=== PATIENT | male | born 1940 | race Caucasian/White ===

== ENCOUNTER 2019-08-20 16:37 | Outpatient (CLI) | payer MEDICARE, OTHER, SELFPAY ==
--- NOTE | ~2019-08-20 | US_ITS ---
EXAMINATION: US scrotum doppler DATE: 08/20/2019 17:09 INDICATION: Scrotal swallowing. TECHNIQUE: Testicular sonogram utilizing grayscale and Doppler COMPARISON: None. FINDINGS: The right testis measures 4.9 x 2.9 x 3.2 cm. The left testis measures 4.8 x 2.3 x 3.2 cm. Symmetric normal grayscale appearance to both testes. There is normal vascular flow to both testes. Both the le ft and right epididymis are thickened with heterogeneous increased echogenicity. 10 mm anechoic right epididymal cyst. There is no varicocele or hydrocele. There is diffuse scrotal edema. IMPRESSION: 1. Diffuse scrotal edema as well as edematous thickening of the left and right epididymides. Cannot exclude epididymitis although there is no definitive increased vascular flow to more specifically sug gest this. 2. Normal bilateral testes. Reviewed, dictated and finalized at location A. IMPRESSION: 1. Diffuse scrotal edema as well as edematous thickening of the left and right epididymides. Cannot exclude epididymitis although there is no definitive incr eased vascular flow to more specifically suggest this. 2. Normal bilateral testes.
[2019-08-20 17:36] LABS: Basophils Absolute Auto 0.1 K/mm3 (0.0-0.1); Basophils Percent Auto 0.4 % (0.2-1.2); Eosinophils Percent Auto 0.2 % (0-4.4); Hematocrit 34.5 % (42.0-52.0); Hemoglobin 11.1 g/dL (14.0-18.0); Immature Granulocyte Absolute 0.07 K/mm3 (0.00-0.031); Immature Granulocyte Percent A 0.5 % (0-0.5); Lymphocytes Absolute Auto 0.72 K/mm3 (0.9-3.2); Lymphocytes Percent Auto 5.6 % (18.3-44.2); Mean Corpuscular HGB Conc 32.2 g/dl (32-36); Mean Corpuscular Hemoglobin 28.8 pg (26-34); Mean Corpuscular Volume 89.6 fl (80-100); Mean Platelet Volume 7.4 fl (7.4-10.4); Monocytes Absolute Auto 1.2 K/mm3 (0.1-0.6); Neutrophils Absolute Auto 10.8 K/mm3 (1.3-6.7); Neutrophils Percent Auto 84.3 % (45.5-73.1); Platelet Count Result 259 k/mm3 (150-375); Red Blood Count 3.85 M/mm3 (4.6-6.20); Red Cell Distribution Width 14.1 % (11.5-14.5); White Blood Count 12.8 K/mm3 (4.5-10.0)
[2019-08-20 17:48] LABS: Blood Urea Nitrogen 12 mg/dL (9-20); Carbon Dioxide 28 mmol/L (22-30); Chloride 93 mmol/L (98-107); Estimated Glomerular Filt Rate > 60; Glucose 109 mg/dL (75-110); Potassium 4.2 mmol/L (3.4-5.0); Sodium 127 mmol/L (137-145)
== END 2019-08-20 16:38 | disposition home or self-care (01) ==
PROVIDERS: PCP Family Medicine; Visit Provider Family Medicine
DX: N50.89 Other specified disorders of the male genital organs (principal)
CPT/HCPCS: 36415; 76870; 80048; 85025; 93976

== ENCOUNTER 2019-08-27 10:44 | Outpatient (CLI) | payer MEDICARE, OTHER, SELFPAY ==
--- NOTE | ~2019-08-27 | CT_ITS ---
EXAMINATION: CT pelvis w con DATE: 08/27/2019 11:06 INDICATION: Cellulitis of the scrotum. TECHNIQUE: Computed tomography (CT) of the pelvis was performed with 100 mL Omnipaque 350 intravenous contrast. Automated exposure control and iterative reconstruction technique were employed. The dose- length product was 625.00 mGy-cm. COMPARISON: CT abdomen and pelvis 12/18/2017 FINDINGS: There are no dilated loops of bowel. There is trace pelvic ascites. There are no pathologic ally enlarged lymph nodes. The right testis is in the distal inguinal canal. In the right scrotum and perineum, there is a 4.0 x 1.0 x 1.5 cm abscess. No soft tissue gas. There is mild lumbar spondylosi s. IMPRESSION: 1. 4.0 x 1.0 x 1.5 cm abscess involving the right scrotum and perineum. Reviewed, dictated and finalized at location A.
== END 2019-08-27 10:45 | disposition home or self-care (01) ==
PROVIDERS: PCP Family Medicine; Visit Provider Urology
DX: N49.2 Inflammatory disorders of scrotum (principal)
CPT/HCPCS: 72193; Q9967

== ENCOUNTER 2023-01-16 22:40 | Inpatient (IN) | payer MEDICARE, OTHER, SELFPAY ==
--- NOTE | ~2023-01-16 | CT_ITS ---
EXAMINATION: CTA chest PE protocol DATE: 01/17/2023 02:54 INDICATION: Syncope. TECHNIQUE: Computed tomography angiography (CTA) of the chest was performed with 100 mL Omnipaque-350 intravenous contrast timed to evaluate the pulmonary arteries. Coronal maximum intensity projection 3D-reconstructions were created by the technologist. Automated exposure control and iterative reconst ruction technique were employed. The dose-length product was 467.19 mGy-cm. COMPARISON: Chest CT 01/16/2023 FINDINGS: There is marked elevation of left hemidiaphragm. There is atelectasis bilaterally, worst in lingula. Calcified left lung nodules and calcified left hilar and mediastinal lymph nodes are consis tent with old granulomatous disease. There is a trace right pleural effusion. The heart size is jovan l. There are coronary artery calcifications. No pericardial effusion. There is no pulmonary embolus. There is kyphosis and mild spondylosis of thoracic spine. There is severe cervical spondylosis. There is a fracture of right 11th rib. IMPRESSION: 1. No pulmonary embolus. 2. Marked elevation of left hemidiaphragm. 3. Fracture of right 11th rib. Reviewed, dictated and finalized at location E.
--- NOTE | ~2023-01-16 | CT_ITS ---
EXAMINATION: CT diagnostic chest wo con DATE: 01/17/2023 00:02 INDICATION: right posterior rib pain s/p fall TECHNIQUE: Computed tomography (CT) of the chest was performed with 100 mL Omnipaque-350 intravenous contrast. Automated exposure control and iterative reconstruction technique were employed. The dose-l ength product was 353.23 mGy-cm. COMPARISON: X-ray chest, same date; CT chest 12/18/2017. FINDINGS: CHEST: Thoracic aorta: No significant dilation or calcification. Lung parenchyma and airways: Severe chronic left hemidiaphragm elevation. Bibasilar scar/atelectasis. Thoracic inlet, axillae and chest wall: Bilateral thyroid nodules, history of prior biopsy. No axilla ry lymphadenopathy. Mediastinum: Granulomatous calcifications. The mediastinum is shifted to the right. Heart and pericardium: The heart is shifted to the right. Normal heart size. No pericardial effusion. Coronary artery calcifications: Moderate. Pleura: No effusion or mass. Upper abdomen: Subcentimeter right adrenal hypodensity, likely adenoma. Gaseous distention of the sto mach. Cholelithiasis. Thoracic bones: Mildly displaced fracture of the posterior 11th rib. Nondisplaced fractures of the po sterior ninth and 10th ribs.. IMPRESSION: Mildly displaced and nondisplaced fractures of the ninth through 11th right posterior ribs. . Reviewed, dictated and finalized at location K. IMPRESSION: Mildly displaced and nondisplaced fractures of the ninth through 11th right pos terior ribs. .
--- NOTE | ~2023-01-16 | CT_ITS ---
EXAMINATION: CT cervical spine wo con DATE: 01/17/2023 00:02 INDICATION: sycnope, head injury TECHNIQUE: Computed tomography (CT) of the cervical spine was performed without intravenous contrast. Automated exposure control and iterative reconstruction technique were employed. The dose-length pro duct was 596.40 mGy-cm. COMPARISON: None. FINDINGS: Vertebral Body Alignment: Intact. Craniocervical and atlantoaxial alignment: Moderate degenerative change. Alignment intact. Osseous structures/fracture: No evidence of a lytic or blastic process in the visualized spine. No e vidence of acute fracture. Cervical soft tissues: The paraspinal soft tissues planes are maintained. Bilateral thyroid nodules, history of prior biopsy. Degenerative changes: Multilevel mild degenerative disc disease and facet arthropathy. Multilevel sev ere bilateral neural foraminal narrowing. IMPRESSION: No acute fracture or traumatic malalignment in the cervical spine. Reviewed, dictated and finalized at location K.
--- NOTE | ~2023-01-16 | XR_ITS ---
EXAM: XR elbow LT min 3V DATE: 01/16/2023 23:48 HISTORY: fall, left elbow pain . COMPARISON: None available. FINDINGS: Normal mineralization. No fracture or dislocation. No lytic or blastic lesion. Olecranon e nthesopathy and lateral epicondylar. Posterior soft tissue swelling. No erosion or periosteal change. IMPRESSION: No acute osseous finding in the left elbow. Reviewed, dictated and finalized at location K.
--- NOTE | ~2023-01-16 | US_ITS ---
EXAMINATION: US carotid duplex BI DATE: 01/19/2023 10:10 INDICATION: Vertigo. Syncope. Carotid atherosclerosis. TECHNIQUE: Grayscale, color Doppler, and pulsed Doppler images of the cervical carotid arteries were obtained. The degree of vessel stenosis is placed in one of the following categories: normal, <50%, 5 0-69%, >=70% but less than near-occlusion, near-occlusion, or total occlusion. Note that percent sten osis relative to normal distal artery lumen diameter is indirectly measured from velocity measurement s as described by Beltran, et al. Radiology 2003; 229:340-346. COMPARISON: None. FINDINGS: RIGHT: The right common carotid artery (CCA) peak systolic velocity (PSV) is 116 cm/s. The right internal ca rotid artery (ICA) PSV is 104 cm/s. The right ICA end-diastolic velocity (EDV) is 27 cm/s. The right ICA/CCA PSV ratio is 1.1. Grayscale and color Doppler images yield an estimate of <50% diameter reduc tion from plaque in the ICA. The external carotid artery (ECA) PSV is 113 cm/s. There is antegrade fl ow in the right vertebral artery. LEFT: The left CCA PSV is 136 cm/s. The left ICA PSV is 111 cm/s. The left ICA EDV is 39 cm/s. The left ICA /CCA PSV ratio is 0.8. Grayscale and color Doppler images yield an estimate of <50% diameter reductio n from plaque in the ICA. The ECA PSV is 123 cm/s. There is antegrade flow in the left vertebral kobi ry. IMPRESSION: 1. <50% stenosis in the right internal carotid artery. 2. <50% stenosis in the left internal carotid artery. Reviewed, dictated and finalized at location A.
--- NOTE | ~2023-01-16 | CT_ITS ---
EXAMINATION: CT brain wo con DATE: 01/16/2023 23:54 INDICATION: syncope, head injury . TECHNIQUE: Computed tomography (CT) of the head was performed without intravenous contrast. The mA wa s adjusted according to patient size. Iterative reconstruction technique was employed. The dose-lengt h product was 681.00 mGy-cm. COMPARISON: None. FINDINGS: No acute intracranial hemorrhage or extra-axial fluid collection. No hydrocephalus, mass, or herniation. No acute ischemic infarct. Unremarkable dural venous sinus attenuation. No acute osseous abnormality. The aerated spaces are clear. Mild atrophy and chronic white matter change. Atherosclerotic intracranial calcification. Bilateral l ens replacements. Left basal ganglia calcification. Bilateral basal ganglia lacunar infarcts. IMPRESSION: No acute intracranial process. Reviewed, dictated and finalized at location K.
--- NOTE | ~2023-01-16 | XR_ITS ---
EXAMINATION: XR chest 1V portable Exam Date/Time: 01/16/2023 23:35 CDT HISTORY: syncope FALL RIGHT RIB PAIN Comparison: 11/07/2016. RESULT: Lines, tubes, and devices: None. Lungs and pleura: Volume loss in the left hemithorax. Bibasilar atelectasis. Marked elevation of the left hemidiaphragm Cardiomediastinal silhouette: Mediastinum is shifted towards the right. Other: No acute osseous finding. Gastric distention. IMPRESSION: No acute cardiopulmonary process. Marked chronic left hemidiaphragm elevation with volume loss in the left hemithorax and rightward mediastinal shift. Gaseous distention of the stomach. Reviewed, dictated and finalized at location K. IMPRESSION: No acute cardiopulmonary process. Marked chronic left hemidiaphragm elevation w ith volume loss in the left hemithorax and rightward mediastinal shift. Gaseous distention of the stomach.
[2023-01-16 22:44] VITALS: BP 163/90; PULSE 83; RESP 16; TEMP 36.2; O2SAT 99
--- NOTE | 2023-01-16 23:24 | ECG_ITS ---
Measurements Intervals [place] Rate: 76 P: 17 UT: 170 QRS: 7 QRSD: 146 T: 129 QT: 384 QTc: 433 Interpretive Statements SINUS RHYTHM LEFT BUNDLE BRANCH BLOCK BASELINE ARTIFACT- I, II, AVR ABNORMAL ECG NO PREVIOUS ECG AVAILABLE FOR COMPARISON Electronically Signed On 01-17-2023 6:23:45 CDT by Vishal Muñoz D.O.
--- NOTE | 2023-01-16 23:27 | ED.DIZZY ---
HPI - Dizziness General Chief Complaint: Syncope <Jonn Avery PA-C - Last Filed: 01/17/23 02:41> Stated Complaint: Fell today, syncope, left elbow pain, back pain <CHANTAL Garay Last Filed: 01/17/23 02:41> Time Seen by Provider: 01/16/23 22:51 <CHANTAL Garay Last Filed: 01/17/23 02:41> Source: patient <CHANTAL Garay Last Filed: 01/17/23 02:41> Mode of arrival: ambulatory <CHANTAL Garay Last Filed: 01/17/23 02:41> Limitations: no limitations <CHANTAL Garay Last Filed: 01/17/23 02:41> History of Present Illness HPI Narrative: This is an 82-year-old male who presented to the emergency department for chief complaint of a syncopal event. Reports this is the fourth syncopal episode in the past 3 weeks. Patient states that he was seen by primary care this week and they stopped his doxazosin. Reports that tonight he bent down to grab something from off of the floor and stood up, felt a head edwards and syncopized. Reports the next thing he remembers is his calling him and pulling himself up to the counter. He reports a cracked tooth, left elbow pain and right posterior rib pain. Denies any preceding chest pain, palpitations or shortness of breath. Denies numbness, weakness, vision change. Denies back pain, neck pain, headache, leg swelling, cough. States he was able to ambulate after the fall. He reports that the previous syncopal events that seem to happen after standing up too quickly as well. He is not on blood thinners. <CHANTAL Garay Last Filed: 01/17/23 02:41> Related Data Home Medications: Home Medications Medication Instructions Recorded Confirmed pantoprazole 40 mg tablet,delayed 40 mg PO QAM 09/21/19 01/17/23 release (Protonix) adalimumab 40 mg/0.8 mL See Rx Instructions subcut .COMPLEX 07/14/20 01/17/23 subcutaneous pen kit (Humira Pen) carboxymethylcellulose sodium 0.5 1 drp EACH EYE 4-6XD 09/27/20 01/17/23 % eye drops in a dropperette (Refresh Plus) clindamycin phosphate 1 % topical 1 applic topical DAILY 09/27/20 01/17/23 gel, once daily (Clindagel) clotrimazole-betamethasone 1 1 applic topical BID 09/27/20 01/17/23 %-0.05 % topical cream acetaminophen 325 mg capsule 650 mg PO BID 10/09/21 01/17/23 (Tylenol) doxycycline hyclate 100 mg capsule 100 mg PO DAILY 09/07/22 01/17/23 [facility] 1 tablet PO QAM 01/17/23 01/17/23 <Jonn Avery PA-C - Last Filed: 01/17/23 02:41> Allergies/Adverse Reactions: Allergies Allergy/AdvReac Type Severity Reaction Status Date / Time No Known Allergies Allergy Verified 01/07/23 13:19 <Jonn Avery PA-C - Last Filed: 01/17/23 02:41> Review of Systems Review of Systems: All systems as dictated in HPI <Jonn Avery PA-C - Last Filed: 01/17/23 02:41> [facility] Past Medical History Medical History: Medical History (Updated 01/18/23 @ 12:34 by Renaldo Barnard MD) BMI 25.0-25.9,adult BMI 26.0-26.9,adult BMI 30.0-30.9,adult Enlarged prostate without lower urinary tract symptoms (luts) Essential (primary) hypertension Gout, unspecified Iron deficiency anemia LBBB (left bundle branch block) Low vitamin D level Memory loss Mixed hyperlipidemia Scrotal infection Scrotal swelling Unsteady gait <Jonn Avery PA-C - Last Filed: 01/17/23 02:41> Family History Family History: Family History Father Hypertension Gout Mother Hypertension Family history of malignant neoplasm of breast in first degree relative Breast cancer Cerebrovascular accident Sibling Brain cancer Liver cancer Sibling No problems noted. Other Family history of hearing loss <Jonn Avery PA-C - Last Filed: 01/17/23 02:41> Social History Social History: Social History Smoking
[2023-01-16 23:32] VITALS: BP 140/80; PULSE 75
[2023-01-16 23:34] VITALS: BP 144/85; PULSE 87
[2023-01-16 23:36] VITALS: BP 150/85; PULSE 80
[2023-01-16 23:52] LABS: Basophils Absolute Auto 0.1 K/mm3 (0.0-0.1); Basophils Percent Auto 0.6 % (0.2-1.2); Eosinophils Absolute Auto 0.2 K/mm3 (0-0.3); Eosinophils Percent Auto 2.4 % (0-4.4); Hematocrit 40.6 % (42.0-52.0); Hemoglobin 12.9 g/dL (14.0-18.0); Immature Granulocyte Absolute 0.05 K/mm3 (0.00-0.031); Immature Granulocyte Percent A 0.6 % (0-0.5); Lymphocytes Absolute Auto 1.35 K/mm3 (0.9-3.2); Lymphocytes Percent Auto 17.4 % (18.3-44.2); Mean Corpuscular HGB Conc 31.8 g/dl (32-36); Mean Corpuscular Hemoglobin 31.2 pg (26-34); Mean Corpuscular Volume 98.1 fl (80-100); Mean Platelet Volume 8.1 fl (7.4-10.4); Monocytes Percent Auto 12.3 % (2.6-8.5); Neutrophils Absolute Auto 5.2 K/mm3 (1.3-6.7); Neutrophils Percent Auto 66.7 % (45.5-73.1); Platelet Count Result 232 k/mm3 (150-375); Red Blood Count 4.14 M/mm3 (4.6-6.20); Red Cell Distribution Width 13.9 % (11.5-14.5); White Blood Count 7.8 K/mm3 (4.5-10.0)
[2023-01-16 23:58] LABS: Alanine Aminotransferase 24 U/L (6-50); Albumin Level 4.5 g/dL (3.5-5.1); Alkaline Phosphatase 68 U/L (38-126); Anion Gap 6 mmol/L (8-16); Aspartate Amino Transferase 31 U/L (17-59); Bilirubin,Total 0.6 mg/dL (0.2-1.3); Blood Urea Nitrogen 16 mg/dL (9-20); Calcium 9.6 mg/dL (8.4-10.2); Carbon Dioxide 33 mmol/L (22-30); Chloride 92 mmol/L (98-107); Estimated CRCL calculation 56 ml/min; Estimated Glomerular Filt Rate > 60; Glucose 87 mg/dL (65-110); Magnesium 2.1 mg/dL (1.6-2.3); Potassium 4.5 mmol/L (3.4-5.0); Sodium 131 mmol/L (137-145)
[2023-01-17] VITALS (12 sets, daily range): BP systolic 125–158; BP diastolic 73–88; PULSE 72–94; RESP 13–20; TEMP 36.2–36.7; O2SAT 95–97; BMI 24.3
[2023-01-17 00:10] LABS: NT Pro B Type Natriuretic Pept 116 pg/mL (19.9-100); Troponin I < 0.012 ng/mL (0.000-0.034)
[2023-01-17 00:38] LABS: Appearance Urine Clear (Clear); Bilirubin Urine Negative (Negative); Blood Urine Negative (Negative); Color Urine Yellow (Yellow); Glucose Urine UA Negative (Negative); Ketones Urine Negative (Negative); Leukocyte Esterase Ur Negative LEU/UL (Negative); Nitrate Urine Negative (Negative); Protein Urine Negative (Negative); Specific Grav Ur 1.017 (1.001-1.035)
[2023-01-17 00:46] LABS: Add Urine Microscopic? NO
[2023-01-17 01:45] LABS: D Dimer 1.05 ug/mL (<0.48)
[2023-01-17] MEDS: HYDROcodone/acetaminophen (*CRX) 5-325 MG TABLET 1 TAB PO (02:52)
--- NOTE | 2023-01-17 03:22 | PM.IMHP ---
H&P: HPI History of Present Illness Date/Time: 01/17/23 03:22 Chief Complaint: Syncopal episodes Narrative: This is an 82-year-old male who presented to the emergency department for chief complaint of a syncopal event.? Reports this is the fourth syncopal episode in the past 3 weeks.? Patient states that he was seen by primary care this week and they stopped his doxazosin.? Reports that tonight he bent down to grab something from off of the floor and stood up, felt a head edwards and syncopized.? Reports the next thing he remembers is his calling him and pulling himself up to the counter.? He reports a cracked tooth, left elbow pain and right posterior rib pain.? Denies any preceding chest pain, palpitations or shortness of breath.? Denies numbness, weakness, vision change.? Denies back pain, neck pain, headache, leg swelling, cough. Patient was found to have multiple right posterior rib fracture involving 9-11 ribs in the ER, pain has been controlled, under admission requested to for ever which because of multiple syncopal episodes. Review of Systems Review of Systems: All systems reviewed & are unremarkable except as noted in HPI and below PMFSH Past Medical History Medical History BMI 25.0-25.9,adult BMI 26.0-26.9,adult BMI 30.0-30.9,adult Enlarged prostate without lower urinary tract symptoms (luts) Essential (primary) hypertension Gout, unspecified Iron deficiency anemia Low vitamin D level Memory loss Mixed hyperlipidemia Scrotal infection Scrotal swelling Unsteady gait Family History Family History Father Hypertension Gout Mother Hypertension Family history of malignant neoplasm of breast in first degree relative Breast cancer Cerebrovascular accident Sibling Brain cancer Liver cancer Sibling No problems noted. 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 Gender identity (if verbalized by the patient): Male Meds Home Medications and Allergies Home Medications Medication Instructions Recorded Confirmed Type pantoprazole 40 mg tablet,delayed 40 mg PO QAM 09/21/19 01/07/23 History release (Protonix) adalimumab 40 mg/0.8 mL See Rx Instructions subcut .COMPLEX 07/14/20 01/07/23 History subcutaneous pen kit (Humira Pen) carboxymethylcellulose sodium 0.5 1 drp EACH EYE 4-6XD PRN 09/27/20 01/07/23 History % eye drops in a dropperette (Refresh Plus) clindamycin phosphate 1 % topical 1 applic topical DAILY 09/27/20 01/07/23 History gel, once daily (Clindagel) clotrimazole-betamethasone 1 1 applic topical BID 09/27/20 01/07/23 History %-0.05 % topical cream aspirin 81 mg tablet,delayed 81 mg PO DAILY #90 tabs 01/31/21 01/07/23 Rx release cholecalciferol (vitamin D3) 25 25 mcg PO DAILY #90 caps 04/18/21 01/07/23 Rx mcg (1,000 unit) capsule acetaminophen 325 mg capsule 650 mg PO Q6H PRN 10/09/21 01/07/23 History (Tylenol) yfibemjz-ptu-lydap acid 0.4 1 tablet PO DAILY #90 tabs 01/22/22 01/07/23 Rx mg-lycopene 300 mcg-lutein 250 mcg tablet (CertaVite Senior) memantine 10 mg tablet 10 mg PO BID #180 tabs 04/23/22 01/07/23 Rx furosemi
--- NOTE | 2023-01-17 03:26 | PC.NURSE ---
Attempted to call report on pt. RN unavailable and will call back in 5 min. 15 min passed and this RN attempted again. Told by staff answering phone that RN has no questions and is ok to send pt.
--- NOTE | 2023-01-17 03:54 | ADMGEN ---
This patient, Nick Echeverria, was admitted to [facility] Room 321-02. Patient/family oriented to hospital policies and general routines including ID bracelet, bed and alarms, visiting hours, pain management, procedures, bathroom and other care routines, personal items, smoking policy, room service/diet, and visiting hours. Information on how to activate the Rapid Response Team has been discussed. Patient/Family are encouraged to report perceived risks to care and to ask questions if they do not understand what they are told or what they should do.
[2023-01-17] MEDS: SODIUM CHLORIDE 0.9% IV 1,000 ML 75 ML IV CONT (04:10)
[2023-01-17 06:47] LABS: Basophils Percent Auto 0.7 % (0.2-1.2); Eosinophils Absolute Auto 0.1 K/mm3 (0-0.3); Eosinophils Percent Auto 1.8 % (0-4.4); Hematocrit 38.1 % (42.0-52.0); Immature Granulocyte Absolute 0.03 K/mm3 (0.00-0.031); Immature Granulocyte Percent A 0.5 % (0-0.5); Lymphocytes Absolute Auto 0.84 K/mm3 (0.9-3.2); Mean Corpuscular HGB Conc 31.5 g/dl (32-36); Mean Corpuscular Hemoglobin 30.8 pg (26-34); Mean Corpuscular Volume 97.9 fl (80-100); Monocytes Absolute Auto 0.8 K/mm3 (0.1-0.6); Monocytes Percent Auto 13.5 % (2.6-8.5); Neutrophils Absolute Auto 4.2 K/mm3 (1.3-6.7); Neutrophils Percent Auto 69.5 % (45.5-73.1); Platelet Count Result 192 k/mm3 (150-375); Red Blood Count 3.89 M/mm3 (4.6-6.20); Red Cell Distribution Width 13.9 % (11.5-14.5)
[2023-01-17 06:56] LABS: Anion Gap 3 mmol/L (8-16); Blood Urea Nitrogen 13 mg/dL (9-20); Calcium 9.4 mg/dL (8.4-10.2); Carbon Dioxide 34 mmol/L (22-30); Chloride 95 mmol/L (98-107); Estimated CRCL calculation 66 ml/min; Estimated Glomerular Filt Rate > 60; Glucose 100 mg/dL (65-110); Potassium 4.3 mmol/L (3.4-5.0); Sodium 132 mmol/L (137-145)
[2023-01-17] MEDS: LOSARTAN POTASSIUM 50 MG TABLET PO (08:56)
[2023-01-17] MEDS: FUROSEMIDE 20 MG TABLET PO (08:56)
[2023-01-17] MEDS: ACETAMINOPHEN 325 MG TABLET 650 MG PO (08:56)
[2023-01-17] MEDS: CHOLECALCIFEROL 1,000 UNITS TABLET 1000 UNITS PO (08:57)
[2023-01-17] MEDS: FERROUS SULFATE 325 MG TABLET DR BY MOUTH ×2 (08:57→16:25)
[2023-01-17] MEDS: MULTIVITAMINS /C LUTEIN (CENTRUM SILVER) TABLET *BKC 1 TAB PO (08:57)
[2023-01-17] MEDS: ACIDOPHILUS/BULGARICUS CHEWABLE TABLET 1 TABLET PO (08:57)
[2023-01-17] MEDS: PANTOPRAZOLE 40 MG TABLET PO (08:57)
[2023-01-17] MEDS: allopurinoL 100 MG TABLET PO ×2 (08:57→16:25)
[2023-01-17] MEDS: MEMANTINE 10 MG TABLET PO ×2 (08:57→16:25)
[2023-01-17] MEDS: BETAMETHASONE/CLOTRIMAZOLE CR 15 GM TUBE 1 APPLIC TOPICAL ×2 (08:58→20:18)
[2023-01-17] MEDS: DUTASTERIDE 0.5 MG CAPSULE PO (08:58)
[2023-01-17] MEDS: DOXYCYCLINE HYCLATE 100 MG TABLET PO (10:54)
[2023-01-17] MEDS: CLINDAMYCIN PHOS 1% 30 GM GEL 1 APPLIC TOPICAL (10:56)
--- NOTE | 2023-01-17 16:02 | PM.IMPN ---
Progress Note: A&P Assessment and Plan (1) Multiple rib fractures: Code(s): S22.49XA - Multiple fractures of ribs, unspecified side, initial encounter for closed fracture Status: Acute (2) Syncope and collapse: Code(s): R55 - Syncope and collapse Status: Acute (3) Anemia: Code(s): D64.9 - Anemia, unspecified Status: Acute Plan 82M w/ PMH HTN, gout, iron deficiency anemia, vit d deficiency, memory loss, HLD, presents with syncope x4 over the past 3 weeks. He visited his primary recently and doxazosin was stopped. However, he was at home and had another syncopal episode, he woke up on the floor. Admitted for rib fractures on 01/17/23 1) syncope. none since admission - no events on tele. story supports neurocardiogenic/orthostatic. stopping losartan and lasix now, obtaining orthostats daily - ordered abdominal binder - in light of the LBBB which is new to our records, will consult cardiology for further recs. educated on arising slowly from supine and seated positioning 2) cracked tooth - no pain, he has dentist appt soon 3) R fracture R 9-11 - pain control regimen prn. pt does not want scheduled drugs - cont tele and cont pulse ox. ordered IS - PT/OT consulted. pt and want to discuss if the pt is amenable to acute rehab stay. - elevated left hemidiaphragm. pt and report this is old from many years back, f/u as outpatient FEN: saline lock IV, cardiac diet GI prophylaxis: not indicated DVT prophylaxis: HSC Lines: pIV Code Status: Full Code Dispo: stable. PT OT consulted, cardiology consult More than 35 minutes spent on chart review, patient interaction and assessment and plan. Subjective Date/time seen: 01/17/23 16:02 Interval history: NAOE. pt reports pain when coughing. is present. he denies sob or chest pain at rest. Review of Systems Review of Systems: All systems reviewed & are unremarkable except as noted in HPI and below Exam Const: General: comfortable Neck: Neck: supple Resp: Effort & Inspection: normal respiratory effort (weak inspiratory effort 2/2 pain) Auscultation: clear to auscultation bilaterally Cardio: Rate: regular rate Rhythm: regular rhythm Heart sounds: no murmurs GI: GI Palp: Yes Soft to palpation Extrem: General: no edema Objective Data Vital Signs Vital Signs: Vital Signs - 24 hr 01/16/23 22:44 01/16/23 23:31 01/16/23 23:32 Temperature 97.2 F L Pulse Rate 83 75 Respiratory Rate 16 Blood Pressure 163/90 H 140/80 Pulse Oximetry 99 Oxygen Delivery Room Air Room Air 01/16/23 23:34 01/16/23 23:36 01/17/23 03:14 Temperature Pulse Rate 87 80 81 Respiratory Rate 18 Blood Pressure 144/85 H 150/85 H 125/87 Pulse Oximetry 97 Oxygen Delivery 01/17/23 01:15 01/17/23 01:45 01/17/23 03:16 Temperature Pulse Rate 81 82 91 Respiratory Rate 13 13 19 Blood Pressure 141/74 H 137/76 158/87 H Pulse Oximetry 95 96 95 Oxygen Delivery 01/17/23 03:30 01/17/23 04:00 01/17/23 08:50 Temperature 97.2 F L Pulse Rate 89 94 79 Respiratory Rate 16 Blood Pressure 141/86 H Pulse Oximetry 96 Oxygen Delivery 01/17/23 08:50 01/17/23 12:00 01/17/23 14:00 Temperature 98.0 F Pulse Rate 83 83 Respiratory Rate 16 Blood Pressure 142/73 H Pulse Oximetry 96 97 Oxygen Delivery Room Air Intake/Output Intake/Output: Intake & Output 01/14/23 01/15/23 01/16/23 01/17/23 23:59 23:59 23:59 23:59 Intake Total 720 Output Total 200 Balance 520 Meds/Results Medications: Active Medications Generic Name Dose Route Start Last Admin Trade Name Freq PRN Reason Stop Dose Admin Acetaminophen 650 mg 01/17/23 03:17 Acetaminophen 325 Mg Tablet PO Q4H PRN Mild Pain (1-3) or Fever Hydrocodone Bitart/Acetaminophen 1 tab 01/17/23 02:02 01/17/23 02:52 Hydrocodone/Acetaminophen (*Crx) 5-325 Mg Tablet PO 1 tab Q4H PRN Administration Pain Rated 4-6
--- NOTE | 2023-01-17 22:00 | PC.NURSE ---
This magazine writer brought in patients scheduled Heparin injection. Pt refusing to take Heparin at this time. Pt educated on why medication is ordered and potential consequences of not taking medication. Medication marked off in MAY.
[2023-01-18] VITALS (11 sets, daily range): BP systolic 135–168; BP diastolic 69–84; PULSE 75–92; RESP 16–20; TEMP 36.1–37.2; O2SAT 92–96
--- NOTE | 2023-01-18 | ECHO_ITS ---
Patient Info Name: Nick Echeverria Age: 82 years : 1940 Gender: Male Ht: 71 in Wt: 173 lbs BSA: 1.99 m2 HR: 82 bpm BP: 139 / 69 mmHg Heart Rhythm: Left Bundle Branch Block, Sinus Rhythm Technical Quality: Poor Exam Date: 01/18/2023 2:17 PM Exam Location: Echo Lab Patient Status: Inpatient Admit Date: 01/18/2023 Staff Ordering Physician: Renaldo Barnard MD Trapeze Performer: Ann Wright RDCS Attending Provider: Deirdre Merritt MD Referring Physician: Akil VELASCO; Exam Type: CA echo dop color flow w con Study Info Indications R55 - Syncope and collapse I44.7 - Left bundle-branch block, unspecified Complete two-dimensional, color flow and Doppler transthoracic echocardiogram is performed with contrast to opacify the left ventricle and to improve the deliniation of the left ventricle endocardial borders. Contrast/Agitated Saline Contrast/Ag. Saline: Definity Amount: 2.00 ml Administered By: Ann Wright RDCS Existing IV Access: Yes IV Access Condition: patent with no signs of infiltration Summary 1. Left ventricular chamber dimension is normal. 2. Left ventricular systolic function is normal, estimated at 65-70%. 3. There is mildly increased left ventricular wall thickness. 4. The left ventricular diastolic function is grade I diastolic dysfunction. 5. Left atrial chamber dimension is mildly enlarged. 6. There is mild aortic valve calcification. 7. There is moderate aortic valve sclerosis. 8. There is mild tricuspid valve regurgitation. 9. Mild pulmonary hypertension, estimated pulmonary arterial systolic pressure is 37 mmHg. 10. There is mild pulmonic regurgitation. Left Ventricle Left ventricular chamber dimension is normal. Left ventricular systolic function is normal, estimated at 65-70%. There is mildly increased left ventricular wall thickness. The left ventricular diastolic function is grade I diastolic dysfunction. Right Ventricle Right ventricular chamber dimension is normal. Right ventricular systolic function is normal. Left Atria Left atrial chamber dimension is mildly enlarged. Right Atria Right atrial chamber dimension is normal. Atrial Septum Intact interatrial septum visualized by color flow imaging. Aortic Valve The aortic valve is trileaflet. There is moderate aortic valve sclerosis. There is no aortic valve stenosis. There is trace aortic valve regurgitation. There is mild aortic valve calcification. Pulmonic Valve The pulmonic valve is normal. There is no pulmonic valve stenosis. There is mild pulmonic regurgitation. Mitral Valve The mitral valve has normal leaflets. There is no mitral valve stenosis. There is trace mitral valve regurgitation. Tricuspid Valve The tricuspid valve leaflets are normal. There is no significant tricuspid valve stenosis. There is mild tricuspid valve regurgitation. Mild pulmonary hypertension, estimated pulmonary arterial systolic pressure is 37 mmHg. Pericardium/Pleural The pericardium appears normal. There is no pericardial effusion. Inferior Vena Cava Normal inferior vena cava with >50% collapse upon inspiration consistent with normal right atrial pressure, 10 mmHg. Aorta The aortic root size at the sinus of Valsalva is normal. Left Ventricular Outflow Tract Name Value Normal LVOT 2D
[2023-01-18] MEDS: ACETAMINOPHEN 325 MG TABLET 650 MG PO (05:49)
[2023-01-18 07:22] LABS: Hemoglobin 12.4 g/dL (14.0-18.0); Mean Corpuscular HGB Conc 31.8 g/dl (32-36); Mean Corpuscular Hemoglobin 31.2 pg (26-34); Mean Platelet Volume 8.1 fl (7.4-10.4); Platelet Count Result 189 k/mm3 (150-375); Red Blood Count 3.98 M/mm3 (4.6-6.20); Red Cell Distribution Width 13.7 % (11.5-14.5); White Blood Count 5.9 K/mm3 (4.5-10.0)
[2023-01-18 07:36] LABS: Anion Gap 4 mmol/L (8-16); Blood Urea Nitrogen 11 mg/dL (9-20); Calcium 9.3 mg/dL (8.4-10.2); Carbon Dioxide 33 mmol/L (22-30); Chloride 94 mmol/L (98-107); Estimated CRCL calculation 75 ml/min; Estimated Glomerular Filt Rate > 60; Glucose 104 mg/dL (65-110); Magnesium 1.8 mg/dL (1.6-2.3); Potassium 4.1 mmol/L (3.4-5.0); Sodium 131 mmol/L (137-145)
[2023-01-18] MEDS: ACIDOPHILUS/BULGARICUS CHEWABLE TABLET 1 TABLET PO (09:17)
[2023-01-18] MEDS: CHOLECALCIFEROL 1,000 UNITS TABLET 1000 UNITS PO (09:17)
[2023-01-18] MEDS: MEMANTINE 10 MG TABLET PO ×2 (09:17→16:15)
[2023-01-18] MEDS: PANTOPRAZOLE 40 MG TABLET PO (09:17)
[2023-01-18] MEDS: allopurinoL 100 MG TABLET PO ×2 (09:17→16:15)
[2023-01-18] MEDS: FERROUS SULFATE 325 MG TABLET DR BY MOUTH ×2 (09:17→16:16)
[2023-01-18] MEDS: MULTIVITAMINS /C LUTEIN (CENTRUM SILVER) TABLET *BKC 1 TAB PO (09:17)
[2023-01-18] MEDS: BETAMETHASONE/CLOTRIMAZOLE CR 15 GM TUBE 1 APPLIC TOPICAL ×2 (09:18→22:39)
[2023-01-18] MEDS: HEPARIN SODIUM 5,000 UNITS/ML VIAL 5000 UNITS SUB-Q ×2 (09:19→20:47)
[2023-01-18] MEDS: CLINDAMYCIN PHOS 1% 30 GM GEL 1 APPLIC TOPICAL (09:19)
[2023-01-18] MEDS: DOXYCYCLINE HYCLATE 100 MG TABLET PO (10:46)
--- NOTE | 2023-01-18 12:28 | PM.CNCAR ---
Assessment and Plan Assessment and plan (1) Syncope and collapse: Code(s): R55 - Syncope and collapse Status: Acute Assessment and Plan: Syncope certainly sounds orthostatic in etiology. Each occasion occurred upon standing up or bending over and then standing back up. Does not describe palpitations. For now will continue telemetry monitoring. Orthostatic blood pressures have been taken but will continue to do them Q shift. His doxazosin has been discontinue. Will discontinue his Avodart also because orthostasis can occur in 5-9% of patients who are on Avodart. Will check a TSH and free T4 level. He does have dementia which can result in autonomic dysfunction. Will check a 2D echocardiogram Doppler specially given left bundle-branch block. Will also check carotid ultrasound. If need be, add midodrine (2) LBBB (left bundle branch block): Code(s): I44.7 - Left bundle-branch block, unspecified Status: Acute Assessment and Plan: Will check an echo (3) Mixed hyperlipidemia: Code(s): E78.2 - Mixed hyperlipidemia Status: Acute Assessment and Plan: On Praluent (4) Memory loss: Code(s): R41.3 - Other amnesia Status: Acute Assessment and Plan: On Namenda History of Present Illness History of Present Illness Consult date/time: 01/18/23 12:28 Requesting physician: Michelle Glass MD Consult reason: Other (Syncope) Reason For Visit: Syncope, Right Rib Fractures Narrative: Reason for consultation: Syncope, left bundle-branch block Date of service 01/18/2023 Requesting provider: Dr. Glass History patient is an 82-year-old male who does not have known cardiac history who presented the hospital following another syncopal episode. He has passed out 4 times in the last month or so. Did talk to his primary care provider who did stop doxazosin about 2 weeks ago. He has not had another syncopal episode after stopping doxazosin until yesterday. He bent over to pick something up off the ground stood back up and then felt a head edwards and then next thing he remembers is waking up on the ground. This has happened on 4 occasions all of which either are occurring upon standing or bending over to pick something up and then standing back up. He thinks that he is unconscious for a few seconds up to 15 seconds at a time. He did fracture some ribs yesterday and cracked tooth. Came to the hospital and EKG did show left bundle branch block. Because of the recurrent syncopal episodes and left bundle-branch block cardiology consultation was requested. Patient denies any chest pain, shortness of breath, paroxysmal nocturnal dyspnea, orthopnea, palpitations. He does have a little bit of lower extremity swelling which comes and goes and is not new. playground monitor does not reveal any high-grade heart block or pauses at this point. He does have a history of dementia which is progressing but no diabetes, chronic alcohol use, Parkinson's Review of Systems Review of Systems: All systems reviewed & are unremarkable except as noted in HPI and below Constitutional: Constitutional: Denies body ache(s) Eyes: Eyes: Denies blurry vision ENT: Reports Normal hearing present Cardiovascular: Cardiovascular: Denies chest pain and Reports lightheadedness Respiratory: Respiratory: Denies dyspnea Gastrointestinal: Gastrointestinal: Denies abdominal pain Genitourinary: Genitourinary: Denies hematuria Musculoskeletal: Musculoskeletal: Denies back pain Integumentary/Breasts: Skin/Breast: Denies erythema Neurologic: Denies Abnormal speech present Psychiatric: Psychiatric: Denies anxiety Endocrine: Endocrine: Denies excessive sweating Hematologic/Lymphatic: Hematologic/Lymphatic: Denies easy bleeding Allergic/Immunologic: Allergic/Immunologic: Denies GI upset with certain foods PMFSH Past Medical History Medical History (Updated 01/18/23 @ 12:34 by Renaldo Jaffe
[2023-01-18 13:14] LABS: T4 Thyroxine 7.09 ug/dL (5.53-11.0)
--- NOTE | 2023-01-18 13:23 | PM.IMPN ---
Progress Note: A&P Assessment and Plan (1) Multiple rib fractures: Code(s): S22.49XA - Multiple fractures of ribs, unspecified side, initial encounter for closed fracture Status: Acute (2) Syncope and collapse: Code(s): R55 - Syncope and collapse Status: Acute (3) Fracture, ribs: Code(s): S22.49XA - Multiple fractures of ribs, unspecified side, initial encounter for closed fracture Status: Acute Plan pain well controlled. not even needing prns. declining home health or SNF for therapy. continue abdominal binder and stockings. appreciate cardiology recs for syncope. full code. Subjective Date/time seen: 01/18/23 13:23 Interval history: NAOE. pt has been up and walking with therapy. no lightheadedness or syncope. he and the at bedside decline both SNF or home health (house is dirty) Review of Systems Review of Systems: All systems reviewed & are unremarkable except as noted in HPI and below Exam Const: General: comfortable and no acute distress Eyes: Pupils: Equal, round and reactive pupils present Neck: Neck: supple Resp: Effort & Inspection: normal respiratory effort Auscultation: clear to auscultation bilaterally Cardio: Rate: regular rate Rhythm: regular rhythm Heart sounds: no gallops, no murmurs and no rubs Extrem: General: no edema Objective Data Vital Signs Vital Signs: Vital Signs - 24 hr 01/17/23 14:00 01/17/23 16:00 01/17/23 20:00 Temperature 98.0 F Pulse Rate 83 77 72 Respiratory Rate 16 Blood Pressure 142/73 H Pulse Oximetry 97 Oxygen Delivery 01/17/23 22:00 01/18/23 00:00 01/18/23 04:00 Temperature 97.1 F L Pulse Rate 83 81 85 Respiratory Rate 20 Blood Pressure 153/88 H Pulse Oximetry 96 Oxygen Delivery 01/18/23 06:00 01/18/23 08:00 01/18/23 08:29 Temperature 97 F L 98.1 F Pulse Rate 82 75 83 Respiratory Rate 20 16 Blood Pressure 168/84 H 135/70 136/78 Pulse Oximetry 95 94 92 Oxygen Delivery 01/18/23 08:30 01/18/23 09:23 01/18/23 08:00 Temperature Pulse Rate 84 81 Respiratory Rate Blood Pressure 139/69 Pulse Oximetry 92 Oxygen Delivery Room Air 01/18/23 08:00 01/18/23 12:00 Temperature Pulse Rate 82 Respiratory Rate Blood Pressure Pulse Oximetry 96 Oxygen Delivery Room Air Intake/Output Intake/Output: Intake & Output 01/15/23 01/16/23 01/17/23 01/18/23 23:59 23:59 23:59 23:59 Intake Total 1760 218 Output Total 200 900 Balance 1560 -682 Meds/Results Medications: Active Medications Generic Name Dose Route Start Last Admin Trade Name Freq PRN Reason Stop Dose Admin Acetaminophen 650 mg 01/17/23 03:17 01/18/23 05:49 Acetaminophen 325 Mg Tablet PO 650 mg Q4H PRN Administration Mild Pain (1-3) or Fever Hydrocodone Bitart/Acetaminophen 1 tab 01/17/23 02:02 01/17/23 02:52 Hydrocodone/Acetaminophen (*Crx) 5-325 Mg Tablet PO 1 tab Q4H PRN Administration Pain Rated 4-6 Allopurinol 100 mg 01/17/23 08:00 01/18/23 09:17 Allopurinol 100 Mg Tablet PO 100 mg BIDWM MELQUIADES Administration Artificial Tears 1 drop 01/17/23 05:31 Artificial Tears Ophth Soln 15 Ml Bottle EACH EYE Q4H PRN Dry Eye(s) Clindamycin Phosphate 1 applic 01/17/23 09:00 01/18/23 09:19 Clindamycin Phos 1% 30 Gm Gel TOPICAL 02/16/23 08:59 1 applic DAILY MELQUIADES Administration Clotrimazole 1 applic 01/17/23 21:00 01/18/23 09:18 Betamethasone/Clotrimazole Cr 15 Gm Tube TOPICAL 1 applic Q12H MELQUIADES Administration Doxycycline Hyclate 100 mg 01/17/23 10:00 01/18/23 10:46 Doxycycline Hyclate 100 Mg Tablet PO 100 mg DAILY@1000 MELQUIADES Administration Ferrous Sulfate 325 mg 01/17/23 09:00 01/18/23 09:17 Ferrous Sulfate [address] BY MOUTH 325 mg BID MELQUIADES Administration Heparin Sodium (Porcine) 5,000 units 01/17/23 21:00 01/18/23 09:19 Heparin Sodium 5,000 Units/Ml Vial SUB-Q 5,000 u
[2023-01-18] MEDS: PERFLUTREN LIPID MICROSPHERES 1.5 ML VIAL DILUTED TO 10 ML TOTAL VOLUME IV PUSH (14:51)
--- NOTE | 2023-01-18 15:16 | IVDEFINITY ---
Prior to administration of IV Definity the patient was educated on the risks and benefits of the imaging enhancing agent including potential adverse side effects. The patient verbalized understanding. Allergies were verified. No exclusion criteria were identified and at least one of the following inclusion criteria were met: 1) physician request, 2) patient technically difficult to image (per the [place] [employer] guidelines of two or more segments not discernable within the apical view), or 3) questionable left ventricular function. ?
[2023-01-19] VITALS (11 sets, daily range): BP systolic 140–175; BP diastolic 72–93; PULSE 73–94; RESP 18–20; TEMP 36.3–36.8; O2SAT 95–97
[2023-01-19 05:50] LABS: Basophils Percent Auto 0.5 % (0.2-1.2); Eosinophils Absolute Auto 0.2 K/mm3 (0-0.3); Hematocrit 40.9 % (42.0-52.0); Hemoglobin 12.8 g/dL (14.0-18.0); Immature Granulocyte Absolute 0.04 K/mm3 (0.00-0.031); Immature Granulocyte Percent A 0.5 % (0-0.5); Lymphocytes Absolute Auto 1.28 K/mm3 (0.9-3.2); Lymphocytes Percent Auto 17.2 % (18.3-44.2); Mean Corpuscular HGB Conc 31.3 g/dl (32-36); Mean Corpuscular Hemoglobin 30.4 pg (26-34); Mean Corpuscular Volume 97.1 fl (80-100); Mean Platelet Volume 7.9 fl (7.4-10.4); Monocytes Absolute Auto 0.9 K/mm3 (0.1-0.6); Monocytes Percent Auto 12.6 % (2.6-8.5); Neutrophils Percent Auto 67.2 % (45.5-73.1); Platelet Count Result 202 k/mm3 (150-375); Red Blood Count 4.21 M/mm3 (4.6-6.20); Red Cell Distribution Width 13.7 % (11.5-14.5); White Blood Count 7.5 K/mm3 (4.5-10.0)
[2023-01-19 05:57] LABS: Anion Gap 9 mmol/L (8-16); Blood Urea Nitrogen 11 mg/dL (9-20); Calcium 9.4 mg/dL (8.4-10.2); Carbon Dioxide 29 mmol/L (22-30); Chloride 94 mmol/L (98-107); Estimated CRCL calculation 59 ml/min; Estimated Glomerular Filt Rate > 60; Glucose 111 mg/dL (65-110); Potassium 4.2 mmol/L (3.4-5.0); Sodium 132 mmol/L (137-145)
--- NOTE | 2023-01-19 10:07 | PM.PNCARD ---
Progress Note: A&P Assessment and Plan (1) Syncope and collapse: Code(s): R55 - Syncope and collapse Status: Acute Assessment and Plan: Syncope certainly sounds orthostatic in etiology. Each occasion occurred upon standing up or bending over and then standing back up. There is no arrhythmia on telemetry monitoring. No orthostatic hypotension noted upon BP assessments but clinically, still sounds orthostatic. Echocardiogram was unremarkable. Continue to hold alpha blockers. Carotid ultrasound is pending but unlikely the etiology of his syncope. Could have him wear a longer-term monitor but this could be placed as an outpatient. No further inpatient workup needed. Encouraged to stay hydrated (2) LBBB (left bundle branch block): Code(s): I44.7 - Left bundle-branch block, unspecified Status: Acute Assessment and Plan: Unremarkable echo (3) Mixed hyperlipidemia: Code(s): E78.2 - Mixed hyperlipidemia Status: Acute Assessment and Plan: On Praluent (4) Memory loss: Code(s): R41.3 - Other amnesia Status: Acute Assessment and Plan: On Namenda Subjective Date/time seen: 01/19/23 10:07 Interval history: 82-year-old admitted for syncope Date of service 01/19/2023: Feels well. No chest pain or shortness of breath. No syncope or presyncope. Orthostatics are not abnormal Review of Systems Review of Systems: All systems reviewed & are unremarkable except as noted in HPI and below Constitutional: Constitutional: Denies body ache(s) and Denies excessive sweating Eyes: Eyes: Denies blurry vision ENT: Reports Normal hearing present Cardiovascular: Cardiovascular: Denies chest pain, Reports lightheadedness and Denies dyspnea Respiratory: Respiratory: Denies dyspnea Gastrointestinal: Gastrointestinal: Denies abdominal pain Genitourinary: Genitourinary: Denies hematuria Musculoskeletal: Musculoskeletal: Denies back pain Integumentary/Breasts: Skin/Breast: Denies erythema Neurologic: Reports Normal hearing present and Denies Abnormal speech present Psychiatric: Psychiatric: Denies anxiety Endocrine: Endocrine: Denies excessive sweating Hematologic/Lymphatic: Hematologic/Lymphatic: Denies easy bleeding Allergic/Immunologic: Allergic/Immunologic: Denies GI upset with certain foods Exam Narrative: Awake alert oriented appears to be in no acute distress. Appears stated age Const: General: comfortable and no acute distress HENMT: Face/Nose/Sinus: Normal nares present Mouth: Yes moist mucous membranes Eyes: General: appearance normal, both eyes and all related structures Sclera: sclerae normal Neck: Neck: supple and no JVD Carotids: no bruits Chest: Other: He does have some reproducible rib pain Resp: Effort & Inspection: normal respiratory effort Auscultation: clear to auscultation bilaterally Cardio: Rate: regular rate Rhythm: regular rhythm Heart sounds: no murmurs GI: Inspection: non-distended Auscultation: normal bowel sounds Skin: General skin exam: normal color Neuro: Cranial nerves: Yes Normal hearing present Speech: normal speech and No Abnormal speech present Sensory Exam: normal sensation Extrem: General: normal to inspection Psych: Mental Status: mental status grossly normal Objective Data Vital Signs Vital Signs: Vital Signs - 24 hr 01/18/23 12:00 01/18/23 14:00 01/18/23 16:00 Temperature 37.2 C Pulse Rate 82 92 84 Respiratory Rate 18 Blood Pressure 139/72 Pulse Oximetry 95 Oxygen Delivery 01/18/23 20:00 01/18/23 22:00 01/18/23 20:00 Temperature 36.2 C L Pulse Rate 86 78 Respiratory Rate 16 Blood Pressure 147/75 H Pulse Oximetry 95 Oxygen Delivery Room Air 01/19/23 00:00 01/19/23 04:00 01/19/23 04:55 Temperature 36.3 C L Pulse Rate 78 73 77 Respiratory Rate 18 Blood Pressure 148/76 H Pulse Oximetry 97 Oxygen Delivery 1
[2023-01-19] MEDS: PANTOPRAZOLE 40 MG TABLET PO (10:20)
[2023-01-19] MEDS: MULTIVITAMINS /C LUTEIN (CENTRUM SILVER) TABLET *BKC 1 TAB PO (10:20)
[2023-01-19] MEDS: allopurinoL 100 MG TABLET PO ×2 (10:20→17:50)
[2023-01-19] MEDS: HEPARIN SODIUM 5,000 UNITS/ML VIAL 5000 UNITS SUB-Q ×2 (10:20→20:15)
[2023-01-19] MEDS: ACIDOPHILUS/BULGARICUS CHEWABLE TABLET 1 TABLET PO (10:20)
[2023-01-19] MEDS: MEMANTINE 10 MG TABLET PO ×2 (10:21→17:50)
[2023-01-19] MEDS: FERROUS SULFATE 325 MG TABLET DR BY MOUTH ×2 (10:21→17:50)
[2023-01-19] MEDS: CHOLECALCIFEROL 1,000 UNITS TABLET 1000 UNITS PO (10:21)
[2023-01-19] MEDS: CLINDAMYCIN PHOS 1% 30 GM GEL 1 APPLIC TOPICAL (10:28)
[2023-01-19] MEDS: DOCUSATE SODIUM 100 MG CAPSULE PO ×2 (11:52→20:15)
[2023-01-19] MEDS: DOXYCYCLINE HYCLATE 100 MG TABLET PO (11:52)
[2023-01-19] MEDS: ACETAMINOPHEN 325 MG TABLET 650 MG PO (11:52)
[2023-01-19] MEDS: LIDOCAINE 5% PATCH 1 PATCH TRANSDERM (11:53)
[2023-01-19] MEDS: HYDROcodone/acetaminophen (*CRX) 5-325 MG TABLET 1 TAB PO ×2 (12:35→21:52)
--- NOTE | 2023-01-19 12:37 | PM.DS ---
DS: Admitting Diagnosis Discharge Date 01/19/23 Admitting Diagnosis syncope DS: Discharge Diagnosis Discharge Diagnosis (1) LBBB (left bundle branch block): Code(s): I44.7 - Left bundle-branch block, unspecified Status: Acute (2) Multiple rib fractures: Code(s): S22.49XA - Multiple fractures of ribs, unspecified side, initial encounter for closed fracture Status: Acute (3) Syncope and collapse: Code(s): R55 - Syncope and collapse Status: Acute DS: Summary Hospital Course Hospital Course: A pleasant 82M accompanied by w/ PMH HTN, gout, iron deficiency anemia, vit d deficiency, HLD presented with a syncopal episode at home, unwitnessed with a fall. Chest CTA, Chest CT, Cervical spine CT and head CT, and chest and elbow x ray did not reveal any obvious reason for his syncope. Findings did reveal rib fractures 9-11 posterior right side. This was managed with minimal pain medications. The patient and declined any SNF for rehab and even decline home health reporting their house was messy. Pt was able to get up and walk by himself without assistance, so he will be discharged home in stable condition. He is to follow up with PCP for his multiple issues. His syncope happened 4 times, for the past few months. It was described as preceded by dizziness then syncope after he would get up from sitting or standing too quick. Orthostats did not reveal hypotension, and cardiology was consulted in light of a new LBBB as well. workup so far negative. he is dc'ed on abdominal binder, his losartan, lasix and avodart were all dc'ed. For this reason he should follow up with PCP within 1 week, and outpatient holter monitor should be consider per cardiology. More than 35 minutes spent on chart review, patient interaction and assessment and plan. Time Spent with Patient Time attestation: Total time spent providing and/or coordinating discharge services: Exam Const: General: comfortable and no acute distress Eyes: Pupils: Equal, round and reactive pupils present Neck: Neck: supple Resp: Effort & Inspection: normal respiratory effort Auscultation: clear to auscultation bilaterally Cardio: Rate: regular rate Rhythm: regular rhythm Heart sounds: no gallops, no murmurs and no rubs GI: GI Palp: Yes Soft to palpation Extrem: General: no edema DS: Data Data Completed and Pending Labs on day of discharge: Labs from last 24 hours 01/19/23 01/18/23 05:32 06:50 WBC 7.5 RBC 4.21 L Hgb 12.8 L Hct 40.9 L MCV 97.1 MCH 30.4 MCHC 31.3 L RDW 13.7 Plt Count 202 MPV 7.9 Immature Gran % (Auto) 0.5 Neut % (Auto) 67.2 Lymph % (Auto) 17.2 L [place] % (Auto) 12.6 H Eos % (Auto) 2.0 Baso % (Auto) 0.5 Lymph # (Auto) 1.28 [place] # (Auto) 0.9 H Eos # (Auto) 0.2 Baso # (Auto) 0.0 Abs Immat Gran (auto) 0.04 H Absolute Neuts (auto) 5.0 Absolute Nucleated RBC 0.0 Nucleated RBC % 0.0 Sodium 132 L Potassium 4.2 Chloride 94 L Carbon Dioxide 29 Anion Gap 9 BUN 11 Creatinine 0.90 Estim Creat Clear Calc 59 Estimated GFR > 60 Glucose 111 H Calcium 9.4 TSH 0.600 Thyroxine (T4) 7.09 Discharge Plan Discharge Attending physician on discharge: Michelle Glass Consulting providers: Renaldo Barnard; Jonn Avery Discharging Clinician: Michelle Glass Patient Disposition: Home, Self-Care Activity: may shower Diet: heart healthy Discharge Instructions: stay hydrated. remember to get up from lying down and seated positions slowly. continue to wear waist high compression stockings and abdominal binder Stand Alone Forms: General Discharge Information Follow-up/Referrals: Justin Allen MD [Primary Care Provider] - 1 Week (follow up on syncope. 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
[2023-01-19] MEDS: BETAMETHASONE/CLOTRIMAZOLE CR 15 GM TUBE 1 APPLIC TOPICAL (20:15)
[2023-01-20] VITALS (7 sets, daily range): BP systolic 150–165; BP diastolic 68–80; PULSE 74–94; RESP 18–20; TEMP 36.5–37.3; O2SAT 97–98
--- NOTE | 2023-01-20 01:16 | PC.NURSE ---
Daylight Savings Time For Daylight Savings Time Ending in the Fall - Clocks are moved back. For Daylight Savings Time Beginning in the Spring - Clocks are moved ahead. For [facility], the time of change occurs at 0200 hrs. Time is taken from the chief service observer. This entry on the patient's chart recognizes the change in time reflected during documentation. Example: 2 entries for vital signs may be charted for 0200 hrs.
[2023-01-20] MEDS: CHOLECALCIFEROL 1,000 UNITS TABLET 1000 UNITS PO (09:55)
[2023-01-20] MEDS: ACETAMINOPHEN 325 MG TABLET 650 MG PO (09:55)
[2023-01-20] MEDS: ACIDOPHILUS/BULGARICUS CHEWABLE TABLET 1 TABLET PO (09:55)
[2023-01-20] MEDS: DOCUSATE SODIUM 100 MG CAPSULE PO (09:55)
[2023-01-20] MEDS: allopurinoL 100 MG TABLET PO (09:56)
[2023-01-20] MEDS: MULTIVITAMINS /C LUTEIN (CENTRUM SILVER) TABLET *BKC 1 TAB PO (09:56)
[2023-01-20] MEDS: MEMANTINE 10 MG TABLET PO (09:56)
[2023-01-20] MEDS: DOXYCYCLINE HYCLATE 100 MG TABLET PO (09:56)
[2023-01-20] MEDS: FERROUS SULFATE 325 MG TABLET DR BY MOUTH (09:56)
[2023-01-20] MEDS: PANTOPRAZOLE 40 MG TABLET PO (09:57)
[2023-01-20] MEDS: HEPARIN SODIUM 5,000 UNITS/ML VIAL 5000 UNITS SUB-Q (09:57)
[2023-01-20] MEDS: LIDOCAINE 5% PATCH 1 PATCH TRANSDERM (09:59)
[2023-01-20] MEDS: CLINDAMYCIN PHOS 1% 30 GM GEL 1 APPLIC TOPICAL (10:03)
[2023-01-20] MEDS: BETAMETHASONE/CLOTRIMAZOLE CR 15 GM TUBE 1 APPLIC TOPICAL (10:10)
== END 2023-01-20 13:45 | disposition home or self-care (01) | DRG 312 ==
LOC: ANHED 01-17 02:37 → ANH3MEDSUR 01-17 03:28
PROVIDERS: Internal Medicine Cardiovascular Disease; Admitting Provider Student in an Organized Health Care Education/Training Program; Emergency Provider Physician Assistant; PCP Family Medicine; Visit Provider General Practice
DX: R55 Syncope and collapse (principal); S22.41XA Multiple fractures of ribs, right side, initial encounter for closed fracture; K03.81 Cracked tooth; W18.39XA Other fall on same level, initial encounter; I44.7 Left bundle-branch block, unspecified; E78.2 Mixed hyperlipidemia; R41.3 Other amnesia; D50.9 Iron deficiency anemia, unspecified; I10 Essential (primary) hypertension; E55.9 Vitamin D deficiency, unspecified; N40.0 Benign prostatic hyperplasia without lower urinary tract symptoms; F03.90 Unspecified dementia, unspecified severity, without behavioral disturbance, psychotic disturbance, mood disturbance, and anxiety; I77.9 Disorder of arteries and arterioles, unspecified; Z79.82 Long term (current) use of aspirin
CPT/HCPCS: 36415; 70450; 71045; 71250; 71275; 72125; 73080; 80048; 80053; 81003; 83735; 83880; 84436; 84443; 84484; 85025; 85027; 85380; 93005; 93880; 96360; 96361; 96372; 97161; 97165; 97535; 99285; A9270; C8929; G0378; J1644; J7030; Q9957; Q9967

== ENCOUNTER 2023-07-01 13:58 | Outpatient (CLI) | payer MEDICARE, OTHER, SELFPAY ==
--- NOTE | ~2023-07-01 | US_ITS ---
EXAMINATION: US venous doppler [facility] DATE: 07/01/2023 14:39 INDICATION: M79.89 - Other specified soft tissue disorders . TECHNIQUE: Grayscale images without and with compression and Doppler images of the bilateral lower ex tremity veins were obtained. COMPARISON: None FINDINGS: The right common femoral vein, profunda (deep) femoral vein, femoral vein, popliteal vein, peroneal v ein, posterior tibial veins, gastrocnemius vein, and greater saphenous vein are patent. The left common femoral vein, profunda (deep) femoral vein, femoral vein, popliteal vein, peroneal v ein, posterior tibial veins, gastrocnemius vein, and greater saphenous vein are patent. IMPRESSION: Patent bilateral lower extremity veins. No evidence of deep venous thrombosis. Reviewed, dictated and finalized at location K.
== END 2023-07-01 13:59 | disposition home or self-care (01) ==
PROVIDERS: PCP Family Medicine; Visit Provider Physician Assistant Medical
DX: M79.89 Other specified soft tissue disorders (principal)
CPT/HCPCS: 93970

== ENCOUNTER 2024-06-03 18:05 | Observation (INO) | payer MEDICARE, OTHER, SELFPAY ==
--- NOTE | ~2024-06-03 | CT_ITS ---
Non-contrast Head CT History: Altered mental status COMPARISON: 01/16/2023 Technique: Axial non-contrast imaging of the brain was performed. Dose reduction technique was used on this scan by utilizing automated exposure control and iterative reconstruction technique. The dose -length product (DLP) was 756.67 mGy-cm. Findings: There is no evidence of intracranial hemorrhage, mass lesion, or acute infarct. Brain par enchyma appears normal. The ventricles and subarachnoid spaces are normal in size. The calvarium ap pears normal. The visualized paranasal sinuses and mastoid air cells are clear. Impression: No significant abnormality seen. Reviewed, dictated and finalized at location . Impression: No significant abnormality seen.
--- NOTE | ~2024-06-03 | XR_ITS ---
Portable chest x-ray Comparison: 01/16/2023 Clinical History: Altered mental status Findings: Stable marked elevation left hemidiaphragm. Probable minimal right pleural effusion. Mild haziness present left lung base. Cardiomediastinal silhouette is stable. Bones and soft tissues are unremarkable. Impression: Stable marked elevation left hemidiaphragm. There is minimal haziness left lung base. Correlate for a telectasis or pneumonia. Minimal right pleural effusion. Reviewed, dictated and finalized at location . Impression: Stable marked elevation left hemidiaphragm. There is minimal haziness left lung base. Correlate for atelectasis or pneumonia. Minimal right pleural effusion.
--- NOTE | ~2024-06-03 | MR_ITS ---
MRI of the brain Clinical History: Altered mental status Technique: Axial and sagittal T1-weighted images were acquired. These were followed by axial T2-weigh lyndsey, diffusion weighted, gradient, and FLAIR images. Following intravenous administration of 16 cc Pr oHance gadolinium, T1-weighted fat-sat imaging was performed in the axial and coronal planes. Findings: There is no acute infarct, internal hemorrhage or mass lesion. There are mild chronic white matter changes in the periventricular white matter bilaterally. Ventricles and subarachnoid spaces are mildly dilated. Orbits are unremarkable. Paranasal sinuses and mastoid air cells are clear. Major intracranial flow voids are intact. Sagittal midline structures are intact. No abnormal postcontrast enhancement identified. IMPRESSION: No acute infarct, intracranial hemorrhage, or mass lesion. Mild chronic microvascular ischemic changes. Reviewed, dictated and finalized at [facility].
[2024-06-03 18:06] VITALS: BP 111/67; PULSE 88; RESP 16; TEMP 36.8; O2SAT 98
--- OUTSIDE RECORDS SUMMARY | 2024-06-03 18:09 | XMS_ITS | Clinical Summary ---
Author Organization [facility] Address [address] [place] [address] Care Team Providers Care Metal Worker Name Role Phone Justin Allen MD Primary Care Provider [phone] Source Comments [facility],non-owned Affiliates and Associated Physician Practices is amultiple site organization consisting of ambulatory clinics and hospital sitesin [place], [place], [place] and [place]. This disclosure is being madepursuant to the Care Everywhere program and may not contain all information available regarding this patient. Last updated 17.[facility] Allergies No known active allergies Medications * Be aware that medications may not be up to date on this document. Alwaysverify current medications with the patient. Medication Sig Dispensed Refills Start Date End Date Status acetaminophen (TYLENOL) 500 MG tablet Take 1 (one) tablet by mouth every 6 hours as needed for Fever or Pain Maximum allowable Acetaminophen amount = 4 Grams (4000 mg) / 24 hours. Active allopurinol (ZYLOPRIM) 100 MG tablet Take 1 (one) tablet by mouth 2 times daily Active dutasteride (AVODART) 0.5 MG capsule Take 1 (one) capsule by mouth once daily Active Multiple Vitamins-Minerals (CERTAVITE/ANTIOXI DANTS) TABS Take 1 (one) tablet by mouth once daily Active doxazosin (CARDURA) 2 MG tablet Take 1 (one) tablet by mouth once daily Active furosemide (LASIX) 20 MG tablet Take 1 (one) tablet by mouth once daily Active Cholecalciferol (VITAMIN D3) 1000 UNITS Take 1 (one) capsule by mouth once daily Active clobetasol (OLUX) 0.05 % Apply to affected area 2 times daily Active memantine (NAMENDA) 5 MG tablet Take 2 (two) tablets by mouth 2 times daily Active losartan (COZAAR) 100 MG tablet Take 1 (one) tablet by mouth once daily Active ferrous sulfate 325 (65 FE) MG tablet Take 1 (one) tablet by mouth 2 times daily with morning and evening meal Active TETRACYCLINE HCL PO Take 1 tablet by mouth once daily Active adalimumab (Humira) 40 MG/0.4ML injection Inject 0.4 mL subcutaneously every 7 days Active clindamycin (Cleocin) 1 % gel Apply to affected area 2 times daily Active clotrimazole-betam ethasone (Lotrisone) 1-0.05 % cream Apply 1 applicator to affected area 2 times daily Active Probiotic Product (PROBIOTIC MATURE ADULT PO) Take 1 tablet by mouth once daily Active zinc oxide (Desitin) 13 % cream Apply 1 Application to affected area as needed Active hydrocortisone (Hytone) 2.5 % cream Apply to affected area 2 times daily Active carboxymethylcellu lose sodium PF (Refresh Plus) 0.5 % ophthalmic solution Instill 1 (one) drop into both eyes 3 times daily Active doxycycline hyclate (Acticlate) 100 MG tablet Take 1 (one) tablet by mouth every 12 hours Active Aspirin Low Dose 81 MG tablet Take 1 (one) tablet by mouth once daily 02/18/2023 Active atorvastatin (Lipitor) 40 MG tablet Take 1 (one) tablet by mouth once daily 04/13/2023 Active pantoprazole EC (Protonix) 40 MG tabletIndications: Gastroesophageal reflux disease without esophagitis Take 1 (one) tablet by mouth once daily 90 tablet 3 07/04/2023 Active Active Problems Problem Noted Date Diagnosed Date Fecal urgency 07/31/2022 Gluteal pain 04/10/2018 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 Loss of weight 12/20/2017 GERD (gastroesophageal reflux disease) 2 Tubular adenoma 09/06/2011 Family History Medical History Relation Name Comments Alzheimer's Disease Father Cancer - Breast Mother High Cholesterol Mother Hypertension Mother Relation Name Status Comments Father Mother Alive Social History Tobacco Use Types Packs/Day Years Used Date Smoking Tobacco: Never Smokeless Tobacco: Never Tobacco Cessation:Counseling Given: Not Answered Alcohol Use Standard Drinks/Week Comments No 0 (1 standard drink = 0.6 oz pur e alcohol) Sex and Gender Information Value Date Recorded Sex Assigned at Not on file Gender Identity Not on file Sexual Orientation Not on file Last Filed Vital Signs Vital Sign Reading Time Taken Comments Blood Pressure 129/85 07/04/2023 9:34 AM CDT Pulse 83 07/04/2023 9:34 AM CDT Temperature 36.1 C (97 F) 12/13/2022 1:35 PM CDT Respiratory Rate 18 12/19/2018 1:32 PM CDT Oxygen Saturation 100% 07/04/2023 9:34 AM CDT Inhaled Oxygen Concentration - - Weight 77 kg (169 lb 12.8 oz) 07/04/2023 9:34 AM CDT Height 175.3 cm (5' 9 ) 07/04/2023 9:34 AM CDT Body Mass Index 25.08 07/04/2023 9:34 AM CDT Plan of Treatment Upcoming Encounters Date Type Department Care Team (Late st Contact Info) Description 07/02/2024 10:00 AM CDT Office Visit [facility] - [address] [place] [address] Health Maintenance Due Date Last Done Comments MEDICARE AWV 12 MONTHS 1940 DTAP/TDAP/TD VACCINES (1 - Tdap) 11/30/1959 PNEUMOCOCCAL VACCINE 50+ (1 of 1 - PCV) 1990 ZOSTER VACCINE (1 of 2) 1990 Respiratory Syncytial Virus (RSV) Vaccine Pt: or over 60 yrs (1 - 1-dose 75+ series) 11/30/2015 COVID-19 VACCINE ( - season) 2023 INFLUENZA VACCINE (#1) 2023 6, 12/11/2014, 12/12/2013, Additional history exists DEPRESSION SCREENING 03/18/2024 HEPATITIS B VACCINE Aged Out No longe r eligible based on patient's age to complete this topic HIB VACCINE Aged Out No longer eligi ble based on patient's age to complete this topic HPV VACCINE Aged Out No longer eligi ble based on patient's age to complete this topic MENINGOCOCCAL (Group B) VACCINE SHARED DECISION-MAKING Aged Out No longer eligible based on patient's age to complete this topic MENINGOCOCCAL GROUPS A/C/Y/W VACCINE Aged Out No longer eligible based on patient's age to complete this topic Goals Goal Patient Goal Type Associated Problems Recent Progress Patient-Stated? Author Safety General On track( 2:25 PM CDT) Beronica Perrin, RN Note: Expected end date: Ongoing Interventions: Your nurse will assess your risk for falls/injury each visit Use appropriate and safe transfer methods Medication Management General On track( 2:25 PM CDT) Beronica Perrin, RN Note: Expected end date: Ongonig Interventions: Take all medications as prescribed Let your doctor know right away about any changes in your medications Care Teams Metal Worker Relationship Specialty Start Date End Date Justin Allen MD [address] [place] [address] PCP - General 08/07/17
--- OUTSIDE RECORDS SUMMARY | 2024-06-03 18:09 | XMS_ITS | Clinical Summary ---
Author Organization [facility] Address [address] [place] [address] Care Team Providers Care Field Automobile Adjuster Name Role Phone Justin Allen MD Primary Care Provider [phone] Allergies No known active allergies Medications adalimumab (Humira Pen) 40 mg/0.8 mL pen injector kit Inject under the skin 3 01/31/20 25 Active allopurinoL (ZYLOPRIM) 100 mg tablet Take 1 tablet (100 mg total) by mouth 2 (two) times a day 3 01/31/20 25 Active atorvastatin (LIPITOR) 40 mg tablet Take 1 tablet (40 mg total) by mouth daily 3 Active doxycycline (DORYX) 100 mg EC tablet Take 1 tablet (100 mg total) by mouth every 12 (twelve) hours Active ferrous sulfate 325 mg (65 mg of elemental iron) tablet Take 1 tablet (325 mg total) by mouth Active memantine (NAMENDA) 10 mg tablet Take 1 tablet (10 mg total) by mouth 2 (two) times a day [address] (PROTONIX) 40 mg EC tablet Take 1 tablet (40 mg total) by mouth 3 01/31/20 25 Active acetaminophen (TYLENOL) 500 mg tablet Take 1 tablet (500 mg total) by mouth every 6 (six) hours as needed Active Refresh Plus 0.5 % dropperette 3 Active clotrimazole-bet amethasone (LOTRISONE) cream Apply 1 Application topically 2 (two) times a day Active clindamycin (CLINDAGEL) 1 % gel Apply topically 2 (two) times a day 3 Active aspirin 81 mg enteric coated tablet Take with food/milk.Debbie ow whole. 3 01/31/20 25 Active cholecalciferol (VITAMIN D-3) 1,000 unit capsule Take 1 capsule (1,000 Units total) by mouth daily Active tamsulosin (FLOMAX) 0.4 mg extended release capsule 4 Active zinc oxide (Desitin Daily Defense) 13 % cream Apply 1 Application topically as needed Active tetracycline HCl, bulk, powder Take 1 tablet by mouth daily Active furosemide (LASIX) 20 mg tabletIndication s:Bilateral lower extremity edema TAKE 1 TABLET(20 MG) BY MOUTH DAILY NEEDED FOR SWELLING 90 tablet 3 4 Active Active Problems Problem Noted Date Diagnosed Date Bilateral lower extremity edema 11/01/2023 Memory loss 01/30/2023 Mixed hyperlipidemia 01/30/2023 Recurrent syncope 01/30/2023 Left bundle-branch block, unspecified 01/30/2023 Orthostasis 01/30/2023 Primary hypertension 01/30/2023 Medical History Medical History Date Comments Syncope LBBB (left bundle branch block) Social History Tobacco Use Types Packs/Day Years Used Date Smoking Tobacco: Never Passive Smoke Exposure: Never Smokeless Tobacco: Never Tobacco Cessation:Counseling Given: Not Answered Sex and Gender Information Value Date Recorded Sex Assigned at Not on file Legal Sex Male 12:08 PM CDT Gender Identity Not on file Sexual Orientation Not on file Obstetrics History Last Filed Vital Signs Vital Sign Reading Time Taken Comments Blood Pressure 136/80 01/31/2024 2:55 PM RESIDENTIAL 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 UNIT 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 Pulse 86 01/31/2024 2:55 PM RESIDENTIAL DOOR UNIT INSTALLER Temperature - - Respiratory Rate - - Oxygen Saturation 97% 01/31/2024 2:55 PM RESIDENTIAL DOOR UNIT INSTALLER Inhaled Oxygen Concentration - - Weight 80.7 kg (178 lb) 01/31/2024 2:55 PM RESIDENTIAL DOOR UNIT INSTALLER Height 180.3 cm (5' 11 ) 01/31/2024 2:55 PM RESIDENTIAL DOOR UNIT INSTALLER Body Mass Index 24.83 01/31/2024 2:55 PM RESIDENTIAL DOOR UNIT INSTALLER Plan of Treatment Health Maintenance Due Date Last Done Comments Depression Screening 1940 Fall Risk Assessment 1940 DTaP/Tdap/Td Vaccine (1 - Tdap) 11/30/1951 Hepatitis B Screening 1958 Zoster Vaccine (1 of 2) 1990 Well Visit 65+ 2005 Covid-19 Vaccine (6 - 2023-2 5 season) 2023 12/13/2021, 07/18/2021, 01/12/2021, Additional history exists Influenza Vaccine (#1) 2023 , 12/20/2021, 01/04/2021, Additional history exists Pneumococcal vaccine 65+ Completed 03/25/2019, 11/2017 Insurance [employer] Care Teams Field Automobile Adjuster Relationship Specialty Start Date End Date Justin Allen MD PCP - General Family Medicine 10/30/19
--- OUTSIDE RECORDS SUMMARY | 2024-06-03 18:09 | XMS_ITS | Continuity of Care Document ---
Author Organization [facility] Address [address] [place] [address] Phone Care Team Providers Care Veterinary Technician Assistant Name Role Phone Efren Sandra Unavailable Unavailable Procedures Procedure Date Office/outpatient Visit, Est Office/outpatient Visit, Est Office/outpatient Visit, Est Post-op Follow-up Visit Post-op Follow-up Visit Remove Cataract, Insert Lens,Comanaged A Office/outpatient Visit, Est Echo Exam Of Eye Eye Exam, New Patient Visual Functional Status Assessed Advance Directives Directive Yes / No Effective Date File Name No Information Encounters Encounter Description Practice Location Reason(s) For Visit Diagnoses Date Provider Providers Copied on Encounter Office/outpat ient Visit, [facility] [place] [address] [place] [address] [address], [place], [place], [id number], tel:[phone] [facility] No Information Nov-2 6200 8 Boaz Schwartz. [address] [facility] [address], [place], [address], [place]. tel:[phone] Office/outpat ient Visit, [facility], [address] [place] [address] [address], [place], [place], [id number], [place] tel:[phone] [facility] [place] No Information Nov-1 9200 8 Melvin Fleming. [address] [facility] [address] , [address], [place], [place], [facility], [place]. tel:[phone] Office[facility]pat ient [facility], [facility], [address], [place], [place], [id number], [place] tel:[phone] [facility] No Information Sep- 8-200 8 Doisy Edward. [address] , [address], [place], [place], [facility], . tel:[phone] [facility], [address] [place] [address] [address], [place], [place], [id number], [place] tel:[phone] [facility] No Information Jun-2 3-200 8 Doisy Edward. [address] , [address], [place], [place], [facility], . tel:[phone] Referring Provider: Baiorn Langford, [address] [place] [address], [facility]. tel:[phone] [facility], [address] [place] [address] [address], [place], [place], [id number], [place] tel:[phone] [facility] No Information 1 6-200 8 Doisy Edward. [address] , [address], [place], [place], [facility], . tel:[phone] [facility], [address], [place], [place], [id number], [place] tel:[phone] [facility] No Information Apr-1 5-200 8 Doisy Edward. [address] , [address], [place], [facility], . tel:[phone] Referring Provider: Bairon Langford, [address] [place] [address], [facility]. tel:[phone] Office/outpat ient Visit, Est [facility], [address], [place], [place], [id number], tel:[phone] [facility] [address] No Information Mar-3 1-200 8 Melvin Fleming. [address] [place] [address] , [address], [place], [facility], . tel:[phone] Referring Provider: Lonnie Langford, [address] [place], [place] [address], [place], [place], [facility]. tel:[phone] [facility], [address], [place], [place], [id number], tel:[phone] [facility] No Information Sep-2 8200 7 Melvin Fleming. [address] [place] [address] , [address], [place], [facility], . tel:[phone] Referring Provider: Bairon Langford, [address] [facility], [place], [place], [facility]. tel:[phone] Family History Family Member Type Diagnosis Age At Onset No Information Payers Payer name Insurance type Covered libertarian ID Authoriza tion(s) [place] [id number] [place] BL [id number] For Life Mdcr Supp CI [id number] Social History Type Description Quantity Date Captured Comments Sex Male Smoking Status No Information Chief Complaint And Reason For Visit No Information Reason For Referral Reason For Referral No Information History Of Present Illness Encounter Date Complaint History Of Prese nt Illness No Information Functional Status Date Functional Assessmen t No Information Instructions Date Instruction Additional Infor mation No Information Assessments Type Assessment Date No Information Patient Care Teams Name Effective Dates (start - stop) Status Members No Information
--- OUTSIDE RECORDS SUMMARY | 2024-06-03 18:09 | XMS_ITS | Referral Summary ---
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
--- OUTSIDE RECORDS SUMMARY | 2024-06-03 18:09 | XMS_ITS | Continuity of Care Document ---
Author Name [facility] Organization [facility] Care Team Providers Care Entertainment Production Professional Name Role Phone [facility] Unavailable Unavailable Medications Combined list of outpatient medications from Department of Defense and Veterans Affairs facilities.Medications provided include 1) outpatient medications from the last 15 months, and 2) patient-reported medications. Medication Details Route Status Patient Instructions Prescription Expires Prescription Number Last Dispense Date Ordering Provider Order Date Order Qty Source adalimumab 40 mg/0.8 mL subcutaneou s kit INJECT 40MG SUB-CUTA NEOUSLY EVERY 7 DAYS DIRECTED , # 8 EA, 5 total refill(s ), Acute Complet ed 06/27/2023 3 2023 8.0 Ambulat ory Pharmac y allopurinol 100 mg tablet 100 mg, Oral, BID, # 180 EA, 2 total refill(s ), Hard Stop Oral (given by mouth) Ordered 04/23/2025 5 2024 180.0 Ambulat ory Pharmac y allopurinol 100 mg tablet See Instruct ions, # 180 EA, 2 total refill(s ), Acute Complet ed 08/13/2023 4 2023 180.0 Ambulat ory Pharmac y allopurinol 100 mg tablet 100 mg, Oral, BID, # 180 EA, 2 total refill(s ), Hard Stop Oral (given by mouth) Discont inued 04/24/2024 4 2024 180.0 Ambulat ory Pharmac y aspirin EC 81 mg tablet 81 mg, Oral, Daily, # 60 EA, 2 total refill(s ), Hard Stop Oral (given by mouth) Complet ed 01/20/2024 4 2023 60.0 Ambulat ory Pharmac y atorvastati n 40 mg tablet 40 mg, Oral, Daily, # 90 EA, 1 total refill(s ), Soft Stop Oral (given by mouth) Ordered 5 2024 90.0 Ambulat ory Pharmac y atorvastati n 40 mg tablet 40 mg, Oral, Daily, # 90 EA, 1 total refill(s ), Hard Stop Oral (given by mouth) Discont inued 05/22/2024 5 2024 90.0 Ambulat ory Pharmac y atorvastati n 40 mg tablet 40 mg, Oral, Daily, # 90 EA, 1 total refill(s ), Hard Stop Oral (given by mouth) Discont inued 12/02/2023 4 2023 90.0 Ambulat ory Pharmac y clindamycin 1% gel [30g] See Instruct ions, # 30 g, 8 total refill(s ), Hard Stop Ordered 03/02/2025 5 2024 30.0 Ambulat ory Pharmac y clindamycin 1% gel [60g] See dose instruct ions in comments , # 60 g, 5 total refill(s ), Acute Complet ed 08/15/2023 4 2023 60.0 Ambulat ory Pharmac y doxazosin 2 mg tablet See dose instruct ions in comments , # 90 EA, 1 total refill(s ), Acute Complet ed 12/31/2022 3 2022 90.0 Ambulat ory Pharmac y doxazosin 2 mg tablet 2 mg, Oral, Daily, # 90 EA, 3 total refill(s ), Hard Stop Oral (given by mouth) Complet ed 01/02/2024 3 2023 90.0 Ambulat ory Pharmac y doxycycline hyclate 100 mg capsule See Instruct ions, # 90 EA, 1 total refill(s ), Hard Stop Ordered 07/15/2024 5 2024 90.0 Ambulat ory Pharmac y doxycycline hyclate 100 mg capsule See dose instruct ions in comments , # 90 EA, 1 total refill(s ), Acute Complet ed 04/05/2023 3 2023 90.0 Ambulat ory Pharmac y doxycycline hyclate 100 mg capsule See dose instruct ions in comments , # 90 EA, 1 total refill(s ), Acute Complet ed 06/27/2023 3 2023 90.0 Ambulat ory Pharmac y doxycycline hyclate 100 mg capsule 100 mg, Oral, Daily, # 90 EA, 1 total refill(s ), Hard Stop Oral (given by mouth) Discont inued 12/25/2023 4 2023 90.0 Ambulat ory Pharmac y ferrous sulfate 325 mg tablet See Instruct ions, # 180 EA, 2 total refill(s ), Hard Stop Complet ed 11/22/2023 4 2023 180.0 Ambulat ory Pharmac y fluoride 1.1% dental cream [51g] See Instruct ions, # 51 g, 1 total refill(s ), Acute Complet ed 05/16/2023 3 2023 51.0 Ambulat ory Pharmac y furosemide 20 mg tablet 40 mg, Oral, every morning, # 180 EA, 2 total refill(s ), Hard Stop Oral (given by mouth) Ordered 04/13/2025 5 2024 180.0 Ambulat ory Pharmac y furosemide 20 mg tablet See Instruct ions, # 90 EA, 2 total refill(s ), Acute Complet ed 07/08/2023 3 2023 90.0 Ambulat ory Pharmac y Humira (CF) 40 mg/0.4 mL [2PENS] See Instruct ions, # 8 EA, 5 total refill(s ), Hard Stop Complet ed 09/05/2023 4 2023 8.0 Ambulat ory Pharmac y Humira (CF) 40 mg/0.4 mL [2PENS] See Instruct ions, # 8 EA, 5 total refill(s ), Hard Stop Ordered 10/21/2024 5 2024 8.0 Ambulat ory Pharmac y hydrocortis one 2.5% cream [30g] See Instruct ions, # 30 g, 2 total refill(s ), Hard Stop Ordered 03/02/2025 4 2023 30.0 Ambulat ory Pharmac y hydrocortis one 2.5% cream [30g] See Instruct ions, # 30 g, 2 total refill(s ), Hard Stop Complet ed 01/02/2024 4 2023 30.0 Ambulat ory Pharmac y hydrocortis one 2.5% topical cream APPLY TO AFFECTED AREAS TWICE A DAY NEEDED *CAN MIX WITH LAMISIL AND DESITIN AND APPLY DIRECTED *, # 30 g, 1 total refill(s ), Acute Complet ed 06/27/2023 3 2023 30.0 Ambulat ory Pharmac y losartan 50 mg tablet 50 mg, Oral, Daily, # 90 EA, 3 total refill(s ), Hard Stop Oral (given by mouth) Complet ed 10/11/2023 3 2023 90.0 Ambulat ory Pharmac y memantine 10 mg tablet 10 mg, Oral, BID, # 180 EA, 1 total refill(s ), Hard Stop Oral (given by mouth) Discont inued 05/13/2024 4 2024 180.0 Ambulat ory Pharmac y memantine 10 mg tablet 10 mg, Oral, BID, # 180 EA, 1 total refill(s ), Soft Stop Oral (given by mouth) Ordered 5 2024 180.0 Ambulat ory Pharmac y memantine 10 mg tablet 10 mg, Oral, BID, # 180 EA, 1 total refill(s ), Hard Stop Oral (given by mouth) Discont inued 10/23/2023 4 2023 180.0 Ambulat ory Pharmac y memantine 10 mg tablet See Instruct ions, # 180 EA, 2 total refill(s ), Acute Complet ed 04/22/2023 3 2023 180.0 Ambulat ory Pharmac y pantoprazol e EC 40 mg tablet See Instruct ions, # 90 EA, 3 total refill(s ), Hard Stop Discont inued 10/23/2023 4 2023 90.0 Ambulat ory Pharmac y pantoprazol e EC 40 mg tablet 40 mg, Oral, Daily, # 90 EA, 3 total refill(s ), Hard Stop Oral (given by mouth) Ordered 07/03/2024 5 2024 90.0 Ambulat ory Pharmac y Refresh Plus 0.5% (PF) eye drops UD [30EA] See Instruct ions, # 60 EA, 3 total refill(s ), Hard Stop Complet ed 06/27/2023 4 2023 60.0 Ambulat ory Pharmac y terbinafine 1% cream [30g] See dose instruct ions in comments , # 30 g, 3 total refill(s ), Acute Complet ed 06/27/2023 4 2023 30.0 Ambulat ory Pharmac y terbinafine 1% cream [30g] See Instruct ions, # 30 g, 2 total refill(s ), Hard Stop Ordered 03/02/2025 5 2024 30.0 Ambulat ory Pharmac y terbinafine 1% topical cream APPLY TOPICALL Y TO AFFECTED AREA OF INNER THIGHS AND GROIN TWICE A DAY NEEDED., # 30 g, 3 total refill(s ), Acute Complet ed 03/14/2023 2 2022 30.0 Ambulat ory Pharmac y terbinafine 1% topical cream APPLY TOPICALL Y TO AFFECTED AREA OF INNER THIGHS AND GROIN TWICE A DAY NEEDED DIRECTED BY PROVIDER ., # 30 g, 3 total refill(s ), Acute Complet ed 04/04/20232023 30.0 Ambulat ory Pharmac y triamcinolo ne 0.025% cream [454g] See Instruct ions, # 454 g, 1 total refill(s ), Hard Stop Ordered 03/02/2025 4 2023 454.0 Ambulat ory Pharmac y triamcinolo ne 0.1% topical cream MIX WITH LAMISIL AND APPLY TOPICALL Y TO RIGHT GROIN TWICE DAILY., # 80 g, 3 total refill(s ), Acute Complet ed 04/04/20232023 80.0 Ambulat ory Pharmac y Immunizations Combined list of available immunizations from the Department of Defense and Veterans Affairs facilities. Immunization Series Date Given Administered By Site Reaction Lot Number CVX Code Drug Isobutylene Operator Chief Status Comments Source influenza, seasonal, injectable-pf 2015 zzRig ht Arm [id number] Seqirus complet ed influenza , seasonal, injectabl e-pf 12/12/15 Given Ambulat ory Pharmac y influenza, seasonal, injectable-pf 2015 [id number] 140 Seqirus complet ed influenza , seasonal, injectabl e-pf 12/12/15 Given Ambulat ory Pharmac y influenza, seasonal, injectable-pf 2014 zzRig ht Arm [id number] 140 CSL Behring complet ed influenza , seasonal, injectabl e-pf 12/11/14 Given Ambulat ory Pharmac y influenza, seasonal, injectable-pf 2013 zzRig ht Arm [id number] 140 Nov[employer]is [employer] ls complet ed influenza , seasonal, injectabl e-pf 12/12/13 Given Ambulat ory Pharmac y influenza, seasonal, injectable-pf 2013 [id number] 140 Nov[employer]is Pharm[employer] ls complet ed influenza , seasonal, injectabl e-pf 12/12/13 Given Ambulat ory Pharmac y influenza, seasonal, injectable-pf 2012 zzRig ht Arm [id number] 140 sanofi pasteur complet ed influenza , seasonal, injectabl e-pf 12/13/12 Given Ambulat ory Pharmac y influenza, seasonal, injectable-pf 2012 [id number] 140 sanofi pasteur complet ed influenza , seasonal, injectabl e-pf 12/13/12 Given Ambulat ory Pharmac y Procedures Combined list of: 1) Procedures from Department of Veterans Affairs facilities [facility], not all VA non-surgical procedures are included; 2) All procedures from the Department of Defense facilities. Procedure Procedure Type Code Date Perfomer Comments Sourc e No data available for this section Ambulatory P harmacy Assessment and Plan Combined list of future care activities from Department of Defense and Veterans Affairs facilities (e.g., assessment and plan notes, appointments, orders, and referrals). Additional future care activities may be listed in the Plan of Care section. Result Assessment and Plan Date Source Assessment and Plan No data available for this section 06/03/2024 Ambulatory Pharmacy Functional Status Combined list of recent functional and cognitive assessments recorded at Department of Defense and Veterans Affairs (VA).VA Functional Burt Measurement (FIM) Scale: 1 = Total Assistance (Subject = 0% +), 2 = Maximal Assistance (Subject = 25% +), 3 = Moderate Assistance (Subject = 50% +), 4 = Minimal Assistance (Subject = 75% +), 5 = Supervision, 6 = Modified Burt (Device), 7 = Complete Burt (Timely, Safely). Assessment Date/Time Source Assessment Type Assessment Skill Assessment Score Assessment Details No data available for this section
[2024-06-04] VITALS (8 sets, daily range): BP systolic 114–150; BP diastolic 67–81; PULSE 76–98; RESP 16–20; TEMP 36.7–36.8; O2SAT 90–100
--- OUTSIDE RECORDS SUMMARY | 2024-06-04 01:25 | XMS_ITS | Clinical Summary ---
Author Organization [facility] [employer] Address [address] [place] [address] Care Team Providers Care Nurses Aide Name Role Phone Justin Allen MD Primary Care Provider Source Comments [facility] [employer],non-owned Affiliates and Associated Physician Practices is amultiple site organization consisting of ambulatory clinics and hospital sitesin [place], [place], [place] and [place]. This disclosure is being madepursuant to the Care Everywhere program and may not contain all information available regarding this patient. Last updated 17.[facility] [employer] Allergies No known active allergies Medications * [...] Description 07/02/2024 10:00 AM CDT Office Visit [facility] - [address] [place] [address] Health Maintenance Due Date Last Done Comments [...] any changes in your medications Care Teams Nurses Aide Relationship Specialty Start Date End Date Justin Allen MD [address] [place] [address] PCP - General 08/07/17
--- OUTSIDE RECORDS SUMMARY | 2024-06-04 01:25 | XMS_ITS | Continuity of Care Document ---
Author Organization [facility] Address [address] [place] [address] Phone Care Team Providers Care Software Engineer Intern Name Role Phone Efren Sandra Unavailable Unavailable [...] Providers Copied on Encounter Office/outpat ient Visit, [facility], [address] [place] [address] [address], [place], [place], [id number], tel:[phone] [facility] No Information Nov-2 6200 8 Boaz Schwartz. [address] [facility] [address], [place], [address], [place]. tel:[phone] Office/outpat ient Visit, [facility], [address] [place] [address] [address], [place], [place], [id number], [place] tel:[phone] [facility] [place] No Information Nov-1 9200 8 Melvin Fleming. [address] [facility] [place] , [address], [place], [place], [facility], [place]. tel:[phone] [facility], [address], [place], [place], [id number], [place] tel:[phone] [facility] No Information Sep- 8-200 8 Doisy Edward. [address], [place], [place], [facility], . tel:[phone] [facility], [address] [place] [address] [address], [place], [place], [id number], [place] tel:[phone] [facility] No Information Jun-2 3-200 8 Doisy Edward. [address] , [address], [place], [place], [facility], . tel:[phone] Referring Provider: Bairon Langford, [address] [place] [address], [facility]. tel:[phone] [facility], [address] [place] [address] [address], [place], [place], [id number], [place] tel:[phone] [facility] No Information 1 6-200 8 Doisy Edward. [address] , [address], [place], [place], [facility], . tel:[phone] [facility], [address], [place], [place], [id number], [place] tel:[phone] [facility] No Information Apr-1 5-200 8 Doisy Edward. [address] , [address], [place], [place], [facility], . tel:[phone] Referring Provider: Bairon Langford, [address] [place] [address], [facility]. tel:[phone] Office/outpat ient Visit, [facility], [address], [place], [place], [id number], tel:[phone] [facility] [address] No Information Mar-3 1-200 8 Melvin Fleming. [address] [place] [address] , [address], [place], [place], [facility], . tel:[phone] Referring Provider: Lonnie Langford, [address] [place], [place] [address], [place], [place], [facility]. tel:[phone] [facility], [address], [place], [place], [id number], tel:[phone] [facility] No Information Sep-2 8200 7 Melvin Fleming. [address] [place] [address] , [address], [place], [place], [facility], . tel:[phone] Referring Provider: Bairon Langford, [address] [facility], [place], [facility]. tel:[phone] Family History Family Member Type Diagnosis Age At Onset No Information Payers Payer name Insurance type Covered democrat ID Authoriza tion(s) [place] BL [id number] [place] F[place] BL [id number] For Life Mdcr Supp CI [id number] Social History Type Description Quantity Date Captured [...]
--- OUTSIDE RECORDS SUMMARY | 2024-06-04 01:25 | XMS_ITS | Clinical Summary ---
Author Organization [facility] Address [address] [place] [address] Care Team Providers Care Sewing Machine Repairer Helper Name Role Phone Justin Allen MD Primary Care Provider + [phone] Allergies No known active allergies Medications adalimumab [...] Comments Blood Pressure 136/80 01/31/2024 2:55 PM HIM ANALYST Pulse 86 01/31/2024 2:55 PM HIM ANALYST Temperature - - Respiratory Rate - - Oxygen Saturation 97% 01/31/2024 2:55 PM HIM ANALYST Inhaled Oxygen Concentration - - Weight 80.7 kg (178 lb) 01/31/2024 2:55 PM HIM ANALYST Height 180.3 cm (5' 11 ) 01/31/2024 2:55 PM HIM ANALYST Body Mass Index 24.83 01/31/2024 2:55 PM HIM ANALYST Plan of Treatment Health Maintenance Due Date [...] Pneumococcal vaccine 65+ Completed 03/25/2019, 11/2017 Insurance Inter[employer] Care Teams Sewing Machine Repairer Helper Relationship Specialty Start Date End Date Justin Allen MD PCP - General Family Medicine 10/30/19
--- OUTSIDE RECORDS SUMMARY | 2024-06-04 01:25 | XMS_ITS | Referral Summary ---
Author Organization [facility] Address [address] [place] [address] Care Team Providers Care Cloth Finishing Range Operator Chief Name Role Phone Justin Allen MD Primary Care Provider + [phone] Allergies No known active allergies Medications adalimumab [...] Comments Blood Pressure 136/80 01/31/2024 2:55 PM PEDIATRIC ORTHODONTIST Pulse 86 01/31/2024 2:55 PM PEDIATRIC ORTHODONTIST Temperature - - Respiratory Rate - - Oxygen Saturation 97% 01/31/2024 2:55 PM PEDIATRIC ORTHODONTIST Inhaled Oxygen Concentration - - Weight 80.7 kg (178 lb) 01/31/2024 2:55 PM PEDIATRIC ORTHODONTIST Height 180.3 cm (5' 11 ) 01/31/2024 2:55 PM PEDIATRIC ORTHODONTIST Body Mass Index 24.83 01/31/2024 2:55 PM PEDIATRIC ORTHODONTIST Plan of Treatment Not on file Insurance MEDICARE MEDICARE FOR LIFE Care Teams Cloth Finishing Range Operator Chief Relationship Specialty Start Date End Date Justin Allen MD PCP - General Family Medicine 10/30/19
--- NOTE | 2024-06-04 01:37 | ECG_ITS ---
Test Date: 2024-06-04 02:08:05 Measurements Intervals [place] Rate: 89 P: -3 CO: 128 QRS: 19 QRSD: 194 T: 182 QT: 408 QTc: 499 Interpretive Statements SINUS RHYTHM WITH SINUS ARRHYTHMIA INTRAVENTRICULAR CONDUCTION DELAY [130+ ms QRS DURATION] No previous ECG available for comparison Electronically Signed On 06-04-2024 11:56:51 CDT by Cyrus Oliveros M.D.
[2024-06-04 01:58] LABS: Hematocrit 27.2 % (42.0-52.0); Immature Platelet Fraction Pct 1.3 % (0.9-11.2); Mean Corpuscular HGB Conc 33.1 g/dl (32-36); Mean Corpuscular Volume 87.7 fl (80-100); Mean Platelet Volume 8.9 fl (7.4-10.4); Platelet Count Result 109 k/mm3 (150-375); Red Cell Distribution Width 19.6 % (11.5-14.5); White Blood Count 4.1 K/mm3 (4.5-10.0)
[2024-06-04 02:08] LABS: Alanine Aminotransferase 31 U/L (6-50); Albumin Level 3.7 g/dL (3.5-5.1); Alkaline Phosphatase 104 U/L (38-126); Anion Gap 6 mmol/L (4-12); Aspartate Amino Transferase 39 U/L (17-59); Bilirubin,Total 0.9 mg/dL (0.2-1.3); Blood Urea Nitrogen 15 mg/dL (9-20); Calcium 9.2 mg/dL (8.4-10.2); Carbon Dioxide 35 mmol/L (22-30); Chloride 93 mmol/L (98-107); Estimated Glomerular Filt Rate > 60; Glucose 90 mg/dL (65-110); INR 1.1; Magnesium 1.8 mg/dL (1.6-2.3); Potassium 3.7 mmol/L (3.4-5.0); Prothrombin Time 14.7 Seconds (11.1-14.7); Sodium 134 mmol/L (137-145)
[2024-06-04 02:09] LABS: Lactic Acid Reflex 1.2 mmol/L (0.7-2.0)
[2024-06-04 02:20] LABS: Troponin I 0.018 ng/mL (0.000-0.034)
[2024-06-04 02:24] LABS: Band Neutrophils Percent 4 % (0-6); Eosinophils Absolute Manual 0.04 K/mm3 (0.02-0.50); Eosinophils Percent Manual 1 % (0-4); Lymphocytes Absolute Manual 0.65 K/mm3 (1.1-4.5); Monocytes Absolute Manual 0.77 K/mm3 (0.1-0.90); Monocytes Percent Manual 19 % (3-9); Neutrophils Absolute Manual 2.62 K/mm3 (1.3-6.7); Neutrophils Percent Manual 60 % (46-73); Platelet Estimate Adequate (Adequate); Total Cells Counted 100
[2024-06-04 02:25] LABS: Anisocytosis 1+; Ovalocytes 1+; Schistocytes None Seen; Target Cells 1+
--- NOTE | 2024-06-04 02:30 | ED.GENADULT ---
HPI - General Adult General Chief complaint: Altered Mental Status Stated complaint: confused, LKW last night Time Seen by Provider: 06/04/24 01:09 History of Present Illness HPI narrative: Patient is a 83-year-old gentleman presents emergency department with chief complaint of altered mental status. Per the patient's family the patient had an episode of confusion lasted for a few hours the report no focal motor deficit with this happened reports no slurred speech and the patient became agitated and confused. They report the patient is currently back to his baseline Related Data Home Medications ?Medication ?Instructions ?Recorded ?Confirmed ?Last Taken ?Type pantoprazole 40 mg tablet,delayed 40 mg PO QAM 09/21/19 06/04/24 06/03/24 History release (Protonix) carboxymethylcellulose sodium 0.5 1 drp EACH EYE 4-6XD 09/27/20 06/04/24 06/03/24 History % eye drops in a dropperette (Refresh Plus) clindamycin phosphate 1 % topical 1 applic topical DAILY 09/27/20 06/04/24 06/03/24 History gel, once daily (Clindagel) clotrimazole-betamethasone 1 1 applic topical BID 09/27/20 06/04/24 06/03/24 History %-0.05 % topical cream doxycycline hyclate 100 mg capsule 100 mg PO DAILY 09/07/22 06/04/24 06/03/24 History tamsulosin 0.4 mg capsule mg PO 10/14/23 04/13/24 06/03/24 History hydrocortisone 2.5 % topical cream 1 applic topical BID PRN rash 04/13/24 06/04/24 06/03/24 History triamcinolone acetonide 0.1 % 1 applic topical BID PRN skin 04/13/24 06/04/24 Unknown History topical cream irritation terbinafine HCl 1 % topical cream applic topical 06/04/24 Unknown History Allergies Allergy/AdvReac Type Severity Reaction Status Date / Time No Known Allergies Allergy Verified 06/04/24 00:55 Review of Systems Review of Systems: A 10 system review of systems was completed on the patient and is negative except for what is stated in the HPI. Nursing and ancillary documentation was reviewed. 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 HEAD: Normocephalic, atraumatic. EYES: PERRLA and EOMI. ENT: Nares clear, no rhinorrhea or epistaxis. Mucous membranes moist. NECK: Supple. CHEST: Clear to auscultation. No respiratory distress. HEART: Regular rate and rhythm. No murmur heard. Normal peripheral pulses. ABDOMEN: Soft, nontender, nondistended, normal active bowel sounds. EXTREMITIES: Normal range of motion. No edema. SKIN: Warm, dry, no rash. NEURO: No focal deficits. Alert and oriented x3. PSYCH: Normal mood and affect. Course Vital Signs Vital signs: Vital Signs Temperature 36.8 C 06/03/24 18:06 Pulse Rate 88 06/03/24 18:06 Respiratory Rate 16 06/03/24 18:06 Blood Pressure 111/67 06/03/24 18:06 Pulse Oximetry 98 06/03/24 18:06 Oxygen Delivery Room Air 06/03/24 18:06 Temperature 36.7 C 06/04/24 03:07 Pulse Rate 94 06/04/24 03:07 Respiratory Rate 20 06/04/24 03:07 Blood Pressure 150/81 H 06/04/24 03:07 Pulse Oximetry 100 06/04/24 03:07 Oxygen Delivery Nasal Cannula 06/04/24 02:27 Oxygen Flow Rate 2 06/04/24 02:27 Medical Decision Making MDM Narrative Medical decision making narrative: Differential diagnosis includes TIA, electrolyte abnormality, infection, Laboratory studies were obtained on the patient which were within normal limits urinalysis showed no evidence UTI COVID flu and RSV were negative CT head showed no acute abnormality chest x-ray showed no focal infiltrate EKG showed no acute ischemic changes. The patient is currently back to his baseline plan will be to admit the patient for observation Vital Signs Vital Signs: Vital Signs Temperature 36.8 C 06/03/24 18:06 Pulse Rate 88 06/03/24 18:06 Respiratory Rate 16 06/03/24 18:06 Blood Pressure 111/67 06/03/24 18:06 Pulse Oximetry 98 06/03/24 18:06 Oxygen Delivery Room Air 06/03/24 18:06 Temperature 36.7 C 06/04/24 03:07 Pulse Rate 94 06/04/24 03:07 Respiratory Rate 20 06/04/24 03:07 Blood Pressure 150/81 H 06/04/24 03:07 Pulse Oximetry 100 06/04/24 03:07 Oxygen Delivery Nasal Cannula 06/04/24 02:27 Oxygen Flow Rate 2 06/04/24 02:27 Lab Data 06/04/24 01:47 06/04/24 01:47 Labs: Lab Results 06/04/24 06/04/24 Range/Units 01:47 03:05 WBC 4.1 L (4.5-10.0) K/mm3 RBC 3.10 L (4.6-6.20) M/mm3 Hgb 9.0 L D (14.0-18.0) g/dL Hct 27.2 L (42.0-52.0) % MCV 87.7 (80-100) fl MCH 29.0 (26-34) pg MCHC 33.1 (32-36) g/dl RDW 19.6 H (11.5-14.5) % Plt Count 109 L (150-375) k/mm3 MPV 8.9 (7.4-10.4) fl Immature Gran % (Auto) Not Reportable Neut % (Auto) Not Reportable Lymph % (Auto) Not Reportable [place] % (Auto) Not Reportable Eos % (Auto) Not Reportable Baso % (Auto) Not Reportable Lymph # (Auto) Not Reportable [place] # (Auto) Not Reportable Eos # (Auto) Not Reportable Baso # (Auto) Not Reportable Abs Immat Gran (auto) Not Reportable Absolute Neuts (auto) Not Reportable Absolute Nucleated RBC Not Reportable Total Counted 100 Neutrophils % (Manual) 60 (46-73) % Band Neutrophils % 4 (0-6) % Lymphocytes % (Manual) 16.0 L (18-44) % Monocytes % (Manual) 19 H (3-9) % Eosinophils % (Manual) 1 (0-4) % Nucleated RBC % Not Reportable Abs Neuts (Manual) 2.62 (1.3-6.7) K/mm3 Abs Lymphs (Manual) 0.65 L (1.1-4.5) K/mm3 Abs Monocytes (Manual) 0.77 (0.1-0.90) K/mm3 Absolute Eos (Manual) 0.04 (0.02-0.50) K/mm3 Platelet Estimate Adequate (Adequate) % Immature Plt Fraction 1.3 (0.9-11.2) % Anisocytosis 1+ Target Cells 1+ Ovalocytes 1+ Schistocytes None seen PT 14.7 (11.1-14.7) Seconds INR 1.1 APTT 30.0 (22.3-36.8) Seconds Sodium 134 L (137-145) mmol/L Potassium 3.7 (3.4-5.0) mmol/L Chloride 93 L (98-107) mmol/L Carbon Dioxide 35 H (22-30) mmol/L Anion Gap 6 (4-12) mmol/L BUN 15 (9-20) mg/dL Creatinine 0.92 (0.7-1.3) mg/dL Estim Creat Clear Calc Not Reportable Estimated GFR > 60 (59 - ) Glucose 90 (65-110) mg/dL Lactic Acid 1.2 (0.7-2.0) mmol/L Calcium 9.2 (8.4-10.2) mg/dL Magnesium 1.8 (1.6-2.3) mg/dL Total Bilirubin 0.9 (0.2-1.3) mg/dL AST 39 (17-59) U/L ALT 31 (6-50) U/L Alkaline Phosphatase 104 (38-126) U/L Troponin I 0.018 (0.000-0.034) ng/mL Total Protein 8.0 (6.3-8.2) g/dL Albumin 3.7 (3.5-5.1) g/dL Procalcitonin 0.0 ng/mL Urine Color Yellow (Yellow) Urine Appearance Clear (Clear) Urine pH 8.0 (5.0-9.0) Ur Specific [place] 1.016 (1.001-1.035) Urine Protein 1+ H (Negative) mg/dL Urine Glucose (UA) Negative (Negative) mg/dL Urine Ketones Trace H (Negative) mg/dL Ur Blood (Man) Negative (Negative) Urine Nitrate Negative (Negative) Urine Bilirubin Negative (Negative) Urine Urobilinogen 1.0 (<2.0) mg/dL Leukocyte Esterase Rfl Negative (Negative) KATT/UL Urine RBC 0-2 (0-2) /hpf Urine WBC 0-5 (0-3) /hpf Ur Squamous Epith Cells None seen (Few) /hpf Urine Bacteria None seen /hpf Urine Casts 0-2 Influenza A (RT-PCR) Negative (Negative) Influenza B (RT-PCR) Negative (Negative) RSV (RT-PCR) Negative (Negative) SARS-CoV-2 RNA (RT-PCR) Negative (Negative) Discharge Plan Discharge Clinical Impression: Acute alteration in mental status Patient Disposition: Still a Patient Condition: Stable Patient Language: Upper Sorbian Prescriptions: No Action clotrimazole-betamethasone 1-0.05 % cream 1 applic topical BID Rx Instructions: apply to foot clindamycin phosphate [Clindagel] 1 % gel, once daily 1 applic topical DAILY Refresh Plus 0.5 % dropperette 1 drp EACH EYE 4-6XD doxycycline hyclate 100 mg capsule 100 mg PO DAILY tamsulosin 0.4 mg capsule PO pantoprazole [Protonix] 40 mg tablet,delayed release (DR/EC) 40 mg PO QAM triamcinolone acetonide 0.1 % cream 1 applic topical BID PRN (Reason: skin irritation) hydrocortisone 2.5 % cream 1 applic topical BID PRN (Reason: rash) furosemide [Lasix] 20 mg tablet See Rx Instructions PO QAM Qty: 180 2RF Rx Instructions: 1-2 orally every morning; aspirin 81 mg tablet,delayed release (DR/EC) 81 mg PO DAILY Qty: 60 2RF terbinafine HCl 1 % cream TOPICAL cholecalciferol (vitamin D3) 25 mcg (1,000 unit) capsule 25 mcg PO DAILY Qty: 90 3RF CertaVite Senior 0.4 mg-300 mcg- 250 mcg tablet 1 tablet PO DAILY Qty: 90 3RF ferrous sulfate 325 mg (65 mg iron) tablet 325 mg PO BID Qty: 180 2RF allopurinol 100 mg tablet 100 mg PO BID Qty: 180 2RF memantine 10 mg tablet 10 mg PO BID Qty: 180 1RF atorvastatin 40 mg tablet 40 mg PO DAILY Qty: 90 1RF Follow-up/Referrals: Justin Allen MD [Primary Care Provider] - Time of Disposition: 04:05
[2024-06-04 02:33] LABS: Influenza A QL RT-PCR Negative (Negative); Influenza B QL RT-PCR Negative (Negative); RSV RNA, RT-PCR Negative (Negative); SARS-CoV-2 RNA PCR Negative (Negative)
[2024-06-04 03:16] LABS: Add Urine Microscopic? YES; Appearance Urine Clear (Clear); Bacteria Urine None Seen /hpf; Bilirubin Urine Negative (Negative); Blood Urine Negative (Negative); Color Urine Yellow (Yellow); Glucose Urine UA Negative (Negative); Ketones Urine Trace mg/dL (Negative); Leukocyte Esterase Ur Negative LEU/UL (Negative); Nitrate Urine Negative (Negative); Non Pathogenic Casts 0-2; Protein Urine 1+ mg/dL (Negative); RBC Urine 0-2 /hpf (0-2); Specific Grav Ur 1.016 (1.001-1.035); Squamous Epithelial Cell Urine None Seen /hpf (Few); WBC Urine 0-5 /hpf (0-3)
--- NOTE | 2024-06-04 04:22 | ECG_ITS ---
Test Date: 2024-06-04 04:33:21 Measurements Intervals [place] Rate: 97 P: -2 RI: 141 QRS: 12 QRSD: 175 T: 173 QT: 393 QTc: 500 Interpretive Statements SINUS RHYTHM INTRAVENTRICULAR CONDUCTION DELAY [130+ ms QRS DURATION] Compared to ECG 06/04/2024 02:08:05 Sinus arrhythmia no longer present Electronically Signed On 06-04-2024 11:58:04 CDT by Cyrus Oliveros M.D.
[2024-06-04 05:02] LABS: Troponin I 0.014 ng/mL (0.000-0.034)
--- NOTE | 2024-06-04 06:22 | ADMGEN ---
This patient, Nick Echeverria, was admitted to [facility] Surg Room 331-01. Patient/family oriented to hospital policies and general routines including ID bracelet, bed and alarms, visiting hours, pain management, procedures, bathroom and other care routines, personal items, smoking policy, room service/diet, and visiting hours. Information on how to activate the Rapid Response Team has been discussed. Patient/Family are encouraged to report perceived risks to care and to ask questions if they do not understand what they are told or what they should do.
--- NOTE | 2024-06-04 14:19 | P.SS_ITS ---
Same Day Admit/Disch: HPI History of Present Illness Chief complaint: Altered mental status Narrative: Nick Echeverria is a 83 year old male ER-HPI narrative: Patient is a 83-year-old gentleman presents emergency department with chief complaint of altered mental status. Per the patient's family the patient had an episode of confusion lasted for a few hours the report no focal motor deficit with this happened reports no slurred speech and the patient became agitated and confused. They report the patient is currently back to his baseline. This morning patient feel back to himself and wish to go home. [facility] Past Medical History Medical History Venous stasis dermatitis of right lower extremity Venous stasis LBBB (left bundle branch block) Unsteady gait Scrotal infection Scrotal swelling Enlarged prostate without lower urinary tract symptoms (luts) Essential (primary) hypertension Gout, unspecified Iron deficiency anemia Low vitamin D level Memory loss Mixed hyperlipidemia Family History Family History Father Hypertension Gout Mother Hypertension Family history of malignant neoplasm of breast in first degree relative Breast cancer Cerebrovascular accident Sibling Brain cancer Liver cancer Sibling No problems noted. Other Family history of hearing loss Social History Social History Smoking status: Never smoker Second hand tobacco smoke exposure: No Alcohol intake: never Substance use: never Substance use type: does not use Do You Feel Safe in your Home?: Yes Lack of Transportation: No Lack of Food: Never True Current Housing: I Have Housing Concerned About Future Housing: No Difficulty Paying Gas/Electric Bills: No Difficulty Paying for Meds: No Currently Unemployed: No Education: Master's Degree or Higher Difficulty w/ Childcare or Family Care: No Living arrangements: with family Occupation/Education: retired 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 Gender identity (if verbalized by the patient): Male Spiritual care concerns: No Same Day Admit/Disch: Med Pre-admit Medications Home Medications ?Medication ?Instructions ?Recorded ?Confirmed ?Type pantoprazole 40 mg tablet,delayed 40 mg PO QAM 09/21/19 06/04/24 History release (Protonix) carboxymethylcellulose sodium 0.5 1 drp EACH EYE 4-6XD 09/27/20 06/04/24 History % eye drops in a dropperette (Refresh Plus) clindamycin phosphate 1 % topical 1 applic topical DAILY 09/27/20 06/04/24 History gel, once daily (Clindagel) clotrimazole-betamethasone 1 1 applic topical BID 09/27/20 06/04/24 History %-0.05 % topical cream cholecalciferol (vitamin D3) 25 25 mcg PO DAILY #90 caps 04/18/21 06/04/24 Rx mcg (1,000 unit) capsule [id number]-[id number] acid 0.4 1 tablet PO DAILY #90 tabs 01/22/22 06/04/24 Rx mg-lycopene 300 mcg-lutein 250 mcg tablet (CertaVite Senior) doxycycline hyclate 100 mg capsule 100 mg PO DAILY 09/07/22 06/04/24 History ferrous sulfate 325 mg (65 mg 325 mg PO BID #180 tabs 11/22/22 06/04/24 Rx iron) tablet aspirin 81 mg tablet,delayed 81 mg PO DAILY #60 tabs 01/20/23 06/04/24 Rx release tamsulosin 0.4 mg capsule 0.4 mg PO HS 10/14/23 06/04/24 History furosemide 20 mg tablet (Lasix) See Rx Instructions PO QAM #180 04/13/24 06/04/24 Rx tabs hydrocortisone 2.5 % topical cream 1 applic topical BID PRN rash 04/13/24 06/04/24 History triamcinolone acetonide 0.1 % 1 applic topical BID PRN skin 04/13/24 06/04/24 History topical cream irritation allopurinol 100 mg tablet 100 mg PO BID #180 tabs 04/23/24 06/04/24 Rx memantine 10 mg tablet 10 mg PO BID #180 tabs 05/13/24 06/04/24 Rx atorvastatin 40 mg tablet 40 mg PO DAILY #90 tabs 05/21/24 06/04/24 Rx acetaminophen 500 mg capsule 500 mg PO BID 06/04/24 06/04/24 History terbinafine HCl 1 % topical cream 1 applic topical DAILY 06/04/24 06/04/24 History Review of Systems Review of Systems A 10 system review of systems was completed on the patient and is negative except for what is stated in the HPI. Nursing and ancillary documentation was reviewed. DS: Data Data Completed and Pending Labs on day of discharge: Labs from last 24 hours 06/04/24 06/04/24 06/04/24 04:26 03:05 01:47 WBC 4.1 L RBC 3.10 L Hgb 9.0 L D Hct 27.2 L MCV 87.7 MCH 29.0 MCHC 33.1 RDW 19.6 H Plt Count 109 L MPV 8.9 Immature Gran % (Auto) Not Reportable Neut % (Auto) Not Reportable Lymph % (Auto) Not Reportable [place] % (Auto) Not Reportable Eos % (Auto) Not Reportable Baso % (Auto) Not Reportable Lymph # (Auto) Not Reportable [place] # (Auto) Not Reportable Eos # (Auto) Not Reportable Baso # (Auto) Not Reportable Abs Immat Gran (auto) Not Reportable Absolute Neuts (auto) Not Reportable Absolute Nucleated RBC Not Reportable Total Counted 100 Neutrophils % (Manual) 60 Band Neutrophils % 4 Lymphocytes % (Manual) 16.0 L Monocytes % (Manual) 19 H Eosinophils % (Manual) 1 Nucleated RBC % Not Reportable Abs Neuts (Manual) 2.62 Abs Lymphs (Manual) 0.65 L Abs Monocytes (Manual) 0.77 Absolute Eos (Manual) 0.04 Platelet Estimate Adequate % Immature Plt Fraction 1.3 Anisocytosis 1+ Target Cells 1+ Ovalocytes 1+ Schistocytes None seen PT 14.7 INR 1.1 APTT 30.0 Sodium 134 L Potassium 3.7 Chloride 93 L Carbon Dioxide 35 H Anion Gap 6 BUN 15 Creatinine 0.92 Estim Creat Clear Calc Not Reportable Estimated GFR > 60 Glucose 90 Lactic Acid 1.2 Calcium 9.2 Magnesium 1.8 Total Bilirubin 0.9 AST 39 ALT 31 Alkaline Phosphatase 104 Troponin I 0.014 D 0.018 Total Protein 8.0 Albumin 3.7 Procalcitonin 0.0 Urine Color Yellow Urine Appearance Clear Urine pH 8.0 Ur Specific [place] 1.016 Urine Protein 1+ H Urine Glucose (UA) Negative Urine Ketones Trace H Ur Blood (Man) Negative Urine Nitrate Negative Urine Bilirubin Negative Urine Urobilinogen 1.0 Leukocyte Esterase Rfl Negative Urine RBC 0-2 Urine WBC 0-5 Ur Squamous Epith Cells None seen Urine Bacteria None seen Urine Casts 0-2 Influenza A (RT-PCR) Negative Influenza B (RT-PCR) Negative RSV (RT-PCR) Negative SARS-CoV-2 RNA (RT-PCR) Negative DS: Summary Hospital Course Hospital Course: patient was brought to ER with AMS by his family, to further evaluate patient had CT scan head and MRI of the brain are essentially normal, patient is back to his baseline and his family agrees and wants to take him home. will discharge patient home today. Time Spent with Patient Time attestation: Total time spent providing and/or coordinating discharge services: DS: Admitting Diagnosis Discharge Date 06/04/24 Admitting Diagnosis AMS DS: Discharge Diagnosis Discharge Diagnosis (1) Acute alteration in mental status: Code(s): R41.82 - Altered mental status, unspecified Status: Acute Discharge Plan Discharge Attending physician on discharge: Kj Mojica Consulting providers: Cyrus Oliveros; Delgado Nguyen Discharging Clinician: Leonora Haines Patient Disposition: Home, Self-Care Activity: as tolerated Diet: heart healthy Discharge Instructions: patient to follow up with his primary care provider as soon as possible. patient is instructed if any symptoms worsen to go to nearest ER. Patient Instructions: Antibiotic Form Patient Language: Upper Sorbian Stand Alone Forms: General Discharge Information Follow-up/Referrals: Justin Allen MD [Primary Care Provider] - Discharge Medications: Continued clotrimazole-betamethasone 1-0.05 % cream 1 applic topical BID Rx Instructions: apply to foot clindamycin phosphate [Clindagel] 1 % gel, once daily 1 applic topical DAILY Refresh Plus 0.5 % dropperette 1 drp EACH EYE 4-6XD doxycycline hyclate 100 mg capsule 100 mg PO DAILY tamsulosin 0.4 mg capsule 0.4 mg PO HS pantoprazole [Protonix] 40 mg tablet,delayed release (DR/EC) 40 mg PO QAM triamcinolone acetonide 0.1 % cream 1 applic topical BID PRN (Reason: skin irritation) hydrocortisone 2.5 % cream 1 applic topical BID PRN (Reason: rash) furosemide [Lasix] 20 mg tablet See Rx Instructions PO QAM Qty: 180 2RF Rx Instructions: 1-2 orally every morning; aspirin 81 mg tablet,delayed release (DR/EC) 81 mg PO DAILY Qty: 60 2RF terbinafine HCl 1 % cream 1 applic TOPICAL DAILY acetaminophen 500 mg capsule 500 mg PO BID cholecalciferol (vitamin D3) 25 mcg (1,000 unit) capsule 25 mcg PO DAILY Qty: 90 3RF CertaVite Senior 0.4 mg-300 mcg- 250 mcg tablet 1 tablet PO DAILY Qty: 90 3RF ferrous sulfate 325 mg (65 mg iron) tablet 325 mg PO BID Qty: 180 2RF allopurinol 100 mg tablet 100 mg PO BID Qty: 180 2RF memantine 10 mg tablet 10 mg PO BID Qty: 180 1RF atorvastatin 40 mg tablet 40 mg PO DAILY Qty: 90 1RF Date of admission: 06/04/24 04:05 Primary Care Provider: Justin Allen Admitting Provider: Kj Mojica Attending physician on admission: Leonora Haines Condition: Stable
== END 2024-06-04 16:50 | disposition home or self-care (01) ==
LOC: ANHED 06-04 04:05 → ANH3MEDSUR 06-04 14:18
PROVIDERS: Admitting Provider Hospitalist; Emergency Provider Emergency Medicine; PCP Family Medicine; Visit Provider Family Medicine
DX: R41.82 Altered mental status, unspecified (principal); I87.2 Venous insufficiency (chronic) (peripheral); I44.7 Left bundle-branch block, unspecified; I10 Essential (primary) hypertension; D50.9 Iron deficiency anemia, unspecified; E55.9 Vitamin D deficiency, unspecified; M10.9 Gout, unspecified; E78.2 Mixed hyperlipidemia; N40.0 Benign prostatic hyperplasia without lower urinary tract symptoms; Z20.822 Contact with and (suspected) exposure to COVID-19; Z79.899 Other long term (current) drug therapy
CPT/HCPCS: 36415; 70450; 70553; 71045; 80053; 81001; 83605; 83735; 84145; 84484; 85025; 85055; 85610; 85730; 87637; 93005; 96374; 99285; A9579; G0378

== ENCOUNTER 2024-06-16 16:13 | Outpatient (CLI) | payer MEDICARE, OTHER, SELFPAY ==
--- NOTE | ~2024-06-16 | XR_ITS ---
HISTORY: M54.2 - Cervicalgia COMPARISON: None TECHNIQUE: Single frontal view of the pelvis was performed. FINDINGS: Diffuse bony demineralization is noted. Significant degenerative disease within the visualized portion of the lumbar spine. Superior lateral joint space narrowing and sclerosis is identified within the bilateral femoral aceta bular joint spaces. Fecal stasis is present as are findings suggesting fecal impaction. IMPRESSION: Significant degenerative disease, without acute fracture. Reviewed, dictated and finalized at location A.
--- NOTE | ~2024-06-16 | XR_ITS ---
Lumbosacral Spine: AP, oblique, and lateral views Clinical History: Pain Findings: Exam somewhat suboptimal related to patient body habitus. Normal lordosis present. There is probable grade 1 retrolisthesis of L2 over L3. There are mild degenerative changes. There is severe facet arthropathy throughout most of the lumbar spine. The sacroiliac joints are normally outlined. Impression: Extensive, advanced facet arthropathy. Probable grade 1 retrolisthesis of L2 over L3. Reviewed, dictated and finalized at location . Impression: Extensive, advanced facet arthropathy. Probable grade 1 retrolisthesis of L2 over L3.
--- NOTE | ~2024-06-16 | XR_ITS ---
EXAMINATION:XR cervical spine min 6V DATE: 06/16/2024 16:48 INDICATION: Neck pain. Possible multiple myeloma. TECHNIQUE: AP, lateral, lateral swimmers, lateral flexion, lateral extension, left oblique, right obl ique and odontoid views of the cervical spine are provided. COMPARISON: None FINDINGS: C7 and the upper thoracic spine are obscured on the lateral radiographs of the exception of the later al swimmer's view of the vertebral bodies and disc spaces are poorly profiled due to approximately 20 degree dextroscoliosis associated with a thoracic kyphosis. Normal alignment of the cervical spine w ith normal motion on flexion and extension. Odontoid is intact. Normal atlantoaxial interval. Visual ized vertebral body heights are normal. Mild disc height loss at C3-C4 and C4-C5 and moderate disc he ight loss at C5-C6. The C6-C7 and C7-T1 disc spaces are not clearly visualized. Multilevel cervical f acet osteoarthritis which appears severe on the right at C5-C6 through C7-T1 with moderate facet oste oarthritis throughout the remainder of the cervical spine. There is moderate neural foraminal stenosi s on the right at C3-C4 and C4-C5 and mild on the right at C5-C6 and C6-C7. There is suggestion of so me at least mild neural foraminal stenosis on the left lower pole of the neural foramina is poor on t he left oblique projection. Prevertebral soft tissues are normal. With gas filled bowel underlying t he prominently elevated left hemidiaphragm. Calcified nodule at the left lung base consistent with ol d granulomatous disease. IMPRESSION: 1. Moderate cervical spondylosis with normal motion with flexion and extension. 2. Upper thoracic kyphosis with 20 degree dextroscoliosis. 3. Prominent elevation the left hemidiaphragm. Reviewed, dictated and finalized at location A.
== END 2024-06-16 16:14 | disposition home or self-care (01) ==
LOC: MICIMG 16:17
PROVIDERS: PCP Family Medicine; Visit Provider Family Medicine
DX: M47.812 Spondylosis without myelopathy or radiculopathy, cervical region (principal); M41.9 Scoliosis, unspecified; M47.816 Spondylosis without myelopathy or radiculopathy, lumbar region; M51.369 Other intervertebral disc degeneration, lumbar region without mention of lumbar back pain or lower extremity pain
CPT/HCPCS: 72052; 72110; 72170

== ENCOUNTER 2024-08-03 12:03 | Inpatient (IN) | payer MEDICARE, OTHER, SELFPAY ==
[2024-08-03] VITALS (31 sets, daily range): BP systolic 116–135; BP diastolic 65–95; PULSE 93–108; RESP 15–27; TEMP 36.5–36.6; O2SAT 90–100; BMI 33.0; BMI 33.3
--- NOTE | ~2024-08-03 | US_ITS ---
EXAMINATION: US venous doppler [facility] DATE: 08/04/2024 12:08 INDICATION: Edema TECHNIQUE: Grayscale ultrasound images without and with compression and Doppler ultrasound images of the bilateral lower extremity veins were obtained. COMPARISON: 07/01/2023 FINDINGS: The visualized portions of right common femoral vein, profunda (deep) femoral vein, femoral vein, pop liteal vein, peroneal veins, posterior tibial veins, and greater saphenous vein outflow are patent. The visualized portions of left common femoral vein, profunda femoral vein, femoral vein, popliteal v ein, peroneal veins, posterior tibial veins, and greater saphenous vein outflow are patent. IMPRESSION: 1. No deep venous thrombosis within the bilateral lower extremities, as detailed above. Reviewed, dictated and finalized at location A. IMPRESSION: 1. No deep venous thrombosis within the bilateral lower extremities, as detail ed above.
--- NOTE | ~2024-08-03 | US_ITS ---
EXAM: RENAL ULTRASOUND HISTORY: Mass COMPARISON: Reference is made to a CT examination of the chest abdomen and pelvis performed less than 24 hours earlier. FINDINGS: RIGHT KIDNEY: 10.9 x 4.6 x 4.4 cm. The parenchyma of the right kidney is unremarkable in echogenicity. Cortical thinning is noted. No hydronephrosis or renal calculi. LEFT KIDNEY: 12.3 x 6.2 x 4.5 cm No hydronephrosis or renal calculi. The parenchyma of the left kidney is unremarkable in echogenicity. Cortical thinning is noted. BLADDER: Distended, without abnormality. IMPRESSION: No hydronephrosis or renal calculi. Findings suggesting medical renal disease. The 2 cm left upper pole mass of soft tissue attenuation is not visualized on ultrasound. This mass was visualized on contrast-enhanced CT performed less than 24 hours earlier. Nonemergent but timely CT or MRI with renal mass protocol is again recommended for further evaluation once patient recovers from his current illness. Reviewed, dictated and finalized at location A. IMPRESSION: No hydronephrosis or renal calculi. Findings suggesting medical renal disease. The 2 cm left upper pole mass of soft tissue attenuation is not visualized on u ltrasound. This mass was visualized on contrast-enhanced CT performed less than 24 hours raul luu. Nonemergent but timely CT or MRI with renal mass protocol is again recommended for further evaluation once patient recovers from his current illness.
--- NOTE | ~2024-08-03 | US_ITS ---
EXAM: ABDOMEN ULTRASOUND HISTORY: Hepatomegaly/cirrhosis COMPARISON: Reference is made to a CT examination of the chest, abdomen and pelvis performed approxim ately 24 hours earlier FINDINGS: LIVER: The liver is increased in echogenicity and size measuring 23 cm in longitudinal dimension. GALLBLADDER: Multiple stones are identified within the gallbladder, which is otherwise unremarkable. The stones are bulky and mobile. No gallbladder wall thickening or pericholecystic fluid. BILE DUCTS: Common bile duct measures 4.8mm. PANCREAS: Limited evaluation of the pancreas secondary to overlying bowel gas IMPRESSION: Cholelithiasis, without ultrasound evidence of cholecystitis. Fatty infiltration of an enlarged liver. Reviewed, dictated and finalized at location A.
--- NOTE | ~2024-08-03 | XR_ITS ---
CHEST RADIOGRAPH, PA AND LATERAL CLINICAL HISTORY: SOB . COMPARISON: 06/04/2024 TECHNIQUE: PA and lateral views of the chest. FINDINGS Elevation of the left hemidiaphragm (with air distended colon) with adjacent compressive atelectasis. The cardiomediastinal silhouette is shifted to the patient's right side. Right-sided pleural effusion is present. The remainder of the lungs are clear. IMPRESSION: Large right-sided pleural effusion. Loss of lung volume within the left hemithorax secondary to hemidiaphragmatic elevation, from distend ed aerated colon. Reviewed, dictated and finalized at location A. IMPRESSION: Large right-sided pleural effusion. Loss of lung volume within the left hemithorax secondary to hemidiaphragmatic e levation, from distended aerated colon.
--- NOTE | ~2024-08-03 | XR_ITS ---
EXAMINATION: [id number] DATE: 08/11/2024 15:47 INDICATION: Status post right thoracentesis TECHNIQUE: frontal view of the chest was obtained. COMPARISON: Chest radiograph dated 08/06/2024 FINDINGS: Persistent volume loss in right hemithorax with rightward shift of the heart and mediastinum. There i s improved aeration in the right lower lung zone with resolution of the previously seen right pleural effusion. Elevation of the left hemidiaphragm. Opacities in the lower lung zones which could represe nt atelectasis or pneumonia. No pneumothorax. Cluster of small calcified nodules at the left lung bas e consistent with old granulomatous disease. Borderline heart size accounting for AP technique. IMPRESSION: 1. No pneumothorax post right thoracentesis with improved aeration at the right lung base and no resi dual pleural effusion. 2. Chronic elevation the left hemidiaphragm. 2. Mild opacities in bilateral lower lung zones which could represent atelectasis or pneumonia. 4. Borderline heart size. Reviewed, dictated and finalized at location A. IMPRESSION: 1. No pneumothorax post right thoracentesis with improved aeration at the right lung base and no residual pleural effusion. 2. Chronic elevation the left hemidiaphragm. 2. Mild opacities in bilateral lower lung zones which could represent atelectas is or pneumonia. 4. Borderline heart size.
--- NOTE | ~2024-08-03 | CT_ITS ---
EXAMINATION: CT brain wo con DATE: 08/03/2024 20:13 INDICATION: fall yesterday, episode of unresponsiveness . TECHNIQUE: Computed tomography (CT) of the head was performed without intravenous contrast. The mA wa s adjusted according to patient size. Iterative reconstruction technique was employed. The dose-lengt h product was 999.69 mGy-cm. COMPARISON: 06/04/2024. FINDINGS: Exam limited by nonstandard positioning, nonstandard reformatted views with significant artifacts, an d beam hardening, which could obscure subtle pathology No acute intracranial hemorrhage or extra-axial fluid collection. No hydrocephalus, mass, or herniation. No acute ischemic infarct. Unremarkable dural venous sinus attenuation. No acute osseous abnormality. The aerated spaces are clear. IMPRESSION: No acute intracranial process, within the constraints noted above. Reviewed, dictated and finalized at location K.
--- NOTE | ~2024-08-03 | XR_ITS ---
XR chest 1V portable 08/06/2024 08:19 Indication: Fluid overload. Procedure: AP portable chest Comparison: Comparison to multiple prior studies sequentially, with oldest reviewed study dated 11/07. Findings: Right pleural effusion. Shallow inspiration. Bibasilar airspace disease may represent pneum onia and/or atelectasis. Mediastinal shift to the right appears chronic. No pneumothorax. Impression: 1: Persistent bibasilar airspace disease may represent pneumonia and/or atelectasis. 2: Small right pleural effusion. Reviewed, dictated and finalized at location A. Impression: 1: Persistent bibasilar airspace disease may represent pneumonia and/or atelect asis. 2: Small right pleural effusion.
--- NOTE | ~2024-08-03 | US_ITS ---
EXAMINATION: US thoracentesis DATE: 08/11/2024 15:38 INDICATION: Right pleural effusion TECHNIQUE: The procedure and its risks and benefits were discussed with the patient. Potential risks discussed included bleeding, infection, and pneumothorax. The patient understood the risks and agreed to proceed. The skin was prepped and draped in sterile fashion. 1% lidocaine was used for local anes thesia. Under ultrasound guidance, a 5 Fr catheter with trochar was advanced into the right pleural e ffusion. Fluid was aspirated. The catheter was removed, and a dressing was applied. There were no imm ediate complications. FINDINGS: Ultrasound images demonstrate a right pleural effusion and the catheter within the fluid. IMPRESSION: 1. Successful ultrasound-guided thoracentesis yielding 750 mL of clear yellow fluid. Reviewed, dictated and finalized at location A.
--- NOTE | ~2024-08-03 | CT_ITS ---
EXAMINATION: CTA chest PE abdomen pel DATE: 08/03/2024 17:22 INDICATION: gen weakness, dimer >1; abd pain TECHNIQUE: Computed tomography angiography (CTA) of the chest was performed with 100 mL Omnipaque-350 intravenous contrast timed to evaluate the pulmonary arteries, followed by portal venous phase imagi ng of the abdomen and pelvis. Coronal maximum intensity projection 3D-reconstructions were created by the technologist. The dose-length product (DLP) was 1540.82 mGy-cm. Automated exposure control and i terative reconstruction technique were employed. COMPARISON: [facility] 01/17/2023; CT abdomen pelvis 12/18/2017. FINDINGS: CHEST: Lung parenchyma and airways: Subsegmental atelectasis/consolidation in the dependent right lung. Mini mal dependent left basilar atelectasis. Significant left hemidiaphragm elevation. Significant motion artifact in the lungs. 1.7 cm cavitary lesion in the left lower lobe. Pleura: Small volume left and moderate volume right pleural fluid collections. Thoracic inlet, axillae and chest wall: No thyroid or soft tissue mass. Body wall edema. Thoracic aorta: Ectasia of the aortic arch measuring up to 3.3 cm. Mild atherosclerotic arch calcific ations Mediastinum: Shift of the mediastinum to the right. Calcified nodes. Dilated central pulmonary arteri es as can be seen with pulmonary hypertension. Heart and pericardium: Cardiomegaly. The heart is shifted in the chest to the right. Small volume per icardial fluid. RV/LV ratio less than 1. Coronary artery calcifications: Mild. Thoracic bones: No acute osseous finding. Severe thoracic kyphosis. Pulmonary arteries: Study quality: Good bolus timing and contrast opacification. Significant motion a rtifact, with compression of normal anatomic structures which limits evaluation of the segmental and subsegmental pulmonary arteries. However, there are several filling defects within the segmental righ t lower lobe pulmonary arteries that likely represent pulmonary embolism. ABDOMEN/PELVIS: Liver: Enlarged. Somewhat nodular appearing border. Biliary/Gallbladder: Cholelithiasis. No inflammatory change. Mild pericholecystic fluid, likely relat ed to ascites. No bile duct dilation. Pancreas: No mass or duct dilation. Spleen: Normal. Adrenals:No mass. Kidneys: No obstructing stone or hydronephrosis. 2.0 cm hyperdense exophytic left upper pole cystic l esion. GI tract: Moderate gastric wall edema. Mild wall thickening and edema, with loss of haustration in th e distal sigmoid. No small or large bowel dilation. Normal appendix. Mesentery/Peritoneum: No mass or free air. Small volume ascites. Retroperitoneum: No mass. Atherosclerotic calcifications of intra-abdominal arterial vessels. Pelvis: Pelvic organs are within normal limits. Soft Tissues: Diffuse body wall edema. Abdominopelvic bones: No acute osseous finding. IMPRESSION: Segmental nonocclusive pulmonary emboli are suspected in the right lower lobe. Low clot burden. RV/LV ratio less than 1. 1.7 cm cavitary lesion in the right lower lobe, most likely secondary to infection or malignancy. Subsegmental atelectasis/consolidation in the right lower lobe. Chronic left hemidiaphragm elevation with shift of the mediastinum and heart to the right. Cardiomegaly. Small pericardial effusion. Moderate right and small left pleural effusions. Ectasia of the aortic arch. Moderate gastritis. Hepatomegaly. Possible cirrhotic change. 2.0 cm indeterminate density left upper pole lesion, slow interval growth, with increasing density. C onsider nonemergent but timely CT or MRI without and with contrast for further characterization. Mild sigmoid colitis. Small volume ascites. Diffuse body wall edema. Reviewed, dictated and finalized at location [facility]. IMPRESSION: Segmental nonocclusive pulmonary emboli are suspected in the right lower lobe. Low clot burden. RV/LV ratio less than 1. 1.7 cm cavitary lesion in the right lower lobe, most likely secondary to infect ion or malignancy. Subsegmental atelectasis/consolidation in the right lower lobe. Chronic left hemidiaphragm elevation with shift of the mediastinum and heart to the right. Cardiomegaly. Small pericardial effusion. Moderate right and small left pleural effusions. Ectasia of the aortic arch. Moderate gastritis. Hepatomegaly. Possible cirrhotic change. 2.0 cm indeterminate density left upper pole lesion, slow interval growth, with increasing density. Consider nonemergent but timely CT or MRI without and with contrast for further characterization. Mild sigmoid colitis. Small volume ascites. Diffuse body wall edema.
--- NOTE | 2024-08-03 12:18 | ECG_ITS ---
Test Date: 2024-08-03 12:27:36 Measurements Intervals [place] Rate: 94 P: 11 [place]: 134 QRS: 13 QRSD: 176 T: 178 QT: 392 QTc: 492 Interpretive Statements SINUS RHYTHM INTRAVENTRICULAR CONDUCTION DELAY [130+ ms QRS DURATION] Compared to ECG 06/04/2024 04:33:21 No significant changes Electronically Signed On 08-04-2024 13:17:38 CDT by Beau Ruiz M.D.
[2024-08-03 12:29] LABS: Basophils Percent Auto 0.4 % (0.2-1.2); Eosinophils Percent Auto 0.2 % (0-4.4); Hematocrit 34.9 % (42.0-52.0); Hemoglobin 10.1 g/dL (14.0-18.0); Immature Granulocyte Absolute 0.02 K/mm3 (0.00-0.031); Immature Granulocyte Percent A 0.4 % (0-0.5); Lymphocytes Absolute Auto 0.65 K/mm3 (0.9-3.2); Lymphocytes Percent Auto 14.2 % (18.3-44.2); Mean Corpuscular HGB Conc 28.9 g/dl (32-36); Mean Corpuscular Hemoglobin 25.1 pg (26-34); Mean Corpuscular Volume 86.6 fl (80-100); Mean Platelet Volume 9.2 fl (7.4-10.4); Monocytes Absolute Auto 0.7 K/mm3 (0.1-0.6); Monocytes Percent Auto 15.3 % (2.6-8.5); Neutrophils Absolute Auto 3.2 K/mm3 (1.3-6.7); Neutrophils Percent Auto 69.5 % (45.5-73.1); Platelet Count Result 110 k/mm3 (150-375); Red Blood Count 4.03 M/mm3 (4.6-6.20); Red Cell Distribution Width 20.5 % (11.5-14.5); White Blood Count 4.6 K/mm3 (4.5-10.0)
[2024-08-03 12:38] LABS: Alanine Aminotransferase 25 U/L (6-50); Albumin Level 3.4 g/dL (3.5-5.1); Alkaline Phosphatase 86 U/L (38-126); Anion Gap 3 mmol/L (4-12); Aspartate Amino Transferase 42 U/L (17-59); Bilirubin,Total 0.8 mg/dL (0.2-1.3); Blood Urea Nitrogen 18 mg/dL (9-20); Calcium 8.4 mg/dL (8.4-10.2); Carbon Dioxide 32 mmol/L (22-30); Chloride 92 mmol/L (98-107); Estimated CRCL calculation 64 ml/min; Estimated Glomerular Filt Rate > 60; Glucose 106 mg/dL (65-110); Sodium 127 mmol/L (137-145)
[2024-08-03 12:45] LABS: Anisocytosis 2+; Hypochromasia 1+; Platelet Estimate Slightly Decreased (Adequate)
[2024-08-03 12:46] LABS: Ovalocytes 1+; Schistocytes None Seen; Target Cells 1+; Tear Drop Cells 1+
[2024-08-03 12:57] LABS: Add Urine Microscopic? YES; Appearance Urine Clear (Clear); Bacteria Urine None Seen /hpf; Bilirubin Urine Negative (Negative); Blood Urine Negative (Negative); Color Urine Dark Yellow (Yellow); Glucose Urine UA Negative (Negative); Ketones Urine Trace mg/dL (Negative); Leukocyte Esterase Ur Trace LEU/UL (Negative); Need Manual Microscopic Reviewed; Nitrate Urine Negative (Negative); Protein Urine 2+ mg/dL (Negative); Specific Grav Ur 1.024 (1.001-1.035); Squamous Epithelial Cell Urine None Seen /hpf (Few); WBC Urine 0-5 /hpf (0-3)
--- NOTE | 2024-08-03 14:33 | ED.WEAKNESS ---
HPI - Weakness General Chief complaint: Weakness Stated complaint: lower ext weakness Time Seen by Provider: 08/03/24 14:14 Source: patient and family ( and daughter) Mode of arrival: EMS History of Present Illness HPI Narrative: Patient presents with complaint of generalized weakness although in particular bilateral lower extremities. His bilateral lower extremities have been edematous for the past 1 month and he has also noted swelling in his genitalia and in his bilateral arms although right greater than left. He states his legs feel heavy. He is on a diuretic but has missed doses over the past few days due to him not feeling well in general. He resides at home. He fell yesterday, slipping from his recliner when he was getting up to go to the bathroom. While his daughter tried to help him get up off the ground he reportedly became unresponsive followed by confusion before returning to baseline. 911 was called at that time but because he was no longer confused, he refused transportation at the time. He denies any pain/injury from the fall. He saw Dr Bashir last week as he had been having diarrhea; C diff test was reportedly negative and then he started having constipation. He denies any chest pain. He has been short of breath with a nonproductive cough. No nausea or vomiting. He endorses occasional abdominal pain. No fever chills. Related Data Home Medications ?Medication ?Instructions ?Recorded ?Confirmed ?Last Taken ?Type pantoprazole 40 mg tablet,delayed 40 mg PO QAM 09/21/19 07/28/24 06/03/24 History release (Protonix) carboxymethylcellulose sodium 0.5 1 drp EACH EYE 4-6XD 09/27/20 07/28/24 06/03/24 History % eye drops in a dropperette (Refresh Plus) clindamycin phosphate 1 % topical 1 applic topical DAILY 09/27/20 07/28/24 06/03/24 History gel, once daily (Clindagel) clotrimazole-betamethasone 1 1 applic topical BID 09/27/20 07/28/24 06/03/24 History %-0.05 % topical cream doxycycline hyclate 100 mg capsule 100 mg PO DAILY 09/07/22 07/28/24 06/03/24 History tamsulosin 0.4 mg capsule 0.4 mg PO HS 10/14/23 07/28/24 06/03/24 History hydrocortisone 2.5 % topical cream 1 applic topical BID PRN rash 04/13/24 07/28/24 06/03/24 History triamcinolone acetonide 0.1 % 1 applic topical BID PRN skin 04/13/24 07/28/24 Unknown History topical cream irritation acetaminophen 500 mg capsule 500 mg PO BID 06/04/24 07/28/24 Unknown History terbinafine HCl 1 % topical cream 1 applic topical DAILY 06/04/24 07/28/24 Unknown History ascorbic acid (vitamin C) 500 mg 500 mg PO DAILY 07/28/24 07/28/24 Unknown History tablet Allergies Allergy/AdvReac Type Severity Reaction Status Date / Time No Known Allergies Allergy Verified 08/03/24 12:16 PMFSH Past Medical History Medical History Edema of extremities Hyponatremia Venous stasis dermatitis of right lower extremity Venous stasis LBBB (left bundle branch block) Unsteady gait Scrotal infection Scrotal swelling Enlarged prostate without lower urinary tract symptoms (luts) Essential (primary) hypertension Gout, unspecified Iron deficiency anemia Low vitamin D level Memory loss Mixed hyperlipidemia Family History Family History Father Hypertension Gout Mother Hypertension Family history of malignant neoplasm of breast in first degree relative Breast cancer Cerebrovascular accident Sibling Brain cancer Liver cancer Sibling No problems noted. Other Family history of hearing loss Social History Social History Smoking status: Never smoker Second hand tobacco smoke exposure: No Alcohol intake: never Substance use: never Substance use type: does not use Do You Feel Safe in your Home?: Yes Lack of Transportation: No Lack of Food: Never True Current Housing: I Have Housing Concerned About Future Housing: No Difficulty Paying Gas/Electric Bills: No Difficulty Paying for Meds: No Currently Unemployed: No Education: Master's Degree or Higher Difficulty w/ Childcare or Family Care: No Living arrangements: with family Occupation/Education: retired 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 HEAD: Normocephalic, atraumatic. EYES: Non injected ENT: Nares clear, no rhinorrhea or epistaxis. NECK: Supple. CHEST: Speaking in full sentences. No respiratory distress. Diminished on auscultation. HEART: Regular rate and rhythm. . ABDOMEN: Soft, nondistended. Non tender to palpation without rigidity or guarding. Patient does have some skin breakdown/ulceration under the right pannus. EXTREMITIES: 3+ bilateral tibial edema, 2+ bilateral distal thigh edema. : Mild penile edema SKIN: Warm, dry. Chronic venous stasis b/l LE. NEURO: No focal deficits. Alert and oriented. PSYCH: Normal mood and affect. Course Vital Signs Vital signs: Vital Signs Temperature 97.7 F 08/03/24 12:09 Pulse Rate 98 08/03/24 12:09 Respiratory Rate 20 08/03/24 12:09 Blood Pressure 122/77 08/03/24 12:09 Pulse Oximetry 100 08/03/24 12:09 Temperature 97.7 F 08/03/24 12:09 Pulse Rate 108 H 08/03/24 18:46 Respiratory Rate 25 H 08/03/24 18:46 Blood Pressure 129/95 H 08/03/24 18:46 Pulse Oximetry 98 08/03/24 18:46 MDM - Weakness MDM Narrative Medical decision making narrative: Patient presents with generalized weakness however more prominent in the lower extremities which become edematous and feel heavy. In the emergency department they are afebrile with vital signs within normal limits. Normal renal function. Chronic hyponatremia. Dimer greater than [address] PE imaging and adding abdomen pelvis given patient having intermittent abdominal pain. Patient has a chronic normocytic anemia, stable today. He has intermittently had thrombocytopenia and does today. BNP >25,000, no diagnosis of heart failure in EMR/PMH list but echo below does show diastolic dysfunction. Lasix ordered. CT as below. Patient occasionally desaturates; PRN supplemental O2 ordered. Given multiple findings from work up, patient will require admission. Discussed this with family who are in agreement after verifying understanding. Extensive conversation was had about code status and patient, , and daughter are in agreement that, in the event of cardiopulmonary arrest, patient is DNR/DNI. Patient discussed with salesperson flowers hospitalist Dr Hopen. Patient will be an IMU admission. Recommends starting heparin gtt. This will be done but, due to information about the fall, is pending a CT brain. Oncoming ED physician aware of the plan and will follow up on CT brain and, if no acute process, place admission orders including need for telemetry and heparin drip. Differential Diagnosis Differential diagnosis: Likely acute myocardial infarction, anemia, hypoglycemia, hypothyroidism, rhabdomyolysis, sepsis, dehydration and other (acute versus acute on chronic heart failure; electrolyte abnormalities) Medical Records Attestation: I reviewed the patient's medical records. Medical records narrative: ECHO 2022 Summary 1. Left ventricular chamber dimension is normal. 2. Left ventricular systolic function is normal, estimated at 65-70%. 3. There is mildly increased left ventricular wall thickness. 4. The left ventricular diastolic function is grade I diastolic dysfunction. 5. Left atrial chamber dimension is mildly enlarged. 6. There is mild aortic valve calcification. 7. There is moderate aortic valve sclerosis. 8. There is mild tricuspid valve regurgitation. 9. Mild pulmonary hypertension, estimated pulmonary arterial systolic pressure is 37 mmHg. 10. There is mild pulmonic regurgitation. Lab Data 08/03/24 12:23 08/03/24 12:22 Labs: Lab Results 08/03/24 08/03/24 08/03/24 Range/Units 12:22 12:23 12:36 WBC 4.6 (4.5-10.0) K/mm3 RBC 4.03 L (4.6-6.20) M/mm3 Hgb 10.1 L (14.0-18.0) g/dL Hct 34.9 L (42.0-52.0) % MCV 86.6 (80-100) fl MCH 25.1 L (26-34) pg MCHC 28.9 L (32-36) g/dl RDW 20.5 H (11.5-14.5) % Plt Count 110 L (150-375) k/mm3 MPV 9.2 (7.4-10.4) fl Immature Gran % (Auto) 0.4 (0-0.5) % Neut % (Auto) 69.5 (45.5-73.1) % Lymph % (Auto) 14.2 L (18.3-44.2) % Baxter % (Auto) 15.3 H (2.6-8.5) % Eos % (Auto) 0.2 (0-4.4) % Baso % (Auto) 0.4 (0.2-1.2) % Lymph # (Auto) 0.65 L (0.9-3.2) K/mm3 Baxter # (Auto) 0.7 H (0.1-0.6) K/mm3 Eos # (Auto) 0.0 (0-0.3) K/mm3 Baso # (Auto) 0.0 (0.0-0.1) K/mm3 Abs Immat Gran (auto) 0.02 (0.00-0.031) K/mm3 Absolute Neuts (auto) 3.2 (1.3-6.7) K/mm3 Absolute Nucleated RBC 0.000 (0.0-0.012) K/mm3 Band Neutrophils % Not Reportable Nucleated RBC % 0.0 (0.0-0.2) % Platelet Estimate Slightly decreased (Adequate) Hypochromasia 1+ Anisocytosis 2+ Target Cells 1+ Tear Drop Cells 1+ Ovalocytes 1+ Schistocytes None seen D-Dimer 1.08 H (<0.48) ug/mL Sodium 127 L (137-145) mmol/L Potassium 4.0 (3.4-5.0) mmol/L Chloride 92 L (98-107) mmol/L Carbon Dioxide 32 H (22-30) mmol/L Anion Gap 3 L (4-12) mmol/L BUN 18 (9-20) mg/dL Creatinine 0.65 L (0.7-1.3) mg/dL Estim Creat Clear Calc 64 ml/min Estimated GFR > 60 (59 - ) Glucose 106 (65-110) mg/dL Calcium 8.4 (8.4-10.2) mg/dL Magnesium 1.7 (1.6-2.3) mg/dL Total Bilirubin 0.8 (0.2-1.3) mg/dL AST 42 (17-59) U/L ALT 25 (6-50) U/L Alkaline Phosphatase 86 (38-126) U/L Total Creatine Kinase 78 (55-170) U/L Troponin I 0.021 (0.000-0.034) ng/mL NT-Pro-B Natriuret Pep 03607 H (19.9-100) pg/mL Total Protein 7.0 (6.3-8.2) g/dL Albumin 3.4 L (3.5-5.1) g/dL TSH 0.522 (0.465-4.680) uIU/mL Urine Color Dark yellow (Yellow) Urine Appearance Clear (Clear) Urine pH 6.0 (5.0-9.0) Ur Specific Alexander 1.024 (1.001-1.035) Urine Protein 2+ H (Negative) mg/dL Urine Glucose (UA) Negative (Negative) mg/dL Urine Ketones Trace H (Negative) mg/dL Ur Blood (Man) Negative (Negative) Urine Nitrate Negative (Negative) Urine Bilirubin Negative (Negative) Urine Urobilinogen 1.0 (<2.0) mg/dL Add Ur Microanalysis Reviewed Leukocyte Esterase Rfl Trace H (Negative) KATT/UL Urine RBC 6-10 H (0-2) /hpf Urine WBC 0-5 (0-3) /hpf Ur Squamous Epith Cells None seen (Few) /hpf Urine Bacteria None seen /hpf Urine Casts 3-5 Influenza A (RT-PCR) (Negative) Influenza B (RT-PCR) (Negative) RSV (RT-PCR) (Negative) SARS-CoV-2 RNA (RT-PCR) (Negative) 08/03/24 Range/Units 14:59 WBC (4.5-10.0) K/mm3 RBC (4.6-6.20) M/mm3 Hgb (14.0-18.0) g/dL Hct (42.0-52.0) % MCV (80-100) fl MCH (26-34) pg MCHC (32-36) g/dl RDW (11.5-14.5) % Plt Count (150-375) k/mm3 MPV (7.4-10.4) fl Immature Gran % (Auto) (0-0.5) % Neut % (Auto) (45.5-73.1) % Lymph % (Auto) (18.3-44.2) % Baxter % (Auto) (2.6-8.5) % Eos % (Auto) (0-4.4) % Baso % (Auto) (0.2-1.2) % Lymph # (Auto) (0.9-3.2) K/mm3 Baxter # (Auto) (0.1-0.6) K/mm3 Eos # (Auto) (0-0.3) K/mm3 Baso # (Auto) (0.0-0.1) K/mm3 Abs Immat Gran (auto) (0.00-0.031) K/mm3 Absolute Neuts (auto) (1.3-6.7) K/mm3 Absolute Nucleated RBC (0.0-0.012) K/mm3 Band Neutrophils % Nucleated RBC % (0.0-0.2) % Platelet Estimate (Adequate) Hypochromasia Anisocytosis Target Cells Tear Drop Cells Ovalocytes Schistocytes D-Dimer (<0.48) ug/mL Sodium (137-145) mmol/L Potassium (3.4-5.0) mmol/L Chloride (98-107) mmol/L Carbon Dioxide (22-30) mmol/L Anion Gap (4-12) mmol/L BUN (9-20) mg/dL Creatinine (0.7-1.3) mg/dL Estim Creat Clear Calc ml/min Estimated GFR (59 - ) Glucose (65-110) mg/dL Calcium (8.4-10.2) mg/dL Magnesium (1.6-2.3) mg/dL Total Bilirubin (0.2-1.3) mg/dL AST (17-59) U/L ALT (6-50) U/L Alkaline Phosphatase (38-126) U/L Total Creatine Kinase (55-170) U/L Troponin I (0.000-0.034) ng/mL NT-Pro-B Natriuret Pep (19.9-100) pg/mL Total Protein (6.3-8.2) g/dL Albumin (3.5-5.1) g/dL TSH (0.465-4.680) uIU/mL Urine Color (Yellow) Urine Appearance (Clear) Urine pH (5.0-9.0) Ur Specific Alexander (1.001-1.035) Urine Protein (Negative) mg/dL Urine Glucose (UA) (Negative) mg/dL Urine Ketones (Negative) mg/dL Ur Blood (Man) (Negative) Urine Nitrate (Negative) Urine Bilirubin (Negative) Urine Urobilinogen (<2.0) mg/dL Add Ur Microanalysis Leukocyte Esterase Rfl (Negative) KATT/UL Urine RBC (0-2) /hpf Urine WBC (0-3) /hpf Ur Squamous Epith Cells (Few) /hpf Urine Bacteria /hpf Urine Casts Influenza A (RT-PCR) Negative (Negative) Influenza B (RT-PCR) Negative (Negative) RSV (RT-PCR) Negative (Negative) SARS-CoV-2 RNA (RT-PCR) Negative (Negative) Imaging Data Radiologist's impression: Impressions Chest X-Ray 08/03/24 13:17 IMPRESSION: Large right-sided pleural effusion. Loss of lung volume within the left hemithorax secondary to hemidiaphragmatic elevation, from distended aerated colon. Chest/Abdomen/Pelvis CTA 08/03/24 17:30 IMPRESSION: Segmental nonocclusive pulmonary emboli are suspected in the right lower lobe. Low clot burden. RV/LV ratio less than 1. 1.7 cm cavitary lesion in the right lower lobe, most likely secondary to infection or malignancy. Subsegmental atelectasis/consolidation in the right lower lobe. Chronic left hemidiaphragm elevation with shift of the mediastinum and heart to the right. Cardiomegaly. Small pericardial effusion. Moderate right and small left pleural effusions. Ectasia of the aortic arch. Moderate gastritis. Hepatomegaly. Possible cirrhotic change. 2.0 cm indeterminate density left upper pole lesion, slow interval growth, with increasing density. Consider nonemergent but timely CT or MRI without and with contrast for further characterization. Mild sigmoid colitis. Small volume ascites. Diffuse body wall edema. ECG Data EKG #1: Attestation: I personally reviewed and interpreted this ECG as follows: ECG completion date: 08/03/24 ECG completion time: 12:27 Prior ECG tracings: available for review (EKG 06/04/2024 had similar appearance in the precordial leads) Interpretation: Normal sinus rhythm at a rate of 94 beats per minute. HI interval 134. Intraventricular conduction delay. QRS wide at 176 milliseconds. QT/QTC 392/444. Good R-wave progression across the precordial leads. T-wave inversion in II. Patient also has T-wave inversions verses biphasic T-waves in V2 and V3 (but not the appearance of Wellens) as well as throughout before V5 and V6. He has ST depressions in V2 V3 and to a lesser extent V4/V5. Discharge Plan Discharge Clinical Impression: Generalized weakness, Anasarca, Chronic hyponatremia, Pleural effusion on right, Normocytic anemia, Thrombocytopenia, Cavitary lesion of lung, Cardiomegaly, Pleural effusion on left, Aortic ectasia, Gastritis, Hepatomegaly, Renal lesion, Colitis, Abdominal ascites Acute heart failure Qualifiers: Heart failure type: unspecified Qualified Code(s): I50.9 - Heart failure, unspecified Pulmonary emboli Qualifiers: Pulmonary embolism type: single subsegmental (without acute cor pulmonale) Qualified Code(s): I26.93 - Single subsegmental thrombotic pulmonary embolism without acute cor pulmonale Patient Disposition: Still a Patient Condition: Serious Patient Language: Syriac Prescriptions: No Action clotrimazole-betamethasone 1-0.05 % cream 1 applic topical BID Rx Instructions: apply to foot clindamycin phosphate [Clindagel] 1 % gel, once daily 1 applic topical DAILY Refresh Plus 0.5 % dropperette 1 drp EACH EYE 4-6XD doxycycline hyclate 100 mg capsule 100 mg PO DAILY tamsulosin 0.4 mg capsule 0.4 mg PO HS ferrous sulfate 325 mg (65 mg iron) tablet 325 mg PO DAILY Qty: 90 2RF pantoprazole [Protonix] 40 mg tablet,delayed release (DR/EC) 40 mg PO QAM triamcinolone acetonide 0.1 % cream 1 applic topical BID PRN (Reason: skin irritation) hydrocortisone 2.5 % cream 1 applic topical BID PRN (Reason: rash) furosemide [Lasix] 20 mg tablet See Rx Instructions PO QAM Qty: 180 2RF Rx Instructions: 1-2 orally every morning; ascorbic acid (vitamin C) 500 mg tablet 500 mg PO DAILY sodium chloride 1,000 mg tablet,soluble 1,000 mg PO DAILY Qty: 30 1RF aspirin 81 mg tablet,delayed release (DR/EC) 81 mg PO DAILY Qty: 60 2RF terbinafine HCl 1 % cream 1 applic TOPICAL DAILY acetaminophen 500 mg capsule 500 mg PO BID cholecalciferol (vitamin D3) 25 mcg (1,000 unit) capsule 25 mcg PO DAILY Qty: 90 3RF CertaVite Senior 0.4 mg-300 mcg- 250 mcg tablet 1 tablet PO DAILY Qty: 90 3RF allopurinol 100 mg tablet 100 mg PO BID Qty: 180 2RF memantine 10 mg tablet 10 mg PO BID Qty: 180 1RF atorvastatin 40 mg tablet 40 mg PO DAILY Qty: 90 1RF Follow-up/Referrals: Jsutin Allen MD [Primary Care Provider] - Time of Disposition: 19:49
--- OUTSIDE RECORDS SUMMARY | 2024-08-03 14:43 | XMS_ITS | Continuity of Care Document ---
Author Organization [facility] Address [address] [facility] [address] [place] [address] Phone Care Team Providers Care Oncology Nurse Name Role Phone Efren Sandra Unavailable Unavailable [...] Providers Copied on Encounter Office/outpat ient Visit, [facility], [address] [place] [address] [address], [place], [place], [id number], tel:[phone] [facility] [place] No Information Nov-2 6200 8 Boaz Schwartz. [address] [facility] [address], [place], [address], [place]. tel:[phone] Office/outpat ient Visit, [facility], [address] [place] [address] [address], [place], [place], [id number], [place] tel:[phone] [facility] [place] No Information Nov-1 9200 8 Melvin Fleming. [address] [facility] [place] , [address], [place], [place], [facility], [place]. tel:[phone] [facility], [address], [place], [place], [id number], [place] tel:[phone] [facility] No Information Sep- 8-200 8 Doisy Edward. [address] , [address], [place], [place], [facility], . tel:[phone] [facility], [address] [place] [address] [address], [place], [place], [id number], [place] tel:[phone] [facility] No Information Jun-2 3-200 8 Doisy Edward. [address] , [address], [place], [place], [facility], . tel:[phone] Referring Provider: Bairon Langford, [address] [place] [address], [facility]. tel:[phone] [facility], [address] [place] [address] [address], [place], [place], [id number], [place] tel:[phone] [facility] No Information 1 6-200 8 Doisy Edward. [address] , [address], [place], [place], [facility], . tel:[phone] [facility], [address], [place], [place], [id number], [place] tel:[phone] [facility] No Information Apr-1 5-200 8 Doisy Edward. [address] , [address], [place], [place], [facility], . tel:[phone] Referring Provider: Bairon Langford, [address] [place] [address], [facility]. tel:[phone] Office/outpat ient Visit, [facility], [address], [place], [place], [id number], tel:[phone] [facility] [address] No Information Mar-3 1-200 8 Melvin Fleming. [address] [place] [address] , [address], [place], [place], [facility], . tel:[phone] Referring Provider: Lonnie Langford, [address] [place], [place] [address], [place], [place], [facility]. tel:[phone] [facility], [address], [place], [place], [id number], tel:[phone] [facility] No Information Sep-2 8200 7 Melvin Fleming. [address] [place] [address] , [address], [place], [facility], . tel:[phone] Referring Provider: Bairon Langford, [address] [facility], [place], [place], [facility]. tel:[phone] Family History Family Member Type Diagnosis Age At Onset No Information Payers Payer name Insurance type Covered green party ID Authoriza tion(s) [place] BL [id number] [place] F[place] BL [id number] For Life Mdcr Supp CI [id number] Social History Type Description Quantity Date Captured [...]
--- OUTSIDE RECORDS SUMMARY | 2024-08-03 14:43 | XMS_ITS | Clinical Summary ---
Author Organization [facility] [employer] Address [address] [place] [address] Care Team Providers Care Broomcorn Press Feeder Name Role Phone Justin Allen MD Primary Care Provider [phone] Source Comments [facility] [facility],non-owned Affiliates and Associated Physician Practices is amultiple site organization consisting of ambulatory clinics and hospital sitesin [place], [place], [place] and [place]. This disclosure is being madepursuant to the Care Everywhere program and may not contain all information available regarding this patient. Last updated 17.[facility] [facility] Allergies No known active allergies Medications * Be aware that medications may not be up to date on this document. Alwaysverify current medications with the patient. acetaminophen (TYLENOL) 500 MG tablet Take 1 (one) tablet by mouth every 6 hours as needed for Fever or Pain Maximum allowable Acetaminophen amount = 4 Grams (4000 mg) / 24 hours. Active allopurinol (ZYLOPRIM) 100 MG tablet Take 1 (one) tablet by mouth 2 times daily Active dutasteride (AVODART) 0.5 MG capsule Take 1 (one) capsule by mouth once daily Active Multiple Vitamins-Minera ls (CERTAVITE/ANTI OXIDANTS) TABS Take 1 (one) tablet by mouth [...] to affected area 2 times daily Active clotrimazole-be tamethasone (Lotrisone) 1-0.05 % cream Apply 1 applicator to affected area 2 times daily Active Probiotic Product (PROBIOTIC MATURE ADULT PO) Take 1 tablet by mouth once daily Active zinc oxide (Desitin) 13 % cream Apply 1 Application to affected area as needed Active hydrocortisone (Hytone) 2.5 % cream Apply to affected area 2 times daily Active carboxymethylce llulose sodium PF (Refresh Plus) 0.5 % ophthalmic solution Instill 1 (one) drop into both eyes 3 times daily Active doxycycline hyclate (Acticlate) 100 MG tablet Take 1 (one) tablet by mouth every 12 hours Active Aspirin Low Dose 81 MG tablet Take 1 (one) tablet by mouth once daily 02/19/20 23 Active atorvastatin (Lipitor) 40 MG tablet Take 1 (one) tablet by mouth once daily 04/13/19 24 Active pantoprazole EC (Protonix) 40 MG tabletIndicatio ns:Gastroesopha geal reflux disease without esophagitis Take 1 (one) tablet by mouth once daily 90 tablet 3 07/04/19 24 Active Active Problems Problem Noted Date Diagnosed [...] at Not on file 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 Gender Identity Not on file Sexual Orientation [...] 9:34 AM CDT Height 175.3 cm (5' 9) 07/04/2023 9:34 AM CDT Body Mass Index 25.08 07/04/2023 9:34 AM CDT Plan of Treatment Health Maintenance Due Date Last Done Comments MEDICARE AWV 12 MONTHS 1940 DTAP/TDAP/TD VACCINES (1 - Tdap) 11/30/1959 PNEUMOCOCCAL VACCINE 50+ (1 of 1 - PCV) 1990 ZOSTER VACCINE (1 of 2) 1990 Respiratory Syncytial Virus (RSV) Vaccine Pt: or over 60 yrs (1 - 1-dose 75+ series) 11/30/2015 COVID-19 VACCINE (1 - season) 2023 DEPRESSION SCREENING 03/18/2024 INFLUENZA VACCINE (Season Ended) 2024 12/12/2015, 12/11/2014, 12/12/2013, Additional history exists HEPATITIS B VACCINE Aged Out No longe [...] Progress Patient-Stated? Author Safety General On track( 022 2:25 PM CDT) No Beronica Ratliff RN Note: Expected end date: Ongoing Interventions: Your nurse will assess your risk for falls/injury each visit Use appropriate and safe transfer methods Medication Management General On track( 2:25 PM CDT) No Beronica Ratliff RN Note: Expected end date: Ongonig Interventions: Take all medications as prescribed Let your doctor know right away about any changes in your medications Insurance MEDICARE [facility] MEDICARE Care Teams Broomcorn Press Feeder Relationship Specialty Start Date End Date Justin Allen MD [address] [place] [address] PCP - General 08/07/17
--- OUTSIDE RECORDS SUMMARY | 2024-08-03 14:43 | XMS_ITS | Clinical Summary ---
Author Organization [facility] Address [address] [place] [address] Care Team Providers Care Hot Strip Mill Inspector Name Role Phone Justin Allen MD Primary Care Provider + [phone] Allergies No known active allergies Medications adalimumab [...] Comments Blood Pressure 136/80 01/31/2024 2:55 PM PATIENT ACCOUNT REPRESENTATIVE Pulse 86 01/31/2024 2:55 PM PATIENT ACCOUNT REPRESENTATIVE Temperature - - Respiratory Rate - - Oxygen Saturation 97% 01/31/2024 2:55 PM PATIENT ACCOUNT REPRESENTATIVE Inhaled Oxygen Concentration - - Weight 80.7 kg (178 lb) 01/31/2024 2:55 PM PATIENT ACCOUNT REPRESENTATIVE Height 180.3 cm (5' 11) 01/31/2024 2:55 PM PATIENT ACCOUNT REPRESENTATIVE Body Mass Index 24.83 01/31/2024 2:55 PM PATIENT ACCOUNT REPRESENTATIVE Plan of Treatment Health Maintenance Due Date Last Done Comments Depression Screening 1940 Fall Risk Assessment 1940 DTaP/Tdap/Td Vaccine (1 - Tdap) 11/30/1951 Hepatitis B Screening 1958 Zoster Vaccine (1 of 2) 1990 Well Visit 65+ 2005 Covid-19 Vaccine (6 - 2023-2 5 season) 2023 12/13/2021, 07/18/2021, 01/12/2021, Additional history exists Influenza Vaccine (Season Ended) 2024 01/24/2023, 12/20/2021, 01/04/2021, Additional history exists Pneumococcal vaccine 65+ Completed 03/25/2019, 11/2017 Insurance [employer] Care Teams Hot Strip Mill Inspector Relationship Specialty Start Date End Date Justin Allen MD PCP - General Family Medicine 10/30/19
--- OUTSIDE RECORDS SUMMARY | 2024-08-03 14:43 | XMS_ITS | Referral Summary ---
Author Organization [facility] Address [address] [place] [address] Care Team Providers Care Fish Warden Name Role Phone Justin Allen MD Primary Care Provider + [phone] Allergies No known active allergies Medications adalimumab [...] Comments Blood Pressure 136/80 01/31/2024 2:55 PM DIETARY SERVICES DIRECTOR Pulse 86 01/31/2024 2:55 PM DIETARY SERVICES DIRECTOR Temperature - - Respiratory Rate - - Oxygen Saturation 97% 01/31/2024 2:55 PM DIETARY SERVICES DIRECTOR Inhaled Oxygen Concentration - - Weight 80.7 kg (178 lb) 01/31/2024 2:55 PM DIETARY SERVICES DIRECTOR Height 180.3 cm (5' 11) 01/31/2024 2:55 PM DIETARY SERVICES DIRECTOR Body Mass Index 24.83 01/31/2024 2:55 PM DIETARY SERVICES DIRECTOR Plan of Treatment Not on file Insurance MEDICARE MEDICARE FOR LIFE Care Teams Fish Warden Relationship Specialty Start Date End Date Justin Allen MD PCP - General Family Medicine 10/30/19
--- OUTSIDE RECORDS SUMMARY | 2024-08-03 14:44 | XMS_ITS | Continuity of Care Document ---
Author Name [facility] Organization [facility] Care Team Providers Care General Clerk Name Role Phone [facility] Unavailable Unavailable Medications Combined list of outpatient medications from Department of Defense and Veterans Affairs facilities.Medications provided include 1) outpatient medications from the last 15 months, and 2) patient-reported medications. Medication Details Route Status Patient Instructions Prescription Expires Prescription Number Last Dispense Date Ordering Provider Order Date Order Qty Source adalimumab (CF) 40 mg/0.4 mL pen-kit [2PENS] See Instruct ions, # 8 EA, 5 total refill(s ), Hard Stop Ordered 10/21/2024 5 2024 8.0 Ambulat ory Pharmac y adalimumab 40 mg/0.8 mL subcutaneou s kit INJECT 40MG SUB-CUTA NEOUSLY EVERY 7 DAYS DIRECTED , # 8 EA, 5 total refill(s ), Acute Complet ed 06/27/2023 3 2023 8.0 Ambulat ory Pharmac y adalimumab/ CF 40 MG/0.4 SQ [1 PEN KIT] Obtain advice for OTCs.ref rigerate Check with your doctor before becoming . 09/05/2023 [id number] 3 [address] [place] [address] [place] [facility] Allopurinol (Alloprim) Tablet 100 mg Oral Take with plenty of water.Ta ke or use exactly as directed .May cause drowsine ss/dizzi ness. 06/18/2024 [id number] 4 [address] [place] [address] [place] [facility] allopurinol 100 mg tablet = 1 tab(s), Oral, BID, # 180 EA, 2 total [...] Pharmac y atorvastati n 40 mg tablet = 1 tab(s), Oral, Daily, # 90 EA, 1 total refill(s ), Soft Stop Oral (given by mouth) Ordered 5 2024 90.0 Ambulat ory Pharmac y atorvastati n 40 mg tablet = 1 tab(s), Oral, Daily, # 90 EA, 1 total refill(s ), Hard Stop Oral (given by mouth) Discont inued 05/22/2024 5 2024 90.0 Ambulat ory Pharmac y atorvastati n 40 mg tablet 40 mg, Oral, Daily, # 90 EA, 1 total refill(s ), Hard Stop Oral (given by mouth) Discont inued 12/02/2023 4 2023 90.0 Ambulat ory Pharmac y CEPHALEXIN (CEPHALEXIN MONOHYDRATE ), 500MG, TABLET, ORAL, [facility], [facility] ea. BOTTLE Active [id number] 4 2023 21 Pharmac y Data Transac tion Service Facilit y clindamycin 1% gel [30g] See Instruct ions, # 30 g, 8 total refill(s ), Hard Stop Ordered 03/02/2025 5 2024 30.0 Ambulat ory Pharmac y clindamycin 1% gel [60g] See dose instruct ions in comments , # 60 g, 5 total refill(s ), Acute Complet ed 08/15/2023 4 2023 60.0 Ambulat ory Pharmac y Clindamycin 1%, Gel/Jelly, Topical For external use. 08/15/2023 [id number] 3 [address] [place] [address] [place] [facility] doxazosin 2 mg tablet See dose instruct ions in comments , # 90 EA, 1 total refill(s ), Acute Complet ed 12/31/2022 3 2022 90.0 Ambulat ory Pharmac y doxazosin 2 mg tablet 2 mg, Oral, Daily, # 90 EA, 3 total refill(s ), Hard Stop Oral (given by mouth) Complet ed 01/02/2024 3 2023 90.0 Ambulat ory Pharmac y Doxycycline Hyclate (Doryx Eq.) Capsule Conventiona l 100mg Oral Finish the prescrip tion.Mitch e with plenty of water.Av oid exposure to sun.Do not take if . 06/18/2024 [id number] 4 [address] [place] [address] [place] [facility] doxycycline hyclate 100 mg capsule = 1 cap(s), Oral, Daily, # 60 EA, 1 total refill(s ), Soft Stop Oral (given by mouth) Ordered 5 2024 60.0 Ambulat ory Pharmac y doxycycline hyclate 100 mg capsule See Instruct ions, # 90 EA, 1 total refill(s ), Hard Stop Discont inued 07/13/2024 5 2024 90.0 Ambulat ory Pharmac y [...] ory Pharmac y furosemide 20 mg tablet = 2 tab(s), Oral, every morning, # 180 EA, 2 [...] 4 2023 8.0 Ambulat ory Pharmac y hydrocortis one [...] ory Pharmac y memantine 10 mg tablet = 1 tab(s), Oral, BID, # 180 EA, 1 total [...] 3 2023 180.0 Ambulat ory Pharmac y Memantine Hydrochlori de (Namenda Eq.) Tablet 10 mg Oral 05/08/2024 [id number] 05/09 4 2023 180 [facility] [place] [facility] pantoprazol e EC 40 mg tablet See Instruct ions, # 90 EA, 3 total refill(s ), Hard Stop Discont inued 10/23/2023 4 2023 90.0 Ambulat ory Pharmac y pantoprazol e EC 40 mg tablet 40 mg, Oral, Daily, # 90 EA, 3 total refill(s ), Hard Stop Oral (given by mouth) Complet ed 07/03/2024 5 2024 90.0 Ambulat ory Pharmac y Refresh Plus 0.5% (PF) eye drops UD [30EA] See Instruct ions, # 60 EA, 3 total refill(s ), Hard Stop Complet ed 06/27/2023 4 2023 60.0 Ambulat ory Pharmac y TAMSULOSIN HCL (TAMSULOSIN HCL), 0.4 MG, CAP.SR 24H, ORAL, [employer]ARMACE[employer], 100 ea. BOTTLE Active [id number] 4 2023 30 Pharmac y Data Transac tion Service Facilit y terbinafine 1% cream [30g] See dose instruct ions in comments , # 30 g, 3 total refill(s ), Acute Complet ed 06/27/2023 4 2023 30.0 Ambulat ory Pharmac y terbinafine 1% cream [30g] See Instruct ions, # 30 g, 3 total refill(s ), Soft Stop Ordered 5 2024 30.0 Ambulat ory Pharmac y terbinafine 1% cream [30g] See Instruct ions, # 30 g, 2 total refill(s ), Hard Stop Discont inued 07/13/2024 5 2024 30.0 Ambulat ory Pharmac y [...] ed 04/04/20232023 30.0 Ambulat ory Pharmac y Terbinafine Hydrochlori de (Lamisil Eq.) Cream 1% Topical For external use. 06/27/2023 [id number] 3 2023 30 [facility] [place] [facility] triamcinolo ne 0.025% cream [454g] See Instruct ions, # 454 g, 1 total refill(s ), Hard Stop Ordered 03/02/2025 4 2023 454.0 Ambulat ory Pharmac y triamcinolo ne 0.1% ointment [80g] See Instruct ions, # 80 g, 2 total refill(s ), Soft Stop Ordered 5 2024 80.0 Ambulat ory Pharmac y triamcinolo ne 0.1% topical cream MIX WITH LAMISIL AND APPLY TOPICALL Y TO RIGHT GROIN TWICE DAILY., # 80 g, 3 total refill(s ), Acute Complet ed 04/04/20232023 80.0 Ambulat ory Pharmac y TRIAMCINOLO NE ACETONIDE (TRIAMCINOL ONE ACETONIDE), 0.1%, CREAM(GM), TOPICAL, [employer] 80 g TUBE Active [id number] 4 2023 80 Pharmac y Data Transac tion Service Facilit y TRIAMCINOLO NE ACETONIDE (TRIAMCINOL ONE ACETONIDE), 0.1%, OINT.(GM), TOPICAL, [employer] 80 g TUBE Cancele d [id number] : 2023 0 Pharmac y Data Transac tion Service Facilit y Allergies, Adverse Reactions, Alerts Combined list of allergies from Department of Defense and Veterans Affairs facilities. It does not include entries that were removed or entered in error. Substance Category Reaction Severity Reaction type Status Date Reported Comments Source No Known Allergies Drug allergy (disorder) active 09/22/[address] [place] [address] Group [place] [facility] Immunizations Combined list of available immunizations from the Department of Defense and Veterans Affairs facilities. Immunization Series Date Given Administered By Site Reaction Lot Number CVX Code Drug Confidential Investigator Status Comments Source influenza, seasonal, injectable-pf 2015 zzRig ht Arm [id number] [employer] complet ed influenza , seasonal, injectabl e-pf 12/12/15 Given Ambulat ory Pharmac y influenza, seasonal, injectable-pf 2015 [id number] [employer] complet ed influenza , seasonal, injectabl e-pf 12/12/15 Given Ambulat ory Pharmac y Influenza, seasonal, injectable, preservative free 1 2015 Unknown, Provider [id number] [employer] (SEQ) complet ed Influenza , seasonal, injectabl e, preservat alex free DoD influenza, seasonal, injectable-pf 2014 zzRig ht Arm [id number] [employer] complet ed influenza , seasonal, injectabl e-pf 12/11/14 Given Ambulat ory Pharmac y Influenza, seasonal, injectable, preservative free 1 2014 Unknown, Provider [id number] [employer] (CSL) complet ed Influenza , seasonal, injectabl e, preservat alex free DoD influenza, seasonal, injectable-pf 2013 zzRig ht Arm [id number] [employer]is [employer] ls complet ed influenza , seasonal, injectabl e-pf 12/12/13 Given Ambulat ory Pharmac y influenza, seasonal, injectable-pf 2013 [id number] [employer] complet ed influenza , seasonal, injectabl e-pf 12/12/13 Given Ambulat ory Pharmac y Influenza, seasonal, injectable, preservative free 1 2013 Unknown, Provider [id number] 140 [employer] l [place]. (NOV) complet ed Influenza , seasonal, injectabl e, preservat alex free DoD influenza, seasonal, injectable-pf 2012 zzRig ht Arm [id number] sanofi pasteur complet ed influenza , seasonal, injectabl e-pf 12/13/12 Given Ambulat ory Pharmac y influenza, seasonal, injectable-pf 2012 [id number] sanofi pasteur complet ed influenza , seasonal, injectabl e-pf 12/13/12 Given Ambulat ory Pharmac y Influenza, seasonal, injectable, preservative free 1 2012 Unknown, Provider [id number] 140 Sanofi Pasteur (PMC) complet ed Influenza , seasonal, injectabl e, preservat alex free DoD Procedures Combined list of: 1) Procedures from Department of Veterans Affairs facilities going back up to thelast 18 months, not all VA non-surgical procedures are included; 2) All procedures from the Department of Defense facilities. Procedure Procedure Type Code Date Perfomer Comments Sourc e No data available for this section Ambulatory P harmacy Social History Combined list of available smoking, tobacco, and other social history from Department of Defense and Veterans Affairs facilities. Social History Type Response Date Comment Sourc e This section is an empty social history section. [facility] Assessment and Plan Combined list of future care activities from Department of Defense and Veterans Affairs facilities (e.g., assessment and plan notes, appointments, orders, and referrals). Additional future care activities may be listed in the Plan of Care section. Result Assessment and Plan Date Source Assessment and Plan No data available for this section 08/03/2024 Ambulatory Pharmacy Functional Status Combined list of recent functional and cognitive assessments recorded at Department of Defense and Veterans Affairs ([place]VA Functional Early Measurement (FIM) Scale: 1 = Total Assistance (Subject = 0% +), 2 = Maximal Assistance (Subject = 25% +), 3 = Moderate Assistance (Subject = 50% +), 4 = Minimal Assistance (Subject = 75% +), 5 = Supervision, 6 = Modified Early (Device), 7 = Complete Early (Timely, Safely). Assessment Date/Time Source Assessment Type Assessment Skill Assessment Score Assessment Details No data available for this section
[2024-08-03 15:37] LABS: Creatine Kinase 78 U/L (55-170)
[2024-08-03 15:46] LABS: Influenza A QL RT-PCR Negative (Negative); Influenza B QL RT-PCR Negative (Negative); RSV RNA, RT-PCR Negative (Negative); SARS-CoV-2 RNA PCR Negative (Negative)
[2024-08-03 15:50] LABS: D Dimer 1.08 ug/mL (<0.48); NT Pro B Type Natriuretic Pept 26600 pg/mL (19.9-100); Troponin I 0.021 ng/mL (0.000-0.034)
[2024-08-03 15:51] LABS: Magnesium 1.7 mg/dL (1.6-2.3)
[2024-08-03 16:46] LABS: Thyroid Stimulating Hormone 0.522 uIU/mL (0.465-4.680)
[2024-08-03] MEDS: FUROSEMIDE INJ 40 MG/4 ML VIAL IV PUSH (17:23)
--- NOTE | 2024-08-03 19:52 | PM.IMHP ---
H&P: HPI History of Present Illness Date/Time: 08/03/24 19:52 Chief Complaint: Generalized swelling, weakness Narrative: 83-year-old male with a past medical history of essential hypertension, BPH, diastolic dysfunction, mild aortic stenosis, moderate to severe obstructive sleep apnea [facility] Past Medical History Medical History (Updated 08/03/24 @ 20:23 by Rylie Moya DO) Protein in urine Suppurative hidradenitis On Humira AVM (arteriovenous malformation) of colon Cecum BPH (benign prostatic hyperplasia) Renal lesion Evaluated by Urology 2018 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 Mild pulmonary hypertension Echo 2012 Diastolic dysfunction EF 65-72 grade 1 diastolic dysfunction noted on echo February 2013 also noted moderate aortic valve sclerosis mild tricuspid valve regurgitation and mild pulmonic regurgitation Severe obstructive sleep apnea Polysomnogram February 2013 recommending CPAP of 18 Venous stasis dermatitis of right lower extremity Venous stasis LBBB (left bundle branch block) Essential (primary) hypertension Gout, unspecified Iron deficiency anemia Low vitamin D level Memory loss Mixed hyperlipidemia Surgical History Surgical History (Updated 08/03/24 @ 20:12 by Rylie Moya DO) History of colonoscopy with polypectomy Colonoscopy 11/2017: Umbilicated perianal lesion and 2 small angioplastic lesions without bleeding in the cecum History of esophagogastroduodenoscopy (EGD) 11/2017: Tortuous esophagus prior EGD in 2008 demonstrated gastritis and duodenitis Family History Family History Father Hypertension Gout Mother Hypertension Family history of malignant neoplasm of breast in first degree relative Breast cancer Cerebrovascular accident Sibling Brain cancer Liver cancer Sibling No problems noted. Other Family history of hearing loss Social History Social History (Updated 08/03/24 @ 20:16 by Rylie Moya DO) Social History: Code status: DNR/DNI Surrogate decision maker: Smoking status: Never smoker Second hand tobacco smoke exposure: No Alcohol intake: never Substance use: never Substance use type: does not use Do You Feel Safe in your Home?: Yes Lack of Transportation: No Lack of Food: Never True Current Housing: I Have Housing Concerned About Future Housing: No Difficulty Paying Gas/Electric Bills: No Difficulty Paying for Meds: No Currently Unemployed: No Education: Master's Degree or Higher Difficulty w/ Childcare or Family Care: No Living arrangements: with family Occupation/Education: retired 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 Gender identity (if verbalized by the patient): Male Spiritual care concerns: No Meds Home Medications and Allergies Home Medications ?Medication ?Instructions ?Recorded ?Confirmed ?Type pantoprazole 40 mg tablet,delayed 40 mg PO QAM 09/21/19 07/28/24 History release (Protonix) carboxymethylcellulose sodium 0.5 1 drp EACH EYE 4-6XD 09/27/20 07/28/24 History % eye drops in a dropperette (Refresh Plus) clindamycin phosphate 1 % topical 1 applic topical DAILY 09/27/20 07/28/24 History gel, once daily (Clindagel) clotrimazole-betamethasone 1 1 applic topical BID 09/27/20 07/28/24 History %-0.05 % topical cream cholecalciferol (vitamin D3) 25 25 mcg PO DAILY #90 caps 04/18/21 07/28/24 Rx mcg (1,000 unit) capsule ujbcuxsg-fhc-powqz acid 0.4 1 tablet PO DAILY #90 tabs 01/22/22 07/28/24 Rx mg-lycopene 300 mcg-lutein 250 mcg tablet (CertaVite Senior) doxycycline hyclate 100 mg capsule 100 mg PO DAILY 09/07/22 07/28/24 History aspirin 81 mg tablet,delayed 81 mg PO DAILY #60 tabs 01/20/23 07/28/24 Rx release tamsulosin 0.4 mg capsule 0.4 mg PO HS 10/14/23 07/28/24 History furosemide 20 mg tablet (Lasix) See Rx Instructions PO QAM #180 04/13/24 07/28/24 Rx tabs hydrocortisone 2.5 % topical cream 1 applic topical BID PRN rash 04/13/24 07/28/24 History triamcinolone acetonide 0.1 % 1 applic topical BID PRN skin 04/13/24 07/28/24 History topical cream irritation allopurinol 100 mg tablet 100 mg PO BID #180 tabs 04/23/24 07/28/24 Rx memantine 10 mg tablet 10 mg PO BID #180 tabs 05/13/24 07/28/24 Rx atorvastatin 40 mg tablet 40 mg PO DAILY #90 tabs 05/21/24 07/28/24 Rx acetaminophen 500 mg capsule 500 mg PO BID 06/04/24 07/28/24 History terbinafine HCl 1 % topical cream 1 applic topical DAILY 06/04/24 07/28/24 History ferrous sulfate 325 mg (65 mg 325 mg PO DAILY #90 tabs 06/25/24 07/28/24 Rx iron) tablet ascorbic acid (vitamin C) 500 mg 500 mg PO DAILY 07/28/24 07/28/24 History tablet sodium chloride 1,000 mg soluble 1,000 mg PO DAILY #30 tabs 07/29/24 07/29/24 Rx tablet Allergies Allergy/AdvReac Type Severity Reaction Status Date / Time No Known Allergies Allergy Verified 08/03/24 12:16 Vital Signs Vital Signs - 24 hr 08/03/24 12:09 08/03/24 12:16 08/03/24 12:31 Temperature 97.7 F Pulse Rate 98 96 97 Respiratory Rate 20 24 H 27 H Blood Pressure 122/77 122/80 120/82 Pulse Oximetry 100 95 90 08/03/24 12:46 08/03/24 13:01 08/03/24 14:09 Temperature Pulse Rate 98 97 101 H Respiratory Rate 19 22 H 18 Blood Pressure 121/77 117/71 133/85 Pulse Oximetry 97 96 93 08/03/24 14:10 08/03/24 14:31 08/03/24 14:46 Temperature Pulse Rate 100 98 97 Respiratory Rate 22 H 19 21 H Blood Pressure 133/85 135/79 126/86 Pulse Oximetry 95 96 96 08/03/24 15:01 08/03/24 15:16 08/03/24 15:31 Temperature Pulse Rate 96 96 93 Respiratory Rate 18 25 H 21 H Blood Pressure 129/75 122/78 129/77 Pulse Oximetry 96 99 08/03/24 15:46 08/03/24 16:01 08/03/24 16:16 Temperature Pulse Rate 96 97 97 Respiratory Rate 16 25 H 24 H Blood Pressure 119/73 126/83 124/80 Pulse Oximetry 99 98 99 08/03/24 16:31 08/03/24 16:46 08/03/24 17:01 Temperature Pulse Rate 98 97 95 Respiratory Rate 19 25 H 21 H Blood Pressure 130/74 129/73 128/79 Pulse Oximetry 99 98 99 08/03/24 17:23 08/03/24 17:24 08/03/24 17:31 Temperature Pulse Rate 99 99 95 Respiratory Rate 23 H 27 H 18 Blood Pressure 126/82 126/82 127/76 Pulse Oximetry 99 94 08/03/24 17:47 08/03/24 18:01 08/03/24 18:16 Temperature Pulse Rate 105 H 99 106 H Respiratory Rate 18 21 H 21 H Blood Pressure 124/71 121/71 124/89 Pulse Oximetry 98 97 98 08/03/24 18:31 08/03/24 18:46 Temperature Pulse Rate 96 108 H Respiratory Rate 15 25 H Blood Pressure 128/73 129/95 H Pulse Oximetry 97 98 Exam Narrative: Weight 78.8 kg BMI 33.9 H&P: Results Labs Labs: Laboratory Tests 08/03/24 12:23 08/03/24 12:22 08/03/24 08/03/24 08/03/24 12:22 12:23 12:36 WBC 4.6 RBC 4.03 L Hgb 10.1 L Hct 34.9 L MCV 86.6 MCH 25.1 L MCHC 28.9 L RDW 20.5 H Plt Count 110 L MPV 9.2 Immature Gran % (Auto) 0.4 Neut % (Auto) 69.5 Lymph % (Auto) 14.2 L [place] % (Auto) 15.3 H Eos % (Auto) 0.2 Baso % (Auto) 0.4 Lymph # (Auto) 0.65 L [place] # (Auto) 0.7 H Eos # (Auto) 0.0 Baso # (Auto) 0.0 Abs Immat Gran (auto) 0.02 Absolute Neuts (auto) 3.2 Absolute Nucleated RBC 0.000 Band Neutrophils % Not Reportable Nucleated RBC % 0.0 Platelet Estimate Slightly decreased Hypochromasia 1+ Anisocytosis 2+ Target Cells 1+ Tear Drop Cells 1+ Ovalocytes 1+ Schistocytes None seen D-Dimer 1.08 H Sodium 127 L Potassium 4.0 Chloride 92 L Carbon Dioxide 32 H Anion Gap 3 L BUN 18 Creatinine 0.65 L Estim Creat Clear Calc 64 Estimated GFR > 60 Glucose 106 Calcium 8.4 Magnesium 1.7 Total Bilirubin 0.8 AST 42 ALT 25 Alkaline Phosphatase 86 Total Creatine Kinase 78 Troponin I 0.021 NT-Pro-B Natriuret Pep 41663 H Total Protein 7.0 Albumin 3.4 L TSH 0.522 Urine Color Dark yellow Urine Appearance Clear Urine pH 6.0 Ur Specific [place] 1.024 Urine Protein 2+ H Urine Glucose (UA) Negative Urine Ketones Trace H Ur Blood (Man) Negative Urine Nitrate Negative Urine Bilirubin Negative Urine Urobilinogen 1.0 Add Ur Microanalysis Reviewed Leukocyte Esterase Rfl Trace H Urine RBC 6-10 H Urine WBC 0-5 Ur Squamous Epith Cells None seen Urine Bacteria None seen Urine Casts 3-5 Influenza A (RT-PCR) Influenza B (RT-PCR) RSV (RT-PCR) SARS-CoV-2 RNA (RT-PCR) 08/03/24 14:59 WBC RBC Hgb Hct MCV MCH MCHC RDW Plt Count MPV Immature Gran % (Auto) Neut % (Auto) Lymph % (Auto) [place] % (Auto) Eos % (Auto) Baso % (Auto) Lymph # (Auto) [place] # (Auto) Eos # (Auto) Baso # (Auto) Abs Immat Gran (auto) Absolute Neuts (auto) Absolute Nucleated RBC Band Neutrophils % Nucleated RBC % Platelet Estimate Hypochromasia Anisocytosis Target Cells Tear Drop Cells Ovalocytes Schistocytes D-Dimer Sodium Potassium Chloride Carbon Dioxide Anion Gap BUN Creatinine Estim Creat Clear Calc Estimated GFR Glucose Calcium Magnesium Total Bilirubin AST ALT Alkaline Phosphatase Total Creatine Kinase Troponin I NT-Pro-B Natriuret Pep Total Protein Albumin TSH Urine Color Urine Appearance Urine pH Ur Specific [place] Urine Protein Urine Glucose (UA) Urine Ketones Ur Blood (Man) Urine Nitrate Urine Bilirubin Urine Urobilinogen Add Ur Microanalysis Leukocyte Esterase Rfl Urine RBC Urine WBC Ur Squamous Epith Cells Urine Bacteria Urine Casts Influenza A (RT-PCR) Negative Influenza B (RT-PCR) Negative RSV (RT-PCR) Negative SARS-CoV-2 RNA (RT-PCR) Negative Impressions Chest X-Ray 08/03/24 13:17 IMPRESSION: Large right-sided pleural effusion. Loss of lung volume within the left hemithorax secondary to hemidiaphragmatic elevation, from distended aerated colon. Chest/Abdomen/Pelvis CTA 08/03/24 17:30 IMPRESSION: Segmental nonocclusive pulmonary emboli are suspected in the right lower lobe. Low clot burden. RV/LV ratio less than 1. 1.7 cm cavitary lesion in the right lower lobe, most likely secondary to infection or malignancy. Subsegmental atelectasis/consolidation in the right lower lobe. Chronic left hemidiaphragm elevation with shift of the mediastinum and heart to the right. Cardiomegaly. Small pericardial effusion. Moderate right and small left pleural effusions. Ectasia of the aortic arch. Moderate gastritis. Hepatomegaly. Possible cirrhotic change. 2.0 cm indeterminate density left upper pole lesion, slow interval growth, with increasing density. Consider nonemergent but timely CT or MRI without and with contrast for further characterization. Mild sigmoid colitis. Small volume ascites. Diffuse body wall edema. EKG: Sinus rhythm rate and 90 or interventricular conduction delay QTC 492 unchanged from prior All imaging and EKGs personally reviewed and interpreted. And unless stated otherwise agree with radiologic and cardiology interpretation. Assessment and Plan Assessment and plan (1) Diastolic CHF: Qualifiers: Heart failure chronicity: acute on chronic Qualified Code(s): I50.33 - Acute on chronic diastolic (congestive) heart failure Code(s): I50.30 - Unspecified diastolic (congestive) heart failure Status: Acute (2) Pulmonary emboli: Qualifiers: Pulmonary embolism type: single subsegmental (without acute cor pulmonale) Qualified Code(s): I26.93 - Single subsegmental thrombotic pulmonary embolism without acute cor pulmonale Code(s): I26.99 - Other pulmonary embolism without acute cor pulmonale Status: Acute (3) Anasarca: Code(s): R60.1 - Generalized edema Status: Acute (4) Bilateral pleural effusion: Code(s): J90 - Pleural effusion, not elsewhere classified Status: Acute (5) Chronic hyponatremia: Code(s): E87.1 - Hypo-osmolality and hyponatremia Status: Acute (6) Hepatomegaly: Code(s): R16.0 - Hepatomegaly, not elsewhere classified Status: Acute (7) Protein in urine: Qualifiers: Proteinuria type: unspecified Qualified Code(s): R80.9 - Proteinuria, unspecified Code(s): R80.9 - Proteinuria, unspecified Status: Acute (8) Thrombocytopenia: Code(s): D69.6 - Thrombocytopenia, unspecified Status: Acute (9) Abdominal ascites: Qualifiers: Ascites type: other type Qualified Code(s): R18.8 - Other ascites Code(s): R18.8 - Other ascites Status: Acute (10) Cavitary lesion of lung: Code(s): J98.4 - Other disorders of lung Status: Acute (11) Gastritis: Qualifiers: Gastritis type: unspecified gastritis Chronicity: chronic Gastritis bleeding: without bleeding Qualified Code(s): K29.50 - Unspecified chronic gastritis without bleeding Code(s): K29.70 - Gastritis, unspecified, without bleeding Status: Acute (12) Colitis: Code(s): K52.9 - Noninfective gastroenteritis and colitis, unspecified Status: Acute (13) Renal lesion: Code(s): N28.9 - Disorder of kidney and ureter, unspecified Status: Acute (14) Generalized weakness: Code(s): R53.1 - Weakness Status: Acute Quality VTE Prophylaxis VTE prophylaxis: pharmacologic ordered (Heparin GGT per protocol) Hospitalist MIPS Advance Care Plan I have confirmed that the patient's Advanced Care Plan is present, code status is documented, or surrogate decision maker is listed in patient medical record.: Yes Medication Reconciliation I have utilized all available resources to obtain, update and review the patients current medications (includes all prescriptions, OTC, herbals, cannabis, and nutritional supplements).: Yes
[2024-08-03 21:56] LABS: INR 1.1; Prothrombin Time 14.3 Seconds (11.1-14.7)
[2024-08-03 21:57] LABS: Partial Thromboplastin Time 29.3 Seconds (22.3-36.8)
[2024-08-03] MEDS: HEPARIN SOD/D5W 100 UNITS/ML 25,000 UNITS/250 ML BAG 11 UNITS IV CONT (22:15)
[2024-08-03] MEDS: PHARMACIST COMMUNICATION ORDER 1 EACH XX (22:15)
--- NOTE | 2024-08-03 22:19 | ADMGEN ---
This patient, Nick Echeverria, was admitted to IMU Room 207-01. Patient/family oriented to hospital policies and general routines including ID bracelet, bed and alarms, visiting hours, pain management, procedures, bathroom and other care routines, personal items, smoking policy, room service/diet, and visiting hours. Information on how to activate the Rapid Response Team has been discussed. Patient/Family are encouraged to report perceived risks to care and to ask questions if they do not understand what they are told or what they should do.
[2024-08-04] VITALS (18 sets, daily range): BP systolic 102–125; BP diastolic 55–69; PULSE 88–100; RESP 16–24; TEMP 36.3–37.1; O2SAT 90–100
--- NOTE | 2024-08-04 | ECHO_ITS ---
Patient Info Name: Nick Echeverria Age: 83 years : 1940 Gender: Male Ht: 60 in Wt: 170 lbs BSA: 1.84 m2 HR: 99 bpm BP: 108 / 68 mmHg Heart Rhythm: Sinus Rhythm Technical Quality: Fair Exam Date: 08/04/2024 8:12 AM Patient Status: I Admit Date: 08/03/2024 Exam Type: CA echo dop color flow w con Complete two-dimensional, color flow and Doppler transthoracic echocardiogram is performed with contrast to opacify the left ventricle and to improve the deliniation of the left ventricle endocardial borders. Staff Referring Physician: Bar Ceballos Gray Mixing Operator: Ann Wright Attending Provider: Rylie Moya DO Contrast/Agitated Saline Contrast/Ag. Saline: Definity Amount: 2.00 ml Administered By: Ann Wright Existing IV Access: Yes IV Access Condition: patent with no signs of infiltration Summary 1. Very technically difficult study with limited views. 2. Left ventricular chamber dimension is mildly enlarged. 3. Left ventricular systolic function is moderately reduced, estimated at 30-35. 4. Left atrial chamber dimension is severely enlarged. 5. There is trivial pericardial effusion. Left Ventricle Left ventricular chamber dimension is mildly enlarged. Left ventricular systolic function is moderately reduced, estimated at 30-35. Left ventricular septal wall motion is abnormal with septal motion related to bundle branch block. The left ventricular diastolic function is abnormal. Right Ventricle Right ventricular chamber dimension is not well visualized. Left Atria Left atrial chamber dimension is severely enlarged. Right Atria Right atrial chamber dimension is not well visualized. Aortic Valve There is no aortic valve regurgitation. There is severe aortic valve calcification. Mitral Valve There is mild mitral valve regurgitation. Tricuspid Valve The tricuspid valve is not well visualized. Pericardium/Pleural There is trivial pericardial effusion. Inferior Vena Cava Inferior vena cava is not well visualized. Aorta The aortic root size at the sinus of Valsalva is not well visualized. Left Ventricular Outflow Tract Name Value Normal LVOT 2D LVOT Diameter 2.2 cm LVOT Doppler LVOT Peak Velocity 50 cm/s LVOT Peak Gradient 1 mmHg LVOT Mean Gradient 1 mmHg LVOT VTI 7 cm LVOT VTI/AV VTI Ratio 0.5 LVOT Stroke Volume 28 ml LVOT CO 3.5 l/min LVOT CI 1.9 l/min/m2 Mitral Valve Name Value Normal MV Diastolic Function MV E Peak Velocity 139 cm/s MV A Peak Velocity 3 cm/s MV E/A 55.5 MV Decel Time (PW) 100 ms MV Annular TDI MV E/e' (Septal) 25.8 MV E/e' (Lateral) 9.1 MV E/e' (Average) 17.5 Tricuspid Valve Name Value Normal TV Annular TDI TV Lateral Estefany s' Velocity 7.3 cm/s >=9.5 Aortic Valve Name Value Normal AV Doppler AV Peak Velocity 86 cm/s AV Peak Gradient 3 mmHg AV Mean Gradient 1 mmHg AV VTI 14 cm AV Area (Cont Eq VTI) 2.0 cm2 >=3.0 AV Area (Cont Eq Randy) 2.3 cm2 AV DI (Randy) 0.58 AV Regurgitation 2D LVOT Area 3.9 cm2 Ventricles Name Value Normal LV Dimensions 2D/MM LVOT Diameter 2.2 cm LV Fractional Shortening/Ejection Fraction 2D/MM LV Diastolic Volume (4C MOD) 130 ml LV EF (4C MOD) 75 % LV Diastolic Length (4C) 7.7 cm LV Systolic Length (4C) 6.8 cm LV Stroke Volume (4C MOD) 97 ml Atria Name Value Normal LA Dimensions LA Volume (4C A-L) 163 ml LA Volume (BP A-L) 155 ml RA Dimensions RA Area (4C) 12.4 cm2 <=18.0 Report Signatures
[2024-08-04 04:36] LABS: Basophils Percent Auto 0.8 % (0.2-1.2); Eosinophils Percent Auto 0.5 % (0-4.4); Hemoglobin 9.9 g/dL (14.0-18.0); Immature Granulocyte Absolute 0.01 K/mm3 (0.00-0.031); Immature Granulocyte Percent A 0.3 % (0-0.5); Lymphocytes Absolute Auto 0.52 K/mm3 (0.9-3.2); Lymphocytes Percent Auto 14.1 % (18.3-44.2); Mean Corpuscular HGB Conc 30.9 g/dl (32-36); Mean Corpuscular Hemoglobin 26.3 pg (26-34); Mean Corpuscular Volume 85.1 fl (80-100); Monocytes Absolute Auto 0.6 K/mm3 (0.1-0.6); Neutrophils Absolute Auto 2.5 K/mm3 (1.3-6.7); Neutrophils Percent Auto 67.3 % (45.5-73.1); Platelet Count Result 107 k/mm3 (150-375); Red Blood Count 3.76 M/mm3 (4.6-6.20); Red Cell Distribution Width 20.8 % (11.5-14.5); White Blood Count 3.7 K/mm3 (4.5-10.0)
[2024-08-04 04:49] LABS: Partial Thromboplastin Time 67.8 Seconds (22.3-36.8)
[2024-08-04 04:51] LABS: Anion Gap 4 mmol/L (4-12); Blood Urea Nitrogen 17 mg/dL (9-20); Calcium 8.4 mg/dL (8.4-10.2); Carbon Dioxide 34 mmol/L (22-30); Chloride 90 mmol/L (98-107); Estimated CRCL calculation 56 ml/min; Estimated Glomerular Filt Rate > 60; Glucose 91 mg/dL (65-110); Potassium 3.7 mmol/L (3.4-5.0); Sodium 128 mmol/L (137-145)
[2024-08-04] MEDS: HEPARIN SODIUM 5,000 UNITS/ML VIAL 2500 UNITS IV PUSH (05:04)
[2024-08-04] MEDS: PERFLUTREN LIPID MICROSPHERES 1.5 ML VIAL DILUTED TO 10 ML TOTAL VOLUME IV PUSH (08:33)
--- NOTE | 2024-08-04 09:14 | ECG_ITS ---
Test Date: 2024-08-04 09:50:24 Measurements Intervals Otter Rate: 87 P: 18 NC: 138 QRS: 9 QRSD: 193 T: 178 QT: 422 QTc: 510 Interpretive Statements SINUS RHYTHM INTRAVENTRICULAR CONDUCTION DELAY [130+ ms QRS DURATION] Compared to ECG 08/03/2024 12:27:36 No significant changes Electronically Signed On 08-04-2024 13:41:32 CDT by Beau Ruiz M.D.
[2024-08-04 09:50] LABS: Procalcitonin 0.1 ng/mL
[2024-08-04] MEDS: MULTIVITAMINS /C LUTEIN (CENTRUM SILVER) TABLET *BKC 1 TAB PO (09:59)
[2024-08-04] MEDS: allopurinoL 100 MG TABLET PO ×2 (09:59→17:25)
[2024-08-04] MEDS: ACETAMINOPHEN 500 MG TABLET PO ×2 (09:59→20:04)
[2024-08-04] MEDS: CHOLECALCIFEROL 1,000 UNITS TABLET 1000 UNITS PO (10:00)
[2024-08-04] MEDS: PANTOPRAZOLE 40 MG TABLET PO (10:00)
[2024-08-04] MEDS: ASPIRIN 81 MG ENTERIC TABLET PO (10:00)
[2024-08-04] MEDS: ATORVASTATIN 40 MG TABLET PO (10:00)
[2024-08-04] MEDS: SODIUM CHLORIDE 1 GM TABLET PO (10:00)
[2024-08-04] MEDS: ASCORBIC ACID 500 MG TABLET PO (10:00)
[2024-08-04] MEDS: FERROUS SULFATE 325 MG TABLET DR PO (10:00)
[2024-08-04] MEDS: MEMANTINE 10 MG TABLET PO ×2 (10:00→17:25)
[2024-08-04] MEDS: FUROSEMIDE INJ 40 MG/4 ML VIAL IV PUSH ×2 (10:01→17:29)
[2024-08-04] MEDS: CLINDAMYCIN PHOS 1% 30 GM GEL 1 APPLIC TOPICAL (10:02)
--- NOTE | 2024-08-04 10:13 | IVDEFINITY ---
Prior to administration of IV Definity the patient was educated on the risks and benefits of the imaging enhancing agent including potential adverse side effects. The patient verbalized understanding. Allergies were verified. No exclusion criteria were identified and at least one of the following inclusion criteria were met: 1) physician request, 2) patient technically difficult to image (per the [place] [employer] guidelines of two or more segments not discernable within the apical view), or 3) questionable left ventricular function. ?
[2024-08-04] MEDS: BETAMETHASONE/CLOTRIMAZOLE CREAM 15 GM TUBE 1 APPLIC TOPICAL (10:35)
[2024-08-04] MEDS: MICONAZOLE NITRATE 2% CREAM 30 GM TUBE 1 APPLIC TOPICAL (10:35)
--- NOTE | 2024-08-04 11:17 | P.CONPL_ITS ---
Assessment and Plan Assessment and plan (1) Pulmonary emboli: Qualifiers: Pulmonary embolism type: single subsegmental (without acute cor pulmonale) Qualified Code(s): I26.93 - Single subsegmental thrombotic pulmonary embolism without acute cor pulmonale Code(s): I26.99 - Other pulmonary embolism without acute cor pulmonale Status: Acute Assessment and Plan: Patient with low clinical suspicion, positive D-dimer 1.08, CT angiogram of the chest reviewed with Radiology and given the significant motion artifact, right pleural effusion with compression and infiltrates the readout is suspected segmental PE in the right lower lobe. lower extremity DVT excluded by Doppler. Plan: I am not convinced there is right lower lobe PE but cannot completely exclude this. I think it is low likelihood that he has a PE and at this time he is tolerating anticoagulation without any complications. Will continue IV heparin at this time. Discussed with Dr. Ceballos, will follow with you. (2) Cavitary lesion of lung: Code(s): J98.4 - Other disorders of lung Status: Acute Assessment and Plan: Patient with left lower lobe thick-walled cavity with adjacent infiltrate. Reviewed with Radiology and suspect this is a pneumonia rather than a malignancy. Patient has no history of tobacco use, no tuberculosis exposures, no aspiration, he did have a brief syncopal episode a few days ago. Currently he denies fever, chills, rigors, phlegm production or hemoptysis. He states his cough is better with diuresis and 12 hours of antibiotics. Plan: I will treat the patient for a bacterial abscess at this time. I will check a nasal swab for MRSA. Sputum culture. low suspicion for AFB disease, QuantiFERON gold and sputum for AFB x3 ordered. I will send urine for Legionella, urine for pneumococcal disease, serum for mycoplasma IgM and extended respiratory pathogen panel. I will change his antibiotics to Zosyn and azithromycin. Will follow him clinically. (3) Acute heart failure: Qualifiers: Heart failure type: unspecified Qualified Code(s): I50.9 - Heart failure, unspecified Code(s): I50.9 - Heart failure, unspecified Status: Acute Assessment and Plan: Patient with 6 months lower extremity edema, 1-2 weeks worsening nocturia, shortness of breath, bilateral pleural effusions, lower extremity and scrotal swelling and a BNP of 26,600. 08/04/2024, weight today 77.4 kg with an admission weight of 78.8 kg. Cumulative today he is -228 mL on Lasix 40 IV b.i.d plan: Continue as aggressive diuresis as tolerated by his cardiac and renal systems per hospitalist team. Currently 40 IV bid. I have ordered an echocardiogram. History of Present Illness History of Present Illness Consult date: 08/04/24 Chief complaint: CHF exac Narrative: 08/04/2024: This is a new pulmonary consult for pulmonary embolism and left lower lobe lung cavity. 83-year-old with a history of hyponatremia, hypertension, gout, memory loss. Patient has no history of asthma, COPD, recurrent pneumonias. He is a never smoker and was not exposed to secondhand smoke. 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 patient had no respiratory symptoms as a child, through his adulthood until approximately 12 months ago. Twelve months ago he started with a dry cough and a little bit of phlegm. Six months ago he stated he had started with swollen legs that has gotten progressively worse, worsening orthopnea and he now sleeps in a recliner an upright position. Two months history of worsening shortness of breath at rest and this apparently is improved when he walks. Increased nocturia over the last 2-3 weeks from 1-2 times a night to 4-5 times a night. On 08/02 the patient fell from his recliner and had a syncopal episode EMS was called but he had regained consciousness and refused transport to the hospital. Patient denies any fever, chills, rigors, night sweats, phlegm production, hemoptysis. He has no known exposures to tuberculosis. 08/03/2024: Patient presented to the emergency department with weakness of the lower extremities, 1 month history lower extremity edema, scrotal edema, upper arm edema. Recently missed doses of his diuretics. Recent history of diarrhea. Blood pressure 122/77, heart rate 98, respirations 20, white blood cell count 4.6, creatinine 0.65, serum bicarb 32. Eosinophils 0.2%. BNP 826 1600. Troponin negative. TSH 0.522. COVID, RSV, influenza RT PCR negative. Chest x-ray with a large right-sided pleural effusion, chronic elevated left hemidiaphragm. CT angiogram chest abdomen pelvis with segmental right lower lobe pulmonary embolism, 1.7 him cm cavitary lesion left lower lobe, atelectasis consolidation right lower lobe, chronic left hemidiaphragm elevation. Small volume ascites and diffuse body wall edema. Patient was started on IV heparin, ceftriaxone, azithromycin, Lasix 40 IV b.i.d., 08/04/2024: Currently the patient tells me his breathing is better today and his cough is better today. He is afebrile. White blood cell count 3.7, creatinine 0.74, procalcitonin 0.1, lower extremity Dopplers are negative. DATA: 08/03/2024; EXAMINATION: CTA chest PE abdomen pel DATE: 08/03/2024 17:22 INDICATION: gen weakness, dimer >1; abd pain TECHNIQUE: Computed tomography angiography (CTA) of the chest was performed with 100 mL Omnipaque-350 intravenous contrast timed to evaluate the pulmonary arteries, followed by portal venous phase imaging of the abdomen and pelvis. Coronal maximum intensity projection 3D-reconstructions were created by the technologist. The dose-length product (DLP) was 1540.82 mGy-cm. Automated exposure control and iterative reconstruction technique were employed. COMPARISON: CTPA 01/17/2023; CT abdomen pelvis 12/18/2017. FINDINGS: CHEST: Lung parenchyma and airways: Subsegmental atelectasis/consolidation in the dependent right lung. Minimal dependent left basilar atelectasis. Significant left hemidiaphragm elevation. Significant motion artifact in the lungs. 1.7 cm cavitary lesion in the left lower lobe. Pleura: Small volume left and moderate volume right pleural fluid collections. Thoracic inlet, axillae and chest wall: No thyroid or soft tissue mass. Body wall edema. Thoracic aorta: Ectasia of the aortic arch measuring up to 3.3 cm. Mild atherosclerotic arch calcifications Mediastinum: Shift of the mediastinum to the right. Calcified nodes. Dilated central pulmonary arteries as can be seen with pulmonary hypertension. Heart and pericardium: Cardiomegaly. The heart is shifted in the chest to the right. Small volume pericardial fluid. RV/LV ratio less than 1. Coronary artery calcifications: Mild. Thoracic bones: No acute osseous finding. Severe thoracic kyphosis. Pulmonary arteries: Study quality: Good bolus timing and contrast opacification. Significant motion artifact, with compression of normal anatomic structures which limits evaluation of the segmental and subsegmental pulmonary arteries. However, there are several filling defects within the segmental right lower lobe pulmonary arteries that likely represent pulmonary embolism. ABDOMEN/PELVIS: Liver: Enlarged. Somewhat nodular appearing border. Biliary/Gallbladder: Cholelithiasis. No inflammatory change. Mild pericholecystic fluid, likely related to ascites. No bile duct dilation. Pancreas: No mass or duct dilation. Spleen: Normal. Adrenals:No mass. Kidneys: No obstructing stone or hydronephrosis. 2.0 cm hyperdense exophytic left upper pole cystic lesion. GI tract: Moderate gastric wall edema. Mild wall thickening and edema, with loss of haustration in the distal sigmoid. No small or large bowel dilation. Normal appendix. Mesentery/Peritoneum: No mass or free air. Small volume ascites. Retroperitoneum: No mass. Atherosclerotic calcifications of intra-abdominal arterial vessels. Pelvis: Pelvic organs are within normal limits. Soft Tissues: Diffuse body wall edema. Abdominopelvic bones: No acute osseous finding. IMPRESSION: Segmental nonocclusive pulmonary emboli are suspected in the right lower lobe. Low clot burden. RV/LV ratio less than 1. 1.7 cm cavitary lesion in the right lower lobe, most likely secondary to infection or malignancy. Subsegmental atelectasis/consolidation in the right lower lobe. Chronic left hemidiaphragm elevation with shift of the mediastinum and heart to the right. Cardiomegaly. Small pericardial effusion. Moderate right and small left pleural effusions. Ectasia of the aortic arch. Moderate gastritis. Hepatomegaly. Possible cirrhotic change. 2.0 cm indeterminate density left upper pole lesion, slow interval growth, with increasing density. Consider nonemergent but timely CT or MRI without and with contrast for further characterization. Mild sigmoid colitis. Small volume ascites. Diffuse body wall edema. 01/17/2023: EXAMINATION: CTA chest PE protocol DATE: 01/17/2023 02:54 INDICATION: Syncope. COMPARISON: Chest CT 01/16/2023 FINDINGS: There is marked elevation of left hemidiaphragm. There is atelectasis bilaterally, worst in lingula. Calcified left lung nodules and calcified left hilar and mediastinal lymph nodes are consistent with old granulomatous disease. There is a trace right pleural effusion. The heart size is normal. There are coronary artery calcifications. No pericardial effusion. There is no pulmonary embolus. There is kyphosis and mild spondylosis of thoracic spine. There is severe cervical spondylosis. There is a fracture of right 11th rib. IMPRESSION: 1. No pulmonary embolus. 2. Marked elevation of left hemidiaphragm. 3. Fracture of right 11th rib. 01/18/2023: echo Summary 1. Left ventricular chamber dimension is normal. 2. Left ventricular systolic function is normal, estimated at 65-70%. 3. There is mildly increased left ventricular wall thickness. 4. The left ventricular diastolic function is grade I diastolic dysfunction. 5. Left atrial chamber dimension is mildly enlarged. 6. There is mild aortic valve calcification. 7. There is moderate aortic valve sclerosis. 8. There is mild tricuspid valve regurgitation. 9. Mild pulmonary hypertension, estimated pulmonary arterial systolic pressure is 37 mmHg. 10. There is mild pulmonic regurgitation. Left Ventricle Left ventricular chamber dimension is normal. Left ventricular systolic function is normal, estimated at 65-70%. There is mildly increased left ventricular wall thickness. The left ventricular diastolic function is grade I diastolic dysfunction. Right Ventricle Right ventricular chamber dimension is normal. Right ventricular systolic function is normal. Left Atria Left atrial chamber dimension is mildly enlarged. Right Atria Right atrial chamber dimension is normal. Atrial Septum Intact interatrial septum visualized by color flow imaging. 12/18/2017: EXAMINATION:CT CHEST W/O DATE: 12/18/2017 15:21 INDICATION: Chronic cough. COMPARISON: Chest CT 02/02/2013 FINDINGS: There is marked elevation of left hemidiaphragm. There is mild atelectasis in the inferior lungs. There is a mild burden of chronic reticular opacities in the inferior right lung. Calcified left lung nodules and calcified left hilar lymph nodes are consistent with old granulomatous disease. No pleural effusion. The heart size is normal. There are coronary artery calcifications. There are calcifications of the aortic valve. No pericardial effusion. There is kyphosis, dextroscoliosis, and mild spondylosis of thoracic spine. IMPRESSION: 1. Chronic marked elevation of left hemidiaphragm. 2. Mild chronic lung disease at right lung base. 03/25/2013: PFT report: NORMAL SPIROMETRY. NO ACUTE BRONCHODILATOR RESPONSE. LUNG VOLUMES REVEAL NORMAL TLC BUT INCREASED RV, RV/TLC CONSISTENT WITH AIR TRAPPING. RAW IS MILDLY INCREASED. DLCO IS NORMAL. IMPRESSION: ESSENTIALLY NORMAL STUDY. POSSIBLY MILD AIR TRAPPING. NO ACUTE BRONCHODILATOR RESPONSE. ABG (RA) 7.43/ 45/ 75/ 29/ 94% NORMAL FOR AGE. 01/13/2013: EXAMINATION: CHEST-TWO VIEW INDICATION: Left hemidiaphragm elevation TECHNIQUE: PA and lateral views of the chest were obtained. COMPARISON: 12/30/12 FINDINGS: There is persistent elevation of the left hemidiaphragm. Its position is not changed since the comparison examination. There is suggestion of minimal compressive left lower lobe atelectasis. The lungs are otherwise free of opacities. Moderate degenerative changes are present in the spine. The heart size is normal. No pleural effusion or pneumothorax is seen. IMPRESSION: 1. Elevation of the left hemidiaphragm, unchanged. Recommend correlation with any prior outside hospital imaging. Consider further evaluation with sniff test to evaluate for paralysis and possible chest CT to evaluate for radiographically occult lesion as the cause. Review of Systems 2 Constitutional: Constitutional: Reports no additional constitutional complaints Eyes: Eyes: Reports no additional eye complaints ENT: Reports system reviewed and no additional complaints, except as documented Cardiovascular: Cardiovascular: Reports no additional cardiovascular complaints Respiratory: Respiratory: Reports no additional respiratory complaints Gastrointestinal: Gastrointestinal: Reports no additional gastrointestinal complaints Musculoskeletal: Musculoskeletal: Reports no additional musculoskeletal complaints Neurologic: Reports system reviewed and no additional complaints, except as documented Psychiatric: Psychiatric: Reports no additional psychiatric complaints Endocrine: Endocrine: Reports no additional endocrine complaints Hematologic/Lymphatic: Hematologic/Lymphatic: Reports no additional hematologic/lymphatic complaints Allergic/Immunologic: Allergic/Immunologic: Reports no additional allergic/immunologic complaints [facility] Past Medical History Medical History (Updated 08/03/24 @ 20:23 by Rylie Moya DO) Protein in urine Suppurative hidradenitis On Humira AVM (arteriovenous malformation) of colon Cecum BPH (benign prostatic hyperplasia) Renal lesion Evaluated by Urology 2017 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 Mild pulmonary hypertension Echo 2012 Diastolic dysfunction EF 65-72 grade 1 diastolic dysfunction noted on echo February 2013 also noted moderate aortic valve sclerosis mild tricuspid valve regurgitation and mild pulmonic regurgitation Severe obstructive sleep apnea Polysomnogram February 2013 recommending CPAP of 18 Venous stasis dermatitis of right lower extremity Venous stasis LBBB (left bundle branch block) Essential (primary) hypertension Gout, unspecified Iron deficiency anemia Low vitamin D level Memory loss Mixed hyperlipidemia Surgical History Surgical History (Updated 08/03/24 @ 20:12 by Rylie Moya DO) History of colonoscopy with polypectomy Colonoscopy 11/2017: Umbilicated perianal lesion and 2 small angioplastic lesions without bleeding in the cecum History of esophagogastroduodenoscopy (EGD) 11/2017: Tortuous esophagus prior EGD in 2008 demonstrated gastritis and duodenitis Family History Family History Father Hypertension Gout Mother Hypertension Family history of malignant neoplasm of breast in first degree relative Breast cancer Cerebrovascular accident Sibling Brain cancer Liver cancer Sibling No problems noted. Other Family history of hearing loss Social History Social History (Updated 08/03/24 @ 20:16 by Rylie Moya DO) Social History: Code status: DNR/DNI Surrogate decision maker: Smoking status: Never smoker Second hand tobacco smoke exposure: No Alcohol intake: never Substance use: never Substance use type: does not use Do You Feel Safe in your Home?: Yes Lack of Transportation: No Lack of Food: Never True Current Housing: I Have Housing Concerned About Future Housing: No Difficulty Paying Gas/Electric Bills: No Difficulty Paying for Meds: No Currently Unemployed: No Education: Bachelor's Degree Difficulty w/ Childcare or Family Care: No Living arrangements: with family Occupation/Education: retired 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 Gender identity (if verbalized by the patient): Male Spiritual care concerns: No Meds Home Medications and Allergies Home Medications ?Medication ?Instructions ?Recorded ?Confirmed ?Type pantoprazole 40 mg tablet,delayed 40 mg PO QAM 09/21/19 08/03/24 History release (Protonix) carboxymethylcellulose sodium 0.5 1 drp EACH EYE 4-6XD 09/27/20 08/03/24 History % eye drops in a dropperette (Refresh Plus) clindamycin phosphate 1 % topical 1 applic topical DAILY 09/27/20 08/03/24 History gel, once daily (Clindagel) clotrimazole-betamethasone 1 1 applic topical BID 09/27/20 08/03/24 History %-0.05 % topical cream cholecalciferol (vitamin D3) 25 25 mcg PO DAILY #90 caps 04/18/21 08/03/24 Rx mcg (1,000 unit) capsule bviozszs-uvm-yiqpt acid 0.4 1 tablet PO DAILY #90 tabs 01/22/22 08/03/24 Rx mg-lycopene 300 mcg-lutein 250 mcg tablet (CertaVite Senior) aspirin 81 mg tablet,delayed 81 mg PO DAILY #60 tabs 01/20/23 08/03/24 Rx release tamsulosin 0.4 mg capsule 0.4 mg PO HS 10/14/23 08/03/24 History furosemide 20 mg tablet (Lasix) See Rx Instructions PO QAM #180 04/13/24 08/03/24 Rx tabs allopurinol 100 mg tablet 100 mg PO BID #180 tabs 04/23/24 08/03/24 Rx memantine 10 mg tablet 10 mg PO BID #180 tabs 05/13/24 08/03/24 Rx atorvastatin 40 mg tablet 40 mg PO DAILY #90 tabs 05/21/24 08/03/24 Rx acetaminophen 500 mg capsule 500 mg PO BID 06/04/24 08/03/24 History terbinafine HCl 1 % topical cream 1 applic topical DAILY 06/04/24 08/03/24 History ferrous sulfate 325 mg (65 mg 325 mg PO DAILY #90 tabs 06/25/24 08/03/24 Rx iron) tablet ascorbic acid (vitamin C) 500 mg 500 mg PO DAILY 07/28/24 08/03/24 History tablet sodium chloride 1,000 mg soluble 1,000 mg PO DAILY #30 tabs 07/29/24 08/03/24 Rx tablet Allergies Allergy/AdvReac Type Severity Reaction Status Date / Time No Known Allergies Allergy Verified 08/03/24 12:16 Vital Signs Vital Signs - 24 hr 08/03/24 12:09 08/03/24 12:16 08/03/24 12:31 Temperature 36.5 C Pulse Rate 98 96 97 Respiratory Rate 20 24 H 27 H Blood Pressure 122/77 122/80 120/82 Pulse Oximetry 100 95 90 Oxygen Delivery 08/03/24 12:46 08/03/24 13:01 08/03/24 14:09 Temperature Pulse Rate 98 97 101 H Respiratory Rate 19 22 H 18 Blood Pressure 121/77 117/71 133/85 Pulse Oximetry 97 96 93 Oxygen Delivery 08/03/24 14:10 08/03/24 14:31 08/03/24 14:46 Temperature Pulse Rate 100 98 97 Respiratory Rate 22 H 19 21 H Blood Pressure 133/85 135/79 126/86 Pulse Oximetry 95 96 96 Oxygen Delivery 08/03/24 15:01 08/03/24 15:16 08/03/24 15:31 Temperature Pulse Rate 96 96 93 Respiratory Rate 18 25 H 21 H Blood Pressure 129/75 122/78 129/77 Pulse Oximetry 96 99 Oxygen Delivery 08/03/24 15:46 08/03/24 16:01 08/03/24 16:16 Temperature Pulse Rate 96 97 97 Respiratory Rate 16 25 H 24 H Blood Pressure 119/73 126/83 124/80 Pulse Oximetry 99 98 99 Oxygen Delivery 08/03/24 16:31 08/03/24 16:46 08/03/24 17:01 Temperature Pulse Rate 98 97 95 Respiratory Rate 19 25 H 21 H Blood Pressure 130/74 129/73 128/79 Pulse Oximetry 99 98 99 Oxygen Delivery 08/03/24 17:23 08/03/24 17:24 08/03/24 17:31 Temperature Pulse Rate 99 99 95 Respiratory Rate 23 H 27 H 18 Blood Pressure 126/82 126/82 127/76 Pulse Oximetry 99 94 Oxygen Delivery 08/03/24 17:47 08/03/24 18:01 08/03/24 18:16 Temperature Pulse Rate 105 H 99 106 H Respiratory Rate 18 21 H 21 H Blood Pressure 124/71 121/71 124/89 Pulse Oximetry 98 97 98 Oxygen Delivery 08/03/24 18:31 08/03/24 18:46 08/03/24 19:01 Temperature Pulse Rate 96 108 H 101 H Respiratory Rate 15 25 H 22 H Blood Pressure 128/73 129/95 H 122/76 Pulse Oximetry 97 98 98 Oxygen Delivery 08/03/24 20:31 08/03/24 22:00 08/03/24 22:00 Temperature 36.6 C Pulse Rate 101 H 99 100 Respiratory Rate 22 H 18 Blood Pressure 125/75 116/65 Pulse Oximetry 95 92 Oxygen Delivery 08/03/24 22:40 08/03/24 23:53 08/04/24 00:00 Temperature Pulse Rate 100 100 95 Respiratory Rate 18 18 Blood Pressure Pulse Oximetry 92 92 Oxygen Delivery Room Air Room Air 08/04/24 02:00 08/04/24 03:48 08/04/24 03:58 Temperature 36.5 C Pulse Rate 95 97 92 Respiratory Rate 20 20 Blood Pressure 108/68 Pulse Oximetry 92 92 Oxygen Delivery Room Air 08/04/24 04:00 08/04/24 06:00 08/04/24 08:00 Temperature 36.3 C L Pulse Rate 89 99 88 Respiratory Rate 16 Blood Pressure 125/69 Pulse Oximetry 100 Oxygen Delivery Exam 2 Const: General: cooperative, healthy appearing and comfortable O rientation/consciousness: oriented to person, oriented to place and oriented to time HENMT: Head: normal to inspection Ears: hearing grossly normal bilaterally Eyes: General: appearance normal, both eyes and all related structures Neck: Neck: normal visual inspection Chest: Chest palpation & inspection: normal inspection of the chest Resp: Effort & Inspection: normal respiratory effort and able to speak in complete sentences Auscultation: crackles, no rales, no rhonchi, no wheezes and diminished lung sounds Other: Decreased breath sounds right greater than left. No wheezes. Cardio: Jugular venous distension: no JVD GI: Inspection: normal to inspection GI Palp: No abdominal tenderness Skin: General skin exam: normal color Neuro: General: oriented to person, oriented to place and oriented to time Extrem: General: normal to inspection and edema Psych: Appearance: grossly normal Results Laboratory Findings 08/04/24 04:15 08/04/24 04:15 ABG, PT/INR, D-dimer: PT/INR, D-dimer PT 14.3 Seconds (11.1-14.7) 08/03/24 21:37 INR 1.1 08/03/24 21:37 D-Dimer 1.08 ug/mL (<0.48) H 08/03/24 12:22 Abnormal lab findings: Abnormal Labs 08/03/24 08/03/24 08/03/24 12:22 12:23 12:36 WBC RBC 4.03 L Hgb 10.1 L Hct 34.9 L MCH 25.1 L MCHC 28.9 L RDW 20.5 H Plt Count 110 L Lymph % (Auto) 14.2 L Ocean % (Auto) 15.3 H Lymph # (Auto) 0.65 L Ocean # (Auto) 0.7 H APTT D-Dimer 1.08 H Sodium 127 L Chloride 92 L Carbon Dioxide 32 H Anion Gap 3 L Creatinine 0.65 L NT-Pro-B Natriuret Pep 00765 H Albumin 3.4 L Urine Protein 2+ H Urine Ketones Trace H Leukocyte Esterase Rfl Trace H Urine RBC 6-10 H 08/04/24 04:15 WBC 3.7 L RBC 3.76 L Hgb 9.9 L Hct 32.0 L MCH MCHC 30.9 L RDW 20.8 H Plt Count 107 L Lymph % (Auto) 14.1 L Ocean % (Auto) 17.0 H Lymph # (Auto) 0.52 L Ocean # (Auto) APTT 67.8 H D-Dimer Sodium 128 L Chloride 90 L Carbon Dioxide 34 H Anion Gap Creatinine NT-Pro-B Natriuret Pep Albumin Urine Protein Urine Ketones Leukocyte Esterase Rfl Urine RBC Diagnostic Findings Additional studies: ITS Impressions Chest X-Ray 08/03/24 13:17 IMPRESSION: Large right-sided pleural effusion. Loss of lung volume within the left hemithorax secondary to hemidiaphragmatic elevation, from distended aerated colon. Chest/Abdomen/Pelvis CTA 08/03/24 17:30 IMPRESSION: Segmental nonocclusive pulmonary emboli are suspected in the right lower lobe. Low clot burden. RV/LV ratio less than 1. 1.7 cm cavitary lesion in the right lower lobe, most likely secondary to infection or malignancy. Subsegmental atelectasis/consolidation in the right lower lobe. Chronic left hemidiaphragm elevation with shift of the mediastinum and heart to the right. Cardiomegaly. Small pericardial effusion. Moderate right and small left pleural effusions. Ectasia of the aortic arch. Moderate gastritis. Hepatomegaly. Possible cirrhotic change. 2.0 cm indeterminate density left upper pole lesion, slow interval growth, with increasing density. Consider nonemergent but timely CT or MRI without and with contrast for further characterization. Mild sigmoid colitis. Small volume ascites. Diffuse body wall edema. Head CT 08/03/24 20:22 IMPRESSION: No acute intracranial process, within the constraints noted above. Venous Doppler Study 08/04/24 12:08 IMPRESSION: 1. No deep venous thrombosis within the bilateral lower extremities, as detailed above.
[2024-08-04 11:23] LABS: Partial Thromboplastin Time 124.4 Seconds (22.3-36.8)
--- NOTE | 2024-08-04 12:44 | P.HP_ITS ---
H&P: HPI History of Present Illness Date/Time: 08/04/24 12:44 Chief Complaint: shortness of breath, swelling Narrative: Patient presents with complaint of generalized weakness and swelling along with shortness of breath. he reports swelling in his both legs and has been worsening. he has misssed some doses of diuretic that he is prescribed. he reports some cough but not more than usual. he resides at home. He fell yesterday, slipping from his recliner when he was getting up to go to the bathroom. While his daughter tried to help him get up off the ground he reportedly became unresponsive followed by confusion before returning to baseline. 911 was called at that time but because he was no longer confused, he refused transportation at the time. He denies any pain/injury from the fall. He saw his PCP last week as he had been having diarrhea; C diff test was reportedly negative and then he started having constipation. He denies any chest pain. He has been short of breath with a nonproductive cough. No nausea or vomiting. He endorses occasional abdominal pain. No fever chills. in the ED, his vitals were stable, he has swelling bilateral lower extremities. lab evaluation showed WBC of 4.6 hemoglobin of 9 hemoglobin 10.1 plateelet 110.cr 0.7, na low at 127, d dimer elevated at 1.08, [place] [id number], ua negative for infection. ct pe protocol revealed bilateral PE with low clot burdern. he has been started on heparin gtt. His CXR showed large right sided pleural effusion, loss of lung volume within the left hemithorax secondary to hemidiaphragmatic elevation from distended aerated colon. cta showed segmental non occlusive pulmonary emboli in right lower lobe, low clot burden. RV/LV ratio less than 1. 1.7 cm cavitary lesion in lore right lower lobe, sec to infection vs malignancy. subsegmental atelectasis/consolidation int eh right lower lobe. cardiomegaly small pericardial effusion. moderate right and small left pleural effusions. ectasia of the aortic arch, moderate gastritis. hepatomegay, possible cirrhotic changes. 2.0 cm indeterminate density left upper pole lesion,slow interval growth with increasing density. mild sigmoid colitis. small volume asictes, diffuse body wall edema. he also had other chronc findings on the CT. echo 2022 revealed ef 65-70%, grade I diastolic dysfunction. mild pulmonary hypertension he is admitted in this setting for further treatment. Review of Systems Review of Systems: - CONSTITUTIONAL: Denies weight loss, fe jesse and chills. - HEENT: Denies changes in vision and he aring - RESPIRATORY: reports SOB and cough. - CV: Denies palpitations and CP. - GI: Denies abdominal pain, nausea, vom iting and diarrhea. - : Denies dysuria and urinary frequen cy. - MSK: Denies myalgia and joint pain. - SKIN: Denies rash and pruritus. - NEUROLOGICAL: Denies headache and sync ope. - PSYCHIATRIC: Denies recent changes in mood. Denies anxiety and depression. [facility] Past Medical History Medical History (Updated 08/03/24 @ 20:23 by Rylie Moya DO) Protein in urine Suppurative hidradenitis On Humira AVM (arteriovenous malformation) of colon Cecum BPH (benign prostatic hyperplasia) Renal lesion Evaluated by Urology 2017 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 Mild pulmonary hypertension Echo 2012 Diastolic dysfunction EF 65-72 grade 1 diastolic dysfunction noted on echo February 2013 also noted moderate aortic valve sclerosis mild tricuspid valve regurgitation and mild pulmonic regurgitation Severe obstructive sleep apnea Polysomnogram February 2013 recommending CPAP of 18 Venous stasis dermatitis of right lower extremity Venous stasis LBBB (left bundle branch block) Essential (primary) hypertension Gout, unspecified Iron deficiency anemia Low vitamin D level Memory loss Mixed hyperlipidemia Surgical History Surgical History (Updated 08/03/24 @ 20:12 by Rylie Moya DO) History of colonoscopy with polypectomy Colonoscopy 11/2017: Umbilicated perianal lesion and 2 small angioplastic lesions without bleeding in the cecum History of esophagogastroduodenoscopy (EGD) 11/2017: Tortuous esophagus prior EGD in 2008 demonstrated gastritis and duodenitis Family History Family History Father Hypertension Gout Mother Hypertension Family history of malignant neoplasm of breast in first degree relative Breast cancer Cerebrovascular accident Sibling Brain cancer Liver cancer Sibling No problems noted. Other Family history of hearing loss Social History Social History (Updated 08/03/24 @ 20:16 by Rylie Moya DO) Social History: Code status: DNR/DNI Surrogate decision maker: Smoking status: Never smoker Second hand tobacco smoke exposure: No Alcohol intake: never Substance use: never Substance use type: does not use Do You Feel Safe in your Home?: Yes Lack of Transportation: No Lack of Food: Never True Current Housing: I Have Housing Concerned About Future Housing: No Difficulty Paying Gas/Electric Bills: No Difficulty Paying for Meds: No Currently Unemployed: No Education: Bachelor's Degree Difficulty w/ Childcare or Family Care: No Living arrangements: with family Occupation/Education: retired 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 Gender identity (if verbalized by the patient): Male Spiritual care concerns: No Meds Home Medications and Allergies Home Medications ?Medication ?Instructions ?Recorded ?Confirmed ?Type pantoprazole 40 mg tablet,delayed 40 mg PO QAM 09/21/19 08/03/24 History release (Protonix) carboxymethylcellulose sodium 0.5 1 drp EACH EYE 4-6XD 09/27/20 08/03/24 History % eye drops in a dropperette (Refresh Plus) clindamycin phosphate 1 % topical 1 applic topical DAILY 09/27/20 08/03/24 History gel, once daily (Clindagel) clotrimazole-betamethasone 1 1 applic topical BID 09/27/20 08/03/24 History %-0.05 % topical cream cholecalciferol (vitamin D3) 25 25 mcg PO DAILY #90 caps 04/18/21 08/03/24 Rx mcg (1,000 unit) capsule owxbarxq-ayh-euega acid 0.4 1 tablet PO DAILY #90 tabs 01/22/22 08/03/24 Rx mg-lycopene 300 mcg-lutein 250 mcg tablet (CertaVite Senior) aspirin 81 mg tablet,delayed 81 mg PO DAILY #60 tabs 01/20/23 08/03/24 Rx release tamsulosin 0.4 mg capsule 0.4 mg PO HS 10/14/23 08/03/24 History furosemide 20 mg tablet (Lasix) See Rx Instructions PO QAM #180 04/13/24 08/03/24 Rx tabs allopurinol 100 mg tablet 100 mg PO BID #180 tabs 04/23/24 08/03/24 Rx memantine 10 mg tablet 10 mg PO BID #180 tabs 05/13/24 08/03/24 Rx atorvastatin 40 mg tablet 40 mg PO DAILY #90 tabs 05/21/24 08/03/24 Rx acetaminophen 500 mg capsule 500 mg PO BID 06/04/24 08/03/24 History terbinafine HCl 1 % topical cream 1 applic topical DAILY 06/04/24 08/03/24 History ferrous sulfate 325 mg (65 mg 325 mg PO DAILY #90 tabs 06/25/24 08/03/24 Rx iron) tablet ascorbic acid (vitamin C) 500 mg 500 mg PO DAILY 07/28/24 08/03/24 History tablet sodium chloride 1,000 mg soluble 1,000 mg PO DAILY #30 tabs 07/29/24 08/03/24 Rx tablet Allergies Allergy/AdvReac Type Severity Reaction Status Date / Time No Known Allergies Allergy Verified 08/03/24 12:16 Vital Signs Vital Signs - 24 hr 08/03/24 12:46 08/03/24 13:01 08/03/24 14:09 Temperature Pulse Rate 98 97 101 H Respiratory Rate 19 22 H 18 Blood Pressure 121/77 117/71 133/85 Pulse Oximetry 97 96 93 Oxygen Delivery 08/03/24 14:10 08/03/24 14:31 08/03/24 14:46 Temperature Pulse Rate 100 98 97 Respiratory Rate 22 H 19 21 H Blood Pressure 133/85 135/79 126/86 Pulse Oximetry 95 96 96 Oxygen Delivery 08/03/24 15:01 08/03/24 15:16 08/03/24 15:31 Temperature Pulse Rate 96 96 93 Respiratory Rate 18 25 H 21 H Blood Pressure 129/75 122/78 129/77 Pulse Oximetry 96 99 Oxygen Delivery 08/03/24 15:46 08/03/24 16:01 08/03/24 16:16 Temperature Pulse Rate 96 97 97 Respiratory Rate 16 25 H 24 H Blood Pressure 119/73 126/83 124/80 Pulse Oximetry 99 98 99 Oxygen Delivery 08/03/24 16:31 08/03/24 16:46 08/03/24 17:01 Temperature Pulse Rate 98 97 95 Respiratory Rate 19 25 H 21 H Blood Pressure 130/74 129/73 128/79 Pulse Oximetry 99 98 99 Oxygen Delivery 08/03/24 17:23 08/03/24 17:24 08/03/24 17:31 Temperature Pulse Rate 99 99 95 Respiratory Rate 23 H 27 H 18 Blood Pressure 126/82 126/82 127/76 Pulse Oximetry 99 94 Oxygen Delivery 08/03/24 17:47 08/03/24 18:01 08/03/24 18:16 Temperature Pulse Rate 105 H 99 106 H Respiratory Rate 18 21 H 21 H Blood Pressure 124/71 121/71 124/89 Pulse Oximetry 98 97 98 Oxygen Delivery 08/03/24 18:31 08/03/24 18:46 08/03/24 19:01 Temperature Pulse Rate 96 108 H 101 H Respiratory Rate 15 25 H 22 H Blood Pressure 128/73 129/95 H 122/76 Pulse Oximetry 97 98 98 Oxygen Delivery 08/03/24 20:31 08/03/24 22:00 08/03/24 22:00 Temperature 97.8 F Pulse Rate 101 H 99 100 Respiratory Rate 22 H 18 Blood Pressure 125/75 116/65 Pulse Oximetry 95 92 Oxygen Delivery 08/03/24 22:40 08/03/24 23:53 08/04/24 00:00 Temperature Pulse Rate 100 100 95 Respiratory Rate 18 18 Blood Pressure Pulse Oximetry 92 92 Oxygen Delivery Room Air Room Air 08/04/24 02:00 08/04/24 03:48 08/04/24 03:58 Temperature 97.7 F Pulse Rate 95 97 92 Respiratory Rate 20 20 Blood Pressure 108/68 Pulse Oximetry 92 92 Oxygen Delivery Room Air 08/04/24 04:00 08/04/24 06:00 08/04/24 08:00 Temperature 97.4 F L Pulse Rate 89 99 88 Respiratory Rate 16 Blood Pressure 125/69 Pulse Oximetry 100 Oxygen Delivery 08/04/24 12:00 Temperature 97.6 F Pulse Rate 97 Respiratory Rate 24 H Blood Pressure 122/68 Pulse Oximetry 92 Oxygen Delivery Exam Narrative: GENERAL: Chronically ill appearing but well-nourished, and in no acute distress. HEAD: Normocephalic, atraumatic. EYES: Non injected ENT: Nares clear, no rhinorrhea or epistaxis. NECK: Supple. CHEST: Speaking in full sentences. No respiratory distress. Diminished on auscultation. HEART: Regular rate and rhythm. . ABDOMEN: Soft, nondistended. Non tender to palpation without rigidity or guarding. Patient does have some skin breakdown/ulceration under the right pannus. EXTREMITIES: 3+ bilateral tibial edema, 2+ bilateral distal thigh edema. : Mild penile edema SKIN: Warm, dry. Chronic venous stasis b/l LE. NEURO: No focal deficits. Alert and oriented. PSYCH: Normal mood and affect. H&P: Results Labs Labs: Short CBC 08/04/24 Range/Units 04:15 WBC 3.7 L (4.5-10.0) K/mm3 Hgb 9.9 L (14.0-18.0) g/dL Hct 32.0 L (42.0-52.0) % Plt Count 107 L (150-375) k/mm3 BMP 08/04/24 04:15 Sodium 128 L Potassium 3.7 Chloride 90 L Carbon Dioxide 34 H BUN 17 Creatinine 0.74 Glucose 91 Calcium 8.4 Cardiac Enzymes 08/03/24 Range/Units 12:22 Total Creatine Kinase 78 (55-170) U/L Troponin I 0.021 (0.000-0.034) ng/mL Urine 08/03/24 Range/Units 12:36 Urine Color Dark yellow (Yellow) Urine Appearance Clear (Clear) Urine pH 6.0 (5.0-9.0) Ur Specific [place] 1.024 (1.001-1.035) Urine Protein 2+ H (Negative) mg/dL Urine Glucose (UA) Negative (Negative) mg/dL Assessment and Plan Assessment and plan (1) Essential (primary) hypertension: Code(s): I10 - Essential (primary) hypertension Status: Acute (2) Acute heart failure: Qualifiers: Heart failure type: unspecified Qualified Code(s): I50.9 - Heart failure, unspecified Code(s): I50.9 - Heart failure, unspecified Status: Acute (3) Cardiomegaly: Code(s): I51.7 - Cardiomegaly Status: Acute (4) Diastolic CHF: Qualifiers: Heart failure chronicity: acute on chronic Qualified Code(s): I50.33 - Acute on chronic diastolic (congestive) heart failure Code(s): I50.30 - Unspecified diastolic (congestive) heart failure Status: Acute (5) LBBB (left bundle branch block): Code(s): I44.7 - Left bundle-branch block, unspecified Status: Acute (6) Venous stasis: Code(s): I87.8 - Other specified disorders of veins Status: Acute (7) Aortic ectasia: Code(s): I77.819 - Aortic ectasia, unspecified site Status: Acute (8) Mixed hyperlipidemia: Code(s): E78.2 - Mixed hyperlipidemia Status: Acute (9) Thrombocytopenia: Code(s): D69.6 - Thrombocytopenia, unspecified Status: Acute (10) Pulmonary emboli: Qualifiers: Pulmonary embolism type: single subsegmental (without acute cor pulmonale) Qualified Code(s): I26.93 - Single subsegmental thrombotic pulmonary embolism without acute cor pulmonale Code(s): I26.99 - Other pulmonary embolism without acute cor pulmonale Status: Acute (11) Hepatomegaly: Code(s): R16.0 - Hepatomegaly, not elsewhere classified Status: Acute (12) Colitis: Code(s): K52.9 - Noninfective gastroenteritis and colitis, unspecified Status: Acute (13) Renal lesion: Code(s): N28.9 - Disorder of kidney and ureter, unspecified Status: Acute (14) Normocytic anemia: Code(s): D64.9 - Anemia, unspecified Status: Acute (15) Pleural effusion on right: Code(s): J90 - Pleural effusion, not elsewhere classified Status: Acute (16) Cavitary lesion of lung: Code(s): J98.4 - Other disorders of lung Status: Acute (17) Edema of extremities: Code(s): R60.0 - Localized edema Status: Acute (18) Anasarca: Code(s): R60.1 - Generalized edema Status: Acute Plan Patient presents with complaint of generalized weakness and swelling along with shortness of breath. he reports swelling in his both legs and has been worsening. he has misssed some doses of diuretic that he is prescribed. he reports some cough but not more than usual. he resides at home. He fell yesterday, slipping from his recliner when he was getting up to go to the bathroom. While his daughter tried to help him get up off the ground he reportedly became unresponsive followed by confusion before returning to baseline. 911 was called at that time but because he was no longer confused, he refused transportation at the time. He denies any pain/injury from the fall. He saw his PCP last week as he had been having diarrhea; C diff test was reportedly negative and then he started having constipation. He denies any chest pain. He has been short of breath with a nonproductive cough. No nausea or vomiting. He endorses occasional abdominal pain. No fever chills. in the ED, his vitals were stable, he has swelling bilateral lower extremities. lab evaluation showed WBC of 4.6 hemoglobin of 9 hemoglobin 10.1 plateelet 110.cr 0.7, na low at 127, d dimer elevated at 1.08, troponin was [place]. bnp [id number], ua negative for infection. ct pe protocol revealed bilateral PE with low clot burdern. he has been started on heparin gtt. His CXR showed large right sided pleural effusion, loss of lung volume within the left hemithorax secondary to hemidiaphragmatic elevation from distended aerated colon. cta showed segmental non occlusive pulmonary emboli in right lower lobe, low clot burden. RV/LV ratio less than 1. 1.7 cm cavitary lesion in lore right lower lobe, sec to infection vs malignancy. subsegmental atelectasis/consolidation int eh right lower lobe. cardiomegaly small pericardial effusion. moderate right and small left pleural effusions. ectasia of the aortic arch, moderate gastritis. hepatomegay, possible cirrhotic changes. 2.0 cm indeterminate density left upper pole lesion,slow interval growth with increasing density. mild sigmoid colitis. small volume asictes, diffuse body wall edema. he also had other chronc findings on the CT. echo 2022 revealed ef 65-70%, grade I diastolic dysfunction. mild pulmonary hypertension he is admitted in this setting for further treatment. # acute pe # acute chf exacerbation with anasarca. diuresis as scheduled. [place] [id number] # lwoer extremity edema: check us duplex #grade 1 diastolic dysfunction # generalized weakness PT OT to see Right pleural effusion underlying 1.7 cm cavitary lesion in the right lower lobe will treat with ceftriaxone azithromycin check MRSA nares. Will consult Pulmonary. Check urine antigens. May need thoracentesis to ultimately rule out underlying malignancy. Also has segmental atelectasis/consolidation of the right lower lobe will treat as pneumonia as stated above. Check procalcitonin 2.0 cm indeterminate density left upper pole kidney will do renal ultrasound also will need follow-up as an outpatient basis Hepatomegaly right upper quadrant ultrasound. Possible cirrhotic changes on CT. Has anasarca. Albumin level 3.4. Gastritis add PPI DVT prophylaxis on heparin drip Code status do not resuscitate Hospitalist MIPS Advance Care Plan I have confirmed that the patient's Advanced Care Plan is present, code status is documented, or surrogate decision maker is listed in patient medical record.: Yes Medication Reconciliation I have utilized all available resources to obtain, update and review the patients current medications (includes all prescriptions, OTC, herbals, cannabis, and nutritional supplements).: Yes
[2024-08-04] MEDS: AZITHROMYCIN 500 MG/NS 250 ML 500 MG/250 ML BAG 250 MG IVPB (12:45)
[2024-08-04] MEDS: PIPERACILLIN/TAZ 4.5G/NS 100ML 4.5 GM/100 ML BAG IVPB ×2 (13:49→17:30)
[2024-08-04] MEDS: PANTOPRAZOLE SODIUM IV 40 MG VIAL IV PUSH (13:56)
[2024-08-04 13:57] LABS: MRSA (PCR) NOT DETECTED (NOT DETECTE)
[2024-08-04 17:53] LABS: Partial Thromboplastin Time 111.2 Seconds (22.3-36.8)
[2024-08-04] MEDS: TAMSULOSIN HCL 0.4 MG CAPSULE PO (20:04)
[2024-08-04] MEDS: HEPARIN SOD/D5W 100 UNITS/ML 25,000 UNITS/250 ML BAG 10 UNITS IV CONT (20:36)
[2024-08-05] VITALS (18 sets, daily range): BP systolic 94–107; BP diastolic 57–67; PULSE 80–97; RESP 20–22; TEMP 36.3–36.9; O2SAT 89–98
[2024-08-05 00:38] LABS: Partial Thromboplastin Time 160.9 Seconds (22.3-36.8)
[2024-08-05] MEDS: PIPERACILLIN/TAZ 4.5G/NS 100ML 4.5 GM/100 ML BAG IVPB ×4 (00:53→17:49)
[2024-08-05] MEDS: HEPARIN SOD/D5W 100 UNITS/ML 25,000 UNITS/250 ML BAG 8 UNITS IV CONT (01:57)
[2024-08-05] MEDS: SODIUM CHLOR 3% 15 ML NEB (RESPIRATORY THERAPY) 6 ML INHALATION (05:25)
[2024-08-05 08:24] LABS: Partial Thromboplastin Time 55.8 Seconds (22.3-36.8)
[2024-08-05 08:30] LABS: NT Pro B Type Natriuretic Pept 20600 pg/mL (19.9-100)
[2024-08-05] MEDS: FERROUS SULFATE 325 MG TABLET DR PO (08:36)
[2024-08-05] MEDS: MULTIVITAMINS /C LUTEIN (CENTRUM SILVER) TABLET *BKC 1 TAB PO (08:36)
[2024-08-05] MEDS: allopurinoL 100 MG TABLET PO ×2 (08:36→16:35)
[2024-08-05] MEDS: ATORVASTATIN 40 MG TABLET PO (08:36)
[2024-08-05] MEDS: SODIUM CHLORIDE 1 GM TABLET PO (08:36)
[2024-08-05] MEDS: METOPROLOL SUCCINATE EXT REL 25 MG TABCR PO (08:36)
[2024-08-05] MEDS: CHOLECALCIFEROL 1,000 UNITS TABLET 1000 UNITS PO (08:36)
[2024-08-05] MEDS: PANTOPRAZOLE SODIUM IV 40 MG VIAL IV PUSH (08:37)
[2024-08-05] MEDS: ASCORBIC ACID 500 MG TABLET PO (08:37)
[2024-08-05] MEDS: MICONAZOLE NITRATE 2% CREAM 30 GM TUBE 1 APPLIC TOPICAL (08:37)
[2024-08-05] MEDS: MEMANTINE 10 MG TABLET PO ×2 (08:37→16:35)
[2024-08-05] MEDS: ASPIRIN 81 MG ENTERIC TABLET PO (08:37)
[2024-08-05] MEDS: FUROSEMIDE INJ 40 MG/4 ML VIAL IV PUSH ×2 (08:37→16:35)
[2024-08-05] MEDS: AZITHROMYCIN 500 MG/NS 250 ML 500 MG/250 ML BAG 250 MG IVPB (08:39)
[2024-08-05] MEDS: CLINDAMYCIN PHOS 1% 30 GM GEL 1 APPLIC TOPICAL (08:40)
[2024-08-05] MEDS: BETAMETHASONE/CLOTRIMAZOLE CREAM 15 GM TUBE 1 APPLIC TOPICAL (08:40)
[2024-08-05] MEDS: HEPARIN SODIUM 5,000 UNITS/ML VIAL 2500 UNITS IV PUSH (08:47)
--- NOTE | 2024-08-05 09:51 | P.PNPL_ITS ---
Progress Note: A&P Assessment and Plan (1) Cavitary lesion of lung: Code(s): J98.4 - Other disorders of lung Status: Acute Assessment and Plan: Patient with left lower lobe thick-walled cavity with adjacent infiltrate. Reviewed with Radiology and suspect this is a pneumonia rather than a malignancy. Patient has no history of tobacco use, no tuberculosis exposures, no aspiration, he did have a brief syncopal episode a few days ago. Currently he denies fever, chills, rigors, phlegm production or hemoptysis. He states his cough is better with diuresis and 12 hours of antibiotics. Plan: I will treat the patient for a bacterial abscess at this time. I will check a nasal swab for MRSA. Sputum culture. low suspicion for AFB disease, QuantiFERON gold and sputum for AFB x3 ordered. I will send urine for Legionella, urine for pneumococcal disease, serum for mycoplasma IgM and extended respiratory pathogen panel. I will change his antibiotics to Zosyn and azithromycin. Will follow him clinically. MRSA nasal swab negative. 08/05/2024: patient tells me he is breathing much better and breathing back to his normal. He says his cough is back to his normal. Has very minimal phlegm production. He is afebrile. White blood cell counts 3.7, creatinine 0.74. Room air saturations 90%. Plan: Continue Zosyn and azithromycin, both day 2. Blood cultures no growth today, sputum culture pending, AFB x1 pending. QuantiFERON gold pending. Respiratory pathogen panel, urine Legionella, urine pneumococcal and mycoplasma IgM pending. Discussed with Dr. Haines, will follow with you. (2) Pulmonary emboli: Qualifiers: Pulmonary embolism type: single subsegmental (without acute cor pulmonale) Qualified Code(s): I26.93 - Single subsegmental thrombotic pulmonary embolism without acute cor pulmonale Code(s): I26.99 - Other pulmonary embolism without acute cor pulmonale Status: Acute Assessment and Plan: Patient with low clinical suspicion, positive D-dimer 1.08, CT angiogram of the chest formal read is suspected segmental PE in the right lower lobe. I reviewed with differrent Radiologist and given the significant motion artifact, right pleural effusion with compression and infiltrates he would have read this as cannot exclude PE. Lower extremity DVT excluded by Doppler. 08/04/24: Plan: I am not convinced there is right lower lobe PE but cannot completely exclude this. I think it is low likelihood that he has a PE and at this time he is tolerating anticoagulation without any complications. Will continue IV heparin at this time. 08/05/24: patient breathing is back to his baseline. He has no hemoptysis or bleeding complications. Plan: Will continue IV heparin today. Would like to continue IV heparin until we are certain we will not need to do a right thoracentesis for his pleural effusion. (3) Acute heart failure: Qualifiers: Heart failure type: unspecified Qualified Code(s): I50.9 - Heart failure, unspecified Code(s): I50.9 - Heart failure, unspecified Status: Acute Assessment and Plan: Patient with 6 months lower extremity edema, 1-2 weeks worsening nocturia, shortness of breath, bilateral pleural effusions, lower extremity and scrotal swelling and a BNP of 26,600. 08/04/2024, weight today 77.4 kg with an admission weight of 78.8 kg. Cumulative today he is -228 mL on Lasix 40 IV b.i.d plan: Continue as aggressive diuresis as tolerated by his cardiac and renal systems per hospitalist team. Currently 40 IV bid. I have ordered an echocardiogram. Later in the day patient had an echocardiogram which was a very technically difficult study with limited views demonstrating mildly enlarged left ventricle with an estimated EF of 30-35%. Severely enlarged left atrium. Right ventricle, right atrium not well visualized. No RVSP calculated. 08/05/2024: Patient is on Lasix 40 IV b.i.d. Yesterday he diuresed 2.6 L and is 2.9 L negative since admission. Weight today is 73.8 kg with an admission weight of 78.8. [place] [address]706 on 08/03/2024 to a value of 20,600 today. His edema has improved. Plan: Continue as aggressive diuresis as tolerated by his cardiac and renal systems per hospitalist team. Currently on Lasix 40 IV b.i.d. and metoprolol 25 q.a.m. workup and management of cardiomyopathy per hospitalist team. Subjective Date/time seen: 08/05/24 09:51 Interval history: 08/04/2024: This is a new pulmonary consult for pulmonary embolism and left lower lobe lung cavity. 83-year-old with a history of hyponatremia, hypertension, gout, memory loss. Patient has no history of asthma, COPD, recurrent pneumonias. He is a never smoker and was not exposed to secondhand smoke. 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 patient had no respiratory symptoms as a child, through his adulthood until approximately 12 months ago. Twelve months ago he started with a dry cough and a little bit of phlegm. Six months ago he stated he had started with swollen legs that has gotten progressively worse, worsening orthopnea and he now sleeps in a recliner an upright position. Two months history of worsening shortness of breath at rest and this apparently is improved when he walks. Increased nocturia over the last 2-3 weeks from 1-2 times a night to 4-5 times a night. On 08/02 the patient fell from his recliner and had a syncopal episode EMS was called but he had regained consciousness and refused transport to the hospital. Patient denies any fever, chills, rigors, night sweats, phlegm production, hemoptysis. He has no known exposures to tuberculosis. 08/03/2024: Patient presented to the emergency department with weakness of the lower extremities, 1 month history lower extremity edema, scrotal edema, upper arm edema. Recently missed doses of his diuretics. Recent history of diarrhea. Blood pressure 122/77, heart rate 98, respirations 20, white blood cell count 4.6, creatinine 0.65, serum bicarb 32. Eosinophils 0.2%. BNP 826 1600. Troponin negative. TSH 0.522. COVID, RSV, influenza RT PCR negative. Chest x-ray with a large right-sided pleural effusion, chronic elevated left hemidiaphragm. CT angiogram chest abdomen pelvis with segmental right lower lobe pulmonary embolism, 1.7 him cm cavitary lesion left lower lobe, atelectasis consolidation right lower lobe, chronic left hemidiaphragm elevation. Small volume ascites and diffuse body wall edema. Patient was started on IV heparin, ceftriaxone, azithromycin, Lasix 40 IV b.i.d., 08/04/2024: Currently the patient tells me his breathing is better today and his cough is better today. He is afebrile. White blood cell count 3.7, creatinine 0.74, procalcitonin 0.1, lower extremity Dopplers are negative. Later in the day patient had an echocardiogram which was a very technically difficult study with limited views demonstrating mildly enlarged left ventricle with an estimated EF of 30-35%. Severely enlarged left atrium. Right ventricle, right atrium not well visualized. No RVSP calculated. 08/05/2024: patient tells me he is breathing much better and breathing back to his normal. He says his cough is back to his normal. Has very minimal phlegm production. He is afebrile. White blood cell counts 3.7, creatinine 0.74. Room air saturations 90%. Yesterday he diuresed 2.6 L and is 2.9 L negative since admission. Weight today is 73.8 kg with an admission weight of 78.8. [place] 26325 on 08/03/2024 to a value of 20,600 today. His edema has improved. DATA: 08/04/24: Echo Summary 1. Very technically difficult study with limited views. 2. Left ventricular chamber dimension is mildly enlarged. 3. Left ventricular systolic function is moderately reduced, estimated at 30-35. 4. Left atrial chamber dimension is severely enlarged. 5. There is trivial pericardial effusion. Right Ventricle Right ventricular chamber dimension is not well visualized. Left Atria Left atrial chamber dimension is severely enlarged. Right Atria Right atrial chamber dimension is not well visualized. no RVSP calculated. 08/03/2024; EXAMINATION: CTA chest PE abdomen pel DATE: 08/03/2024 17:22 INDICATION: gen weakness, dimer >1; abd pain TECHNIQUE: Computed tomography angiography (CTA) of the chest was performed with 100 mL Omnipaque-350 intravenous contrast timed to evaluate the pulmonary arteries, followed by portal venous phase imaging of the abdomen and pelvis. Coronal maximum intensity projection 3D-reconstructions were created by the technologist. The dose-length product (DLP) was 1540.82 mGy-cm. Automated exposure control and iterative reconstruction technique were employed. COMPARISON: CTPA 01/17/2023; CT abdomen pelvis 12/18/2017. FINDINGS: CHEST: Lung parenchyma and airways: Subsegmental atelectasis/consolidation in the dependent right lung. Minimal dependent left basilar atelectasis. Significant left hemidiaphragm elevation. Significant motion artifact in the lungs. 1.7 cm cavitary lesion in the left lower lobe. Pleura: Small volume left and moderate volume right pleural fluid collections. Thoracic inlet, axillae and chest wall: No thyroid or soft tissue mass. Body wall edema. Thoracic aorta: Ectasia of the aortic arch measuring up to 3.3 cm. Mild atherosclerotic arch calcifications Mediastinum: Shift of the mediastinum to the right. Calcified nodes. Dilated central pulmonary arteries as can be seen with pulmonary hypertension. Heart and pericardium: Cardiomegaly. The heart is shifted in the chest to the right. Small volume pericardial fluid. RV/LV ratio less than 1. Coronary artery calcifications: Mild. Thoracic bones: No acute osseous finding. Severe thoracic kyphosis. Pulmonary arteries: Study quality: Good bolus timing and contrast opacification. Significant motion artifact, with compression of normal anatomic structures which limits evaluation of the segmental and subsegmental pulmonary arteries. However, there are several filling defects within the segmental right lower lobe pulmonary arteries that likely represent pulmonary embolism. ABDOMEN/PELVIS: Liver: Enlarged. Somewhat nodular appearing border. Biliary/Gallbladder: Cholelithiasis. No inflammatory change. Mild pericholecystic fluid, likely related to ascites. No bile duct dilation. Pancreas: No mass or duct dilation. Spleen: Normal. Adrenals:No mass. Kidneys: No obstructing stone or hydronephrosis. 2.0 cm hyperdense exophytic left upper pole cystic lesion. GI tract: Moderate gastric wall edema. Mild wall thickening and edema, with loss of haustration in the distal sigmoid. No small or large bowel dilation. Normal appendix. Mesentery/Peritoneum: No mass or free air. Small volume ascites. Retroperitoneum: No mass. Atherosclerotic calcifications of intra-abdominal arterial vessels. Pelvis: Pelvic organs are within normal limits. Soft Tissues: Diffuse body wall edema. Abdominopelvic bones: No acute osseous finding. IMPRESSION: Segmental nonocclusive pulmonary emboli are suspected in the right lower lobe. Low clot burden. RV/LV ratio less than 1. 1.7 cm cavitary lesion in the right lower lobe, most likely secondary to infecti on or malignancy. Subsegmental atelectasis/consolidation in the right lower lobe. Chronic left hemidiaphragm elevation with shift of the mediastinum and heart to the right. Cardiomegaly. Small pericardial effusion. Moderate right and small left pleural effusions. Ectasia of the aortic arch. Moderate gastritis. Hepatomegaly. Possible cirrhotic change. 2.0 cm indeterminate density left upper pole lesion, slow interval growth, with increasing density. Consider nonemergent but timely CT or MRI without and with contrast for further characterization. Mild sigmoid colitis. Small volume ascites. Diffuse body wall edema. 01/17/2023: EXAMINATION: CTA chest PE protocol DATE: 01/17/2023 02:54 INDICATION: Syncope. COMPARISON: Chest CT 01/16/2023 FINDINGS: There is marked elevation of left hemidiaphragm. There is atelectasis bilaterally, worst in lingula. Calcified left lung nodules and calcified left hilar and mediastinal lymph nodes are consistent with old granulomatous disease. There is a trace right pleural effusion. The heart size is normal. There are coronary artery calcifications. No pericardial effusion. There is no pulmonary embolus. There is kyphosis and mild spondylosis of thoracic spine. There is severe cervical spondylosis. There is a fracture of right 11th rib. IMPRESSION: 1. No pulmonary embolus. 2. Marked elevation of left hemidiaphragm. 3. Fracture of right 11th rib. 01/18/2023: echo Summary 1. Left ventricular chamber dimension is normal. 2. Left ventricular systolic function is normal, estimated at 65-70%. 3. There is mildly increased left ventricular wall thickness. 4. The left ventricular diastolic function is grade I diastolic dysfunction. 5. Left atrial chamber dimension is mildly enlarged. 6. There is mild aortic valve calcification. 7. There is moderate aortic valve sclerosis. 8. There is mild tricuspid valve regurgitation. 9. Mild pulmonary hypertension, estimated pulmonary arterial systolic pressure is 37 mmHg. 10. There is mild pulmonic regurgitation. Left Ventricle Left ventricular chamber dimension is normal. Left ventricular systolic function is normal, estimated at 65-70%. There is mildly increased left ventricular wall thickness. The left ventricular diastolic function is grade I diastolic dysfunction. Right Ventricle Right ventricular chamber dimension is normal. Right ventricular systolic function is normal. Left Atria Left atrial chamber dimension is mildly enlarged. Right Atria Right atrial chamber dimension is normal. Atrial Septum Intact interatrial septum visualized by color flow imaging. 12/18/2017: EXAMINATION:CT CHEST W/O DATE: 12/18/2017 15:21 INDICATION: Chronic cough. COMPARISON: Chest CT 02/02/2013 FINDINGS: There is marked elevation of left hemidiaphragm. There is mild atelectasis in the inferior lungs. There is a mild burden of chronic reticular opacities in the inferior right lung. Calcified left lung nodules and calcified left hilar lymph nodes are consistent with old granulomatous disease. No pleural effusion. The heart size is normal. There are coronary artery calcifications. There are calcifications of the aortic valve. No pericardial effusion. There is kyphosis, dextroscoliosis, and mild spondylosis of thoracic spine. IMPRESSION: 1. Chronic marked elevation of left hemidiaphragm. 2. Mild chronic lung disease at right lung base. 03/25/2013: PFT report: NORMAL SPIROMETRY. NO ACUTE BRONCHODILATOR RESPONSE. LUNG VOLUMES REVEAL NORMAL TLC BUT INCREASED RV, RV/TLC CONSISTENT WITH AIR TRAPPING. RAW IS MILDLY INCREASED. DLCO IS NORMAL. IMPRESSION: ESSENTIALLY NORMAL STUDY. POSSIBLY MILD AIR TRAPPING. NO ACUTE BRONCHODILATOR RESPONSE. ABG (RA) 7.43/ 45/ 75/ 29/ 94% NORMAL FOR AGE. 01/13/2013: EXAMINATION: CHEST-TWO VIEW INDICATION: Left hemidiaphragm elevation TECHNIQUE: PA and lateral views of the chest were obtained. COMPARISON: 12/30/12 FINDINGS: There is persistent elevation of the left hemidiaphragm. Its position is not changed since the comparison examination. There is suggestion of minimal compressive left lower lobe atelectasis. The lungs are otherwise free of opacities. Moderate degenerative changes are present in the spine. The heart size is normal. No pleural effusion or pneumothorax is seen. IMPRESSION: 1. Elevation of the left hemidiaphragm, unchanged. Recommend correlation with any prior outside hospital imaging. Consider further evaluation with sniff test to evaluate for paralysis and possible chest CT to evaluate for radiographically occult lesion as the cause. Review of Systems Constitutional: Constitutional: Reports no additional constitutional complaints Eyes: Eyes: Reports no additional eye complaints ENT: Reports system reviewed and no additional complaints, except as documented Cardiovascular: Cardiovascular: Reports no additional cardiovascular complaints Respiratory: Respiratory: Reports no additional respiratory complaints Gastrointestinal: Gastrointestinal: Reports no additional gastrointestinal complaints Musculoskeletal: Musculoskeletal: Reports no additional musculoskeletal complaints Neurologic: Reports system reviewed and no additional complaints, except as documented Psychiatric: Psychiatric: Reports no additional psychiatric complaints Endocrine: Endocrine: Reports no additional endocrine complaints Hematologic/Lymphatic: Hematologic/Lymphatic: Reports no additional hematologic/lymphatic complaints Allergic/Immunologic: Allergic/Immunologic: Reports no additional allergic/immunologic complaints Exam Const: General: cooperative, healthy appearing and comfortable Orientation/consciousness: oriented to person, oriented to place and oriented to time HENMT: Head: normal to inspection Ears: hearing grossly normal bilaterally Eyes: General: appearance normal, both eyes and all related structures Neck: Neck: normal visual inspection Chest: Chest palpation & inspection: normal inspection of the chest Resp: Effort & Inspection: normal respiratory effort and able to speak in complete sentences Auscultation: crackles, no rales, no rhonchi, no wheezes and diminished lung sounds Other: Decreased breath sounds right greater than left. No wheezes. Cardio: Jugular venous distension: no JVD GI: Inspection: normal to inspection Skin: General skin exam: normal color Neuro: General: oriented to person, oriented to place and oriented to time Extrem: General: normal to inspection and edema Psych: Appearance: grossly normal Objective Data Vital Signs Vital Signs: Vital Signs - 24 hr 08/04/24 10:00 08/04/24 12:00 08/04/24 12:00 Temperature 36.4 C Pulse Rate 92 97 100 Respiratory Rate 24 H Blood Pressure 122/68 Pulse Oximetry 92 Oxygen Delivery 08/04/24 14:00 08/04/24 16:00 08/04/24 16:00 Temperature 36.5 C Pulse Rate 92 90 94 Respiratory Rate 24 H Blood Pressure 106/55 L Pulse Oximetry 90 Oxygen Delivery 08/04/24 18:00 08/04/24 19:49 08/04/24 20:00 Temperature 37.1 C Pulse Rate 90 96 Respiratory Rate 24 H Blood Pressure 104/60 Pulse Oximetry 91 Oxygen Delivery Room Air 08/04/24 20:00 08/04/24 20:50 08/04/24 22:00 Temperature Pulse Rate 94 92 Respiratory Rate Blood Pressure Pulse Oximetry 92 Oxygen Delivery Room Air 08/04/24 23:23 08/04/24 23:27 08/05/24 00:00 Temperature 36.5 C Pulse Rate 94 94 96 Respiratory Rate 16 16 Blood Pressure 102/55 L Pulse Oximetry 91 91 Oxygen Delivery Room Air 08/05/24 02:00 08/05/24 03:16 08/05/24 03:20 Temperature 36.9 C Pulse Rate 97 95 Respiratory Rate 20 Blood Pressure 98/57 L Pulse Oximetry 89 L Oxygen Delivery Room Air 08/05/24 04:00 08/05/24 05:29 08/05/24 06:00 Temperature Pulse Rate 91 92 88 Respiratory Rate Blood Pressure Pulse Oximetry Oxygen Delivery 08/05/24 08:00 08/05/24 08:36 Temperature 36.3 C L Pulse Rate 94 94 Respiratory Rate 22 H Blood Pressure 102/57 L Pulse Oximetry 90 Oxygen Delivery Intake/Output Intake/Output: Intake & Output 08/02/24 08/03/24 08/04/24 08/05/24 23:59 23:59 23:59 23:59 Intake Total 1119.9 315.9 Output Total 3550 450 Balance -2430.1 -134.1 Meds/Results Medications: Active Medications Generic Name Dose Route Start Last Admin Trade Name Stephanq PRN Reason Stop Dose Admin Acetaminophen 500 mg 08/04/24 11:09 08/04/24 20:04 Acetaminophen 500 Mg Tablet PO 500 mg BID PRN Administration pain Allopurinol 100 mg 08/04/24 09:10 08/05/24 08:36 Allopurinol 100 Mg Tablet PO 100 mg BID MELQUIADES Administration Artificial Tears 1 drop 08/04/24 09:15 Artificial Tears Ophth Soln 15 Ml Bottle EACH EYE QID PRN Dry Eye(s) Ascorbic Acid 500 mg 08/04/24 09:10 08/05/24 08:37 Ascorbic Acid 500 Mg Tablet PO 500 mg DAILY MELQUIADES Administration Aspirin 81 mg 08/04/24 09:10 08/05/24 08:37 Aspirin 81 Mg Enteric Tablet PO 81 mg DAILY MELQUIADES Administration Atorvastatin Calcium 40 mg 08/04/24 09:10 08/05/24 08:36 Atorvastatin 40 Mg Tablet PO 40 mg DAILY MELQUIADES Administration Clindamycin Phosphate 1 applic 08/04/24 09:00 08/05/24 08:40 Clindamycin Phos 1% 30 Gm Gel TOPICAL 09/04/24 08:59 1 applic DAILY MELQUIADES Administration Clotrimazole 1 applic 08/04/24 09:10 08/05/24 08:40 Betamethasone/Clotrimazole Cream 15 Gm Tube TOPICAL 1 applic BID MELQUIADES Administration Ferrous Sulfate 325 mg 08/04/24 09:00 08/05/24 08:36 Ferrous Sulfate [address] PO 325 mg DAILY MELQUIADES Administration Furosemide 40 mg 08/04/24 09:00 08/05/24 08:37 Furosemide Inj 40 Mg/4 Ml Vial IV PUSH 40 mg BID MELQUIADES Administration Heparin Sodium (Porcine) 5,000 units 08/03/24 20:59 Heparin Sodium 5,000 Units/Ml Vial IV PUSH PRN PRN aPTT less than 55 seconds Heparin Sodium (Porcine) 2,500 units 08/03/24 20:59 08/05/24 08:47 Heparin Sodium 5,000 Units/Ml Vial IV PUSH 2,500 units PRN PRN Administration aPTT 55 - 70 seconds Heparin Sodium/Dextrose 25,000 units in 250 mls @ 9 mls/hr 08/03/24 21:00 08/05/24 08:49 Heparin Sodium/D5w 100 Units/Ml IV CONT 900 units/hr .Q24H MELQUIADES 9 mls/hr Titration Protocol 900 UNITS/HR Azithromycin 500 mg in 250 mls @ 250 mls/hr 08/04/24 09:00 08/05/24 08:39 Zithromax IVPB 08/08/24 09:59 250 mls/hr Q24H MELQUIADES Administration Piperacillin Sod/Tazobactam Sod 4.5 gm in 100 mls @ 200 mls/hr 08/04/24 12:30 08/05/24 05:51 Zosyn 4.5 Gm/Ns 100 Ml IVPB 200 mls/hr Q6HR MELQUIADES Administration Memantine 10 mg 08/04/24 09:10 08/05/24 08:37 Memantine 10 Mg Tablet PO 10 mg BID MELQUIADES Administration Metoprolol Succinate 25 mg 08/05/24 09:00 08/05/24 08:36 Metoprolol Succinate Ext Rel 25 Mg Tabcr PO 25 mg QAM MELQUIADES Administration Miconazole Nitrate 1 applic 08/04/24 09:20 08/05/24 08:37 Miconazole Nitrate 2% Cream 30 Gm Tube TOPICAL 1 applic DAILY MELQUIADES Administration Multivitamins/Minerals 1 tab 08/04/24 09:10 08/05/24 08:36 Multivitamins /C Lutein (Centrum Silver) Tablet *Bkc PO 1 tab DAILY MELQUIADES Administration Pantoprazole Sodium 40 mg 08/04/24 09:10 08/04/24 10:00 Pantoprazole 40 Mg Tablet PO 40 mg QAM MELQUIADES Administration Pantoprazole Sodium 40 mg 08/04/24 13:10 08/05/24 08:37 Pantoprazole Sodium Iv 40 Mg Vial IV PUSH 40 mg QAM MELQUIADES Administration Perflutren Lipid Microsphere 0 ml 08/04/24 13:13 Perflutren Lipid Microspheres 1.5 Ml Vial Diluted To 10 Ml Total Volume IV PU SH 08/07/24 13:13 ONCE PRN adequate visualization Protocol Sodium Chloride 1 gm 08/04/24 09:10 08/05/24 08:36 Sodium Chloride 1 Gm Tablet PO 1 gm DAILY MELQUIADES Administration Sodium Chloride 6 ml 08/05/24 05:00 08/05/24 05:25 Sodium Chlor 3% 15 Ml Neb (Respiratory Therapy) INHALATION 08/07/24 05:01 6 ml DAILY@0500 MELQUIADES Administration Tamsulosin HCl 0.4 mg 08/04/24 21:00 08/04/24 20:04 Tamsulosin Hcl 0.4 Mg Capsule PO 0.4 mg HS MELQUIADES Administration Vitamin D 1,000 units 08/04/24 09:00 08/05/24 08:36 Cholecalciferol 1,000 Units Tablet PO 1,000 units DAILY MELQUIADES Administration Radiology Results: ITS Impressions Chest X-Ray 08/03/24 13:17 IMPRESSION: Large right-sided pleural effusion. Loss of lung volume within the left hemithorax secondary to hemidiaphragmatic elevation, from distended aerated colon. Chest/Abdomen/Pelvis CTA 08/03/24 17:30 IMPRESSION: Segmental nonocclusive pulmonary emboli are suspected in the right lower lobe. Low clot burden. RV/LV ratio less than 1. 1.7 cm cavitary lesion in the right lower lobe, most likely secondary to infection or malignancy. Subsegmental atelectasis/consolidation in the right lower lobe. Chronic left hemidiaphragm elevation with shift of the mediastinum and heart to the right. Cardiomegaly. Small pericardial effusion. Moderate right and small left pleural effusions. Ectasia of the aortic arch. Moderate gastritis. Hepatomegaly. Possible cirrhotic change. 2.0 cm indeterminate density left upper pole lesion, slow interval growth, with increasing density. Consider nonemergent but timely CT or MRI without and with contrast for further characterization. Mild sigmoid colitis. Small volume ascites. Diffuse body wall edema. Head CT 08/03/24 20:22 IMPRESSION: No acute intracranial process, within the constraints noted above. Venous Doppler Study 08/04/24 12:08 IMPRESSION: 1. No deep venous thrombosis within the bilateral lower extremities, as deta iled above. Upper Quadrant Ultrasound 08/04/24 19:36 IMPRESSION: Cholelithiasis, without ultrasound evidence of cholecystitis. Fatty infiltration of an enlarged liver. Renal Ultrasound 08/04/24 19:40 IMPRESSION: No hydronephrosis or renal calculi. Findings suggesting medical renal disease. The 2 cm left upper pole mass of soft tissue attenuation is not visualized on ultrasound. This mass was visualized on contrast-enhanced CT performed less than 24 hours earlier. Nonemergent but timely CT or MRI with renal mass protocol is again recommended for further evaluation once patient recovers from his current illness. Labs Labs: Laboratory Results - last 24 hr 08/04/24 08/04/24 08/04/24 10:51 12:39 17:31 APTT 124.4 H 111.2 H NT-Pro-B Natriuret Pep Nasal MRSA (PCR) Not detected 08/05/24 08/05/24 00:15 08:02 APTT 160.9 H* 55.8 H NT-Pro-B Natriuret Pep 11894 H Nasal MRSA (PCR)
--- NOTE | 2024-08-05 14:54 | P.CONCA_ITS ---
Assessment and Plan Assessment and plan (1) Acute systolic (congestive) heart failure: Code(s): I50.21 - Acute systolic (congestive) heart failure Status: Acute Assessment and Plan: Uncertain etiology. Ejection fraction the urine half ago was normal but now severely impaired with EF around 30%. Continue IV diuresis with furosemide 40 mg IV b.i.d.. His blood pressure typically runs on the low side and he has passed out in the past probably due to orthostasis. Pushing medications for treatment of his heart failure may be difficult. At this point though, continue metoprolol succinate 25 mg p.o. daily. Will add Jardiance 10 mg daily. Follow renal function. Will discontinue the sodium chloride tablets that he was getting for unknown reasons (presumably for orthostatic symptoms). He is on tamsulosin and this may need to be stopped in order to pursue medical therapy for his cardiomyopathy especially given his history of syncope. He also has masses that need to be worked up including a cavitary lung mass as well as a mass on his kidney seen on CT scan. (2) Mixed hyperlipidemia: Code(s): E78.2 - Mixed hyperlipidemia Status: Acute Assessment and Plan: Continue atorvastatin (3) Cardiomyopathy: Code(s): I42.9 - Cardiomyopathy, unspecified Status: Acute Assessment and Plan: New onset. Initiating medical therapy as above. Eventual ischemic workup (4) Pulmonary emboli: Qualifiers: Pulmonary embolism type: single subsegmental (without acute cor pulmonale) Qualified Code(s): I26.93 - Single subsegmental thrombotic pulmonary embolism without acute cor pulmonale Code(s): I26.99 - Other pulmonary embolism without acute cor pulmonale Status: Acute Assessment and Plan: On heparin. There will be risk of anticoagulation with him given his syncope history. (5) Syncope and collapse: Code(s): R55 - Syncope and collapse Status: Acute Assessment and Plan: Probably related to orthostatic hypotension History of Present Illness History of Present Illness Consult date/time: 08/05/24 14:54 Requesting physician: Bar Chisholm MD Consult reason: congestive heart failure Reason For Visit: CHF exac Narrative: Date of service 08/05/2024 Reason for consultation: CHF Requesting provider: Dr. chisholm History patient is a 83-year-old man who has a history of syncope. I saw him in consultation about a year and a half ago. He had been passing out. There was some concern about orthostasis and autonomic dysfunction. Echocardiogram performed at that time showed a preserved ejection fraction of 65-70%. He did have left bundle-branch block. He states that over the past several months he has been more short of breath as well as more edematous. The shortness of breath has been progressive to the point that he has some dyspnea at night and even some paroxysmal nocturnal dyspnea. Lower extremity swelling has also been progressive. Reason for admission however was actually that he had fallen at home on Saturday which is 3 days ago. He did get up and refused to go to the ER but then had another episode the next day and could not get out. There was possible loss of consciousness during that episode although his daughter states that he was awake but not responding. Denies any chest pain, palpitations. Echocardiogram performed yesterday and he had an EF of 30-35%. Cardiology consultation was requested Review of Systems 2 Review of Systems: All systems reviewed & are unremarkable except as noted in HPI and below Constitutional: Constitutional: Denies fatigue Eyes: Eyes: Denies blurry vision ENT: Denies Normal hearing present Cardiovascular: Cardiovascular: Denies chest pain and Reports leg edema Respiratory: Respiratory: Reports dyspnea Gastrointestinal: Gastrointestinal: Reports bloating Genitourinary: Genitourinary: Denies hematuria Musculoskeletal: Musculoskeletal: Denies myalgias Integumentary/Breasts: Skin/Breast: Denies dry skin Neurologic: Reports abnormal gait Psychiatric: Psychiatric: Denies anxiety Endocrine: Endocrine: Denies excessive sweating Hematologic/Lymphatic: Hematologic/Lymphatic: Denies easy bleeding Allergic/Immunologic: Allergic/Immunologic: Denies GI upset with certain foods PMFSH Past Medical History Medical History (Updated 08/05/24 @ 15:02 by Renaldo Barnard MD) Protein in urine Suppurative hidradenitis On Humira AVM (arteriovenous malformation) of colon Cecum BPH (benign prostatic hyperplasia) Renal lesion Evaluated by Urology 2018 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 Mild pulmonary hypertension Echo 2012 Diastolic dysfunction EF 65-72 grade 1 diastolic dysfunction noted on echo February 2013 also noted moderate aortic valve sclerosis mild tricuspid valve regurgitation and mild pulmonic regurgitation Severe obstructive sleep apnea Polysomnogram February 2013 recommending CPAP of 18 Venous stasis dermatitis of right lower extremity Venous stasis LBBB (left bundle branch block) Essential (primary) hypertension Gout, unspecified Iron deficiency anemia Low vitamin D level Memory loss Mixed hyperlipidemia Surgical History Surgical History (Updated 08/03/24 @ 20:12 by Rylie Moya DO) History of colonoscopy with polypectomy Colonoscopy 11/2017: Umbilicated perianal lesion and 2 small angioplastic lesions without bleeding in the cecum History of esophagogastroduodenoscopy (EGD) 11/2017: Tortuous esophagus prior EGD in 2008 demonstrated gastritis and duodenitis Family History Family History Father Hypertension Gout Mother Hypertension Family history of malignant neoplasm of breast in first degree relative Breast cancer Cerebrovascular accident Sibling Brain cancer Liver cancer Sibling No problems noted. Other Family history of hearing loss Social History Social History (Updated 08/03/24 @ 20:16 by Rylie Moya DO) Social History: Code status: DNR/DNI Surrogate decision maker: Smoking status: Never smoker Second hand tobacco smoke exposure: No Alcohol intake: never Substance use: never Substance use type: does not use Do You Feel Safe in your Home?: Yes Lack of Transportation: No Lack of Food: Never True Current Housing: I Have Housing Concerned About Future Housing: No Difficulty Paying Gas/Electric Bills: No Difficulty Paying for Meds: No Currently Unemployed: No Education: Bachelor's Degree Difficulty w/ Childcare or Family Care: No Living arrangements: with family Occupation/Education: retired 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 Gender identity (if verbalized by the patient): Male Spiritual care concerns: No Meds Home Medications and Allergies Home Medications ?Medication ?Instructions ?Recorded ?Confirmed ?Type pantoprazole 40 mg tablet,delayed 40 mg PO QAM 09/21/19 08/03/24 History release (Protonix) carboxymethylcellulose sodium 0.5 1 drp EACH EYE 4-6XD 09/27/20 08/03/24 History % eye drops in a dropperette (Refresh Plus) clindamycin phosphate 1 % topical 1 applic topical DAILY 09/27/20 08/03/24 History gel, once daily (Clindagel) clotrimazole-betamethasone 1 1 applic topical BID 09/27/20 08/03/24 History %-0.05 % topical cream cholecalciferol (vitamin D3) 25 25 mcg PO DAILY #90 caps 04/18/21 08/03/24 Rx mcg (1,000 unit) capsule byedhlzs-ayr-wtzbv acid 0.4 1 tablet PO DAILY #90 tabs 01/22/22 08/03/24 Rx mg-lycopene 300 mcg-lutein 250 mcg tablet (CertaVite Senior) aspirin 81 mg tablet,delayed 81 mg PO DAILY #60 tabs 01/20/23 08/03/24 Rx release tamsulosin 0.4 mg capsule 0.4 mg PO HS 10/14/23 08/03/24 History furosemide 20 mg tablet (Lasix) See Rx Instructions PO QAM #180 04/13/24 08/03/24 Rx tabs allopurinol 100 mg tablet 100 mg PO BID #180 tabs 04/23/24 08/03/24 Rx memantine 10 mg tablet 10 mg PO BID #180 tabs 05/13/24 08/03/24 Rx atorvastatin 40 mg tablet 40 mg PO DAILY #90 tabs 05/21/24 08/03/24 Rx acetaminophen 500 mg capsule 500 mg PO BID 06/04/24 08/03/24 History terbinafine HCl 1 % topical cream 1 applic topical DAILY 06/04/24 08/03/24 History ferrous sulfate 325 mg (65 mg 325 mg PO DAILY #90 tabs 06/25/24 08/03/24 Rx iron) tablet ascorbic acid (vitamin C) 500 mg 500 mg PO DAILY 07/28/24 08/03/24 History tablet sodium chloride 1,000 mg soluble 1,000 mg PO DAILY #30 tabs 07/29/24 08/03/24 Rx tablet Allergies Allergy/AdvReac Type Severity Reaction Status Date / Time No Known Allergies Allergy Verified 08/03/24 12:16 Vital Signs Vital Signs - 24 hr 08/04/24 16:00 08/04/24 16:00 08/04/24 18:00 Temperature 36.5 C Pulse Rate 90 94 90 Respiratory Rate 24 H Blood Pressure 106/55 L Pulse Oximetry 90 Oxygen Delivery 08/04/24 19:49 08/04/24 20:00 08/04/24 20:00 Temperature 37.1 C Pulse Rate 96 94 Respiratory Rate 24 H Blood Pressure 104/60 Pulse Oximetry 91 Oxygen Delivery Room Air 08/04/24 20:50 08/04/24 22:00 08/04/24 23:23 Temperature 36.5 C Pulse Rate 92 94 Respiratory Rate 16 Blood Pressure 102/55 L Pulse Oximetry 92 91 Oxygen Delivery Room Air 08/04/24 23:27 08/05/24 00:00 08/05/24 02:00 Temperature Pulse Rate 94 96 97 Respiratory Rate 16 Blood Pressure Pulse Oximetry 91 Oxygen Delivery Room Air 08/05/24 03:16 08/05/24 03:20 08/05/24 04:00 Temperature 36.9 C Pulse Rate 95 91 Respiratory Rate 20 Blood Pressure 98/57 L Pulse Oximetry 89 L Oxygen Delivery Room Air 08/05/24 05:29 08/05/24 06:00 08/05/24 08:00 Temperature 36.3 C L Pulse Rate 92 88 94 Respiratory Rate 22 H Blood Pressure 102/57 L Pulse Oximetry 90 Oxygen Delivery 08/05/24 08:00 08/05/24 08:36 08/05/24 10:00 Temperature Pulse Rate 95 94 92 Respiratory Rate Blood Pressure Pulse Oximetry Oxygen Delivery 08/05/24 12:00 08/05/24 12:00 08/05/24 14:00 Temperature 36.4 C L Pulse Rate 89 88 91 Respiratory Rate 20 Blood Pressure 94/58 L Pulse Oximetry 95 Oxygen Delivery Exam 2 Narrative: Patient is awake alert oriented. Appears stated age Const: General: comfortable and no acute distress HENMT: Ears: TM's normal bilaterally Face/Nose/Sinus: Normal nares present Eyes: General: appearance normal, both eyes and all related structures S clera: sclerae normal Neck: Neck: supple and no JVD Carotids: no bruits Chest: Other: No reproducible chest wall pain to palpation Resp: Effort & Inspection: normal respiratory effort Auscultation: crackles Cardio: Rate: regular rate Rhythm: regular rhythm Heart sounds: Murmur heart sound present GI: Inspection: non-distended GI Palp: Yes Soft to palpation A uscultation: normal bowel sounds Skin: General skin exam: erythema Other: Erythema noted bilateral lower extremities Neuro: Speech: normal speech Sensory Exam: normal sensation Extrem: General: edema Other: 1+ bilateral lower extremity edema. Leg s are wooden Psych: Mental Status: mental status grossly normal Affect: normal affect Results Labs and Meds 08/04/24 04:15 08/04/24 04:15 Lab results: Coagulation 08/04/24 08/05/24 08/05/24 Range/Units 17:31 00:15 08:02 APTT 111.2 H 160.9 H* 55.8 H (22.3-36.8) Seconds Intake and Output 08/04/24 08/05/24 08/05/24 23:59 07:59 15:59 Intake Total 198.7 241 174.9 Output Total 2750 450 Balance -2551.3 -209 174.9 Intake: IV 198.7 241 54.9 Heparin Sod/D5w 100 Units/ml 25 98.7 41 54.9 ,000 units In 250 ml @ 800 UNITS/HR 8 mls/hr IV CONT .Q24H [facility] Rx#:[id number] Piperacillin/Brendan 4.5G/Ns 100Ml 100 200 4.5 gm In 100 ml @ 200 mls/hr IVPB Q6HR [facility] Rx#:[id number] Oral 120 Output: Urine 2750 450 Patient Weight 08/05/24 23:59 Weight 73.8 kg EKG is personally reviewed and independently interpreted showing sinus rhythm with IVCD. Echocardiogram 2. Left ventricular chamber dimension is mildly enlarged. 3. Left ventricular systolic function is moderately reduced, estimated at 30-35. 4. Left atrial chamber dimension is severely enlarged. 5. There is trivial pericardial effusion.
[2024-08-05 15:30] LABS: Hematocrit 32.3 % (42.0-52.0); Hemoglobin 9.2 g/dL (14.0-18.0); Immature Platelet Fraction Pct 2.2 % (0.9-11.2); Mean Corpuscular HGB Conc 28.5 g/dl (32-36); Mean Corpuscular Hemoglobin 24.9 pg (26-34); Mean Corpuscular Volume 87.5 fl (80-100); Mean Platelet Volume 8.8 fl (7.4-10.4); Platelet Count Result 108 k/mm3 (150-375); Red Blood Count 3.69 M/mm3 (4.6-6.20); Red Cell Distribution Width 20.5 % (11.5-14.5)
[2024-08-05 15:39] LABS: Alanine Aminotransferase 25 U/L (6-50); Albumin Level 2.9 g/dL (3.5-5.1); Alkaline Phosphatase 67 U/L (38-126); Aspartate Amino Transferase 34 U/L (17-59); Bilirubin,Total 0.5 mg/dL (0.2-1.3); Blood Urea Nitrogen 15 mg/dL (9-20); Calcium 7.9 mg/dL (8.4-10.2); Carbon Dioxide > 40 mmol/L (22-30); Chloride 88 mmol/L (98-107); Estimated CRCL calculation 46 ml/min; Estimated Glomerular Filt Rate > 60; Glucose 127 mg/dL (65-110); Magnesium 1.5 mg/dL (1.6-2.3); Potassium 3.8 mmol/L (3.4-5.0); Sodium 132 mmol/L (137-145)
[2024-08-05 15:40] LABS: Partial Thromboplastin Time 81.6 Seconds (22.3-36.8)
--- NOTE | 2024-08-05 18:35 | P.PNIM_ITS ---
Progress Note: A&P Assessment and Plan (1) Essential (primary) hypertension: Code(s): I10 - Essential (primary) hypertension Status: Acute (2) Acute heart failure: Qualifiers: Heart failure type: unspecified Qualified Code(s): I50.9 - Heart failure, unspecified Code(s): I50.9 - Heart failure, unspecified Status: Acute (3) Cardiomegaly: Code(s): I51.7 - Cardiomegaly Status: Acute (4) Diastolic CHF: Qualifiers: Heart failure chronicity: acute on chronic Qualified Code(s): I50.33 - Acute on chronic diastolic (congestive) heart failure Code(s): I50.30 - Unspecified diastolic (congestive) heart failure Status: Acute (5) LBBB (left bundle branch block): Code(s): I44.7 - Left bundle-branch block, unspecified Status: Acute (6) Venous stasis: Code(s): I87.8 - Other specified disorders of veins Status: Acute (7) Aortic ectasia: Code(s): I77.819 - Aortic ectasia, unspecified site Status: Acute (8) Mixed hyperlipidemia: Code(s): E78.2 - Mixed hyperlipidemia Status: Acute (9) Thrombocytopenia: Code(s): D69.6 - Thrombocytopenia, unspecified Status: Acute (10) Pulmonary emboli: Qualifiers: Pulmonary embolism type: single subsegmental (without acute cor pulmonale) Qualified Code(s): I26.93 - Single subsegmental thrombotic pulmonary embolism without acute cor pulmonale Code(s): I26.99 - Other pulmonary embolism without acute cor pulmonale Status: Acute (11) Hepatomegaly: Code(s): R16.0 - Hepatomegaly, not elsewhere classified Status: Acute (12) Colitis: Code(s): K52.9 - Noninfective gastroenteritis and colitis, unspecified Status: Acute (13) Renal lesion: Code(s): N28.9 - Disorder of kidney and ureter, unspecified Status: Acute (14) Normocytic anemia: Code(s): D64.9 - Anemia, unspecified Status: Acute (15) Pleural effusion on right: Code(s): J90 - Pleural effusion, not elsewhere classified Status: Acute (16) Cavitary lesion of lung: Code(s): J98.4 - Other disorders of lung Status: Acute (17) Edema of extremities: Code(s): R60.0 - Localized edema Status: Acute (18) Anasarca: Code(s): R60.1 - Generalized edema Status: Acute Plan Patient presents with complaint of generalized weakness and swelling along with shortness of breath. he reports swelling in his both legs and has been worsening. he has misssed some doses of diuretic that he is prescribed. he reports some cough but not more than usual. he resides at home. He fell yesterday, slipping from his recliner when he was getting up to go to the bathroom. While his daughter tried to help him get up off the ground he reportedly became unresponsive followed by confusion before returning to baseline. 911 was called at that time but because he was no longer confused, he refused transportation at the time. He denies any pain/injury from the fall. He saw his PCP last week as he had been having diarrhea; C diff test was reportedly negative and then he started having constipation. He denies any chest pain. He has been short of breath with a nonproductive cough. No nausea or vomiting. He endorses occasional abdominal pain. No fever chills. in the ED, his vitals were stable, he has swelling bilateral lower extremities. lab evaluation showed WBC of 4.6 hemoglobin of 9 hemoglobin 10.1 plateelet 110.cr 0.7, na low at 127, d dimer elevated at 1.08, [place]. [place] [id number], ua negative for infection. ct pe protocol revealed bilateral PE with low clot burdern. he has been started on heparin gtt. His CXR showed large right sided pleural effusion, loss of lung volume within the left hemithorax secondary to hemidiaphragmatic elevation from distended aerated colon. cta showed segmental non occlusive pulmonary emboli in right lower lobe, low clot burden. RV/LV ratio less than 1. 1.7 cm cavitary lesion in lore right lower lobe, sec to infection vs malignancy. subsegmental atelectasis/consolidation int eh right lower lobe. cardiomegaly small peric ardial effusion. moderate right and small left pleural effusions. ectasia of the aortic arch, moderate gastritis. hepatomegay, possible cirrhotic changes. 2.0 cm indeterminate density left upper pole lesion,slow interval growth with increasing density. mild sigmoid colitis. small volume asictes, diffuse body wall edema. he also had other chronc findings on the CT. echo 2022 revealed ef 65-70%, grade I diastolic dysfunction. mild pulmonary hypertension he is admitted in this setting for further treatment. # acute pe # acute chf exacerbation with anasarca. diuresis as scheduled[place] [id number] # lwoer extremity edema: check us duplex #grade 1 diastolic dysfunction # generalized weakness PT OT to see Right pleural effusion underlying 1.7 cm cavitary lesion in the right lower lobe will treat with ceftriaxone azithromycin check MRSA nares. Will consult Pulmonary. Check urine antigens. May need thoracentesis to ultimately rule out underlying malignancy. Also has segmental atelectasis/consolidation of the right lower lobe will treat as pneumonia as stated above. Check procalcitonin 2.0 cm indeterminate density left upper pole kidney will do renal ultrasound also will need follow-up as an outpatient basis Hepatomegaly right upper quadrant ultrasound. Possible cirrhotic changes on CT. Has anasarca. Albumin level 3.4. Gastritis add PPI DVT prophylaxis on heparin drip Code status do not resuscitate 83 y/o male presented with lower extremities edema after he had syncopal episode, patient is being diuresed with fursomide 40mg IV BID, and edema in lower extremities is improving. 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 Subjective Date/time seen: 08/05/24 18:35 Interval history: 83 y/o male presented with lower extremities edema after he had syncopal episode, patient is being diuresed with fursomide 40mg IV BID, and edema in lower extremities is improving. 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 Review of Systems Review of Systems: - CONSTITUTIONAL: Denies weight loss, fe jesse and chills. - HEENT: Denies changes in vision and he aring - RESPIRATORY: reports SOB and cough. - CV: Denies palpitations and CP. - GI: Denies abdominal pain, nausea, vom iting and diarrhea. - : Denies dysuria and urinary frequen cy. - MSK: Denies myalgia and joint pain. - SKIN: Denies rash and pruritus. - NEUROLOGICAL: Denies headache and sync ope. - PSYCHIATRIC: Denies recent changes in mood. Denies anxiety and depression. Exam Narrative: Elderly frail Patient is comfortable, NAD HEENT: eyes are clear and none icteric LUNGS: BS with bilateral poor air entry with rales and rhonchi HEART: RR S1S2 ABD: BS+, Soft and nontender Lower extremities: no edema SKIN: nonjaundiced Neuro: grossly intact. Objective Data Vital Signs Vital Signs: Vital Signs - 24 hr 08/04/24 19:49 08/04/24 20:00 08/04/24 20:00 Temperature 37.1 C Pulse Rate 96 94 Respiratory Rate 24 H Blood Pressure 104/60 Pulse Oximetry 91 Oxygen Delivery Room Air 08/04/24 20:50 08/04/24 22:00 08/04/24 23:23 Temperature 36.5 C Pulse Rate 92 94 Respiratory Rate 16 Blood Pressure 102/55 L Pulse Oximetry 92 91 Oxygen Delivery Room Air 08/04/24 23:27 08/05/24 00:00 08/05/24 02:00 Temperature Pulse Rate 94 96 97 Respiratory Rate 16 Blood Pressure Pulse Oximetry 91 Oxygen Delivery Room Air 08/05/24 03:16 08/05/24 03:20 08/05/24 04:00 Temperature 36.9 C Pulse Rate 95 91 Respiratory Rate 20 Blood Pressure 98/57 L Pulse Oximetry 89 L Oxygen Delivery Room Air 08/05/24 05:29 08/05/24 06:00 08/05/24 08:00 Temperature 36.3 C L Pulse Rate 92 88 94 Respiratory Rate 22 H Blood Pressure 102/57 L Pulse Oximetry 90 Oxygen Delivery 08/05/24 08:00 08/05/24 08:36 08/05/24 10:00 Temperature Pulse Rate 95 94 92 Respiratory Rate Blood Pressure Pulse Oximetry Oxygen Delivery 08/05/24 12:00 08/05/24 12:00 08/05/24 14:00 Temperature 36.4 C L Pulse Rate 89 88 91 Respiratory Rate 20 Blood Pressure 94/58 L Pulse Oximetry 95 Oxygen Delivery 08/05/24 16:00 08/05/24 16:00 08/05/24 18:00 Temperature 36.6 C Pulse Rate 84 88 80 Respiratory Rate 22 H Blood Pressure 106/67 Pulse Oximetry 91 Oxygen Delivery Intake/Output Intake/Output: Intake & Output 08/02/24 08/03/24 08/04/24 08/05/24 23:59 23:59 23:59 23:59 Intake Total 1119.9 1738.2 Output Total 3550 1400 Balance -2430.1 338.2 Meds/Results Medications: Active Medications Generic Name Dose Route Start Last Admin Trade Name Freq PRN Reason Stop Dose Admin Acetaminophen 500 mg 08/04/24 11:09 08/04/24 20:04 Acetaminophen 500 Mg Tablet PO 500 mg BID PRN Administration pain Allopurinol 100 mg 08/04/24 09:10 08/05/24 16:35 Allopurinol 100 Mg Tablet PO 100 mg BID [facility] Administration Artificial Tears 1 drop 08/04/24 09:15 Artificial Tears Ophth Soln 15 Ml Bottle EACH EYE QID PRN Dry Eye(s) Ascorbic Acid 500 mg 08/04/24 09:10 08/05/24 08:37 Ascorbic Acid 500 Mg Tablet PO 500 mg DAILY [facility] Administration Aspirin 81 mg 08/04/24 09:10 08/05/24 08:37 Aspirin 81 Mg Enteric Tablet PO 81 mg DAILY [facility] Administration Atorvastatin Calcium 40 mg 08/04/24 09:10 08/05/24 08:36 Atorvastatin 40 Mg Tablet PO 40 mg DAILY [facility] Administration Clindamycin Phosphate 1 applic 08/04/24 09:00 08/05/24 08:40 Clindamycin Phos 1% 30 Gm Gel TOPICAL 09/04/24 08:59 1 applic DAILY [facility] Administration Clotrimazole 1 applic 08/04/24 09:10 08/05/24 16:38 Betamethasone/Clotrimazole Cream 15 Gm Tube TOPICAL Not Given BID [facility] Empagliflozin 10 mg 08/06/24 09:00 Empagliflozin 10 Mg Tablet PO DAILY [facility] Ferrous Sulfate 325 mg 08/04/24 09:00 08/05/24 08:36 Ferrous Sulfate [address] PO 325 mg DAILY [facility] Administration Furosemide 40 mg 08/04/24 09:00 08/05/24 16:35 Furosemide Inj 40 Mg/4 Ml Vial IV PUSH 40 mg BID [facility] Administration Heparin Sodium (Porcine) 5,000 units 08/03/24 20:59 Heparin Sodium 5,000 Units/Ml Vial IV PUSH PRN PRN aPTT less than 55 seconds Heparin Sodium (Porcine) 2,500 units 08/03/24 20:59 08/05/24 08:47 Heparin Sodium 5,000 Units/Ml Vial IV PUSH 2,500 units PRN PRN Administration aPTT 55 - 70 seconds Heparin Sodium/Dextrose 25,000 units in 250 mls @ 9 mls/hr 08/03/24 21:00 08/05/24 15:44 Heparin Sodium/D5w 100 Units/Ml IV CONT 900 units/hr .Q24H [facility] 9 mls/hr Titration Protocol 900 UNITS/HR Azithromycin 500 mg in 250 mls @ 250 mls/hr 08/04/24 09:00 08/05/24 08:39 Zithromax IVPB 08/08/24 09:59 250 mls/hr Q24H [facility] Administration Piperacillin Sod/Tazobactam Sod 4.5 gm in 100 mls @ 200 mls/hr 08/04/24 12:30 08/05/24 17:49 Zosyn 4.5 Gm/Ns 100 Ml IVPB 200 mls/hr Q6HR [facility] Administration Memantine 10 mg 08/04/24 09:10 08/05/24 16:35 Memantine 10 Mg Tablet PO 10 mg BID [facility] Administration Metoprolol Succinate 25 mg 08/05/24 09:00 08/05/24 08:36 Metoprolol Succinate Ext Rel 25 Mg Tabcr PO 25 mg QAM [facility] Administration Miconazole Nitrate 1 applic 08/04/24 09:20 08/05/24 08:37 Miconazole Nitrate 2% Cream 30 Gm Tube TOPICAL 1 applic DAILY [facility] Administration Multivitamins/Minerals 1 tab 08/04/24 09:10 08/05/24 08:36 Multivitamins /C Lutein (Centrum Silver) Tablet *Bkc PO 1 tab DAILY [facility] Administration Pantoprazole Sodium 40 mg 08/04/24 09:10 08/04/24 10:00 Pantoprazole 40 Mg Tablet PO 40 mg QAM [facility] Administration Pantoprazole Sodium 40 mg 08/04/24 13:10 08/05/24 08:37 Pantoprazole Sodium Iv 40 Mg Vial IV PUSH 40 mg QAM [facility] Administration Perflutren Lipid Microsphere 0 ml 08/04/24 13:13 Perflutren Lipid Microspheres 1.5 Ml Vial Diluted To 10 Ml Total Volume IV PUSH 08/07/24 13:13 ONCE PRN adequate visualization Protocol Sodium Chloride 1 gm 08/04/24 09:10 08/05/24 08:36 Sodium Chloride 1 Gm Tablet PO 1 gm DAILY [facility] Administration Sodium Chloride 6 ml 08/05/24 05:00 08/05/24 05:25 Sodium Chlor 3% 15 Ml Neb (Respiratory Therapy) INHALATION 08/07/24 05:01 6 ml DAILY@0500 [facility] Administration Tamsulosin HCl 0.4 mg 08/04/24 21:00 08/04/24 20:04 Tamsulosin Hcl 0.4 Mg Capsule PO 0.4 mg HS [facility] Administration Vitamin D 1,000 units 08/04/24 09:00 08/05/24 08:36 Cholecalciferol 1,000 Units Tablet PO 1,000 units DAILY [facility] Administration Radiology Results: ITS Impressions Chest X-Ray 08/03/24 13:17 IMPRESSION: Large right-sided pleural effusion. Loss of lung volume within the left hemithorax secondary to hemidiaphragmatic elevation, from distended aerated colon. Chest/Abdomen/Pelvis CTA 08/03/24 17:30 IMPRESSION: Segmental nonocclusive pulmonary emboli are suspected in the right lower lobe. Low clot burden. RV/LV ratio less than 1. 1.7 cm cavitary lesion in the right lower lobe, most likely secondary to infection or malignancy. Subsegmental atelectasis/consolidation in the right lower lobe. Chronic left hemidiaphragm elevation with shift of the mediastinum and heart to the right. Cardiomegaly. Small pericardial effusion. Moderate right and small left pleural effusions. Ectasia of the aortic arch. Moderate gastritis. Hepatomegaly. Possible cirrhotic change. 2.0 cm indeterminate density left upper pole lesion, slow interval growth, with increasing density. Consider nonemergent but timely CT or MRI without and with contrast for further characterization. Mild sigmoid colitis. Small volume ascites. Diffuse body wall edema. Head CT 08/03/24 20:22 IMPRESSION: No acute intracranial process, within the constraints noted above. Venous Doppler Study 08/04/24 12:08 IMPRESSION: 1. No deep venous thrombosis within the bilateral lower extremities, as detailed above. Upper Quadrant Ultrasound 08/04/24 19:36 IMPRESSION: Cholelithiasis, without ultrasound evidence of cholecystitis. Fatty infiltration of an enlarged liver. Renal Ultrasound 08/04/24 19:40 IMPRESSION: No hydronephrosis or renal calculi. Findings suggesting medical renal disease. The 2 cm left upper pole mass of soft tissue attenuation is not visualized on ultrasound. This mass was visualized on contrast-enhanced CT performed less than 24 hours earlier. Nonemergent but timely CT or MRI with renal mass protocol is again recommended for further evaluation once patient recovers from his current illness. Labs Labs: Laboratory Results - last 24 hr 08/05/24 08/05/24 08/05/24 00:15 08:02 15:20 WBC 4.0 L RBC 3.69 L Hgb 9.2 L Hct 32.3 L MCV 87.5 MCH 24.9 L D MCHC 28.5 L RDW 20.5 H Plt Count 108 L MPV 8.8 % Immature Plt Fraction 2.2 APTT 160.9 H* 55.8 H 81.6 H Sodium 132 L Potassium 3.8 Chloride 88 L Carbon Dioxide > 40 H Anion Gap BUN 15 Creatinine 0.89 Estim Creat Clear Calc 46 Estimated GFR > 60 Glucose 127 H Calcium 7.9 L Magnesium 1.5 L Total Bilirubin 0.5 AST 34 ALT 25 Alkaline Phosphatase 67 NT-Pro-B Natriuret Pep 21131 H Total Protein 6.0 L Albumin 2.9 L
[2024-08-05] MEDS: MAGNESIUM SULF 2 GM/WATER 50ML 2 GM/50 ML BAG IVPB (18:53)
[2024-08-05] MEDS: ACETAMINOPHEN 500 MG TABLET PO (20:53)
[2024-08-05] MEDS: TAMSULOSIN HCL 0.4 MG CAPSULE PO (20:54)
[2024-08-06] VITALS (18 sets, daily range): BP systolic 95–118; BP diastolic 52–65; PULSE 80–90; RESP 16–24; TEMP 36.3–37.2; O2SAT 92–100
[2024-08-06] MEDS: PIPERACILLIN/TAZ 4.5G/NS 100ML 4.5 GM/100 ML BAG IVPB ×5 (00:58→23:54)
[2024-08-06] MEDS: HEPARIN SOD/D5W 100 UNITS/ML 25,000 UNITS/250 ML BAG 9 UNITS IV CONT (02:36)
[2024-08-06] MEDS: SODIUM CHLOR 3% 15 ML NEB (RESPIRATORY THERAPY) 6 ML INHALATION (04:19)
[2024-08-06 04:55] LABS: Hematocrit 28.6 % (42.0-52.0); Hemoglobin 9.5 g/dL (14.0-18.0); Mean Corpuscular HGB Conc 33.2 g/dl (32-36); Mean Corpuscular Hemoglobin 29.6 pg (26-34); Mean Corpuscular Volume 89.1 fl (80-100); Mean Platelet Volume 9.2 fl (7.4-10.4); Platelet Count Result 94 k/mm3 (150-375); Red Blood Count 3.21 M/mm3 (4.6-6.20); Red Cell Distribution Width 20.9 % (11.5-14.5); White Blood Count 3.5 K/mm3 (4.5-10.0)
[2024-08-06 05:09] LABS: Blood Urea Nitrogen 16 mg/dL (9-20); Calcium 7.8 mg/dL (8.4-10.2); Carbon Dioxide > 40 mmol/L (22-30); Chloride 88 mmol/L (98-107); Estimated CRCL calculation 48 ml/min; Estimated Glomerular Filt Rate > 60; Glucose 104 mg/dL (65-110); Magnesium 1.8 mg/dL (1.6-2.3); Potassium 3.1 mmol/L (3.4-5.0); Sodium 130 mmol/L (137-145)
[2024-08-06 05:22] LABS: Partial Thromboplastin Time 72.3 Seconds (22.3-36.8)
[2024-08-06] MEDS: POTASSIUM CHLORIDE 20 MEQ PACKET (FOR LIQUID) 40 MEQ PO (09:14)
[2024-08-06] MEDS: PANTOPRAZOLE SODIUM IV 40 MG VIAL IV PUSH (09:14)
[2024-08-06] MEDS: AZITHROMYCIN 500 MG/NS 250 ML 500 MG/250 ML BAG 250 MG IVPB (09:14)
[2024-08-06] MEDS: ASPIRIN 81 MG ENTERIC TABLET PO (09:14)
[2024-08-06] MEDS: MULTIVITAMINS /C LUTEIN (CENTRUM SILVER) TABLET *BKC 1 TAB PO (09:15)
[2024-08-06] MEDS: allopurinoL 100 MG TABLET PO ×2 (09:15→17:07)
[2024-08-06] MEDS: MEMANTINE 10 MG TABLET PO ×2 (09:15→17:07)
[2024-08-06] MEDS: CHOLECALCIFEROL 1,000 UNITS TABLET 1000 UNITS PO (09:15)
[2024-08-06] MEDS: SODIUM CHLORIDE 1 GM TABLET PO (09:15)
[2024-08-06] MEDS: FUROSEMIDE INJ 40 MG/4 ML VIAL IV PUSH ×2 (09:15→17:07)
[2024-08-06] MEDS: ASCORBIC ACID 500 MG TABLET PO (09:15)
[2024-08-06] MEDS: FERROUS SULFATE 325 MG TABLET DR PO (09:15)
[2024-08-06] MEDS: EMPAGLIFLOZIN 10 MG TABLET PO (09:15)
[2024-08-06] MEDS: ATORVASTATIN 40 MG TABLET PO (09:15)
[2024-08-06] MEDS: METOPROLOL SUCCINATE EXT REL 25 MG TABCR PO (09:15)
[2024-08-06] MEDS: CLINDAMYCIN PHOS 1% 30 GM GEL 1 APPLIC TOPICAL (09:16)
[2024-08-06] MEDS: MICONAZOLE NITRATE 2% CREAM 30 GM TUBE 1 APPLIC TOPICAL (09:17)
--- NOTE | 2024-08-06 10:24 | PM.PNPUL ---
Progress Note: A&P Assessment and Plan (1) Cavitary lesion of lung: Code(s): J98.4 - Other disorders of lung Status: Acute Assessment and Plan: Patient with left lower lobe thick-walled cavity with adjacent infiltrate. Reviewed with Radiology and suspect this is a pneumonia rather than a malignancy. Patient has no history of tobacco use, no tuberculosis exposures, no aspiration, he did have a brief syncopal episode a few days ago. Currently he denies fever, chills, rigors, phlegm production or hemoptysis. He states his cough is better with diuresis and 12 hours of antibiotics. Plan: I will treat the patient for a bacterial abscess at this time. I will check a nasal swab for MRSA. Sputum culture. low suspicion for AFB disease, QuantiFERON gold and sputum for AFB x3 ordered. I will send urine for Legionella, urine for pneumococcal disease, serum for mycoplasma IgM and extended respiratory pathogen panel. I will change his antibiotics to Zosyn and azithromycin. Will follow him clinically. MRSA nasal swab negative. 08/05/2024: patient tells me he is breathing much better and breathing back to his normal. He says his cough is back to his normal. Has very minimal phlegm production. He is afebrile. White blood cell counts 3.7, creatinine 0.74. Room air saturations 90%. Plan: Continue Zosyn and azithromycin, both day 2. Blood cultures no growth today, sputum culture pending, AFB x1 pending. QuantiFERON gold pending. Respiratory pathogen panel, urine Legionella, urine pneumococcal and mycoplasma IgM pending. 08/06/2024: Patient tells me he is breathing 95% back to his baseline. His cough is 95% better. His phlegm is at his baseline with no hemoptysis. His swelling is improved. He is afebrile. White blood cell count 3.5, creatinine 0.86. Patient was started on oxygen 4 L last night because of low pulse oximetry from an ear probe. I placed him on a hand pulse oximeter and his saturations on room air after 18 minutes were 92-94%. Yesterday he diuresed 246 mL, cumulative diuresis 3.1 mL. His weight today is 73.3. Chest x-ray shows an elevated left hemidiaphragm, large right pleural effusion. Plan: Continue Zosyn and azithromycin, both day 3. Blood cultures no growth. Sputum pending. QuantiFERON gold pending. Respiratory pathogen panel, urine Legionella, urine pneumococcal and mycoplasma IgM pending. Discussed with Dr. Haines, will follow with you. (2) Pulmonary emboli: Qualifiers: Pulmonary embolism type: single subsegmental (without acute cor pulmonale) Qualified Code(s): I26.93 - Single subsegmental thrombotic pulmonary embolism without acute cor pulmonale Code(s): I26.99 - Other pulmonary embolism without acute cor pulmonale Status: Acute Assessment and Plan: Patient with low clinical suspicion, positive D-dimer 1.08, CT angiogram of the chest formal read is suspected segmental PE in the right lower lobe. I reviewed with differrent Radiologist and given the significant motion artifact, right pleural effusion with compression and infiltrates he would have read this as cannot exclude PE. Lower extremity DVT excluded by Doppler. 08/04/24: Plan: I am not convinced there is right lower lobe PE but cannot completely exclude this. I think it is low likelihood that he has a PE and at this time he is tolerating anticoagulation without any complications. Will continue IV heparin at this time. 08/05/24: patient breathing is back to his baseline. He has no hemoptysis or bleeding complications. Plan: Will continue IV heparin today. Would like to continue IV heparin until we are certain we will not need to do a right thoracentesis for his pleural effusion. 08/06/24: Breathing is back to his baseline. No hemoptysis. Plan: Will continue IV heparin today. Will discontinue prior to thoracentesis on 08/06/2024. (3) Acute heart failure: Qualifiers: Heart failure type: unspecified Qualified Code(s): I50.9 - Heart failure, unspecified Code(s): I50.9 - Heart failure, unspecified Status: Acute Assessment and Plan: Patient with 6 months lower extremity edema, 1-2 weeks worsening nocturia, shortness of breath, bilateral pleural effusions, lower extremity and scrotal swelling and a BNP of 26,600. 08/04/2024, weight today 77.4 kg with an admission weight of 78.8 kg. Cumulative today he is -228 mL on Lasix 40 IV b.i.d plan: Continue as aggressive diuresis as tolerated by his cardiac and renal systems per hospitalist team. Currently 40 IV bid. I have ordered an echocardiogram. Later in the day patient had an echocardiogram which was a very technically difficult study with limited views demonstrating mildly enlarged left ventricle with an estimated EF of 30-35%. Severely enlarged left atrium. Right ventricle, right atrium not well visualized. No RVSP calculated. 08/05/2024: Patient is on Lasix 40 IV b.i.d. Yesterday he diuresed 2.6 L and is 2.9 L negative since admission. Weight today is 73.8 kg with an admission weight of 78.8. [place] B[place] 96996 on 08/03/2024 to a value of 20,600 today. His edema has improved. Plan: Continue as aggressive diuresis as tolerated by his cardiac and renal systems per hospitalist team. Currently on Lasix 40 IV b.i.d. and metoprolol 25 q.a.m. workup and management of cardiomyopathy per hospitalist team. 08/06/2024: Yesterday he diuresed 246 mL, cumulative diuresis 3.1 mL. His weight today is 73.3. Chest x-ray shows an elevated left hemidiaphragm, large right pleural effusion. Plan: Cardiology consulted for management of his cardiomyopathy. Patient with soft blood pressure limiting diuresis. Will plan on right thoracentesis on 08/07/2024. Subjective Date/time seen: 08/06/24 10:24 Interval history: 08/04/2024: This is a new pulmonary consult for pulmonary embolism and left lower lobe lung cavity. 83-year-old with a history of hyponatremia, hypertension, gout, memory loss. Patient has no history of asthma, COPD, recurrent pneumonias. He is a never smoker and was not exposed to secondhand smoke. 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 patient had no respiratory symptoms as a child, through his adulthood until approximately 12 months ago. Twelve months ago he started with a dry cough and a little bit of phlegm. Six months ago he stated he had started with swollen legs that has gotten progressively worse, worsening orthopnea and he now sleeps in a recliner an upright position. Two months history of worsening shortness of breath at rest and this apparently is improved when he walks. Increased nocturia over the last 2-3 weeks from 1-2 times a night to 4-5 times a night. On 08/02 the patient fell from his recliner and had a syncopal episode EMS was called but he had regained consciousness and refused transport to the hospital. Patient denies any fever, chills, rigors, night sweats, phlegm production, hemoptysis. He has no known exposures to tuberculosis. 08/03/2024: Patient presented to the emergency department with weakness of the lower extremities, 1 month history lower extremity edema, scrotal edema, upper arm edema. Recently missed doses of his diuretics. Recent history of diarrhea. Blood pressure 122/77, heart rate 98, respirations 20, white blood cell count 4.6, creatinine 0.65, serum bicarb 32. Eosinophils 0.2%. BNP 826 1600. Troponin negative. TSH 0.522. COVID, RSV, influenza RT PCR negative. Chest x-ray with a large right-sided pleural effusion, chronic elevated left hemidiaphragm. CT angiogram chest abdomen pelvis with segmental right lower lobe pulmonary embolism, 1.7 him cm cavitary lesion left lower lobe, atelectasis consolidation right lower lobe, chronic left hemidiaphragm elevation. Small volume ascites and diffuse body wall edema. Patient was started on IV heparin, ceftriaxone, azithromycin, Lasix 40 IV b.i.d., 08/04/2024: Currently the patient tells me his breathing is better today and his cough is better today. He is afebrile. White blood cell count 3.7, creatinine 0.74, procalcitonin 0.1, lower extremity Dopplers are negative. Later in the day patient had an echocardiogram which was a very technically difficult study with limited views demonstrating mildly enlarged left ventricle with an estimated EF of 30-35%. Severely enlarged left atrium. Right ventricle, right atrium not well visualized. No RVSP calculated. 08/05/2024: patient tells me he is breathing much better and breathing back to his normal. He says his cough is back to his normal. Has very minimal phlegm production. He is afebrile. White blood cell counts 3.7, creatinine 0.74. Room air saturations 90%. Yesterday he diuresed 2.6 L and is 2.9 L negative since admission. Weight today is 73.8 kg with an admission weight of 78.8. His B[place] 56370 on 08/03/2024 to a value of 20,600 today. His edema has improved. 08/06/2024: 08/06/2024: Patient tells me he is breathing 95% back to his baseline. His cough is 95% better. His phlegm is at his baseline with no hemoptysis. His swelling is improved. He is afebrile. White blood cell count 3.5, creatinine 0.86. Patient was started on oxygen 4 L last night because of low pulse oximetry from an ear probe. I placed him on a hand pulse oximeter and his saturations on room air after 18 minutes were 92-94%. Yesterday he diuresed 246 mL, cumulative diuresis 3.1 mL. His weight today is 73.3. Chest x-ray shows an elevated left hemidiaphragm, large right pleural effusion. DATA: 08/04/24: Echo Summary 1. Very technically difficult study with limited views. 2. Left ventricular chamber dimension is mildly enlarged. 3. Left ventricular systolic function is moderately reduced, estimated at 30-35. 4. Left atrial chamber dimension is severely enlarged. 5. There is trivial pericardial effusion. Right Ventricle Right ventricular chamber dimension is not well visualized. Left Atria Left atrial chamber dimension is severely enlarged. Right Atria Right atrial chamber dimension is not well visualized. no RVSP calculated. 08/03/2024; EXAMINATION: CTA chest PE abdomen pel DATE: 08/03/2024 17:22 INDICATION: gen weakness, dimer >1; abd pain TECHNIQUE: Computed tomography angiography (CTA) of the chest was performed with 100 mL Omnipaque-350 intravenous contrast timed to evaluate the pulmonary arteries, followed by portal venous phase imaging of the abdomen and pelvis. Coronal maximum intensity projection 3D-reconstructions were created by the technologist. The dose-length product (DLP) was 1540.82 mGy-cm. Automated exposure control and iterative reconstruction technique were employed. COMPARISON: CTPA 01/17/2023; CT abdomen pelvis 12/18/2017. FINDINGS: CHEST: Lung parenchyma and airways: Subsegmental atelectasis/consolidation in the dependent right lung. Minimal dependent left basilar atelectasis. Significant left hemidiaphragm elevation. Significant motion artifact in the lungs. 1.7 cm cavitary lesion in the left lower lobe. Pleura: Small volume left and moderate volume right pleural fluid collections. Thoracic inlet, axillae and chest wall: No thyroid or soft tissue mass. Body wall edema. Thoracic aorta: Ectasia of the aortic arch measuring up to 3.3 cm. Mild atherosclerotic arch calcifications Mediastinum: Shift of the mediastinum to the right. Calcified nodes. Dilated central pulmonary arteries as can be seen with pulmonary hypertension. Heart and pericardium: Cardiomegaly. The heart is shifted in the chest to the right. Small volume pericardial fluid. RV/LV ratio less than 1. Coronary artery calcifications: Mild. Thoracic bones: No acute osseous finding. Severe thoracic kyphosis. Pulmonary arteries: Study quality: Good bolus timing and contrast opacification. Significant motion artifact, with compression of normal anatomic structures which limits evaluation of the segmental and subsegmental pulmonary arteries. However, there are several filling defects within the segmental right lower lobe pulmonary arteries that likely represent pulmonary embolism. ABDOMEN/PELVIS: Liver: Enlarged. Somewhat nodular appearing border. Biliary/Gallbladder: Cholelithiasis. No inflammatory change. Mild pericholecystic fluid, likely related to ascites. No bile duct dilation. Pancreas: No mass or duct dilation. Spleen: Normal. Adrenals:No mass. Kidneys: No obstructing stone or hydronephrosis. 2.0 cm hyperdense exophytic left upper pole cystic lesion. GI tract: Moderate gastric wall edema. Mild wall thickening and edema, with loss of haustration in the distal sigmoid. No small or large bowel dilation. Normal appendix. Mesentery/Peritoneum: No mass or free air. Small volume ascites. Retroperitoneum: No mass. Atherosclerotic calcifications of intra-abdominal arterial vessels. Pelvis: Pelvic organs are within normal limits. Soft Tissues: Diffuse body wall edema. Abdominopelvic bones: No acute osseous finding. IMPRESSION: Segmental nonocclusive pulmonary emboli are suspected in the right lower lobe. Low clot burden. RV/LV ratio less than 1. 1.7 cm cavitary lesion in the right lower lobe, most likely secondary to infection or malignancy. Subsegmental atelectasis/consolidation in the right lower lobe. Chronic left hemidiaphragm elevation with shift of the mediastinum and heart to the right. Cardiomegaly. Small pericardial effusion. Moderate right and small left pleural effusions. Ectasia of the aortic arch. Moderate gastritis. Hepatomegaly. Possible cirrhotic change. 2.0 cm indeterminate density left upper pole lesion, slow interval growth, with increasing density. Consider nonemergent but timely CT or MRI without and with contrast for further characterization. Mild sigmoid colitis. Small volume ascites. Diffuse body wall edema. 01/17/2023: EXAMINATION: CTA chest PE protocol DATE: 01/17/2023 02:54 INDICATION: Syncope. COMPARISON: Chest CT 01/16/2023 FINDINGS: There is marked elevation of left hemidiaphragm. There is atelectasis bilaterally, worst in lingula. Calcified left lung nodules and calcified left hilar and mediastinal lymph nodes are consistent with old granulomatous disease. There is a trace right pleural effusion. The heart size is normal. There are coronary artery calcifications. No pericardial effusion. There is no pulmonary embolus. There is kyphosis and mild spondylosis of thoracic spine. There is severe cervical spondylosis. There is a fracture of right 11th rib. IMPRESSION: 1. No pulmonary embolus. 2. Marked elevation of left hemidiaphragm. 3. Fracture of right 11th rib. 01/18/2023: echo Summary 1. Left ventricular chamber dimension is normal. 2. Left ventricular systolic function is normal, estimated at 65-70%. 3. There is mildly increased left ventricular wall thickness. 4. The left ventricular diastolic function is grade I diastolic dysfunction. 5. Left atrial chamber dimension is mildly enlarged. 6. There is mild aortic valve calcification. 7. There is moderate aortic valve sclerosis. 8. There is mild tricuspid valve regurgitation. 9. Mild pulmonary hypertension, estimated pulmonary arterial systolic pressure is 37 mmHg. 10. There is mild pulmonic regurgitation. Left Ventricle Left ventricular chamber dimension is normal. Left ventricular systolic function is normal, estimated at 65-70%. There is mildly increased left ventricular wall thickness. The left ventricular diastolic function is grade I diastolic dysfunction. Right Ventricle Right ventricular chamber dimension is normal. Right ventricular systolic function is normal. Left Atria Left atrial chamber dimension is mildly enlarged. Right Atria Right atrial chamber dimension is normal. Atrial Septum Intact interatrial septum visualized by color flow imaging. 12/18/2017: EXAMINATION:CT CHEST W/O DATE: 12/18/2017 15:21 INDICATION: Chronic cough. COMPARISON: Chest CT 02/02/2013 FINDINGS: There is marked elevation of left hemidiaphragm. There is mild atelectasis in the inferior lungs. There is a mild burden of chronic reticular opacities in the inferior right lung. Calcified left lung nodules and calcified left hilar lymph nodes are consistent with old granulomatous disease. No pleural effusion. The heart size is normal. There are coronary artery calcifications. There are calcifications of the aortic valve. No pericardial effusion. There is kyphosis, dextroscoliosis, and mild spondylosis of thoracic spine. IMPRESSION: 1. Chronic marked elevation of left hemidiaphragm. 2. Mild chronic lung disease at right lung base. 03/25/2013: PFT report: NORMAL SPIROMETRY. NO ACUTE BRONCHODILATOR RESPONSE. LUNG VOLUMES REVEAL NORMAL TLC BUT INCREASED RV, RV/TLC CONSISTENT WITH AIR TRAPPING. RAW IS MILDLY INCREASED. DLCO IS NORMAL. IMPRESSION: ESSENTIALLY NORMAL STUDY. POSSIBLY MILD AIR TRAPPING. NO ACUTE BRONCHODILATOR RESPONSE. ABG (RA) 7.43/ 45/ 75/ 29/ 94% NORMAL FOR AGE. 01/13/2013: EXAMINATION: CHEST-TWO VIEW INDICATION: Left hemidiaphragm elevation TECHNIQUE: PA and lateral views of the chest were obtained. COMPARISON: 12/30/12 FINDINGS: There is persistent elevation of the left hemidiaphragm. Its position is not changed since the comparison examination. There is suggestion of minimal compressive left lower lobe atelectasis. The lungs are otherwise free of opacities. Moderate degenerative changes are present in the spine. The heart size is normal. No pleural effusion or pneumothorax is seen. IMPRESSION: 1. Elevation of the left hemidiaphragm, unchanged. Recommend correlation with any prior outside hospital imaging. Consider further evaluation with sniff test to evaluate for paralysis and possible chest CT to evaluate for radiographically occult lesion as the cause. Review of Systems Constitutional: Constitutional: Reports no additional constitutional complaints Eyes: Eyes: Reports no additional eye complaints ENT: Reports system reviewed and no additional complaints, except as documented Cardiovascular: Cardiovascular: Reports no additional cardiovascular complaints Respiratory: Respiratory: Reports no additional respiratory complaints Gastrointestinal: Gastrointestinal: Reports no additional gastrointestinal complaints Musculoskeletal: Musculoskeletal: Reports no additional musculoskeletal complaints Neurologic: Reports system reviewed and no additional complaints, except as documented Psychiatric: Psychiatric: Reports no additional psychiatric complaints Endocrine: Endocrine: Reports no additional endocrine complaints Hematologic/Lymphatic: Hematologic/Lymphatic: Reports no additional hematologic/lymphatic complaints Allergic/Immunologic: Allergic/Immunologic: Reports no additional allergic/immunologic complaints Exam Const: General: cooperative, healthy appearing and comfortable Orientation/consciousness: oriented to person, oriented to place and oriented to time HENMT: Head: normal to inspection Ears: hearing grossly normal bilaterally Eyes: General: appearance normal, both eyes and all related structures Neck: Neck: normal visual inspection Chest: Chest palpation & inspection: normal inspection of the chest Resp: Effort & Inspection: normal respiratory effort and able to speak in complete sentences Auscultation: crackles, no rales, no rhonchi, no wheezes and diminished lung sounds Other: Decreased breath sounds right greater than left. No wheezes. Cardio: Jugular venous distension: no JVD GI: Inspection: normal to inspection Skin: General skin exam: normal color Neuro: General: oriented to person, oriented to place and oriented to time Extrem: General: normal to inspection and edema Psych: Appearance: grossly normal Objective Data Vital Signs Vital Signs: Vital Signs - 24 hr 08/05/24 12:00 08/05/24 12:00 08/05/24 14:00 Temperature 36.4 C L Pulse Rate 89 88 91 Respiratory Rate 20 Blood Pressure 94/58 L Pulse Oximetry 95 Oxygen Delivery Fraction of Inspired Oxygen 08/05/24 16:00 08/05/24 16:00 08/05/24 18:00 Temperature 36.6 C Pulse Rate 84 88 80 Respiratory Rate 22 H Blood Pressure 106/67 Pulse Oximetry 91 Oxygen Delivery Fraction of Inspired Oxygen 08/05/24 19:41 08/05/24 20:00 08/05/24 20:00 Temperature 36.3 C L Pulse Rate 83 88 Respiratory Rate 20 Blood Pressure 105/58 L Pulse Oximetry 93 Oxygen Delivery Room Air Fraction of Inspired Oxygen 08/05/24 22:00 08/05/24 23:47 08/05/24 23:49 Temperature 36.4 C Pulse Rate 89 88 86 Respiratory Rate 20 20 Blood Pressure 107/60 Pulse Oximetry 98 89 L Oxygen Delivery Room Air Fraction of Inspired Oxygen 21 08/06/24 00:00 08/06/24 00:00 08/06/24 02:00 Temperature Pulse Rate 88 80 Respiratory Rate Blood Pressure Pulse Oximetry Oxygen Delivery Room Air Fraction of Inspired Oxygen 08/06/24 03:13 08/06/24 04:00 08/06/24 04:00 Temperature 36.3 C L Pulse Rate 87 86 Respiratory Rate 20 Blood Pressure 98/52 L Pulse Oximetry 92 Oxygen Delivery Room Air Fraction of Inspired Oxygen 08/06/24 04:20 08/06/24 06:00 08/06/24 08:00 Temperature 37.2 C Pulse Rate 88 81 85 Respiratory Rate 20 24 H Blood Pressure 118/57 L Pulse Oximetry 99 Oxygen Delivery Fraction of Inspired Oxygen 08/06/24 09:15 Temperature Pulse Rate 89 Respiratory Rate Blood Pressure Pulse Oximetry Oxygen Delivery Fraction of Inspired Oxygen Intake/Output Intake/Output: Intake & Output 08/03/24 08/04/24 08/05/24 08/06/24 23:59 23:59 23:59 23:59 Intake Total 1119.9 2153.9 482.1 Output Total 3550 2150 650 Balance -2430.1 3.9 -167.9 Meds/Results Medications: Active Medications Generic Name Dose Route Start Last Admin Trade Name Freq PRN Reason Stop Dose Admin Acetaminophen 500 mg 08/04/24 11:09 08/05/24 20:53 Acetaminophen 500 Mg Tablet PO 500 mg BID PRN Administration pain Allopurinol 100 mg 08/04/24 09:10 08/06/24 09:15 Allopurinol 100 Mg Tablet PO 100 mg BID MELQUIADES Administration Artificial Tears 1 drop 08/04/24 09:15 Artificial Tears Ophth Soln 15 Ml Bottle EACH EYE QID PRN Dry Eye(s) Ascorbic Acid 500 mg 08/04/24 09:10 08/06/24 09:15 Ascorbic Acid 500 Mg Tablet PO 500 mg DAILY MELQUIADES Administration Aspirin 81 mg 08/04/24 09:10 08/06/24 09:14 Aspirin 81 Mg Enteric Tablet PO 81 mg DAILY MELQUIADES Administration Atorvastatin Calcium 40 mg 08/04/24 09:10 08/06/24 09:15 Atorvastatin 40 Mg Tablet PO 40 mg DAILY MELQUIADES Administration Clindamycin Phosphate 1 applic 08/04/24 09:00 08/06/24 09:16 Clindamycin Phos 1% 30 Gm Gel TOPICAL 09/04/24 08:59 1 applic DAILY MELQUIADES Administration Clotrimazole 1 applic 08/04/24 09:10 08/06/24 09:16 Betamethasone/Clotrimazole Cream 15 Gm Tube TOPICAL Not Given BID MELQUIADES Empagliflozin 10 mg 08/06/24 09:00 08/06/24 09:15 Empagliflozin 10 Mg Tablet PO 10 mg DAILY MELQUIADES Administration Ferrous Sulfate 325 mg 08/04/24 09:00 08/06/24 09:15 Ferrous Sulfate [address] PO 325 mg DAILY MELQUIADES Administration Furosemide 40 mg 08/04/24 09:00 08/06/24 09:15 Furosemide Inj 40 Mg/4 Ml Vial IV PUSH 40 mg BID MELQUIADES Administration Heparin Sodium (Porcine) 5,000 units 08/03/24 20:59 Heparin Sodium 5,000 Units/Ml Vial IV PUSH PRN PRN aPTT less than 55 seconds Heparin Sodium (Porcine) 2,500 units 08/03/24 20:59 08/05/24 08:47 Heparin Sodium 5,000 Units/Ml Vial IV PUSH 2,500 units PRN PRN Administration aPTT 55 - 70 seconds Heparin Sodium/Dextrose 25,000 units in 250 mls @ 9 mls/hr 08/03/24 21:00 08/06/24 02:36 Heparin Sodium/D5w 100 Units/Ml IV CONT 900 units/hr .Q24H MELQUIADES 9 mls/hr Administration Protocol 900 UNITS/HR Azithromycin 500 mg in 250 mls @ 250 mls/hr 08/04/24 09:00 08/06/24 09:14 Zithromax IVPB 08/08/24 09:59 250 mls/hr Q24H [facility] Administration Piperacillin Sod/Tazobactam Sod 4.5 gm in 100 mls @ 200 mls/hr 08/04/24 12:30 08/06/24 05:44 Zosyn 4.5 Gm/Ns 100 Ml IVPB 200 mls/hr Q6HR MELQUIADES Administration Memantine 10 mg 08/04/24 09:10 08/06/24 09:15 Memantine 10 Mg Tablet PO 10 mg BID MELQUIADES Administration Metoprolol Succinate 25 mg 08/05/24 09:00 08/06/24 09:15 Metoprolol Succinate Ext Rel 25 Mg Tabcr PO 25 mg QAM MELQUIADES Administration Miconazole Nitrate 1 applic 08/04/24 09:20 08/06/24 09:17 Miconazole Nitrate 2% Cream 30 Gm Tube TOPICAL 1 applic DAILY MELQUIADES Administration Multivitamins/Minerals 1 tab 08/04/24 09:10 08/06/24 09:15 Multivitamins /C Lutein (Centrum Silver) Tablet *Bkc PO 1 tab DAILY MELQUIADES Administration Pantoprazole Sodium 40 mg 08/04/24 09:10 08/04/24 10:00 Pantoprazole 40 Mg Tablet PO 40 mg QAM MELQUIADES Administration Pantoprazole Sodium 40 mg 08/04/24 13:10 08/06/24 09:14 Pantoprazole Sodium Iv 40 Mg Vial IV PUSH 40 mg QAM MELQUIADES Administration Perflutren Lipid Microsphere 0 ml 08/04/24 13:13 Perflutren Lipid Microspheres 1.5 Ml Vial Diluted To 10 Ml Total Volume IV PUSH 08/07/24 13:13 ONCE PRN adequate visualization Protocol Sodium Chloride 1 gm 08/04/24 09:10 08/06/24 09:15 Sodium Chloride 1 Gm Tablet PO 1 gm DAILY MELQUIADES Administration Sodium Chloride 6 ml 08/05/24 05:00 08/06/24 04:19 Sodium Chlor 3% 15 Ml Neb (Respiratory Therapy) INHALATION 08/07/24 05:01 6 ml DAILY@0500 MELQUIADSE Administration Tamsulosin HCl 0.4 mg 08/04/24 21:00 08/05/24 20:54 Tamsulosin Hcl 0.4 Mg Capsule PO 0.4 mg HS MELQUIADES Administration Vitamin D 1,000 units 08/04/24 09:00 08/06/24 09:15 Cholecalciferol 1,000 Units Tablet PO 1,000 units DAILY MELQUIADES Administration Radiology Results: ITS Impressions Chest/Abdomen/Pelvis CTA 08/03/24 17:30 IMPRESSION: Segmental nonocclusive pulmonary emboli are suspected in the right lower lobe. Low clot burden. RV/LV ratio less than 1. 1.7 cm cavitary lesion in the right lower lobe, most likely secondary to infection or malignancy. Subsegmental atelectasis/consolidation in the right lower lobe. Chronic left hemidiaphragm elevation with shift of the mediastinum and heart to the right. Cardiomegaly. Small pericardial effusion. Moderate right and small left pleural effusions. Ectasia of the aortic arch. Moderate gastritis. Hepatomegaly. Possible cirrhotic change. 2.0 cm indeterminate density left upper pole lesion, slow interval growth, with increasing density. Consider nonemergent but timely CT or MRI without and with contrast for further characterization. Mild sigmoid colitis. Small volume ascites. Diffuse body wall edema. Head CT 08/03/24 20:22 IMPRESSION: No acute intracranial process, within the constraints noted above. Venous Doppler Study 08/04/24 12:08 IMPRESSION: 1. No deep venous thrombosis within the bilateral lower extremities, as detailed above. Upper Quadrant Ultrasound 08/04/24 19:36 IMPRESSION: Cholelithiasis, without ultrasound evidence of cholecystitis. Fatty infiltration of an enlarged liver. Renal Ultrasound 08/04/24 19:40 IMPRESSION: No hydronephrosis or renal calculi. Findings suggesting medical renal disease. The 2 cm left upper pole mass of soft tissue attenuation is not visualized on ultrasound. This mass was visualized on contrast-enhanced CT performed less than 24 hours earlier. Nonemergent but timely CT or MRI with renal mass protocol is again recommended for further evaluation once patient recovers from his current illness. Labs Labs: Laboratory Results - last 24 hr 08/05/24 08/05/24 08/06/24 15:20 22:35 04:18 WBC 4.0 L 3.5 L RBC 3.69 L 3.21 L Hgb 9.2 L 9.5 L Hct 32.3 L 28.6 L MCV 87.5 89.1 MCH 24.9 L D 29.6 D MCHC 28.5 L 33.2 RDW 20.5 H 20.9 H Plt Count 108 L 94 L MPV 8.8 9.2 % Immature Plt Fraction 2.2 APTT 81.6 H 74.0 H 72.3 H Sodium 132 L 130 L Potassium 3.8 3.1 L Chloride 88 L 88 L Carbon Dioxide > 40 H > 40 H Anion Gap BUN 15 16 Creatinine 0.89 0.86 Estim Creat Clear Calc 46 48 Estimated GFR > 60 > 60 Glucose 127 H 104 Calcium 7.9 L 7.8 L Magnesium 1.5 L 1.8 Total Bilirubin 0.5 AST 34 ALT 25 Alkaline Phosphatase 67 Total Protein 6.0 L Albumin 2.9 L
--- NOTE | 2024-08-06 13:12 | PM.PNCARD ---
Progress Note: A&P Assessment and Plan (1) Acute heart failure: Qualifiers: Heart failure type: unspecified Qualified Code(s): I50.9 - Heart failure, unspecified Code(s): I50.9 - Heart failure, unspecified Status: Acute Plan 83-year-old man with hyperlipidemia presented with shortness of and lower extremity swelling admitted for possible of abscess and new onset acute systolic heart failure New onset acute systolic heart failure -continue Lasix 40mg IV b.i.d. with likely transition to Lasix is 40 mg p.o. daily tomorrow -continue metoprolol succinate 25 mg p.o. daily and Jardiance 10 mg p.o. daily -unable to tolerate additional medication given his history of orthostasis and low blood pressures -may add lisinopril 2.5 p.o. daily once transition IV diuretics -have discussed with him the prognosis systolic heart failure and should he wish to pursue aggressive care, cardiac catheterization can be offered -however at this time, he feels overwhelmed and elective further discuss with his family and likely make a decision in the outpatient setting -the patient understands his prognosis is poor and that we will continue medical management at this time Subjective Date/time seen: 08/06/24 13:12 Interval history: Is shortness of breath is improving. No chest pain. He initially came in for lower extremity swelling which has significantly improved. Review of Systems Cardiovascular: Cardiovascular: Reports as per HPI Respiratory: Respiratory: Reports as per HPI Exam Const: Other: Ill-appearing HENMT: Mouth: Yes moist mucous membranes Eyes: EOM: EOMs intact bilaterally Neck: Neck: no JVD Resp: Effort & Inspection: normal respiratory effort Auscultation: rales Cardio: Rate: regular rate Rhythm: regular rhythm GI: GI Palp: Yes Soft to palpation Neuro: Speech: normal speech Extrem: General: pedal edema Objective Data Vital Signs Vital Signs: Vital Signs - 24 hr 08/05/24 14:00 08/05/24 16:00 08/05/24 16:00 Temperature 36.6 C Pulse Rate 91 84 88 Respiratory Rate 22 H Blood Pressure 106/67 Pulse Oximetry 91 Oxygen Delivery Oxygen Flow Rate Fraction of Inspired Oxygen 08/05/24 18:00 08/05/24 19:41 08/05/24 20:00 Temperature 36.3 C L Pulse Rate 80 83 Respiratory Rate 20 Blood Pressure 105/58 L Pulse Oximetry 93 Oxygen Delivery Room Air Oxygen Flow Rate Fraction of Inspired Oxygen 08/05/24 20:00 08/05/24 22:00 08/05/24 23:47 Temperature Pulse Rate 88 89 88 Respiratory Rate 20 Blood Pressure Pulse Oximetry 98 Oxygen Delivery Room Air Oxygen Flow Rate Fraction of Inspired Oxygen 21 08/05/24 23:49 08/06/24 00:00 08/06/24 00:00 Temperature 36.4 C Pulse Rate 86 88 Respiratory Rate 20 Blood Pressure 107/60 Pulse Oximetry 89 L Oxygen Delivery Room Air Oxygen Flow Rate Fraction of Inspired Oxygen 08/06/24 02:00 08/06/24 03:13 08/06/24 04:00 Temperature 36.3 C L Pulse Rate 80 87 Respiratory Rate 20 Blood Pressure 98/52 L Pulse Oximetry 92 Oxygen Delivery Room Air Oxygen Flow Rate Fraction of Inspired Oxygen 08/06/24 04:00 08/06/24 04:20 08/06/24 06:00 Temperature Pulse Rate 86 88 81 Respiratory Rate 20 Blood Pressure Pulse Oximetry Oxygen Delivery Oxygen Flow Rate Fraction of Inspired Oxygen 08/06/24 08:00 08/06/24 09:15 08/06/24 11:27 Temperature 37.2 C Pulse Rate 85 89 Respiratory Rate 24 H Blood Pressure 118/57 L Pulse Oximetry 99 Oxygen Delivery Nasal Cannula Oxygen Flow Rate 4 Fraction of Inspired Oxygen Intake/Output Intake/Output: Intake & Output 08/03/24 08/04/24 08/05/24 08/06/24 23:59 23:59 23:59 23:59 Intake Total 1119.9 2153.9 582.1 Output Total 3550 2150 650 Balance -2430.1 3.9 -67.9 Meds/Results Medications: Active Medications Generic Name Dose Route Start Last Admin Trade Name Freq PRN Reason Stop Dose Admin Acetaminophen 500 mg 08/04/24 11:09 08/05/24 20:53 Acetaminophen 500 Mg Tablet PO 500 mg BID PRN Administration pain Allopurinol 100 mg 08/04/24 09:10 08/06/24 09:15 Allopurinol 100 Mg Tablet PO 100 mg BID MELQUIADES Administration Artificial Tears 1 drop 08/04/24 09:15 Artificial Tears Ophth Soln 15 Ml Bottle EACH EYE QID PRN Dry Eye(s) Ascorbic Acid 500 mg 08/04/24 09:10 08/06/24 09:15 Ascorbic Acid 500 Mg Tablet PO 500 mg DAILY MELQUIADES Administration Aspirin 81 mg 08/04/24 09:10 08/06/24 09:14 Aspirin 81 Mg Enteric Tablet PO 81 mg DAILY MELQUIADES Administration Atorvastatin Calcium 40 mg 08/04/24 09:10 08/06/24 09:15 Atorvastatin 40 Mg Tablet PO 40 mg DAILY MELQUIADES Administration Clindamycin Phosphate 1 applic 08/04/24 09:00 08/06/24 09:16 Clindamycin Phos 1% 30 Gm Gel TOPICAL 09/04/24 08:59 1 applic DAILY MELQUIADES Administration Clotrimazole 1 applic 08/04/24 09:10 08/06/24 09:16 Betamethasone/Clotrimazole Cream 15 Gm Tube TOPICAL Not Given BID [facility] Empagliflozin 10 mg 08/06/24 09:00 08/06/24 09:15 Empagliflozin 10 Mg Tablet PO 10 mg DAILY MELQUIADES Administration Ferrous Sulfate 325 mg 08/04/24 09:00 08/06/24 09:15 Ferrous Sulfate [address] PO 325 mg DAILY MELQUIADES Administration Furosemide 40 mg 08/04/24 09:00 08/06/24 09:15 Furosemide Inj 40 Mg/4 Ml Vial IV PUSH 40 mg BID MELQUIADES Administration Heparin Sodium (Porcine) 5,000 units 08/03/24 20:59 Heparin Sodium 5,000 Units/Ml Vial IV PUSH PRN PRN aPTT less than 55 seconds Heparin Sodium (Porcine) 2,500 units 08/03/24 20:59 08/05/24 08:47 Heparin Sodium 5,000 Units/Ml Vial IV PUSH 2,500 units PRN PRN Administration aPTT 55 - 70 seconds Heparin Sodium/Dextrose 25,000 units in 250 mls @ 9 mls/hr 08/03/24 21:00 08/06/24 02:36 Heparin Sodium/D5w 100 Units/Ml IV CONT 900 units/hr .Q24H MELQUIADES 9 mls/hr Administration Protocol 900 UNITS/HR Azithromycin 500 mg in 250 mls @ 250 mls/hr 08/04/24 09:00 08/06/24 09:14 Zithromax IVPB 08/08/24 09:59 250 mls/hr Q24H [facility] Administration Piperacillin Sod/Tazobactam Sod 4.5 gm in 100 mls @ 200 mls/hr 08/04/24 12:30 08/06/24 12:53 Zosyn 4.5 Gm/Ns 100 Ml IVPB 200 mls/hr Q6HR MELQUIADES Administration Memantine 10 mg 08/04/24 09:10 08/06/24 09:15 Memantine 10 Mg Tablet PO 10 mg BID MELQUIADES Administration Metoprolol Succinate 25 mg 08/05/24 09:00 08/06/24 09:15 Metoprolol Succinate Ext Rel 25 Mg Tabcr PO 25 mg QAM MELQUIADES Administration Miconazole Nitrate 1 applic 08/04/24 09:20 08/06/24 09:17 Miconazole Nitrate 2% Cream 30 Gm Tube TOPICAL 1 applic DAILY MELQUIADES Administration Multivitamins/Minerals 1 tab 08/04/24 09:10 08/06/24 09:15 Multivitamins /C Lutein (Centrum Silver) Tablet *Bkc PO 1 tab DAILY MELQUIADES Administration Pantoprazole Sodium 40 mg 08/04/24 09:10 08/04/24 10:00 Pantoprazole 40 Mg Tablet PO 40 mg QAM MELQUIADES Administration Pantoprazole Sodium 40 mg 08/04/24 13:10 08/06/24 09:14 Pantoprazole Sodium Iv 40 Mg Vial IV PUSH 40 mg QAM MELQUIADES Administration Perflutren Lipid Microsphere 0 ml 08/04/24 13:13 Perflutren Lipid Microspheres 1.5 Ml Vial Diluted To 10 Ml Total Volume IV PUSH 08/07/24 13:13 ONCE PRN adequate visualization Protocol Sodium Chloride 1 gm 08/04/24 09:10 08/06/24 09:15 Sodium Chloride 1 Gm Tablet PO 1 gm DAILY MELQUIADES Administration Sodium Chloride 6 ml 08/05/24 05:00 08/06/24 04:19 Sodium Chlor 3% 15 Ml Neb (Respiratory Therapy) INHALATION 08/07/24 05:01 6 ml DAILY@0500 MELQUIADES Administration Sodium Chloride 6 ml 08/07/24 05:00 Sodium Chlor 3% 15 Ml Neb (Respiratory Therapy) INHALATION 08/08/24 05:00 DAILY@0500 MELQUIADES Tamsulosin HCl 0.4 mg 08/04/24 21:00 08/05/24 20:54 Tamsulosin Hcl 0.4 Mg Capsule PO 0.4 mg HS MELQUIADES Administration Vitamin D 1,000 units 08/04/24 09:00 08/06/24 09:15 Cholecalciferol 1,000 Units Tablet PO 1,000 units DAILY MELQUIADES Administration Radiology Results: ITS Impressions Chest/Abdomen/Pelvis CTA 08/03/24 17:30 IMPRESSION: Segmental nonocclusive pulmonary emboli are suspected in the right lower lobe. Low clot burden. RV/LV ratio less than 1. 1.7 cm cavitary lesion in the right lower lobe, most likely secondary to infection or malignancy. Subsegmental atelectasis/consolidation in the right lower lobe. Chronic left hemidiaphragm elevation with shift of the mediastinum and heart to the right. Cardiomegaly. Small pericardial effusion. Moderate right and small left pleural effusions. Ectasia of the aortic arch. Moderate gastritis. Hepatomegaly. Possible cirrhotic change. 2.0 cm indeterminate density left upper pole lesion, slow interval growth, with increasing density. Consider nonemergent but timely CT or MRI without and with contrast for further characterization. Mild sigmoid colitis. Small volume ascites. Diffuse body wall edema. Head CT 08/03/24 20:22 IMPRESSION: No acute intracranial process, within the constraints noted above. Venous Doppler Study 08/04/24 12:08 IMPRESSION: 1. No deep venous thrombosis within the bilateral lower extremities, as detailed above. Upper Quadrant Ultrasound 08/04/24 19:36 IMPRESSION: Cholelithiasis, without ultrasound evidence of cholecystitis. Fatty infiltration of an enlarged liver. Renal Ultrasound 08/04/24 19:40 IMPRESSION: No hydronephrosis or renal calculi. Findings suggesting medical renal disease. The 2 cm left upper pole mass of soft tissue attenuation is not visualized on ultrasound. This mass was visualized on contrast-enhanced CT performed less than 24 hours earlier. Nonemergent but timely CT or MRI with renal mass protocol is again recommended for further evaluation once patient recovers from his current illness. Labs Labs: Laboratory Results - last 24 hr 08/05/24 08/05/24 08/06/24 15:20 22:35 04:18 WBC 4.0 L 3.5 L RBC 3.69 L 3.21 L Hgb 9.2 L 9.5 L Hct 32.3 L 28.6 L MCV 87.5 89.1 MCH 24.9 L D 29.6 D MCHC 28.5 L 33.2 RDW 20.5 H 20.9 H Plt Count 108 L 94 L MPV 8.8 9.2 % Immature Plt Fraction 2.2 APTT 81.6 H 74.0 H 72.3 H Sodium 132 L 130 L Potassium 3.8 3.1 L Chloride 88 L 88 L Carbon Dioxide > 40 H > 40 H Anion Gap BUN 15 16 Creatinine 0.89 0.86 Estim Creat Clear Calc 46 48 Estimated GFR > 60 > 60 Glucose 127 H 104 Calcium 7.9 L 7.8 L Magnesium 1.5 L 1.8 Total Bilirubin 0.5 AST 34 ALT 25 Alkaline Phosphatase 67 Total Protein 6.0 L Albumin 2.9 L
[2024-08-06 14:28] LABS: NIL 0.03 IU/mL; Quantiferon TB Plus, 1T NEGATIVE (NEGATIVE); TB1-NIL 0.01 IU/mL; TB2-NIL 0.01 IU/mL
--- NOTE | 2024-08-06 15:18 | P.PNIM_ITS ---
Progress Note: A&P Assessment and Plan (1) Essential (primary) hypertension: Code(s): I10 - Essential (primary) hypertension Status: Acute (2) Acute heart failure: Qualifiers: Heart failure type: unspecified Qualified Code(s): I50.9 - Heart failure, unspecified Code(s): I50.9 - Heart failure, unspecified Status: Acute (3) Cardiomegaly: Code(s): I51.7 - Cardiomegaly Status: Acute (4) Diastolic CHF: Qualifiers: Heart failure chronicity: acute on chronic Qualified Code(s): I50.33 - Acute on chronic diastolic (congestive) heart failure Code(s): I50.30 - Unspecified diastolic (congestive) heart failure Status: Acute (5) LBBB (left bundle branch block): Code(s): I44.7 - Left bundle-branch block, unspecified Status: Acute (6) Venous stasis: Code(s): I87.8 - Other specified disorders of veins Status: Acute (7) Aortic ectasia: Code(s): I77.819 - Aortic ectasia, unspecified site Status: Acute (8) Mixed hyperlipidemia: Code(s): E78.2 - Mixed hyperlipidemia Status: Acute (9) Thrombocytopenia: Code(s): D69.6 - Thrombocytopenia, unspecified Status: Acute (10) Pulmonary emboli: Qualifiers: Pulmonary embolism type: single subsegmental (without acute cor pulmonale) Qualified Code(s): I26.93 - Single subsegmental thrombotic pulmonary embolism without acute cor pulmonale Code(s): I26.99 - Other pulmonary embolism without acute cor pulmonale Status: Acute (11) Hepatomegaly: Code(s): R16.0 - Hepatomegaly, not elsewhere classified Status: Acute (12) Colitis: Code(s): K52.9 - Noninfective gastroenteritis and colitis, unspecified Status: Acute (13) Renal lesion: Code(s): N28.9 - Disorder of kidney and ureter, unspecified Status: Acute (14) Normocytic anemia: Code(s): D64.9 - Anemia, unspecified Status: Acute (15) Pleural effusion on right: Code(s): J90 - Pleural effusion, not elsewhere classified Status: Acute (16) Cavitary lesion of lung: Code(s): J98.4 - Other disorders of lung Status: Acute (17) Edema of extremities: Code(s): R60.0 - Localized edema Status: Acute (18) Anasarca: Code(s): R60.1 - Generalized edema Status: Acute Plan Patient presents with complaint of generalized weakness and swelling along with shortness of breath. he reports swelling in his both legs and has been worsening. he has misssed some doses of diuretic that he is prescribed. he reports some cough but not more than usual. he resides at home. He fell yesterday, slipping from his recliner when he was getting up to go to the bathroom. While his daughter tried to help him get up off the ground he reportedly became unresponsive followed by confusion before returning to baseline. 911 was called at that time but because he was no longer confused, he refused transportation at the time. He denies any pain/injury from the fall. He saw his PCP last week as he had been having diarrhea; C diff test was reportedly negative and then he started having constipation. He denies any chest pain. He has been short of breath with a nonproductive cough. No nausea or vomiting. He endorses occasional abdominal pain. No fever chills. in the ED, his vitals were stable, he has swelling bilateral lower extremities. lab evaluation showed WBC of 4.6 hemoglobin of 9 hemoglobin 10.1 plateelet 110.cr 0.7, na low at 127, d dimer elevated at 1.08, [place] [id number], ua negative for infection. ct pe protocol revealed bilateral PE with low clot burdern. he has been started on heparin gtt. His CXR showed large right sided pleural effusion, loss of lung volume within the left hemithorax secondary to hemidiaphragmatic elevation from distended aerated colon. cta showed segmental non occlusive pulmonary emboli in right lower lobe, low clot burden. RV/LV ratio less than 1. 1.7 cm cavitary lesion in lore right lower lobe, sec to infection vs malignancy. subsegmental atelectasis/consolidation int eh right lower lobe. cardiomegaly small peric ardial effusion. moderate right and small left pleural effusions. ectasia of the aortic arch, moderate gastritis. hepatomegay, possible cirrhotic changes. 2.0 cm indeterminate density left upper pole lesion,slow interval growth with increasing density. mild sigmoid colitis. small volume asictes, diffuse body wall edema. he also had other chronc findings on the CT. echo 2022 revealed ef 65-70%, grade I diastolic dysfunction. mild pulmonary hypertension he is admitted in this setting for further treatment. # acute pe # acute chf exacerbation with anasarca. diuresis as scheduled[place] [id number] # lwoer extremity edema: check us duplex #grade 1 diastolic dysfunction # generalized weakness PT OT to see Right pleural effusion underlying 1.7 cm cavitary lesion in the right lower lobe will treat with ceftriaxone azithromycin check MRSA nares. Will consult Pulmonary. Check urine antigens. May need thoracentesis to ultimately rule out underlying malignancy. Also has segmental atelectasis/consolidation of the right lower lobe will treat as pneumonia as stated above. Check procalcitonin 2.0 cm indeterminate density left upper pole kidney will do renal ultrasound also will need follow-up as an outpatient basis Hepatomegaly right upper quadrant ultrasound. Possible cirrhotic changes on CT. Has anasarca. Albumin level 3.4. Gastritis add PPI DVT prophylaxis on heparin drip Code status do not resuscitate 83 y/o male presented with lower extremities edema after he had syncopal episode, patient is being diuresed with frusemide 40mg IV BID, and edema in lower extremities is improving. 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 Subjective Date/time seen: 08/06/24 15:18 Interval history: 83 y/o male presented with lower extremities edema after he had syncopal episode, patient is being diuresed with frusemide 40mg IV BID, and edema in lower extremities is improving. 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 Review of Systems Review of Systems: - CONSTITUTIONAL: Denies weight loss, fe jesse and chills. - HEENT: Denies changes in vision and he aring - RESPIRATORY: reports SOB and cough. - CV: Denies palpitations and CP. - GI: Denies abdominal pain, nausea, vom iting and diarrhea. - : Denies dysuria and urinary frequen cy. - MSK: Denies myalgia and joint pain. - SKIN: Denies rash and pruritus. - NEUROLOGICAL: Denies headache and sync ope. - PSYCHIATRIC: Denies recent changes in mood. Denies anxiety and depression. Exam Narrative: Elderly frail Patient is comfortable, NAD HEENT: eyes are clear and none icteric LUNGS: BS with bilateral poor air entry with rales and rhonchi HEART: RR S1S2 ABD: BS+, Soft and nontender Lower extremities: no edema SKIN: nonjaundiced Neuro: grossly intact. Objective Data Vital Signs Vital Signs: Vital Signs - 24 hr 08/05/24 16:00 08/05/24 16:00 08/05/24 18:00 Temperature 36.6 C Pulse Rate 84 88 80 Respiratory Rate 22 H Blood Pressure 106/67 Pulse Oximetry 91 Oxygen Delivery Oxygen Flow Rate Fraction of Inspired Oxygen 08/05/24 19:41 08/05/24 20:00 08/05/24 20:00 Temperature 36.3 C L Pulse Rate 83 88 Respiratory Rate 20 Blood Pressure 105/58 L Pulse Oximetry 93 Oxygen Delivery Room Air Oxygen Flow Rate Fraction of Inspired Oxygen 08/05/24 22:00 08/05/24 23:47 08/05/24 23:49 Temperature 36.4 C Pulse Rate 89 88 86 Respiratory Rate 20 20 Blood Pressure 107/60 Pulse Oximetry 98 89 L Oxygen Delivery Room Air Oxygen Flow Rate Fraction of Inspired Oxygen 08/06/24 00:00 08/06/24 00:00 08/06/24 02:00 Temperature Pulse Rate 88 80 Respiratory Rate Blood Pressure Pulse Oximetry Oxygen Delivery Room Air Oxygen Flow Rate Fraction of Inspired Oxygen 08/06/24 03:13 08/06/24 04:00 08/06/24 04:00 Temperature 36.3 C L Pulse Rate 87 86 Respiratory Rate 20 Blood Pressure 98/52 L Pulse Oximetry 92 Oxygen Delivery Room Air Oxygen Flow Rate Fraction of Inspired Oxygen 08/06/24 04:20 08/06/24 06:00 08/06/24 08:00 Temperature 37.2 C Pulse Rate 88 81 85 Respiratory Rate 20 24 H Blood Pressure 118/57 L Pulse Oximetry 99 Oxygen Delivery Oxygen Flow Rate Fraction of Inspired Oxygen 08/06/24 08:00 08/06/24 09:15 08/06/24 10:00 Temperature Pulse Rate 87 89 90 Respiratory Rate Blood Pressure Pulse Oximetry Oxygen Delivery Oxygen Flow Rate Fraction of Inspired Oxygen 08/06/24 11:27 08/06/24 11:39 08/06/24 11:57 Temperature 36.8 C Pulse Rate 80 Respiratory Rate 20 Blood Pressure 95/65 L Pulse Oximetry 100 Oxygen Delivery Nasal Cannula Nasal Cannula Oxygen Flow Rate 4 4 Fraction of Inspired Oxygen 08/06/24 12:00 Temperature Pulse Rate 90 Respiratory Rate Blood Pressure Pulse Oximetry Oxygen Delivery Oxygen Flow Rate Fraction of Inspired Oxygen Intake/Output Intake/Output: Intake & Output 08/03/24 08/04/24 08/05/24 08/06/24 23:59 23:59 23:59 23:59 Intake Total 1119.9 2153.9 822.1 Output Total 3550 2150 650 Balance -2430.1 3.9 172.1 Meds/Results Medications: Active Medications Generic Name Dose Route Start Last Admin Trade Name Freq PRN Reason Stop Dose Admin Acetaminophen 500 mg 08/04/24 11:09 08/05/24 20:53 Acetaminophen 500 Mg Tablet PO 500 mg BID PRN Administration pain Allopurinol 100 mg 08/04/24 09:10 08/06/24 09:15 Allopurinol 100 Mg Tablet PO 100 mg BID MELQUIADES Administration Artificial Tears 1 drop 08/04/24 09:15 Artificial Tears Ophth Soln 15 Ml Bottle EACH EYE QID PRN Dry Eye(s) Ascorbic Acid 500 mg 08/04/24 09:10 08/06/24 09:15 Ascorbic Acid 500 Mg Tablet PO 500 mg DAILY MELQUIADES Administration Aspirin 81 mg 08/04/24 09:10 08/06/24 09:14 Aspirin 81 Mg Enteric Tablet PO 81 mg DAILY MELQUIADES Administration Atorvastatin Calcium 40 mg 08/04/24 09:10 08/06/24 09:15 Atorvastatin 40 Mg Tablet PO 40 mg DAILY MELQUIADES Administration Clindamycin Phosphate 1 applic 08/04/24 09:00 08/06/24 09:16 Clindamycin Phos 1% 30 Gm Gel TOPICAL 09/04/24 08:59 1 applic DAILY MELQUIADES Administration Clotrimazole 1 applic 08/04/24 09:10 08/06/24 09:16 Betamethasone/Clotrimazole Cream 15 Gm Tube TOPICAL Not Given BID MELQUIADES Empagliflozin 10 mg 08/06/24 09:00 08/06/24 09:15 Empagliflozin 10 Mg Tablet PO 10 mg DAILY MELQUIADES Administration Ferrous Sulfate 325 mg 08/04/24 09:00 08/06/24 09:15 Ferrous Sulfate [address] PO 325 mg DAILY MELQUIADES Administration Furosemide 40 mg 08/04/24 09:00 08/06/24 09:15 Furosemide Inj 40 Mg/4 Ml Vial IV PUSH 40 mg BID MELQUIADES Administration Heparin Sodium (Porcine) 5,000 units 08/03/24 20:59 Heparin Sodium 5,000 Units/Ml Vial IV PUSH PRN PRN aPTT less than 55 seconds Heparin Sodium (Porcine) 2,500 units 08/03/24 20:59 08/05/24 08:47 Heparin Sodium 5,000 Units/Ml Vial IV PUSH 2,500 units PRN PRN Administration aPTT 55 - 70 seconds Heparin Sodium/Dextrose 25,000 units in 250 mls @ 9 mls/hr 08/03/24 21:00 08/06/24 02:36 Heparin Sodium/D5w 100 Units/Ml IV CONT 900 units/hr .Q24H MELQUIADES 9 mls/hr Administration Protocol 900 UNITS/HR Azithromycin 500 mg in 250 mls @ 250 mls/hr 08/04/24 09:00 08/06/24 09:14 Zithromax IVPB 08/08/24 09:59 250 mls/hr Q24H [facility] Administration Piperacillin Sod/Tazobactam Sod 4.5 gm in 100 mls @ 200 mls/hr 08/04/24 12:30 08/06/24 12:53 Zosyn 4.5 Gm/Ns 100 Ml IVPB 200 mls/hr Q6HR M[facility]QUIADES Administration Memantine 10 mg 08/04/24 09:10 08/06/24 09:15 Memantine 10 Mg Tablet PO 10 mg BID MELQUIADES Administration Metoprolol Succinate 25 mg 08/05/24 09:00 08/06/24 09:15 Metoprolol Succinate Ext Rel 25 Mg Tabcr PO 25 mg QAM MELQUIADES Administration Miconazole Nitrate 1 applic 08/04/24 09:20 08/06/24 09:17 Miconazole Nitrate 2% Cream 30 Gm Tube TOPICAL 1 applic DAILY MELQUIADES Administration Multivitamins/Minerals 1 tab 08/04/24 09:10 08/06/24 09:15 Multivitamins /C Lutein (Centrum Silver) Tablet *Bkc PO 1 tab DAILY MELQUIADES Administration Pantoprazole Sodium 40 mg 08/04/24 09:10 08/04/24 10:00 Pantoprazole 40 Mg Tablet PO 40 mg QAM MELQUIADES Administration Pantoprazole Sodium 40 mg 08/04/24 13:10 08/06/24 09:14 Pantoprazole Sodium Iv 40 Mg Vial IV PUSH 40 mg QAM MELQUIADES Administration Perflutren Lipid Microsphere 0 ml 08/04/24 13:13 Perflutren Lipid Microspheres 1.5 Ml Vial Diluted To 10 Ml Total Volume IV PUSH 08/07/24 13:13 ONCE PRN adequate visualization Protocol Sodium Chloride 1 gm 08/04/24 09:10 08/06/24 09:15 Sodium Chloride 1 Gm Tablet PO 1 gm DAILY MELQUIADES Administration Sodium Chloride 6 ml 08/05/24 05:00 08/06/24 04:19 Sodium Chlor 3% 15 Ml Neb (Respiratory Therapy) INHALATION 08/07/24 05:01 6 ml DAILY@0500 MELQUIADES Administration Sodium Chloride 6 ml 08/07/24 05:00 Sodium Chlor 3% 15 Ml Neb (Respiratory Therapy) INHALATION 08/08/24 05:00 DAILY@0500 MELQUIADES Tamsulosin HCl 0.4 mg 08/04/24 21:00 08/05/24 20:54 Tamsulosin Hcl 0.4 Mg Capsule PO 0.4 mg HS MELQUIADES Administration Vitamin D 1,000 units 08/04/24 09:00 08/06/24 09:15 Cholecalciferol 1,000 Units Tablet PO 1,000 units DAILY MELQUIADES Administration Radiology Results: ITS Impressions Chest/Abdomen/Pelvis CTA 08/03/24 17:30 IMPRESSION: Segmental nonocclusive pulmonary emboli are suspected in the right lower lobe. Low clot burden. RV/LV ratio less than 1. 1.7 cm cavitary lesion in the right lower lobe, most likely secondary to infection or malignancy. Subsegmental atelectasis/consolidation in the right lower lobe. Chronic left hemidiaphragm elevation with shift of the mediastinum and heart to the right. Cardiomegaly. Small pericardial effusion. Moderate right and small left pleural effusions. Ectasia of the aortic arch. Moderate gastritis. Hepatomegaly. Possible cirrhotic change. 2.0 cm indeterminate density left upper pole lesion, slow interval growth, with increasing density. Consider nonemergent but timely CT or MRI without and with contrast for further characterization. Mild sigmoid colitis. Small volume ascites. Diffuse body wall edema. Head CT 08/03/24 20:22 IMPRESSION: No acute intracranial process, within the constraints noted above. Venous Doppler Study 08/04/24 12:08 IMPRESSION: 1. No deep venous thrombosis within the bilateral lower extremities, as detailed above. Upper Quadrant Ultrasound 08/04/24 19:36 IMPRESSION: Cholelithiasis, without ultrasound evidence of cholecystitis. Fatty infiltration of an enlarged liver. Renal Ultrasound 08/04/24 19:40 IMPRESSION: No hydronephrosis or renal calculi. Findings suggesting medical renal disease. The 2 cm left upper pole mass of soft tissue attenuation is not visualized on ultrasound. This mass was visualized on contrast-enhanced CT performed less than 24 hours earlier. Nonemergent but timely CT or MRI with renal mass protocol is again recommended for further evaluation once patient recovers from his current illness. Labs Labs: Laboratory Results - last 24 hr 08/04/24 08/05/24 08/05/24 12:32 15:20 22:35 WBC 4.0 L RBC 3.69 L Hgb 9.2 L Hct 32.3 L MCV 87.5 MCH 24.9 L D MCHC 28.5 L RDW 20.5 H Plt Count 108 L MPV 8.8 % Immature Plt Fraction 2.2 APTT 81.6 H 74.0 H Sodium 132 L Potassium 3.8 Chloride 88 L Carbon Dioxide > 40 H Anion Gap BUN 15 Creatinine 0.89 Estim Creat Clear Calc 46 Estimated GFR > 60 Glucose 127 H Calcium 7.9 L Magnesium 1.5 L Total Bilirubin 0.5 AST 34 ALT 25 Alkaline Phosphatase 67 Total Protein 6.0 L Albumin 2.9 L TB Test (QFT) Gold Plus Negative TB Test (QFT) Nil 0.03 TB Test Mitogen - Nil 7.74 TB Test Ag - Nil 1 0.01 TB Test Ag - Nil 2 0.01 08/06/24 04:18 WBC 3.5 L RBC 3.21 L Hgb 9.5 L Hct 28.6 L MCV 89.1 MCH 29.6 D MCHC 33.2 RDW 20.9 H Plt Count 94 L MPV 9.2 % Immature Plt Fraction APTT 72.3 H Sodium 130 L Potassium 3.1 L Chloride 88 L Carbon Dioxide > 40 H Anion Gap BUN 16 Creatinine 0.86 Estim Creat Clear Calc 48 Estimated GFR > 60 Glucose 104 Calcium 7.8 L Magnesium 1.8 Total Bilirubin AST ALT Alkaline Phosphatase Total Protein Albumin TB Test (QFT) Gold Plus TB Test (QFT) Nil TB Test Mitogen - Nil TB Test Ag - Nil 1 TB Test Ag - Nil 2
[2024-08-06] MEDS: ACETAMINOPHEN 500 MG TABLET PO (20:06)
[2024-08-06] MEDS: TAMSULOSIN HCL 0.4 MG CAPSULE PO (20:07)
[2024-08-07] VITALS (15 sets, daily range): BP systolic 100–107; BP diastolic 54–60; PULSE 82–90; RESP 16–24; TEMP 36.1–36.5; O2SAT 96–100
[2024-08-07] MEDS: SODIUM CHLOR 3% 15 ML NEB (RESPIRATORY THERAPY) 6 ML INHALATION (05:02)
[2024-08-07] MEDS: PIPERACILLIN/TAZ 4.5G/NS 100ML 4.5 GM/100 ML BAG IVPB (05:34)
[2024-08-07 06:24] LABS: Hematocrit 33.7 % (42.0-52.0); Hemoglobin 9.6 g/dL (14.0-18.0); Immature Platelet Fraction Pct 2.4 % (0.9-11.2); Mean Corpuscular HGB Conc 28.5 g/dl (32-36); Mean Corpuscular Hemoglobin 25.9 pg (26-34); Mean Corpuscular Volume 90.8 fl (80-100); Mean Platelet Volume 9.4 fl (7.4-10.4); Platelet Count Result 94 k/mm3 (150-375); Red Blood Count 3.71 M/mm3 (4.6-6.20); Red Cell Distribution Width 20.5 % (11.5-14.5)
[2024-08-07 06:45] LABS: INR 1.1; Prothrombin Time 14.7 Seconds (11.1-14.7)
[2024-08-07 07:13] LABS: Blood Urea Nitrogen 18 mg/dL (9-20); Calcium 7.9 mg/dL (8.4-10.2); Carbon Dioxide > 40 mmol/L (22-30); Chloride 86 mmol/L (98-107); Estimated CRCL calculation 41 ml/min; Estimated Glomerular Filt Rate > 60; Glucose 95 mg/dL (65-110); Lactate Dehydrogenase 186 U/L (120-246); Potassium 3.8 mmol/L (3.4-5.0); Sodium 135 mmol/L (137-145)
--- NOTE | 2024-08-07 09:00 | P.PNPL_ITS ---
Progress Note: A&P Assessment and Plan (1) Cavitary lesion of lung: Code(s): J98.4 - Other disorders of lung Status: Acute Assessment and Plan: Patient with CT chest 08/03/24 with left lower lobe thick-walled cavity with adjacent infiltrate. Reviewed with Radiology and suspect this is a pneumonia rather than a malignancy. Patient has no history of tobacco use, no tuberculosis exposures, no aspiration, he did have a brief syncopal episode a few days ago. Currently he denies fever, chills, rigors, phlegm production or hemoptysis. He states his cough is better with diuresis and 12 hours of antibiotics. Plan: I will treat the patient for a bacterial abscess at this time. I will check a nasal swab for MRSA. Sputum culture. low suspicion for AFB disease, QuantiFERON gold and sputum for AFB x3 ordered. I will send urine for Legionella, urine for pneumococcal disease, serum for mycoplasma IgM and extended respiratory pathogen panel. I will change his antibiotics to Zosyn and azithromycin. Will follow him clinically. MRSA nasal swab negative. 08/05/2024: patient tells me he is breathing much better and breathing back to his normal. He says his cough is back to his normal. Has very minimal phlegm production. He is afebrile. White blood cell counts 3.7, creatinine 0.74. Room air saturations 90%. Plan: Continue Zosyn and azithromycin, both day 2. Blood cultures no growth today, sputum culture pending, AFB x1 pending. QuantiFERON gold pending. Respiratory pathogen panel, urine Legionella, urine pneumococcal and mycoplasma IgM pending. 08/06/2024: Patient tells me he is breathing 95% back to his baseline. His cough is 95% better. His phlegm is at his baseline with no hemoptysis. His swelling is improved. He is afebrile. White blood cell count 3.5, creatinine 0.86. Patient was started on oxygen 4 L last night because of low pulse oximetry from an ear probe. I placed him on a hand pulse oximeter and his saturations on room air after 18 minutes were 92-94%. Yesterday he diuresed 246 mL, cumulative diuresis 3.1 mL. His weight today is 73.3. Chest x-ray shows an elevated left hemidiaphragm, large right pleural effusion. Plan: Continue Zosyn and azithromycin, both day 3. Blood cultures no growth. Sputum pending. QuantiFERON gold pending. Respiratory pathogen panel, urine Legionella, urine pneumococcal and mycoplasma IgM pending. 08/07/2024: For the daytime nurse patient was alert and oriented this morning. When I examined him approximately 2 hours later he was initially sleeping and I woke him up and Initially he told me there was a problem but would not elaborate. His saturations on 4 L nasal cannula were 100%. he said his breathing was okay and let me examine him. He then began screaming help and telling me there was a problem and that I was part of the problem. he is afebrile. White blood cell count 3.0, creatinine 1.01. Yesterday he diuresed 96 mL, cumulative diuresis since admission 3.3 L, weight today 71.5. QuantiFERON gold is negative. Plan: Continue Zosyn and azithromycin, both day 4. Will give 5 days of azithromycin total. Blood cultures no growth. QuantiFERON gold negative. Respiratory pathogen panel, urine Legionella, urine pneumococcal and mycoplasma IgM pending. Plan to continue Zosyn for total of 7 days and then to check a CT scan which would be 08/10/2024 to re-evaluate his left lower lobe cavity. Further recommendations following CT scan on 08/10/2024. Pulmonary inpatient consult services will resume on 08/10/2024, call the on- call physician with any questions. Discussed with Dr. Haines, will follow with you. (2) Pulmonary emboli: Qualifiers: Pulmonary embolism type: single subsegmental (without acute cor pulmonale) Qualified Code(s): I26.93 - Single subsegmental thrombotic pulmonary embolism without acute cor pulmonale Code(s): I26.99 - Other pulmonary embolism without acute cor pulmonale Status: Acute Assessment and Plan: Patient with low clinical suspicion, positive D-dimer 1.08, CT angiogram of the chest formal read is suspected segmental PE in the right lower lobe. I reviewed with differrent Radiologist and given the significant motion artifact, right pleural effusion with compression and infiltrates he would have read this as cannot exclude PE. Lower extremity DVT excluded by Doppler. 08/04/24: Plan: I am not convinced there is right lower lobe PE but cannot completely exclude this. I think it is low likelihood that he has a PE and at this time he is tolerating anticoagulation without any complications. Will continue IV heparin at this time. 08/05/24: patient breathing is back to his baseline. He has no hemoptysis or bleeding complications. Plan: Will continue IV heparin today. Would like to continue IV heparin until we are certain we will not need to do a right thoracentesis for his pleural effusion. 08/06/24: Breathing is back to his baseline. No hemoptysis. Plan: Will continue IV heparin today. Will discontinue prior to thoracentesis on 08/06/2024. 08/07/24: Patient was having no worsening shortness of breath. Plan: His IV heparin had been turned off in anticipation of a thoracentesis but at this time he is refusing testing and evaluation. His is on the way and to see if she can reason with him. (3) Acute heart failure: Qualifiers: Heart failure type: unspecified Qualified Code(s): I50.9 - Heart failure, unspecified Code(s): I50.9 - Heart failure, unspecified Status: Acute Assessment and Plan: Patient with 6 months lower extremity edema, 1-2 weeks worsening nocturia, shortness of breath, bilateral pleural effusions, lower extremity and scrotal swelling and a BNP of 26,600. 08/04/2024, weight today 77.4 kg with an admission weight of 78.8 kg. Cumulative today he is -228 mL on Lasix 40 IV b.i.d plan: Continue as aggressive diuresis as tolerated by his cardiac and renal systems per hospitalist team. Currently 40 IV bid. I have ordered an echocardiogram. Later in the day patient had an echocardiogram which was a very technically difficult study with limited views demonstrating mildly enlarged left ventricle with an estimated EF of 30-35%. Severely enlarged left atrium. Right ventricle, right atrium not well visualized. No RVSP calculated. 08/05/2024: Patient is on Lasix 40 IV b.i.d. Yesterday he diuresed 2.6 L and is 2.9 L negative since admission. Weight today is 73.8 kg with an admission weight of 78.8. [place] [address]602 on 08/03/2024 to a value of 20,600 today. His edema has improved. Plan: Continue as aggressive diuresis as tolerated by his cardiac and renal systems per hospitalist team. Currently on Lasix 40 IV b.i.d. and metoprolol 25 q.a.m. workup and management of cardiomyopathy per hospitalist team. 08/06/2024: Yesterday he diuresed 246 mL, cumulative diuresis 3.1 mL. His weight today is 73.3. Chest x-ray shows an elevated left hemidiaphragm, large right pleural effusion. Plan: Cardiology consulted for management of his cardiomyopathy. Patient with soft blood pressure limiting diuresis. Will plan on right thoracentesis on 08/07/2024. 08/07/24: Yesterday he diuresed 96 mL, cumulative diuresis since admission 3.3 L, weight today 71.5. 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 Remains on Lasix 40 IV b.i.d.. Subjective Date/time seen: 08/07/24 09:00 Interval history: 08/04/2024: This is a new pulmonary consult for pulmonary embolism and left lower lobe lung cavity. 83-year-old with a history of hyponatremia, hypertension, gout, memory loss. Patient has no history of asthma, COPD, recurrent pneumonias. He is a never smoker and was not exposed to secondhand smoke. 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 patient had no respiratory symptoms as a child, through his adulthood until approximately 12 months ago. Twelve months ago he started with a dry cough and a little bit of phlegm. Six months ago he stated he had started with swollen legs that has gotten progressively worse, worsening orthopnea and he now sleeps in a recliner an upright position. Two months history of worsening shortness of breath at rest and this apparently is improved when he walks. Increased nocturia over the last 2-3 weeks from 1-2 times a night to 4-5 times a night. On 08/02 the patient fell from his recliner and had a syncopal episode EMS was called but he had regained consciousness and refused transport to the hospital. Patient denies any fever, chills, rigors, night sweats, phlegm production, hemoptysis. He has no known exposures to tuberculosis. 08/03/2024: Patient presented to the emergency department with weakness of the lower extremities, 1 month history lower extremity edema, scrotal edema, upper arm edema. Recently missed doses of his diuretics. Recent history of diarrhea. Blood pressure 122/77, heart rate 98, respirations 20, white blood cell count 4.6, creatinine 0.65, serum bicarb 32. Eosinophils 0.2%. BNP 826 1600. Troponin negative. TSH 0.522. COVID, RSV, influenza RT PCR negative. C hest x-ray with a large right-sided pleural effusion, chronic elevated left hemidiaphragm. CT angiogram chest abdomen pelvis with segmental right lower lobe pulmonary embolism, 1.7 him cm cavitary lesion left lower lobe, atelectasis consolidation right lower lobe, chronic left hemidiaphragm elevation. Small volume ascites and diffuse body wall edema. Patient was started on IV heparin, ceftriaxone, azithromycin, Lasix 40 IV b.i.d., 08/04/2024: Currently the patient tells me his breathing is better today and his cough is better today. He is afebrile. White blood cell count 3.7, creat inine 0.74, procalcitonin 0.1, lower extremity Dopplers are negative. Later in the day patient had an echocardiogram which was a very technically difficult study with limited views demonstrating mildly enlarged left ventricle with an estimated EF of 30-35%. Severely enlarged left atrium. Right ventricle, right atrium not well visualized. No RVSP calculated. 08/05/2024: patient tells me he is breathing much better and breathing back to his normal. He says his cough is back to his normal. Has very minimal phlegm production. He is afebrile. White blood cell counts 3.7, creatinine 0.74. Room air saturations 90%. Yesterday he diuresed 2.6 L and is 2.9 L negative since admission. Weight today is 73.8 kg with an admission weight of 78.8. [place] [address]175 on 08/03/2024 to a value of 20,600 today. His edema has improved. 08/06/2024: Patient tells me he is breathing 95% back to his baseline. His cough is 95% better. His phlegm is at his baseline with no hemoptysis. His swelling is improved. He is afebrile. White blood cell count 3.5, creatinine 0.86. Patient was started on oxygen 4 L last night because of low pulse oximetry from an ear probe. I placed him on a hand pulse oximeter and his saturations on room air after 18 minutes were 92-94%. Yesterday he diuresed 246 mL, cumulative diuresis 3.1 mL. His weight today is 73.3. Chest x-ray shows an elevated left hemidiaphragm, large right pleural effusion. 08/07/2024: For the daytime nurse patient was alert and oriented this morning. When I examined him approximately 2 hours later he was initially sleeping and I woke him up and Initially he told me there was a problem but would not elaborate. His saturations on 4 L nasal cannula were 100%. he said his breathing was okay and let me examine him. He then began screaming help and telling me there was a problem and that I was part of the problem. he is afebrile. White blood cell count 3.0, creatinine 1.01. Yesterday he diuresed 96 mL, cumulative diuresis since admission 3.3 L, weight today 71.5. QuantiFERON gold is negative. DATA: 08/04/24: Echo Summary 1. Very technically difficult study with limited views. 2. Left ventricular chamber dimension is mildly enlarged. 3. Left ventricular systolic function is moderately reduced, estimated at 30-35. 4. Left atrial chamber dimension is severely enlarged. 5. There is trivial pericardial effusion. Right Ventricle Right ventricular chamber dimension is not well visualized. Left Atria Left atrial chamber dimension is severely enlarged. Right Atria Right atrial chamber dimension is not well visualized. no RVSP calculated. 08/03/2024; EXAMINATION: CTA chest PE abdomen pel DATE: 08/03/2024 17:22 INDICATION: gen weakness, dimer >1; abd pain TECHNIQUE: Computed tomography angiography (CTA) of the chest was performed with 100 mL Omnipaque-350 intravenous contrast timed to evaluate the pulmonary arteries, followed by portal venous phase imaging of the abdomen and pelvis. Coronal maximum intensity projection 3D-reconstructions were created by the technologist. The dose-length product (DLP) was 1540.82 mGy-cm. Automated exposure control and iterative reconstruction technique were employed. COMPARISON: CTPA 01/17/2023; CT abdomen pelvis 12/18/2017. FINDINGS: CHEST: Lung parenchyma and airways: Subsegmental atelectasis/consolidation in the dependent right lung. Minimal dependent left basilar atelectasis. Significant left hemidiaphragm elevation. Significant motion artifact in the lungs. 1.7 cm cavitary lesion in the left lower lobe. Pleura: Small volume left and moderate volume right pleural fluid collections. Thoracic inlet, axillae and chest wall: No thyroid or soft tissue mass. Body wall edema. Thoracic aorta: Ectasia of the aortic arch measuring up to 3.3 cm. Mild atherosclerotic arch calcifications Mediastinum: Shift of the mediastinum to the right. Calcified nodes. Dilated central pulmonary arteries as can be seen with pulmonary hypertension. Heart and pericardium: Cardiomegaly. The heart is shifted in the chest to the right. Small volume pericardial fluid. RV/LV ratio less than 1. Coronary artery calcifications: Mild. Thoracic bones: No acute osseous finding. Severe thoracic kyphosis. Pulmonary arteries: Study quality: Good bolus timing and contrast opacification. Significant motion artifact, with compression of normal anatomic structures which limits evaluation of the segmental and subsegmental pulmonary arteries. However, there are several filling defects within the segmental right lower lobe pulmonary arteries that likely represent pulmonary embolism. ABDOMEN/PELVIS: Liver: Enlarged. Somewhat nodular appearing border. Biliary/Gallbladder: Cholelithiasis. No inflammatory change. Mild pericholecystic fluid, likely related to ascites. No bile duct dilation. Pancreas: No mass or duct dilation. Spleen: Normal. Adrenals:No mass. Kidneys: No obstructing stone or hydronephrosis. 2.0 cm hyperdense exophytic left upper pole cystic lesion. GI tract: Moderate gastric wall edema. Mild wall thickening and edema, with loss of haustration in the distal sigmoid. No small or large bowel dilation. Normal appendix. Mesentery/Peritoneum: No mass or free air. Small volume ascites. Retroperitoneum: No mass. Atherosclerotic calcifications of intra-abdominal arterial vessels. Pelvis: Pelvic organs are within normal limits. Soft Tissues: Diffuse body wall edema. Abdominopelvic bones: No acute osseous finding. IMPRESSION: Segmental nonocclusive pulmonary emboli are suspected in the right lower lobe. Low clot burden. RV/LV ratio less than 1. 1.7 cm cavitary lesion in the right lower lobe, most likely secondary to infection or malignancy. Subsegmental atelectasis/consolidation in the right lower lobe. Chronic left hemidiaphragm elevation with shift of the mediastinum and heart to the right. Cardiomegaly. Small pericardial effusion. Moderate right and small left pleural effusions. Ectasia of the aortic arch. Moderate gastritis. Hepatomegaly. Possible cirrhotic change. 2.0 cm indeterminate density left upper pole lesion, slow interval growth, with increasing density. Consider nonemergent but timely CT or MRI without and with contrast for further characterization. Mild sigmoid colitis. Small volume ascites. Diffuse body wall edema. 01/17/2023: EXAMINATION: CTA chest PE protocol DATE: 01/17/2023 02:54 INDICATION: Syncope. COMPARISON: Chest CT 01/16/2023 FINDINGS: There is marked elevation of left hemidiaphragm. There is atelectasis bilaterally, worst in lingula. Calcified left lung nodules and calcified left hilar and mediastinal lymph nodes are consistent with old granulomatous disease. There is a trace right pleural effusion. The heart size is normal. There are coronary artery calcifications. No pericardial effusion. There is no pulmonary embolus. There is kyphosis and mild spondylosis of thoracic spine. There is severe cervical spondylosis. There is a fracture of right 11th rib. IMPRESSION: 1. No pulmonary embolus. 2. Marked elevation of left hemidiaphragm. 3. Fracture of right 11th rib. 01/18/2023: echo Summary 1. Left ventricular chamber dimension is normal. 2. Left ventricular systolic function is normal, estimated at 65-70%. 3. There is mildly increased left ventricular wall thickness. 4. The left ventricular diastolic function is grade I diastolic dysfunction. 5. Left atrial chamber dimension is mildly enlarged. 6. There is mild aortic valve calcification. 7. There is moderate aortic valve sclerosis. 8. There is mild tricuspid valve regurgitation. 9. Mild pulmonary hypertension, estimated pulmonary arterial systolic pressure is 37 mmHg. 10. There is mild pulmonic regurgitation. Left Ventricle Left ventricular chamber dimension is normal. Left ventricular systolic function is normal, estimated at 65-70%. There is mildly increased left ventricular wall thickness. The left ventricular diastolic function is grade I diastolic dysfunction. Right Ventricle Right ventricular chamber dimension is normal. Right ventricular systolic function is normal. Left Atria Left atrial chamber dimension is mildly enlarged. Right Atria Right atrial chamber dimension is normal. Atrial Septum Intact interatrial septum visualized by color flow imaging. 12/18/2017: EXAMINATION:CT CHEST W/O DATE: 12/18/2017 15:21 INDICATION: Chronic cough. COMPARISON: Chest CT 02/02/2013 FINDINGS: There is marked elevation of left hemidiaphragm. There is mild atelectasis in the inferior lungs. There is a mild burden of chronic reticular opacities in the inferior right lung. Calcified left lung nodules and calcified left hilar lymph nodes are consistent with old granulomatous disease. No pleural effusion. The heart size is normal. There are coronary artery calcifications. There are calcifications of the aortic valve. No pericardial effusion. There is kyphosis, dextroscoliosis, and mild spondylosis of thoracic spine. IMPRESSION: 1. Chronic marked elevation of left hemidiaphragm. 2. Mild chronic lung disease at right lung base. 03/25/2013: PFT report: NORMAL SPIROMETRY. NO ACUTE BRONCHODILATOR RESPONSE. LUNG VOLUMES REVEAL NORMAL TLC BUT INCREASED RV, RV/TLC CONSISTENT WITH AIR TRAPPING. RAW IS MILDLY INCREASED. DLCO IS NORMAL. IMPRESSION: ESSENTIALLY NORMAL STUDY. POSSIBLY MILD AIR TRAPPING. NO ACUTE BRONCHODILATOR RESPONSE. ABG (RA) 7.43/ 45/ 75/ 29/ 94% NORMAL FOR AGE. 01/13/2013: EXAMINATION: CHEST-TWO VIEW INDICATION: Left hemidiaphragm elevation TECHNIQUE: PA and lateral views of the chest were obtained. COMPARISON: 12/30/12 FINDINGS: There is persistent elevation of the left hemidiaphragm. Its position is not changed since the comparison examination. There is suggestion of minimal compressive left lower lobe atelectasis. The lungs are otherwise free of opacities. Moderate degenerative changes are present in the spine. The heart size is normal. No pleural effusion or pneumothorax is seen. IMPRESSION: 1. Elevation of the left hemidiaphragm, unchanged. Recommend correlation with any prior outside hospital imaging. Consider further evaluation with sniff test to evaluate for paralysis and possible chest CT to evaluate for radiographically occult lesion as the cause. Review of Systems Constitutional: Constitutional: Reports no additional constitutional complaints Eyes: Eyes: Reports no additional eye complaints ENT: Reports system reviewed and no additional complaints, except as documented Cardiovascular: Cardiovascular: Reports no additional cardiovascular complaints Respiratory: Respiratory: Reports no additional respiratory complaints Gastrointestinal: Gastrointestinal: Reports no additional gastrointestinal complaints Musculoskeletal: Musculoskeletal: Reports no additional musculoskeletal complaints Neurologic: Reports system reviewed and no additional complaints, except as documented Psychiatric: Psychiatric: Reports no additional psychiatric complaints Endocrine: Endocrine: Reports no additional endocrine complaints Hematologic/Lymphatic: Hematologic/Lymphatic: Reports no additional hematologic/lymphatic complaints Allergic/Immunologic: Allergic/Immunologic: Reports no additional allergic/immunologic complaints Exam Const: General: cooperative, healthy appearing and comfortable Orientation/consciousness: oriented to person, oriented to place and oriented to time HENMT: Head: normal to inspection Ears: hearing grossly normal bilaterally Eyes: General: appearance normal, both eyes and all related structures Neck: Neck: normal visual inspection Chest: Chest palpation & inspection: normal inspection of the chest Resp: Effort & Inspection: normal respiratory effort and able to speak in complete sentences Auscultation: crackles, no rales, no rhonchi, no wheezes and diminished lung sounds Other: Decreased breath sounds right greater than left. No wheezes. Cardio: Jugular venous distension: no JVD GI: Inspection: normal to inspection Skin: General skin exam: normal color Neuro: General: oriented to person, oriented to place and oriented to time Extrem: General: normal to inspection and edema Other: improved edema Psych: Other: confused, refusing evaluation Objective Data Vital Signs Vital Signs: Vital Signs - 24 hr 08/06/24 09:15 08/06/24 10:00 08/06/24 11:27 Temperature Pulse Rate 89 90 Respiratory Rate Blood Pressure Pulse Oximetry Oxygen Delivery Nasal Cannula Oxygen Flow Rate 4 Fraction of Inspired Oxygen 08/06/24 11:39 08/06/24 11:57 08/06/24 12:00 Temperature 36.8 C Pulse Rate 80 90 Respiratory Rate 20 Blood Pressure 95/65 L Pulse Oximetry 100 Oxygen Delivery Nasal Cannula Oxygen Flow Rate 4 Fraction of Inspired Oxygen 08/06/24 14:00 08/06/24 16:00 08/06/24 18:00 Temperature Pulse Rate 83 85 89 Respiratory Rate Blood Pressure Pulse Oximetry Oxygen Delivery Oxygen Flow Rate Fraction of Inspired Oxygen 08/06/24 19:46 08/06/24 19:51 08/06/24 20:00 Temperature 36.5 C 36.5 C Pulse Rate 85 85 Respiratory Rate 20 20 Blood Pressure 102/57 L 102/57 L Pulse Oximetry 100 100 100 Oxygen Delivery Room Air Oxygen Flow Rate Fraction of Inspired Oxygen 21 08/06/24 20:00 08/06/24 20:00 08/06/24 22:00 Temperature Pulse Rate 88 80 Respiratory Rate Blood Pressure Pulse Oximetry 98 Oxygen Delivery Nasal Cannula Oxygen Flow Rate 4 Fraction of Inspired Oxygen 08/06/24 23:47 08/07/24 00:00 08/07/24 00:00 Temperature 36.7 C Pulse Rate 85 82 Respiratory Rate 16 Blood Pressure 99/57 L Pulse Oximetry 100 100 Oxygen Delivery Nasal Cannula Oxygen Flow Rate 4 Fraction of Inspired Oxygen 08/07/24 01:57 08/07/24 03:45 08/07/24 04:00 Temperature 36.5 C Pulse Rate 82 85 Respiratory Rate 16 Blood Pressure 100/54 L Pulse Oximetry 100 100 Oxygen Delivery Nasal Cannula Oxygen Flow Rate 4 Fraction of Inspired Oxygen 08/07/24 04:00 08/07/24 05:03 08/07/24 05:10 Temperature Pulse Rate 84 84 83 Respiratory Rate 20 20 Blood Pressure Pulse Oximetry Oxygen Delivery Oxygen Flow Rate Fraction of Inspired Oxygen 08/07/24 06:00 08/07/24 07:38 Temperature 36.1 C L Pulse Rate 82 90 Respiratory Rate 24 H Blood Pressure 104/60 Pulse Oximetry 100 Oxygen Delivery Oxygen Flow Rate Fraction of Inspired Oxygen Intake/Output Intake/Output: Intake & Output 08/04/24 08/05/24 08/06/24 08/07/24 23:59 23:59 23:59 23:59 Intake Total 1119.9 2153.9 2353.8 100 Output Total 3550 2150 2450 900 Balance -2430.1 3.9 -96.2 -800 Meds/Results Medications: Active Medications Generic Name Dose Route Start Last Admin Trade Name Freq PRN Reason Stop Dose Admin Acetaminophen 500 mg 08/04/24 11:09 08/06/24 20:06 Acetaminophen 500 Mg Tablet PO 500 mg BID PRN Administration pain Allopurinol 100 mg 08/04/24 09:10 08/06/24 17:07 Allopurinol 100 Mg Tablet PO 100 mg BID MELQUIADES Administration Artificial Tears 1 drop 08/04/24 09:15 Artificial Tears Ophth Soln 15 Ml Bottle EACH EYE QID PRN Dry Eye(s) Ascorbic Acid 500 mg 08/04/24 09:10 08/06/24 09:15 Ascorbic Acid 500 Mg Tablet PO 500 mg DAILY MELQUIADES Administration Aspirin 81 mg 08/04/24 09:10 08/06/24 09:14 Aspirin 81 Mg Enteric Tablet PO 81 mg DAILY MELQUIADES Administration Atorvastatin Calcium 40 mg 08/04/24 09:10 08/06/24 09:15 Atorvastatin 40 Mg Tablet PO 40 mg DAILY MELQUIADES Administration Clindamycin Phosphate 1 applic 08/04/24 09:00 08/06/24 09:16 Clindamycin Phos 1% 30 Gm Gel TOPICAL 09/04/24 08:59 1 applic DAILY MELQUIADES Administration Clotrimazole 1 applic 08/04/24 09:10 08/06/24 17:08 Betamethasone/Clotrimazole Cream 15 Gm Tube TOPICAL Not Given BID MELQUIADES Empagliflozin 10 mg 08/06/24 09:00 08/06/24 09:15 Empagliflozin 10 Mg Tablet PO 10 mg DAILY MELQUIADES Administration Ferrous Sulfate 325 mg 08/04/24 09:00 08/06/24 09:15 Ferrous Sulfate [address] PO 325 mg DAILY MELQUIADES Administration Furosemide 40 mg 08/04/24 09:00 08/06/24 17:07 Furosemide Inj 40 Mg/4 Ml Vial IV PUSH 40 mg BID MELQUIADES Administration Azithromycin 500 mg in 250 mls @ 250 mls/hr 08/04/24 09:00 08/06/24 09:14 Zithromax IVPB 08/08/24 09:59 250 mls/hr Q24H MELQUIADES Administration Piperacillin Sod/Tazobactam Sod 4.5 gm in 100 mls @ 200 mls/hr 08/04/24 12:30 08/07/24 05:34 Zosyn 4.5 Gm/Ns 100 Ml IVPB 200 mls/hr Q6HR MELQUIADES Administration Memantine 10 mg 08/04/24 09:10 08/06/24 17:07 Memantine 10 Mg Tablet PO 10 mg BID MELQUIADES Administration Metoprolol Succinate 25 mg 08/05/24 09:00 08/06/24 09:15 Metoprolol Succinate Ext Rel 25 Mg Tabcr PO 25 mg QAM MELQUIADES Administration Miconazole Nitrate 1 applic 08/04/24 09:20 08/06/24 09:17 Miconazole Nitrate 2% Cream 30 Gm Tube TOPICAL 1 applic DAILY MELQUIADES Administration Multivitamins/Minerals 1 tab 08/04/24 09:10 08/06/24 09:15 Multivitamins /C Lutein (Centrum Silver) Tablet *Bkc PO 1 tab DAILY MELQUIADES Administration Pantoprazole Sodium 40 mg 08/04/24 09:10 08/04/24 10:00 Pantoprazole 40 Mg Tablet PO 40 mg QAM MELQUIADES Administration Pantoprazole Sodium 40 mg 08/04/24 13:10 08/06/24 09:14 Pantoprazole Sodium Iv 40 Mg Vial IV PUSH 40 mg QAM MELQUIADES Administration Perflutren Lipid Microsphere 0 ml 08/04/24 13:13 Perflutren Lipid Microspheres 1.5 Ml Vial Diluted To 10 Ml Total Volume IV PUSH 08/07/24 13:13 ONCE PRN adequate visualization Protocol Sodium Chloride 1 gm 08/04/24 09:10 08/06/24 09:15 Sodium Chloride 1 Gm Tablet PO 1 gm DAILY MELQUIADES Administration Sodium Chloride 6 ml 08/07/24 05:00 Sodium Chlor 3% 15 Ml Neb (Respiratory Therapy) INHALATION 08/08/24 05:00 DAILY@0500 MELQUIADES Tamsulosin HCl 0.4 mg 08/04/24 21:00 08/06/24 20:07 Tamsulosin Hcl 0.4 Mg Capsule PO 0.4 mg HS MELQUIADES Administration Vitamin D 1,000 units 08/04/24 09:00 08/06/24 09:15 Cholecalciferol 1,000 Units Tablet PO 1,000 units DAILY MELQUIADES Administration Radiology Results: ITS Impressions Chest/Abdomen/Pelvis CTA 08/03/24 17:30 IMPRESSION: Segmental nonocclusive pulmonary emboli are suspected in the right lower lobe. Low clot burden. RV/LV ratio less than 1. 1.7 cm cavitary lesion in the right lower lobe, most likely secondary to infection or malignancy. Subsegmental atelectasis/consolidation in the right lower lobe. Chronic left hemidiaphragm elevation with shift of the mediastinum and heart to the right. Cardiomegaly. Small pericardial effusion. Moderate right and small left pleural effusions. Ectasia of the aortic arch. Moderate gastritis. Hepatomegaly. Possible cirrhotic change. 2.0 cm indeterminate density left upper pole lesion, slow interval growth, with increasing density. Consider nonemergent but timely CT or MRI without and with contrast for further characterization. Mild sigmoid colitis. Small volume ascites. Diffuse body wall edema. Head CT 08/03/24 20:22 IMPRESSION: No acute intracranial process, within the constraints noted above. Venous Doppler Study 08/04/24 12:08 IMPRESSION: 1. No deep venous thrombosis within the bilateral lower extremities, as detailed above. Upper Quadrant Ultrasound 08/04/24 19:36 IMPRESSION: Cholelithiasis, without ultrasound evidence of cholecystitis. Fatty infiltration of an enlarged liver. Renal Ultrasound 08/04/24 19:40 IMPRESSION: No hydronephrosis or renal calculi. Findings suggesting medical renal disease. The 2 cm left upper pole mass of soft tissue attenuation is not visualized on ultrasound. This mass was visualized on contrast-enhanced CT performed less than 24 hours earlier. Nonemergent but timely CT or MRI with renal mass protocol is again recommended for further evaluation once patient recovers from his current illness. Labs Labs: Laboratory Results - last 24 hr 08/04/24 08/07/24 12:32 06:15 WBC 3.0 L RBC 3.71 L Hgb 9.6 L Hct 33.7 L MCV 90.8 MCH 25.9 L D MCHC 28.5 L RDW 20.5 H Plt Count 94 L MPV 9.4 % Immature Plt Fraction 2.4 PT 14.7 INR 1.1 Sodium 135 L Potassium 3.8 Chloride 86 L Carbon Dioxide > 40 H Anion Gap BUN 18 Creatinine 1.01 Estim Creat Clear Calc 41 Estimated GFR > 60 Glucose 95 Calcium 7.9 L Lactate Dehydrogenase 186 Total Protein 7.0 TB Test (QFT) Gold Plus Negative TB Test (QFT) Nil 0.03 TB Test Mitogen - Nil 7.74 TB Test Ag - Nil 1 0.01 TB Test Ag - Nil 2 0.01
--- NOTE | 2024-08-07 09:10 | PCPTNOTE ---
Attempted to see patient for PT, however RN advised not to see patient this date due to patient having increase paranoia and agitation. Patient not appropriate for therapy at this time.
--- NOTE | 2024-08-07 09:20 | PCOTNOTE ---
Per RN, Patient not to be seen for therapy services this date. Patient is having paranoia, very angry, not allowing anyone near him. Patient holding the call light tightly, swinging it if you get to close to him. Patient verbalizes he will hit you if you get close to him. Patient has family present, attempting to assist.
[2024-08-07 10:15] LABS: NT Pro B Type Natriuretic Pept 17300 pg/mL (19.9-100)
--- NOTE | 2024-08-07 11:28 | PC.NURSE ---
patient refusing medications, assessment at this time. MD aware, family at bedside
--- NOTE | 2024-08-07 13:58 | PCPTNOTE ---
The patient treatment was not able to be completed on 08/07/2024 due to patient having increase agitation and not appropriate for therapy. Will plan to continue treatment per plan of care.
--- NOTE | 2024-08-07 14:30 | P.PNCA_ITS ---
Progress Note: A&P Assessment and Plan (1) Acute heart failure: Qualifiers: Heart failure type: unspecified Qualified Code(s): I50.9 - Heart failure, unspecified Code(s): I50.9 - Heart failure, unspecified Status: Acute Plan 83-year-old man with hyperlipidemia presented with shortness of and lower extremity swelling admitted for possible of abscess and new onset acute systolic heart failure Family is pursuing hospice. Cardiology will sign off at this time. Subjective Date/time seen: 08/07/24 14:30 Interval history: Reason for visit: CHF Patient refusing treatments and medications today. Family pursuing hospice. Review of Systems Cardiovascular: Cardiovascular: Reports as per HPI Exam Const: General: no acute distress Other: Ill appearing male Resp: Effort & Inspection: normal respiratory effort Neuro: Speech: normal speech Psych: Mental Status: mental status grossly normal Affect: normal affect Objective Data Vital Signs Vital Signs: Vital Signs - 24 hr 08/06/24 16:00 08/06/24 18:00 08/06/24 19:46 Temperature 36.5 C Pulse Rate 85 89 85 Respiratory Rate 20 Blood Pressure 102/57 L Pulse Oximetry 100 Oxygen Delivery Oxygen Flow Rate Fraction of Inspired Oxygen 08/06/24 19:51 08/06/24 20:00 08/06/24 20:00 Temperature 36.5 C Pulse Rate 85 Respiratory Rate 20 Blood Pressure 102/57 L Pulse Oximetry 100 100 98 Oxygen Delivery Room Air Nasal Cannula Oxygen Flow Rate 4 Fraction of Inspired Oxygen 21 08/06/24 20:00 08/06/24 22:00 08/06/24 23:47 Temperature 36.7 C Pulse Rate 88 80 85 Respiratory Rate 16 Blood Pressure 99/57 L Pulse Oximetry 100 Oxygen Delivery Oxygen Flow Rate Fraction of Inspired Oxygen 08/07/24 00:00 08/07/24 00:00 08/07/24 01:57 Temperature Pulse Rate 82 82 Respiratory Rate Blood Pressure Pulse Oximetry 100 Oxygen Delivery Nasal Cannula Oxygen Flow Rate 4 Fraction of Inspired Oxygen 08/07/24 03:45 08/07/24 04:00 08/07/24 04:00 Temperature 36.5 C Pulse Rate 85 84 Respiratory Rate 16 Blood Pressure 100/54 L Pulse Oximetry 100 100 Oxygen Delivery Nasal Cannula Oxygen Flow Rate 4 Fraction of Inspired Oxygen 08/07/24 05:03 08/07/24 05:10 08/07/24 06:00 Temperature Pulse Rate 84 83 82 Respiratory Rate 20 20 Blood Pressure Pulse Oximetry Oxygen Delivery Oxygen Flow Rate Fraction of Inspired Oxygen 08/07/24 07:38 08/07/24 08:00 08/07/24 10:00 Temperature 36.1 C L Pulse Rate 90 88 87 Respiratory Rate 24 H Blood Pressure 104/60 Pulse Oximetry 100 Oxygen Delivery Oxygen Flow Rate Fraction of Inspired Oxygen 08/07/24 11:52 08/07/24 12:00 08/07/24 14:00 Temperature Pulse Rate 89 85 88 Respiratory Rate 16 Blood Pressure 105/58 L Pulse Oximetry 97 Oxygen Delivery Oxygen Flow Rate Fraction of Inspired Oxygen Intake/Output Intake/Output: Intake & Output 08/04/24 08/05/24 08/06/24 08/07/24 23:59 23:59 23:59 23:59 Intake Total 1119.9 2153.9 2353.8 100 Output Total 3550 2150 2450 1500 Balance -2430.1 3.9 -96.2 -1400 Meds/Results Medications: Active Medications Generic Name Dose Route Start Last Admin Trade Name Freq PRN Reason Stop Dose Admin Acetaminophen 500 mg 08/04/24 11:09 08/06/24 20:06 Acetaminophen 500 Mg Tablet PO 500 mg BID PRN Administration pain Allopurinol 100 mg 08/04/24 09:10 08/07/24 09:32 Allopurinol 100 Mg Tablet PO Not Given BID COUNTS INCLUDE 234 BEDS AT [facility] Artificial Tears 1 drop 08/04/24 09:15 Artificial Tears Ophth Soln 15 Ml Bottle EACH EYE QID PRN Dry Eye(s) Ascorbic Acid 500 mg 08/04/24 09:10 08/07/24 09:32 Ascorbic Acid 500 Mg Tablet PO Not Given DAILY COUNTS INCLUDE 234 BEDS AT [facility] Aspirin 81 mg 08/04/24 09:10 08/07/24 09:32 Aspirin 81 Mg Enteric Tablet PO Not Given DAILY COUNTS INCLUDE 234 BEDS AT [facility] Atorvastatin Calcium 40 mg 08/04/24 09:10 08/07/24 09:32 Atorvastatin 40 Mg Tablet PO Not Given DAILY COUNTS INCLUDE 234 BEDS AT [facility] Atropine Sulfate 1 - 2 drop 08/07/24 11:44 Atropine Sulfate 1% Ophth Soln 5 Ml Bottle SUBLINGUAL Q4H PRN Secretions Clindamycin Phosphate 1 applic 08/04/24 09:00 08/07/24 09:33 Clindamycin Phos 1% 30 Gm Gel TOPICAL 09/04/24 08:59 Not Given DAILY COUNTS INCLUDE 234 BEDS AT [facility] Clotrimazole 1 applic 08/04/24 09:10 08/07/24 09:32 Betamethasone/Clotrimazole Cream 15 Gm Tube TOPICAL Not Given BID COUNTS INCLUDE 234 BEDS AT [facility] Empagliflozin 10 mg 08/06/24 09:00 08/07/24 09:33 Empagliflozin 10 Mg Tablet PO Not Given DAILY COUNTS INCLUDE 234 BEDS AT [facility] Ferrous Sulfate 325 mg 08/04/24 09:00 08/07/24 09:33 Ferrous Sulfate [address] PO Not Given DAILY COUNTS INCLUDE 234 BEDS AT [facility] Furosemide 40 mg 08/04/24 09:00 08/07/24 09:33 Furosemide Inj 40 Mg/4 Ml Vial IV PUSH Not Given BID COUNTS INCLUDE 234 BEDS AT [facility] Azithromycin 500 mg in 250 mls @ 250 mls/hr 08/04/24 09:00 08/07/24 09:32 Zithromax IVPB 08/08/24 09:59 Not Given Q24H COUNTS INCLUDE 234 BEDS AT [facility] Piperacillin Sod/Tazobactam Sod 4.5 gm in 100 mls @ 200 mls/hr 08/04/24 12:30 08/07/24 11:51 Zosyn 4.5 Gm/Ns 100 Ml IVPB Not Given Q6HR COUNTS INCLUDE 234 BEDS AT [facility] Lorazepam 0.5 mg 08/07/24 11:44 Lorazepam Inj (*Crx) 2 Mg/Ml Vial IV PUSH Q2H PRN Anxiety/Comfort Memantine 10 mg 08/04/24 09:10 08/07/24 09:33 Memantine 10 Mg Tablet PO Not Given BID COUNTS INCLUDE 234 BEDS AT [facility] Metoprolol Succinate 25 mg 08/05/24 09:00 08/07/24 09:33 Metoprolol Succinate Ext Rel 25 Mg Tabcr PO Not Given QAM COUNTS INCLUDE 234 BEDS AT [facility] Miconazole Nitrate 1 applic 08/04/24 09:20 08/07/24 09:33 Miconazole Nitrate 2% Cream 30 Gm Tube TOPICAL Not Given DAILY COUNTS INCLUDE 234 BEDS AT [facility] Morphine Sulfate 0.5 mg 08/07/24 11:44 Morphine Sulfate (*Crx) 2 Mg/Ml Inj IV PUSH Q30M PRN COMFORT Multivitamins/Minerals 1 tab 08/04/24 09:10 08/07/24 09:33 Multivitamins /C Lutein (Centrum Silver) Tablet *Bkc PO Not Given DAILY COUNTS INCLUDE 234 BEDS AT [facility] Pantoprazole Sodium 40 mg 08/04/24 09:10 08/04/24 10:00 Pantoprazole 40 Mg Tablet PO 40 mg QAM COUNTS INCLUDE 234 BEDS AT [facility] Administration Pantoprazole Sodium 40 mg 08/04/24 13:10 08/07/24 09:33 Pantoprazole Sodium Iv 40 Mg Vial IV PUSH Not Given QAM COUNTS INCLUDE 234 BEDS AT [facility] Sodium Chloride 1 gm 08/04/24 09:10 08/07/24 09:33 Sodium Chloride 1 Gm Tablet PO Not Given DAILY COUNTS INCLUDE 234 BEDS AT [facility] Sodium Chloride 6 ml 08/07/24 05:00 Sodium Chlor 3% 15 Ml Neb (Respiratory Therapy) INHALATION 08/08/24 05:00 DAILY@0500 COUNTS INCLUDE 234 BEDS AT [facility] Tamsulosin HCl 0.4 mg 08/04/24 21:00 08/06/24 20:07 Tamsulosin Hcl 0.4 Mg Capsule PO 0.4 mg HS MELQUIADES Administration Vitamin D 1,000 units 08/04/24 09:00 08/07/24 09:32 Cholecalciferol 1,000 Units Tablet PO Not Given DAILY COUNTS INCLUDE 234 BEDS AT [facility] Radiology Results: ITS Impressions Chest/Abdomen/Pelvis CTA 08/03/24 17:30 IMPRESSION: Segmental nonocclusive pulmonary emboli are suspected in the right lower lobe. Low clot burden. RV/LV ratio less than 1. 1.7 cm cavitary lesion in the right lower lobe, most likely secondary to infection or malignancy. Subsegmental atelectasis/consolidation in the right lower lobe. Chronic left hemidiaphragm elevation with shift of the mediastinum and heart to the right. Cardiomegaly. Small pericardial effusion. Moderate right and small left pleural effusions. Ectasia of the aortic arch. Moderate gastritis. Hepatomegaly. Possible cirrhotic change. 2.0 cm indeterminate density left upper pole lesion, slow interval growth, with increasing density. Consider nonemergent but timely CT or MRI without and with contrast for further characterization. Mild sigmoid colitis. Small volume ascites. Diffuse body wall edema. Head CT 08/03/24 20:22 IMPRESSION: No acute intracranial process, within the constraints noted above. Venous Doppler Study 08/04/24 12:08 IMPRESSION: 1. No deep venous thrombosis within the bilateral lower extremities, as detailed above. Upper Quadrant Ultrasound 08/04/24 19:36 IMPRESSION: Cholelithiasis, without ultrasound evidence of cholecystitis. Fatty infiltration of an enlarged liver. Renal Ultrasound 08/04/24 19:40 IMPRESSION: No hydronephrosis or renal calculi. Findings suggesting medical renal disease. The 2 cm left upper pole mass of soft tissue attenuation is not visualized on ultrasound. This mass was visualized on contrast-enhanced CT performed less than 24 hours earlier. Nonemergent but timely CT or MRI with renal mass protocol is again recommended for further evaluation once patient recovers from his current illness. Labs Labs: Laboratory Results - last 24 hr 08/07/24 06:15 WBC 3.0 L RBC 3.71 L Hgb 9.6 L Hct 33.7 L MCV 90.8 MCH 25.9 L D MCHC 28.5 L RDW 20.5 H Plt Count 94 L MPV 9.4 % Immature Plt Fraction 2.4 PT 14.7 INR 1.1 Sodium 135 L Potassium 3.8 Chloride 86 L Carbon Dioxide > 40 H Anion Gap BUN 18 Creatinine 1.01 Estim Creat Clear Calc 41 Estimated GFR > 60 Glucose 95 Calcium 7.9 L Lactate Dehydrogenase 186 NT-Pro-B Natriuret Pep 15904 H Total Protein 7.0
--- NOTE | 2024-08-07 15:43 | P.PNIM_ITS ---
Progress Note: A&P Assessment and Plan (1) Essential (primary) hypertension: Code(s): I10 - Essential (primary) hypertension Status: Acute (2) Acute heart failure: Qualifiers: Heart failure type: unspecified Qualified Code(s): I50.9 - Heart failure, unspecified Code(s): I50.9 - Heart failure, unspecified Status: Acute (3) Cardiomegaly: Code(s): I51.7 - Cardiomegaly Status: Acute (4) Diastolic CHF: Qualifiers: Heart failure chronicity: acute on chronic Qualified Code(s): I50.33 - Acute on chronic diastolic (congestive) heart failure Code(s): I50.30 - Unspecified diastolic (congestive) heart failure Status: Acute (5) LBBB (left bundle branch block): Code(s): I44.7 - Left bundle-branch block, unspecified Status: Acute (6) Venous stasis: Code(s): I87.8 - Other specified disorders of veins Status: Acute (7) Aortic ectasia: Code(s): I77.819 - Aortic ectasia, unspecified site Status: Acute (8) Mixed hyperlipidemia: Code(s): E78.2 - Mixed hyperlipidemia Status: Acute (9) Thrombocytopenia: Code(s): D69.6 - Thrombocytopenia, unspecified Status: Acute (10) Pulmonary emboli: Qualifiers: Pulmonary embolism type: single subsegmental (without acute cor pulmonale) Qualified Code(s): I26.93 - Single subsegmental thrombotic pulmonary embolism without acute cor pulmonale Code(s): I26.99 - Other pulmonary embolism without acute cor pulmonale Status: Acute (11) Hepatomegaly: Code(s): R16.0 - Hepatomegaly, not elsewhere classified Status: Acute (12) Colitis: Code(s): K52.9 - Noninfective gastroenteritis and colitis, unspecified Status: Acute (13) Renal lesion: Code(s): N28.9 - Disorder of kidney and ureter, unspecified Status: Acute (14) Normocytic anemia: Code(s): D64.9 - Anemia, unspecified Status: Acute (15) Pleural effusion on right: Code(s): J90 - Pleural effusion, not elsewhere classified Status: Acute (16) Cavitary lesion of lung: Code(s): J98.4 - Other disorders of lung Status: Acute (17) Edema of extremities: Code(s): R60.0 - Localized edema Status: Acute (18) Anasarca: Code(s): R60.1 - Generalized edema Status: Acute Plan Patient presents with complaint of generalized weakness and swelling along with shortness of breath. he reports swelling in his both legs and has been worsening. he has misssed some doses of diuretic that he is prescribed. he reports some cough but not more than usual. he resides at home. He fell yesterday, slipping from his recliner when he was getting up to go to the bathroom. While his daughter tried to help him get up off the ground he reportedly became unresponsive followed by confusion before returning to baseline. 911 was called at that time but because he was no longer confused, he refused transportation at the time. He denies any pain/injury from the fall. He saw his PCP last week as he had been having diarrhea; C diff test was reportedly negative and then he started having constipation. He denies any chest pain. He has been short of breath with a nonproductive cough. No nausea or vomiting. He endorses occasional abdominal pain. No fever chills. in the ED, his vitals were stable, he has swelling bilateral lower extremities. lab evaluation showed WBC of 4.6 hemoglobin of 9 hemoglobin 10.1 plateelet 110.cr 0.7, na low at 127, d dimer elevated at 1.08, troponin was negative. bnp [id number], ua negative for infection. ct pe protocol revealed bilateral PE with low clot burdern. he has been started on heparin gtt. His CXR showed large right sided pleural effusion, loss of lung volume within the left hemithorax secondary to hemidiaphragmatic elevation from distended aerated colon. cta showed segmental non occlusive pulmonary emboli in right lower lobe, low clot burden. RV/LV ratio less than 1. 1.7 cm cavitary lesion in lore right lower lobe, sec to infection vs malignancy. subsegmental atelectasis/consolidation int eh right lower lobe. cardiomegaly small peric ardial effusion. moderate right and small left pleural effusions. ectasia of the aortic arch, moderate gastritis. hepatomegay, possible cirrhotic changes. 2.0 cm indeterminate density left upper pole lesion,slow interval growth with increasing density. mild sigmoid colitis. small volume asictes, diffuse body wall edema. he also had other chronc findings on the CT. echo 2022 revealed ef 65-70%, grade I diastolic dysfunction. mild pulmonary hypertension he is admitted in this setting for further treatment. # acute pe # acute chf exacerbation with anasarca. diuresis as scheduled[place] [id number] # lwoer extremity edema: check us duplex #grade 1 diastolic dysfunction # generalized weakness PT OT to see Right pleural effusion underlying 1.7 cm cavitary lesion in the right lower lobe will treat with ceftriaxone azithromycin check MRSA nares. Will consult Pulmonary. Check urine antigens. May need thoracentesis to ultimately rule out underlying malignancy. Also has segmental atelectasis/consolidation of the right lower lobe will treat as pneumonia as stated above. Check procalcitonin 2.0 cm indeterminate density left upper pole kidney will do renal ultrasound also will need follow-up as an outpatient basis Hepatomegaly right upper quadrant ultrasound. Possible cirrhotic changes on CT. Has anasarca. Albumin level 3.4. Gastritis add PPI DVT prophylaxis on heparin drip Code status do not resuscitate 83 y/o male presented with lower extremities edema after he had syncopal episode, patient is being diuresed with frusemide 40mg IV BID, and edema in lower extremities is improving. 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 today plan was to have thoracentesis however patient became agitated, violent, and not cooperative, he had told his he does not want anymore work up, patient has agreed and considering hospice care for the patient. will stop the workup and place patient under comfort measure. Subjective Date/time seen: 08/07/24 15:43 Interval history: 83 y/o male presented with lower extremities edema after he had syncopal episode, patient is being diuresed with frusemide 40mg IV BID, and edema in lower extremities is improving. 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 today plan was to have thoracentesis however patient became agitated, violent, and not cooperative, he had told his he does not want anymore work up, patient has agreed and considering hospice care for the patient. will stop the workup and place patient under comfort measure. Review of Systems Review of Systems: - CONSTITUTIONAL: Denies weight loss, fe jesse and chills. - HEENT: Denies changes in vision and he aring - RESPIRATORY: reports SOB and cough. - CV: Denies palpitations and CP. - GI: Denies abdominal pain, nausea, vom iting and diarrhea. - : Denies dysuria and urinary frequen cy. - MSK: Denies myalgia and joint pain. - SKIN: Denies rash and pruritus. - NEUROLOGICAL: Denies headache and sync ope. - PSYCHIATRIC: Denies recent changes in mood. Denies anxiety and depression. Exam Narrative: Elderly frail Patient is comfortable, NAD HEENT: eyes are clear and none icteric LUNGS: BS with bilateral poor air entry with rales and rhonchi HEART: RR S1S2 ABD: BS+, Soft and nontender Lower extremities: no edema SKIN: nonjaundiced Neuro: grossly intact. Objective Data Vital Signs Vital Signs: Vital Signs - 24 hr 08/06/24 16:00 08/06/24 18:00 08/06/24 19:46 Temperature 36.5 C Pulse Rate 85 89 85 Respiratory Rate 20 Blood Pressure 102/57 L Pulse Oximetry 100 Oxygen Delivery Oxygen Flow Rate Fraction of Inspired Oxygen 08/06/24 19:51 08/06/24 20:00 08/06/24 20:00 Temperature 36.5 C Pulse Rate 85 Respiratory Rate 20 Blood Pressure 102/57 L Pulse Oximetry 100 100 98 Oxygen Delivery Room Air Nasal Cannula Oxygen Flow Rate 4 Fraction of Inspired Oxygen 21 08/06/24 20:00 08/06/24 22:00 08/06/24 23:47 Temperature 36.7 C Pulse Rate 88 80 85 Respiratory Rate 16 Blood Pressure 99/57 L Pulse Oximetry 100 Oxygen Delivery Oxygen Flow Rate Fraction of Inspired Oxygen 08/07/24 00:00 08/07/24 00:00 08/07/24 01:57 Temperature Pulse Rate 82 82 Respiratory Rate Blood Pressure Pulse Oximetry 100 Oxygen Delivery Nasal Cannula Oxygen Flow Rate 4 Fraction of Inspired Oxygen 08/07/24 03:45 08/07/24 04:00 08/07/24 04:00 Temperature 36.5 C Pulse Rate 85 84 Respiratory Rate 16 Blood Pressure 100/54 L Pulse Oximetry 100 100 Oxygen Delivery Nasal Cannula Oxygen Flow Rate 4 Fraction of Inspired Oxygen 08/07/24 05:03 08/07/24 05:10 08/07/24 06:00 Temperature Pulse Rate 84 83 82 Respiratory Rate 20 20 Blood Pressure Pulse Oximetry Oxygen Delivery Oxygen Flow Rate Fraction of Inspired Oxygen 08/07/24 07:38 08/07/24 08:00 08/07/24 10:00 Temperature 36.1 C L Pulse Rate 90 88 87 Respiratory Rate 24 H Blood Pressure 104/60 Pulse Oximetry 100 Oxygen Delivery Oxygen Flow Rate Fraction of Inspired Oxygen 08/07/24 11:52 08/07/24 12:00 08/07/24 14:00 Temperature Pulse Rate 89 85 88 Respiratory Rate 16 Blood Pressure 105/58 L Pulse Oximetry 97 Oxygen Delivery Oxygen Flow Rate Fraction of Inspired Oxygen 08/07/24 15:18 Temperature Pulse Rate Respiratory Rate Blood Pressure Pulse Oximetry 97 Oxygen Delivery Nasal Cannula Oxygen Flow Rate 4 Fraction of Inspired Oxygen Intake/Output Intake/Output: Intake & Output 08/04/24 08/05/24 08/06/24 08/07/24 23:59 23:59 23:59 23:59 Intake Total 1119.9 2153.9 2353.8 100 Output Total 3550 2150 2450 1500 Balance -2430.1 3.9 -96.2 -1400 Meds/Results Medications: Active Medications Generic Name Dose Route Start Last Admin Trade Name Freq PRN Reason Stop Dose Admin Acetaminophen 500 mg 08/04/24 11:09 08/06/24 20:06 Acetaminophen 500 Mg Tablet PO 500 mg BID PRN Administration pain Allopurinol 100 mg 08/04/24 09:10 08/07/24 09:32 Allopurinol 100 Mg Tablet PO Not Given BID [facility] Artificial Tears 1 drop 08/04/24 09:15 Artificial Tears Ophth Soln 15 Ml Bottle EACH EYE QID PRN Dry Eye(s) Ascorbic Acid 500 mg 08/04/24 09:10 08/07/24 09:32 Ascorbic Acid 500 Mg Tablet PO Not Given DAILY [facility] Aspirin 81 mg 08/04/24 09:10 08/07/24 09:32 Aspirin 81 Mg Enteric Tablet PO Not Given DAILY [facility] Atorvastatin Calcium 40 mg 08/04/24 09:10 08/07/24 09:32 Atorvastatin 40 Mg Tablet PO Not Given DAILY [facility] Atropine Sulfate 1 - 2 drop 08/07/24 11:44 Atropine Sulfate 1% Ophth Soln 5 Ml Bottle SUBLINGUAL Q4H PRN Secretions Clindamycin Phosphate 1 applic 08/04/24 09:00 08/07/24 09:33 Clindamycin Phos 1% 30 Gm Gel TOPICAL 09/04/24 08:59 Not Given DAILY [facility] Clotrimazole 1 applic 08/04/24 09:10 08/07/24 09:32 Betamethasone/Clotrimazole Cream 15 Gm Tube TOPICAL Not Given BID [facility] Empagliflozin 10 mg 08/06/24 09:00 08/07/24 09:33 Empagliflozin 10 Mg Tablet PO Not Given DAILY [facility] Ferrous Sulfate 325 mg 08/04/24 09:00 08/07/24 09:33 Ferrous Sulfate [address] PO Not Given DAILY [facility] Furosemide 40 mg 08/04/24 09:00 08/07/24 09:33 Furosemide Inj 40 Mg/4 Ml Vial IV PUSH Not Given BID [facility] Azithromycin 500 mg in 250 mls @ 250 mls/hr 08/04/24 09:00 08/07/24 09:32 Zithromax IVPB 08/08/24 09:59 Not Given Q24H [facility] Piperacillin Sod/Tazobactam Sod 4.5 gm in 100 mls @ 200 mls/hr 08/04/24 12:30 08/07/24 11:51 Zosyn 4.5 Gm/Ns 100 Ml IVPB Not Given Q6HR [facility] Lorazepam 0.5 mg 08/07/24 11:44 Lorazepam Inj (*Crx) 2 Mg/Ml Vial IV PUSH Q2H PRN Anxiety/Comfort Memantine 10 mg 08/04/24 09:10 08/07/24 09:33 Memantine 10 Mg Tablet PO Not Given BID [facility] Metoprolol Succinate 25 mg 08/05/24 09:00 08/07/24 09:33 Metoprolol Succinate Ext Rel 25 Mg Tabcr PO Not Given QAM [facility] Miconazole Nitrate 1 applic 08/04/24 09:20 08/07/24 09:33 Miconazole Nitrate 2% Cream 30 Gm Tube TOPICAL Not Given DAILY [facility] Morphine Sulfate 0.5 mg 08/07/24 11:44 Morphine Sulfate (*Crx) 2 Mg/Ml Inj IV PUSH Q30M PRN COMFORT Multivitamins/Minerals 1 tab 08/04/24 09:10 08/07/24 09:33 Multivitamins /C Lutein (Centrum Silver) Tablet *Bkc PO Not Given DAILY [facility] Pantoprazole Sodium 40 mg 08/04/24 09:10 08/04/24 10:00 Pantoprazole 40 Mg Tablet PO 40 mg QAM [facility] Administration Pantoprazole Sodium 40 mg 08/04/24 13:10 08/07/24 09:33 Pantoprazole Sodium Iv 40 Mg Vial IV PUSH Not Given QAM [facility] Sodium Chloride 1 gm 08/04/24 09:10 08/07/24 09:33 Sodium Chloride 1 Gm Tablet PO Not Given DAILY [facility] Sodium Chloride 6 ml 08/07/24 05:00 Sodium Chlor 3% 15 Ml Neb (Respiratory Therapy) INHALATION 08/08/24 05:00 DAILY@0500 [facility] Tamsulosin HCl 0.4 mg 08/04/24 21:00 08/06/24 20:07 Tamsulosin Hcl 0.4 Mg Capsule PO 0.4 mg HS [facility] Administration Vitamin D 1,000 units 08/04/24 09:00 08/07/24 09:32 Cholecalciferol 1,000 Units Tablet PO Not Given DAILY [facility] Radiology Results: ITS Impressions Chest/Abdomen/Pelvis CTA 08/03/24 17:30 IMPRESSION: Segmental nonocclusive pulmonary emboli are suspected in the right lower lobe. Low clot burden. RV/LV ratio less than 1. 1.7 cm cavitary lesion in the right lower lobe, most likely secondary to infection or malignancy. Subsegmental atelectasis/consolidation in the right lower lobe. Chronic left hemidiaphragm elevation with shift of the mediastinum and heart to the right. Cardiomegaly. Small pericardial effusion. Moderate right and small left pleural effusions. Ectasia of the aortic arch. Moderate gastritis. Hepatomegaly. Possible cirrhotic change. 2.0 cm indeterminate density left upper pole lesion, slow interval growth, with increasing density. Consider nonemergent but timely CT or MRI without and with contrast for further characterization. Mild sigmoid colitis. Small volume ascites. Diffuse body wall edema. Head CT 08/03/24 20:22 IMPRESSION: No acute intracranial process, within the constraints noted above. Venous Doppler Study 08/04/24 12:08 IMPRESSION: 1. No deep venous thrombosis within the bilateral lower extremities, as detailed above. Upper Quadrant Ultrasound 08/04/24 19:36 IMPRESSION: Cholelithiasis, without ultrasound evidence of cholecystitis. Fatty infiltration of an enlarged liver. Renal Ultrasound 08/04/24 19:40 IMPRESSION: No hydronephrosis or renal calculi. Findings suggesting medical renal disease. The 2 cm left upper pole mass of soft tissue attenuation is not visualized on ultrasound. This mass was visualized on contrast-enhanced CT performed less than 24 hours earlier. Nonemergent but timely CT or MRI with renal mass protocol is again recommended for further evaluation once patient recovers from his current illness. Labs Labs: Laboratory Results - last 24 hr 08/07/24 06:15 WBC 3.0 L RBC 3.71 L Hgb 9.6 L Hct 33.7 L MCV 90.8 MCH 25.9 L D MCHC 28.5 L RDW 20.5 H Plt Count 94 L MPV 9.4 % Immature Plt Fraction 2.4 PT 14.7 INR 1.1 Sodium 135 L Potassium 3.8 Chloride 86 L Carbon Dioxide > 40 H Anion Gap BUN 18 Creatinine 1.01 Estim Creat Clear Calc 41 Estimated GFR > 60 Glucose 95 Calcium 7.9 L Lactate Dehydrogenase 186 NT-Pro-B Natriuret Pep [id number] H Total Protein 7.0
[2024-08-07 18:17] LABS: Pneumococcal Antigen Urine NOT DETECTED
[2024-08-07 18:58] LABS: Legionella pneumophila Ag Ur NOT DETECTED
[2024-08-07 21:48] LABS: Mycoplasma IgM Antibody Titer 517 U/mL
[2024-08-07 21:48] LABS: Mycoplasma IgM Antibody Titer 397 U/mL
--- NOTE | 2024-08-07 22:01 | PC.NURSE ---
Called patient's family at 2130 to update them on patient being transferred to room 321-2.
--- NOTE | 2024-08-07 22:50 | PC.NURSE ---
This patient, Nick Echeverria, was transferred to [facility] on 08/07/24 at 2239. Personal belongings sent with patient. Report given to Paresh at 2209. Appropriate documentation sent with patient. Patient's belongings including a cell phone and medical administrative assistant were sent with the patient.
[2024-08-08] MEDS: ACETAMINOPHEN 500 MG TABLET PO (02:16)
[2024-08-08 07:44] LABS: Glucose Point of Care 84 mg/dl (65-105)
[2024-08-08 08:00] VITALS: BP 97/65; PULSE 85; RESP 16; TEMP 36.5; O2SAT 93; O2SAT 98
--- NOTE | 2024-08-08 11:36 | PCNWS ---
Weekly nutritional screen. Patient is tolerating current diet with intakes mostly 50-75. Pt was placed on comfort measures. No weight loss reported. No nutritional needs at this time.
--- NOTE | 2024-08-08 13:19 | PM.IMPN ---
Progress Note: A&P Assessment and Plan (1) Essential (primary) hypertension: Code(s): I10 - Essential (primary) hypertension Status: Acute (2) Acute heart failure: Qualifiers: Heart failure type: unspecified Qualified Code(s): I50.9 - Heart failure, unspecified Code(s): I50.9 - Heart failure, unspecified Status: Acute (3) Cardiomegaly: Code(s): I51.7 - Cardiomegaly Status: Acute (4) Diastolic CHF: Qualifiers: Heart failure chronicity: acute on chronic Qualified Code(s): I50.33 - Acute on chronic diastolic (congestive) heart failure Code(s): I50.30 - Unspecified diastolic (congestive) heart failure Status: Acute (5) LBBB (left bundle branch block): Code(s): I44.7 - Left bundle-branch block, unspecified Status: Acute (6) Venous stasis: Code(s): I87.8 - Other specified disorders of veins Status: Acute (7) Aortic ectasia: Code(s): I77.819 - Aortic ectasia, unspecified site Status: Acute (8) Mixed hyperlipidemia: Code(s): E78.2 - Mixed hyperlipidemia Status: Acute (9) Thrombocytopenia: Code(s): D69.6 - Thrombocytopenia, unspecified Status: Acute (10) Pulmonary emboli: Qualifiers: Pulmonary embolism type: single subsegmental (without acute cor pulmonale) Qualified Code(s): I26.93 - Single subsegmental thrombotic pulmonary embolism without acute cor pulmonale Code(s): I26.99 - Other pulmonary embolism without acute cor pulmonale Status: Acute (11) Hepatomegaly: Code(s): R16.0 - Hepatomegaly, not elsewhere classified Status: Acute (12) Colitis: Code(s): K52.9 - Noninfective gastroenteritis and colitis, unspecified Status: Acute (13) Renal lesion: Code(s): N28.9 - Disorder of kidney and ureter, unspecified Status: Acute (14) Normocytic anemia: Code(s): D64.9 - Anemia, unspecified Status: Acute (15) Pleural effusion on right: Code(s): J90 - Pleural effusion, not elsewhere classified Status: Acute (16) Cavitary lesion of lung: Code(s): J98.4 - Other disorders of lung Status: Acute (17) Edema of extremities: Code(s): R60.0 - Localized edema Status: Acute (18) Anasarca: Code(s): R60.1 - Generalized edema Status: Acute Plan Patient presents with complaint of generalized weakness and swelling along with shortness of breath. he reports swelling in his both legs and has been worsening. he has misssed some doses of diuretic that he is prescribed. he reports some cough but not more than usual. he resides at home. He fell yesterday, slipping from his recliner when he was getting up to go to the bathroom. While his daughter tried to help him get up off the ground he reportedly became unresponsive followed by confusion before returning to baseline. 911 was called at that time but because he was no longer confused, he refused transportation at the time. He denies any pain/injury from the fall. He saw his PCP last week as he had been having diarrhea; C diff test was reportedly negative and then he started having constipation. He denies any chest pain. He has been short of breath with a nonproductive cough. No nausea or vomiting. He endorses occasional abdominal pain. No fever chills. in the ED, his vitals were stable, he has swelling bilateral lower extremities. lab evaluation showed WBC of 4.6 hemoglobin of 9 hemoglobin 10.1 plateelet 110.cr 0.7, na low at 127, d dimer elevated at 1.08, trop[place]. bnp [id number], ua negative for infection. ct pe protocol revealed bilateral PE with low clot burdern. he has been started on heparin gtt. His CXR showed large right sided pleural effusion, loss of lung volume within the left hemithorax secondary to hemidiaphragmatic elevation from distended aerated colon. cta showed segmental non occlusive pulmonary emboli in right lower lobe, low clot burden. RV/LV ratio less than 1. 1.7 cm cavitary lesion in lore right lower lobe, sec to infection vs malignancy. subsegmental atelectasis/consolidation int eh right lower lobe. cardiomegaly small pericardial effusion. moderate right and small left pleural effusions. ectasia of the aortic arch, moderate gastritis. hepatomegay, possible cirrhotic changes. 2.0 cm indeterminate density left upper pole lesion,slow interval growth with increasing density. mild sigmoid colitis. small volume asictes, diffuse body wall edema. he also had other chronc findings on the CT. echo 2022 revealed ef 65-70%, grade I diastolic dysfunction. mild pulmonary hypertension he is admitted in this setting for further treatment. # acute pe # acute chf exacerbation with anasarca. diuresis as scheduled[place] [address] # lwoer extremity edema: check us duplex #grade 1 diastolic dysfunction # generalized weakness PT OT to see Right pleural effusion underlying 1.7 cm cavitary lesion in the right lower lobe will treat with ceftriaxone azithromycin check MRSA nares. Will consult Pulmonary. Check urine antigens. May need thoracentesis to ultimately rule out underlying malignancy. Also has segmental atelectasis/consolidation of the right lower lobe will treat as pneumonia as stated above. Check procalcitonin 2.0 cm indeterminate density left upper pole kidney will do renal ultrasound also will need follow-up as an outpatient basis Hepatomegaly right upper quadrant ultrasound. Possible cirrhotic changes on CT. Has anasarca. Albumin level 3.4. Gastritis add PPI DVT prophylaxis on heparin drip Code status do not resuscitate 83 y/o male presented with lower extremities edema after he had syncopal episode, patient is being diuresed with frusemide 40mg IV BID, and edema in lower extremities is improving. 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, patient is seen by stuffed casing tier, once the patient is clinically stable will need further work up his cardiomyopathy patient want to wait until he is out of the hospital also patient is found to have significant pleural effusion and possible lung mass, patient is seen by carpenter supervisor wooden ship who discussed with the radiologist does not suspect patient PE, patient does have a large pleural effusion and suspicious for lung mass, on plan was to have thoracentesis however patient became agitated, violent, and not cooperative, he had told his he does not want anymore work up, patient had agreed and considering hospice care for the patient and stopped the workup and placed patient under comfort measure. today patient is little better but does not want any work up now, will continue to monitor. Subjective Date/time seen: 08/08/24 13:19 Interval history: 83 y/o male presented with lower extremities edema after he had syncopal episode, patient is being diuresed with frusemide 40mg IV BID, and edema in lower extremities is improving. 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, patient is seen by stuffed casing tier, once the patient is clinically stable will need further work up his cardiomyopathy patient want to wait until he is out of the hospital also patient is found to have significant pleural effusion and possible lung mass, patient is seen by carpenter supervisor wooden ship who discussed with the radiologist does not suspect patient PE, patient does have a large pleural effusion and suspicious for lung mass, on plan was to have thoracentesis however patient became agitated, violent, and not cooperative, he had told his he does not want anymore work up, patient had agreed and considering hospice care for the patient and stopped the workup and placed patient under comfort measure. today patient is little better but does not want any work up now, will continue to monitor. Review of Systems Review of Systems: - CONSTITUTIONAL: Denies weight loss, fever and chills. - HEENT: Denies changes in vision and hearing - RESPIRATORY: reports SOB and cough. - CV: Denies palpitations and CP. - GI: Denies abdominal pain, nausea, vomiting and diarrhea. - : Denies dysuria and urinary frequency. - MSK: Denies myalgia and joint pain. - SKIN: Denies rash and pruritus. - NEUROLOGICAL: Denies headache and syncope. - PSYCHIATRIC: Denies recent changes in mood. Denies anxiety and depression. Exam Narrative: Elderly frail Patient is comfortable, NAD HEENT: eyes are clear and none icteric LUNGS: BS with bilateral poor air entry with rales and rhonchi HEART: RR S1S2 ABD: BS+, Soft and nontender Lower extremities: no edema SKIN: nonjaundiced Neuro: grossly intact. Objective Data Vital Signs Vital Signs: Vital Signs - 24 hr 08/07/24 14:00 08/07/24 15:18 08/07/24 16:00 Temperature Pulse Rate 88 89 Respiratory Rate Blood Pressure Pulse Oximetry 97 Oxygen Delivery Nasal Cannula Oxygen Flow Rate 4 08/07/24 16:00 08/07/24 21:00 08/08/24 08:00 Temperature 36.4 C L 36.5 C Pulse Rate 86 85 Respiratory Rate 18 16 Blood Pressure 107/60 97/65 L Pulse Oximetry 96 98 Oxygen Delivery Nasal Cannula Oxygen Flow Rate 4 Intake/Output Intake/Output: Intake & Output 08/05/24 08/06/24 08/07/24 08/08/24 23:59 23:59 23:59 23:59 Intake Total 2153.9 2353.8 200 560 Output Total 2150 2450 1900 400 Balance 3.9 -96.2 -1700 160 Meds/Results Medications: Active Medications Generic Name Dose Route Start Last Admin Trade Name Freq PRN Reason Stop Dose Admin Acetaminophen 500 mg 08/04/24 11:09 08/08/24 02:16 Acetaminophen 500 Mg Tablet PO 500 mg BID PRN Administration pain Atropine Sulfate 1 - 2 drop 08/07/24 11:44 Atropine Sulfate 1% Ophth Soln 5 Ml Bottle SUBLINGUAL Q4H PRN Secretions Lorazepam 0.5 mg 08/07/24 11:44 Lorazepam Inj (*Crx) 2 Mg/Ml Vial IV PUSH Q2H PRN Anxiety/Comfort Morphine Sulfate 0.5 mg 08/07/24 11:44 Morphine Sulfate (*Crx) 2 Mg/Ml Inj IV PUSH Q30M PRN COMFORT Radiology Results: ITS Impressions Chest/Abdomen/Pelvis CTA 08/03/24 17:30 IMPRESSION: Segmental nonocclusive pulmonary emboli are suspected in the right lower lobe. Low clot burden. RV/LV ratio less than 1. 1.7 cm cavitary lesion in the right lower lobe, most likely secondary to infection or malignancy. Subsegmental atelectasis/consolidation in the right lower lobe. Chronic left hemidiaphragm elevation with shift of the mediastinum and heart to the right. Cardiomegaly. Small pericardial effusion. Moderate right and small left pleural effusions. Ectasia of the aortic arch. Moderate gastritis. Hepatomegaly. Possible cirrhotic change. 2.0 cm indeterminate density left upper pole lesion, slow interval growth, with increasing density. Consider nonemergent but timely CT or MRI without and with contrast for further characterization. Mild sigmoid colitis. Small volume ascites. Diffuse body wall edema. Head CT 08/03/24 20:22 IMPRESSION: No acute intracranial process, within the constraints noted above. Venous Doppler Study 08/04/24 12:08 IMPRESSION: 1. No deep venous thrombosis within the bilateral lower extremities, as detailed above. Upper Quadrant Ultrasound 08/04/24 19:36 IMPRESSION: Cholelithiasis, without ultrasound evidence of cholecystitis. Fatty infiltration of an enlarged liver. Renal Ultrasound 08/04/24 19:40 IMPRESSION: No hydronephrosis or renal calculi. Findings suggesting medical renal disease. The 2 cm left upper pole mass of soft tissue attenuation is not visualized on ultrasound. This mass was visualized on contrast-enhanced CT performed less than 24 hours earlier. Nonemergent but timely CT or MRI with renal mass protocol is again recommended for further evaluation once patient recovers from his current illness. Labs Labs: Laboratory Results - last 24 hr 08/04/24 08/04/24 08/04/24 04:15 12:32 12:38 POC Capillary Glucose Ur L.pneumophila Ag Not detected Mycoplasma pneumon IgM 397 517 Urine Pneumococcal Ag 08/04/24 08/04/24 08/08/24 12:38 12:38 07:38 POC Capillary Glucose 84 Ur L.pneumophila Ag Not detected Mycoplasma pneumon IgM Urine Pneumococcal Ag Not detected Not detected
--- NOTE | 2024-08-08 14:35 | PCPTNOTE ---
Nursing reported he is on comfort care, pt was asked to do PT and pt refused.
[2024-08-08 17:29] LABS: Adenovirus DNA Not Detected (Not Detected); Chlamydophila pneumoniae Not Detected (Not Detected); Coronavirus 229E Not Detected (Not Detected); Coronavirus HKU1 Not Detected (Not Detected); Coronavirus NL63 Not Detected (Not Detected); Coronavirus OC43 Not Detected (Not Detected); Human Metapneumovirus Not Detected (Not Detected); Human Parainfluenza Virus 1 Not Detected (Not Detected); Human Parainfluenza Virus 2 Not Detected (Not Detected); Human Parainfluenza Virus 3 Not Detected (Not Detected); Human Parainfluenza Virus 4 Not Detected (Not Detected); Human RSV B Not Detected (Not Detected); Influenza A Not Detected (Not Detected); Influenza B Not Detected (Not Detected); Mycoplasma pneumoniae Not Detected (Not Detected); Rhinovirus/Enterovirus Not Detected (Not Detected)
[2024-08-08 20:30] VITALS: PULSE 93; O2SAT 94
[2024-08-08 21:00] VITALS: BP 109/58; PULSE 95; RESP 19; TEMP 36; O2SAT 95
[2024-08-08 21:12] VITALS: O2SAT 95
[2024-08-09] VITALS (7 sets, daily range): BP systolic 100–105; BP diastolic 56–71; PULSE 87–96; RESP 16–20; TEMP 36.3–36.8; O2SAT 89–100
--- NOTE | 2024-08-09 12:08 | PM.IMPN ---
Progress Note: A&P Assessment and Plan (1) Essential (primary) hypertension: Code(s): I10 - Essential (primary) hypertension Status: Acute (2) Acute heart failure: Qualifiers: Heart failure type: unspecified Qualified Code(s): I50.9 - Heart failure, unspecified Code(s): I50.9 - Heart failure, unspecified Status: Acute (3) Cardiomegaly: Code(s): I51.7 - Cardiomegaly Status: Acute (4) Diastolic CHF: Qualifiers: Heart failure chronicity: acute on chronic Qualified Code(s): I50.33 - Acute on chronic diastolic (congestive) heart failure Code(s): I50.30 - Unspecified diastolic (congestive) heart failure Status: Acute (5) LBBB (left bundle branch block): Code(s): I44.7 - Left bundle-branch block, unspecified Status: Acute (6) Venous stasis: Code(s): I87.8 - Other specified disorders of veins Status: Acute (7) Aortic ectasia: Code(s): I77.819 - Aortic ectasia, unspecified site Status: Acute (8) Mixed hyperlipidemia: Code(s): E78.2 - Mixed hyperlipidemia Status: Acute (9) Thrombocytopenia: Code(s): D69.6 - Thrombocytopenia, unspecified Status: Acute (10) Pulmonary emboli: Qualifiers: Pulmonary embolism type: single subsegmental (without acute cor pulmonale) Qualified Code(s): I26.93 - Single subsegmental thrombotic pulmonary embolism without acute cor pulmonale Code(s): I26.99 - Other pulmonary embolism without acute cor pulmonale Status: Acute (11) Hepatomegaly: Code(s): R16.0 - Hepatomegaly, not elsewhere classified Status: Acute (12) Colitis: Code(s): K52.9 - Noninfective gastroenteritis and colitis, unspecified Status: Acute (13) Renal lesion: Code(s): N28.9 - Disorder of kidney and ureter, unspecified Status: Acute (14) Normocytic anemia: Code(s): D64.9 - Anemia, unspecified Status: Acute (15) Pleural effusion on right: Code(s): J90 - Pleural effusion, not elsewhere classified Status: Acute (16) Cavitary lesion of lung: Code(s): J98.4 - Other disorders of lung Status: Acute (17) Edema of extremities: Code(s): R60.0 - Localized edema Status: Acute (18) Anasarca: Code(s): R60.1 - Generalized edema Status: Acute Plan Patient presents with complaint of generalized weakness and swelling along with shortness of breath. he reports swelling in his both legs and has been worsening. he has misssed some doses of diuretic that he is prescribed. he reports some cough but not more than usual. he resides at home. He fell yesterday, slipping from his recliner when he was getting up to go to the bathroom. While his daughter tried to help him get up off the ground he reportedly became unresponsive followed by confusion before returning to baseline. 911 was called at that time but because he was no longer confused, he refused transportation at the time. He denies any pain/injury from the fall. He saw his PCP last week as he had been having diarrhea; C diff test was reportedly negative and then he started having constipation. He denies any chest pain. He has been short of breath with a nonproductive cough. No nausea or vomiting. He endorses occasional abdominal pain. No fever chills. in the ED, his vitals were stable, he has swelling bilateral lower extremities. lab evaluation showed WBC of 4.6 hemoglobin of 9 hemoglobin 10.1 plateelet 110.cr 0.7, na low at 127, d dimer elevated at 1.08, [place]. [place] [id number], ua negative for infection. ct pe protocol revealed bilateral PE with low clot burdern. he has been started on heparin gtt. His CXR showed large right sided pleural effusion, loss of lung volume within the left hemithorax secondary to hemidiaphragmatic elevation from distended aerated colon. cta showed segmental non occlusive pulmonary emboli in right lower lobe, low clot burden. RV/LV ratio less than 1. 1.7 cm cavitary lesion in lore right lower lobe, sec to infection vs malignancy. subsegmental atelectasis/consolidation int eh right lower lobe. cardiomegaly small pericardial effusion. moderate right and small left pleural effusions. ectasia of the aortic arch, moderate gastritis. hepatomegay, possible cirrhotic changes. 2.0 cm indeterminate density left upper pole lesion,slow interval growth with increasing density. mild sigmoid colitis. small volume asictes, diffuse body wall edema. he also had other chronc findings on the CT. echo 2022 revealed ef 65-70%, grade I diastolic dysfunction. mild pulmonary hypertension he is admitted in this setting for further treatment. # acute pe # acute chf exacerbation with anasarca. diuresis as scheduled[place] [id number] # lwoer extremity edema: check us duplex #grade 1 diastolic dysfunction # generalized weakness PT OT to see Right pleural effusion underlying 1.7 cm cavitary lesion in the right lower lobe will treat with ceftriaxone azithromycin check MRSA nares. Will consult Pulmonary. Check urine antigens. May need thoracentesis to ultimately rule out underlying malignancy. Also has segmental atelectasis/consolidation of the right lower lobe will treat as pneumonia as stated above. Check procalcitonin 2.0 cm indeterminate density left upper pole kidney will do renal ultrasound also will need follow-up as an outpatient basis Hepatomegaly right upper quadrant ultrasound. Possible cirrhotic changes on CT. Has anasarca. Albumin level 3.4. Gastritis add PPI DVT prophylaxis on heparin drip Code status do not resuscitate 83 y/o male presented with lower extremities edema after he had syncopal episode, patient is being diuresed with frusemide 40mg IV BID, and edema in lower extremities is improving. 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, patient is seen by orthotic aide, once the patient is clinically stable will need further work up his cardiomyopathy patient want to wait until he is out of the hospital also patient is found to have significant pleural effusion and possible lung mass, patient is seen by director industrial nursing who discussed with the radiologist does not suspect patient PE, patient does have a large pleural effusion and suspicious for lung mass, on plan was to have thoracentesis however patient became agitated, violent, and not cooperative, he had told his he does not want anymore work up, patient had agreed and considering hospice care for the patient and stopped the workup and placed patient under comfort measure. today patient is little better but does not want any work up now, will continue to monitor. patient still remains at his baseline, does not want any work up and wants to go home. will continue to monitor as patient's working with resident care technician. Subjective Date/time seen: 08/09/24 12:08 Interval history: 83 y/o male presented with lower extremities edema after he had syncopal episode, patient is being diuresed with frusemide 40mg IV BID, and edema in lower extremities is improving. 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, patient is seen by orthotic aide, once the patient is clinically stable will need further work up his cardiomyopathy patient want to wait until he is out of the hospital also patient is found to have significant pleural effusion and possible lung mass, patient is seen by director industrial nursing who discussed with the radiologist does not suspect patient PE, patient does have a large pleural effusion and suspicious for lung mass, on plan was to have thoracentesis however patient became agitated, violent, and not cooperative, he had told his he does not want anymore work up, patient had agreed and considering hospice care for the patient and stopped the workup and placed patient under comfort measure. today patient is little better but does not want any work up now, will continue to monitor. patient still remains at his baseline, does not want any work up and wants to go home. will continue to monitor as patient's working with resident care technician. Review of Systems Review of Systems: - CONSTITUTIONAL: Denies weight loss, fever and chills. - HEENT: Denies changes in vision and hearing - RESPIRATORY: reports SOB and cough. - CV: Denies palpitations and CP. - GI: Denies abdominal pain, nausea, vomiting and diarrhea. - : Denies dysuria and urinary frequency. - MSK: Denies myalgia and joint pain. - SKIN: Denies rash and pruritus. - NEUROLOGICAL: Denies headache and syncope. - PSYCHIATRIC: Denies recent changes in mood. Denies anxiety and depression. Exam Narrative: Elderly frail Patient is comfortable, NAD HEENT: eyes are clear and none icteric LUNGS: BS with bilateral poor air entry with rales and rhonchi HEART: RR S1S2 ABD: BS+, Soft and nontender Lower extremities: no edema SKIN: nonjaundiced Neuro: grossly intact. Objective Data Vital Signs Vital Signs: Vital Signs - 24 hr 08/08/24 20:30 08/08/24 21:00 08/08/24 21:12 Temperature 36.0 C L Pulse Rate 93 95 Respiratory Rate 19 Blood Pressure 109/58 L Pulse Oximetry 94 95 95 Oxygen Delivery Nasal Cannula Nasal Cannula Oxygen Flow Rate 4 4 Fraction of Inspired Oxygen 08/09/24 08:00 08/09/24 08:08 Temperature 36.8 C Pulse Rate 96 Respiratory Rate 16 Blood Pressure 104/66 Pulse Oximetry 100 100 Oxygen Delivery Nasal Cannula Oxygen Flow Rate 4 Fraction of Inspired Oxygen 36 Intake/Output Intake/Output: Intake & Output 08/06/24 08/07/24 08/08/24 08/09/24 23:59 23:59 23:59 23:59 Intake Total 2353.8 200 1780 620 Output Total 2450 1900 750 400 Balance -96.2 -1700 1030 220 Meds/Results Medications: Active Medications Generic Name Dose Route Start Last Admin Trade Name Freq PRN Reason Stop Dose Admin Acetaminophen 500 mg 08/04/24 11:09 08/08/24 02:16 Acetaminophen 500 Mg Tablet PO 500 mg BID PRN Administration pain Atropine Sulfate 1 - 2 drop 08/07/24 11:44 Atropine Sulfate 1% Ophth Soln 5 Ml Bottle SUBLINGUAL Q4H PRN Secretions Lorazepam 0.5 mg 08/07/24 11:44 Lorazepam Inj (*Crx) 2 Mg/Ml Vial IV PUSH Q2H PRN Anxiety/Comfort Morphine Sulfate 0.5 mg 08/07/24 11:44 Morphine Sulfate (*Crx) 2 Mg/Ml Inj IV PUSH Q30M PRN COMFORT Radiology Results: ITS Impressions Chest/Abdomen/Pelvis CTA 08/03/24 17:30 IMPRESSION: Segmental nonocclusive pulmonary emboli are suspected in the right lower lobe. Low clot burden. RV/LV ratio less than 1. 1.7 cm cavitary lesion in the right lower lobe, most likely secondary to infection or malignancy. Subsegmental atelectasis/consolidation in the right lower lobe. Chronic left hemidiaphragm elevation with shift of the mediastinum and heart to the right. Cardiomegaly. Small pericardial effusion. Moderate right and small left pleural effusions. Ectasia of the aortic arch. Moderate gastritis. Hepatomegaly. Possible cirrhotic change. 2.0 cm indeterminate density left upper pole lesion, slow interval growth, with increasing density. Consider nonemergent but timely CT or MRI without and with contrast for further characterization. Mild sigmoid colitis. Small volume ascites. Diffuse body wall edema. Head CT 08/03/24 20:22 IMPRESSION: No acute intracranial process, within the constraints noted above. Venous Doppler Study 08/04/24 12:08 IMPRESSION: 1. No deep venous thrombosis within the bilateral lower extremities, as detailed above. Upper Quadrant Ultrasound 08/04/24 19:36 IMPRESSION: Cholelithiasis, without ultrasound evidence of cholecystitis. Fatty infiltration of an enlarged liver. Renal Ultrasound 08/04/24 19:40 IMPRESSION: No hydronephrosis or renal calculi. Findings suggesting medical renal disease. The 2 cm left upper pole mass of soft tissue attenuation is not visualized on ultrasound. This mass was visualized on contrast-enhanced CT performed less than 24 hours earlier. Nonemergent but timely CT or MRI with renal mass protocol is again recommended for further evaluation once patient recovers from his current illness. Labs Labs: Laboratory Results - last 24 hr 08/04/24 15:53 Nasal RSV Type A (PCR) Not detected Nasal RSV Type B (PCR) Not detected Chlamy pneumoniae PCR Not detected Adenovirus DNA Not detected Human Bocavirus (NAREN) Not detected Coronavirus Type OC43 Not detected Coronavirus Type HKU1 Not detected Coronavirus Type 229E Not detected Coronavirus Type NL63 Not detected Human Metapneumovir PCR Not detected Influenza A (PCR) Not detected Influenza A (H1) RNA Not detected Influenza A (H3) PCR Not detected M. pneumoniae DNA Not detected Parainfluenza PCR Not detected Parainfluenza 2 (PCR) Not detected Parainfluenza 3 RNA (PCR) Not detected Parainfluenza 4 (PCR) Not detected Rhino/Enterovirus (NAREN) Not detected Influenza Type B (PCR) Not detected Misc Test Comment see note
--- NOTE | 2024-08-09 14:38 | P.PNIM_ITS ---
Progress Note: A&P Assessment and Plan (1) Essential (primary) hypertension: Code(s): I10 - Essential (primary) hypertension Status: Acute (2) Acute heart failure: Qualifiers: Heart failure type: unspecified Qualified Code(s): I50.9 - Heart failure, unspecified Code(s): I50.9 - Heart failure, unspecified Status: Acute (3) Cardiomegaly: Code(s): I51.7 - Cardiomegaly Status: Acute (4) Diastolic CHF: Qualifiers: Heart failure chronicity: acute on chronic Qualified Code(s): I50.33 - Acute on chronic diastolic (congestive) heart failure Code(s): I50.30 - Unspecified diastolic (congestive) heart failure Status: Acute (5) LBBB (left bundle branch block): Code(s): I44.7 - Left bundle-branch block, unspecified Status: Acute (6) Venous stasis: Code(s): I87.8 - Other specified disorders of veins Status: Acute (7) Aortic ectasia: Code(s): I77.819 - Aortic ectasia, unspecified site Status: Acute (8) Mixed hyperlipidemia: Code(s): E78.2 - Mixed hyperlipidemia Status: Acute (9) Thrombocytopenia: Code(s): D69.6 - Thrombocytopenia, unspecified Status: Acute (10) Pulmonary emboli: Qualifiers: Pulmonary embolism type: single subsegmental (without acute cor pulmonale) Qualified Code(s): I26.93 - Single subsegmental thrombotic pulmonary embolism without acute cor pulmonale Code(s): I26.99 - Other pulmonary embolism without acute cor pulmonale Status: Acute (11) Hepatomegaly: Code(s): R16.0 - Hepatomegaly, not elsewhere classified Status: Acute (12) Colitis: Code(s): K52.9 - Noninfective gastroenteritis and colitis, unspecified Status: Acute (13) Renal lesion: Code(s): N28.9 - Disorder of kidney and ureter, unspecified Status: Acute (14) Normocytic anemia: Code(s): D64.9 - Anemia, unspecified Status: Acute (15) Pleural effusion on right: Code(s): J90 - Pleural effusion, not elsewhere classified Status: Acute (16) Cavitary lesion of lung: Code(s): J98.4 - Other disorders of lung Status: Acute (17) Edema of extremities: Code(s): R60.0 - Localized edema Status: Acute (18) Anasarca: Code(s): R60.1 - Generalized edema Status: Acute Plan Patient presents with complaint of generalized weakness and swelling along with shortness of breath. he reports swelling in his both legs and has been worsening. he has misssed some doses of diuretic that he is prescribed. he reports some cough but not more than usual. he resides at home. He fell yesterday, slipping from his recliner when he was getting up to go to the bathroom. While his daughter tried to help him get up off the ground he reportedly became unresponsive followed by confusion before returning to baseline. 911 was called at that time but because he was no longer confused, he refused transportation at the time. He denies any pain/injury from the fall. He saw his PCP last week as he had been having diarrhea; C diff test was reportedly negative and then he started having constipation. He denies any chest pain. He has been short of breath with a nonproductive cough. No nausea or vomiting. He endorses occasional abdominal pain. No fever chills. in the ED, his vitals were stable, he has swelling bilateral lower extremities. lab evaluation showed WBC of 4.6 hemoglobin of 9 hemoglobin 10.1 plateelet 110.cr 0.7, na low at 127, d dimer elevated at 1.08, [place] [id number], ua negative for infection. ct pe protocol revealed bilateral PE with low clot burdern. he has been started on heparin gtt. His CXR showed large right sided pleural effusion, loss of lung volume within the left hemithorax secondary to hemidiaphragmatic elevation from distended aerated colon. cta showed segmental non occlusive pulmonary emboli in right lower lobe, low clot burden. RV/LV ratio less than 1. 1.7 cm cavitary lesion in lore right lower lobe, sec to infection vs malignancy. subsegmental atelectasis/consolidation int eh right lower lobe. cardiomegaly small peric ardial effusion. moderate right and small left pleural effusions. ectasia of the aortic arch, moderate gastritis. hepatomegay, possible cirrhotic changes. 2.0 cm indeterminate density left upper pole lesion,slow interval growth with increasing density. mild sigmoid colitis. small volume asictes, diffuse body wall edema. he also had other chronc findings on the CT. echo 2022 revealed ef 65-70%, grade I diastolic dysfunction. mild pulmonary hypertension he is admitted in this setting for further treatment. # acute pe # acute chf exacerbation with anasarca. diuresis as scheduled[place] [id number] # lwoer extremity edema: check us duplex #grade 1 diastolic dysfunction # generalized weakness PT OT to see Right pleural effusion underlying 1.7 cm cavitary lesion in the right lower lobe will treat with ceftriaxone azithromycin check MRSA nares. Will consult Pulmonary. Check urine antigens. May need thoracentesis to ultimately rule out underlying malignancy. Also has segmental atelectasis/consolidation of the right lower lobe will treat as pneumonia as stated above. Check procalcitonin 2.0 cm indeterminate density left upper pole kidney will do renal ultrasound also will need follow-up as an outpatient basis Hepatomegaly right upper quadrant ultrasound. Possible cirrhotic changes on CT. Has anasarca. Albumin level 3.4. Gastritis add PPI DVT prophylaxis on heparin drip Code status do not resuscitate 83 y/o male presented with lower extremities edema after he had syncopal episode, patient is being diuresed with frusemide 40mg IV BID, and edema in lower extremities is improving. 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, patient is seen by business partner, once the patient is clinically stable will need further work up his cardiomyopathy patient want to wait until he is out of the hospital also patient is found to have significant pleural effusion and possible lung mass, patient is seen by waste water worker who discussed with the radiologist does not suspect patient PE, patient does have a large pleural effusion and suspicious for lung mass, on plan was to have thoracentesis however patient became agitated, violent, and not cooperative, he had told his he does not want anymore work up, patient had agreed and considering hospice care for the patient and stopped the workup and placed patient under comfort measure. today patient is little better but does not want any work up now, will continue to monitor. on 08/08 patient still remained at his baseline, did not want any work up and wants to go home. Today is more alert and oriented and his and daughter are present along with his nurse and daycare director, patient now wants have treatment including thoracentesis, will resume his treatments and order thoracentesis, will monitor and plan. Subjective Date/time seen: 08/09/24 14:38 Interval history: 83 y/o male presented with lower extremities edema after he had syncopal episode, patient is being diuresed with frusemide 40mg IV BID, and edema in lower extremities is improving. 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, patient is seen by business partner, once the patient is clinically stable will need further work up his cardiomyopathy patient want to wait until he is out of the hospital also patient is found to have significant pleural effusion and possible lung mass, patient is seen by waste water worker who discussed with the radiologist does not suspect patient PE, patient does have a large pleural effusion and suspicious for lung mass, on plan was to have thoracentesis however patient became agitated, violent, and not cooperative, he had told his he does not want anymore work up, patient had agreed and considering hospice care for the patient and stopped the workup and placed patient under comfort measure. today patient is little better but does not want any work up now, will continue to monitor. on 08/08 patient still remained at his baseline, did not want any work up and wants to go home. Today is more alert and oriented and his and daughter are present along with his nurse and daycare director, patient now wants have treatment including thoracentesis, will resume his treatments and order thoracentesis, will monitor and plan. Review of Systems Review of Systems: - CONSTITUTIONAL: Denies weight loss, fe jesse and chills. - HEENT: Denies changes in vision and he aring - RESPIRATORY: reports SOB and cough. - CV: Denies palpitations and CP. - GI: Denies abdominal pain, nausea, vom iting and diarrhea. - : Denies dysuria and urinary frequen cy. - MSK: Denies myalgia and joint pain. - SKIN: Denies rash and pruritus. - NEUROLOGICAL: Denies headache and sync ope. - PSYCHIATRIC: Denies recent changes in mood. Denies anxiety and depression. Exam Narrative: Elderly frail Patient is comfortable, NAD HEENT: eyes are clear and none icteric LUNGS: BS with bilateral poor air entry with rales and rhonchi HEART: RR S1S2 ABD: BS+, Soft and nontender Lower extremities: no edema SKIN: nonjaundiced Neuro: grossly intact. Objective Data Vital Signs Vital Signs: Vital Signs - 24 hr 08/08/24 20:30 08/08/24 21:00 08/08/24 21:12 Temperature 36.0 C L Pulse Rate 93 95 Respiratory Rate 19 Blood Pressure 109/58 L Pulse Oximetry 94 95 95 Oxygen Delivery Nasal Cannula Nasal Cannula Oxygen Flow Rate 4 4 Fraction of Inspired Oxygen 08/09/24 08:00 08/09/24 08:08 Temperature 36.8 C Pulse Rate 96 Respiratory Rate 16 Blood Pressure 104/66 Pulse Oximetry 100 100 Oxygen Delivery Nasal Cannula Oxygen Flow Rate 4 Fraction of Inspired Oxygen 36 Intake/Output Intake/Output: Intake & Output 08/06/24 08/07/24 08/08/24 08/09/24 23:59 23:59 23:59 23:59 Intake Total 2353.8 200 1780 740 Output Total 2450 1900 750 400 Balance -96.2 -1700 1030 340 Meds/Results Medications: Active Medications Generic Name Dose Route Start Last Admin Trade Name Freq PRN Reason Stop Dose Admin Acetaminophen 500 mg 08/04/24 11:09 08/08/24 02:16 Acetaminophen 500 Mg Tablet PO 500 mg BID PRN Administration pain Allopurinol 100 mg 08/09/24 17:00 Allopurinol 100 Mg Tablet PO BID [facility] Artificial Tears 1 drop 08/09/24 14:21 Artificial Tears Ophth Soln 15 Ml Bottle EACH EYE QID PRN Dry Eye(s) Ascorbic Acid 500 mg 08/09/24 14:25 Ascorbic Acid 500 Mg Tablet PO DAILY [facility] Aspirin 81 mg 08/09/24 14:25 Aspirin 81 Mg Enteric Tablet PO DAILY [facility] Atorvastatin Calcium 40 mg 08/09/24 14:25 Atorvastatin 40 Mg Tablet PO DAILY [facility] Clindamycin Phosphate 1 applic 08/09/24 14:25 Clindamycin Phos 1% 30 Gm Gel TOPICAL DAILY [facility] Clotrimazole 1 applic 08/09/24 17:00 Betamethasone/Clotrimazole Cream 15 Gm Tube TOPICAL BID [facility] Empagliflozin 10 mg 08/09/24 14:25 Empagliflozin 10 Mg Tablet PO DAILY [facility] Ferrous Sulfate 325 mg 05/25/25 14:25 Ferrous Sulfate [address] PO DAILY [facility] Furosemide 40 mg 08/09/24 17:00 Furosemide Inj 40 Mg/4 Ml Vial IV PUSH BID [facility] Azithromycin 500 mg in 250 mls @ 250 mls/hr 08/09/24 14:20 Zithromax IVPB 08/13/24 09:59 QAM [facility] Piperacillin Sod/Tazobactam Sod 4.5 gm in 100 mls @ 200 mls/hr 08/09/24 15:00 Zosyn 4.5 Gm/Ns 100 Ml IVPB Q6H [facility] Memantine 10 mg 08/09/24 17:00 Memantine 10 Mg Tablet PO BID [facility] Metoprolol Succinate 25 mg 08/09/24 14:25 Metoprolol Succinate Ext Rel 25 Mg Tabcr PO QAM [facility] Miconazole Nitrate 1 applic 08/09/24 14:25 Miconazole Nitrate 2% Cream 30 Gm Tube TOPICAL DAILY [facility] Multivitamins/Minerals 1 tab 08/09/24 14:25 Multivitamins /C Lutein (Centrum Silver) Tablet *Bkc PO DAILY [facility] Pantoprazole Sodium 40 mg 08/09/24 14:25 Pantoprazole Sodium Iv 40 Mg Vial IV PUSH QAM [facility] Sodium Chloride 1 gm 08/09/24 14:25 Sodium Chloride 1 Gm Tablet PO DAILY [facility] Tamsulosin HCl 0.4 mg 08/09/24 21:00 Tamsulosin Hcl 0.4 Mg Capsule PO HS [facility] Vitamin D 1,000 units 08/09/24 14:25 Cholecalciferol 1,000 Units Tablet PO DAILY [facility] Radiology Results: ITS Impressions Chest/Abdomen/Pelvis CTA 08/03/24 17:30 IMPRESSION: Segmental nonocclusive pulmonary emboli are suspected in the right lower lobe. Low clot burden. RV/LV ratio less than 1. 1.7 cm cavitary lesion in the right lower lobe, most likely secondary to infection or malignancy. Subsegmental atelectasis/consolidation in the right lower lobe. Chronic left hemidiaphragm elevation with shift of the mediastinum and heart to the right. Cardiomegaly. Small pericardial effusion. Moderate right and small left pleural effusions. Ectasia of the aortic arch. Moderate gastritis. Hepatomegaly. Possible cirrhotic change. 2.0 cm indeterminate density left upper pole lesion, slow interval growth, with increasing density. Consider nonemergent but timely CT or MRI without and with contrast for further characterization. Mild sigmoid colitis. Small volume ascites. Diffuse body wall edema. Head CT 08/03/24 20:22 IMPRESSION: No acute intracranial process, within the constraints noted above. Venous Doppler Study 08/04/24 12:08 IMPRESSION: 1. No deep venous thrombosis within the bilateral lower extremities, as detailed above. Upper Quadrant Ultrasound 08/04/24 19:36 IMPRESSION: Cholelithiasis, without ultrasound evidence of cholecystitis. Fatty infiltration of an enlarged liver. Renal Ultrasound 08/04/24 19:40 IMPRESSION: No hydronephrosis or renal calculi. Findings suggesting medical renal disease. The 2 cm left upper pole mass of soft tissue attenuation is not visualized on ultrasound. This mass was visualized on contrast-enhanced CT performed less than 24 hours earlier. Nonemergent but timely CT or MRI with renal mass protocol is again recommended for further evaluation once patient recovers from his current illness. Labs Labs: Laboratory Results - last 24 hr 08/04/24 15:53 Nasal RSV Type A (PCR) Not detected Nasal RSV Type B (PCR) Not detected Chlamy pneumoniae PCR Not detected Adenovirus DNA Not detected Human Bocavirus (NAREN) Not detected Coronavirus Type OC43 Not detected Coronavirus Type HKU1 Not detected Coronavirus Type 229E Not detected Coronavirus Type NL63 Not detected Human Metapneumovir PCR Not detected Influenza A (PCR) Not detected Influenza A (H1) RNA Not detected Influenza A (H3) PCR Not detected M. pneumoniae DNA Not detected Parainfluenza PCR Not detected Parainfluenza 2 (PCR) Not detected Parainfluenza 3 RNA (PCR) Not detected Parainfluenza 4 (PCR) Not detected Rhino/Enterovirus (NAREN) Not detected Influenza Type B (PCR) Not detected Misc Test Comment see note
[2024-08-09] MEDS: PIPERACILLIN/TAZ 4.5G/NS 100ML 4.5 GM/100 ML BAG IVPB ×2 (16:24→20:28)
[2024-08-09] MEDS: FUROSEMIDE INJ 40 MG/4 ML VIAL IV PUSH (16:28)
[2024-08-09] MEDS: EMPAGLIFLOZIN 10 MG TABLET PO (16:29)
[2024-08-09] MEDS: ASPIRIN 81 MG ENTERIC TABLET PO (16:29)
[2024-08-09] MEDS: allopurinoL 100 MG TABLET PO (16:29)
[2024-08-09] MEDS: ATORVASTATIN 40 MG TABLET PO (16:29)
[2024-08-09] MEDS: MEMANTINE 10 MG TABLET PO (16:29)
[2024-08-09] MEDS: METOPROLOL SUCCINATE EXT REL 25 MG TABCR PO (16:31)
[2024-08-09] MEDS: PHARMACIST COMMUNICATION ORDER 1 EACH XX (17:46)
[2024-08-09] MEDS: AZITHROMYCIN 500 MG/NS 250 ML 500 MG/250 ML BAG 250 MG IVPB (17:46)
[2024-08-09] MEDS: TAMSULOSIN HCL 0.4 MG CAPSULE PO (20:27)
[2024-08-10] MEDS: PIPERACILLIN/TAZ 4.5G/NS 100ML 4.5 GM/100 ML BAG IVPB ×4 (03:32→20:17)
[2024-08-10 06:00] VITALS: BP 101/51; PULSE 82; RESP 20; TEMP 36.4; O2SAT 100
[2024-08-10 08:00] VITALS: O2SAT 100
[2024-08-10] MEDS: AZITHROMYCIN 500 MG/NS 250 ML 500 MG/250 ML BAG 250 MG IVPB (08:41)
[2024-08-10] MEDS: FUROSEMIDE INJ 40 MG/4 ML VIAL IV PUSH ×2 (08:42→17:17)
[2024-08-10] MEDS: PANTOPRAZOLE SODIUM IV 40 MG VIAL IV PUSH (08:43)
[2024-08-10] MEDS: MULTIVITAMINS /C LUTEIN (CENTRUM SILVER) TABLET *BKC 1 TAB PO (08:44)
[2024-08-10] MEDS: ASPIRIN 81 MG ENTERIC TABLET PO (08:44)
[2024-08-10] MEDS: FERROUS SULFATE 325 MG TABLET DR PO (08:45)
[2024-08-10] MEDS: allopurinoL 100 MG TABLET PO ×2 (08:45→17:16)
[2024-08-10] MEDS: ASCORBIC ACID 500 MG TABLET PO (08:45)
[2024-08-10 08:46] VITALS: PULSE 84
[2024-08-10] MEDS: CHOLECALCIFEROL 1,000 UNITS TABLET 1000 UNITS PO (08:46)
[2024-08-10] MEDS: ATORVASTATIN 40 MG TABLET PO (08:46)
[2024-08-10] MEDS: METOPROLOL SUCCINATE EXT REL 25 MG TABCR PO (08:46)
[2024-08-10] MEDS: SODIUM CHLORIDE 1 GM TABLET PO (08:46)
[2024-08-10] MEDS: MEMANTINE 10 MG TABLET PO ×2 (08:46→17:16)
[2024-08-10] MEDS: EMPAGLIFLOZIN 10 MG TABLET PO (08:46)
[2024-08-10] MEDS: MICONAZOLE NITRATE 2% CREAM 30 GM TUBE 1 APPLIC TOPICAL (09:10)
[2024-08-10] MEDS: CLINDAMYCIN PHOS 1% 30 GM GEL 1 APPLIC TOPICAL (09:10)
[2024-08-10] MEDS: BETAMETHASONE/CLOTRIMAZOLE CREAM 15 GM TUBE 1 APPLIC TOPICAL ×2 (09:11→17:23)
--- NOTE | 2024-08-10 10:19 | PCOTNOTE ---
Attempted to see pt. for occupational therapy evaluation. Pt. sleeping and drowsy when attempted to arouse, requesting to continue sleeping, but agreeing to work with therapy at later time. Nurse Isabel Perez Updated. Following
[2024-08-10 14:00] VITALS: BP 95/62; PULSE 79; RESP 20; TEMP 36.4; O2SAT 94
--- NOTE | 2024-08-10 14:28 | P.PNIM_ITS ---
Progress Note: A&P Assessment and Plan (1) Essential (primary) hypertension: Code(s): I10 - Essential (primary) hypertension Status: Acute (2) Acute heart failure: Qualifiers: Heart failure type: unspecified Qualified Code(s): I50.9 - Heart failure, unspecified Code(s): I50.9 - Heart failure, unspecified Status: Acute (3) Cardiomegaly: Code(s): I51.7 - Cardiomegaly Status: Acute (4) Diastolic CHF: Qualifiers: Heart failure chronicity: acute on chronic Qualified Code(s): I50.33 - Acute on chronic diastolic (congestive) heart failure Code(s): I50.30 - Unspecified diastolic (congestive) heart failure Status: Acute (5) LBBB (left bundle branch block): Code(s): I44.7 - Left bundle-branch block, unspecified Status: Acute (6) Venous stasis: Code(s): I87.8 - Other specified disorders of veins Status: Acute (7) Aortic ectasia: Code(s): I77.819 - Aortic ectasia, unspecified site Status: Acute (8) Mixed hyperlipidemia: Code(s): E78.2 - Mixed hyperlipidemia Status: Acute (9) Thrombocytopenia: Code(s): D69.6 - Thrombocytopenia, unspecified Status: Acute (10) Pulmonary emboli: Qualifiers: Pulmonary embolism type: single subsegmental (without acute cor pulmonale) Qualified Code(s): I26.93 - Single subsegmental thrombotic pulmonary embolism without acute cor pulmonale Code(s): I26.99 - Other pulmonary embolism without acute cor pulmonale Status: Acute (11) Hepatomegaly: Code(s): R16.0 - Hepatomegaly, not elsewhere classified Status: Acute (12) Colitis: Code(s): K52.9 - Noninfective gastroenteritis and colitis, unspecified Status: Acute (13) Renal lesion: Code(s): N28.9 - Disorder of kidney and ureter, unspecified Status: Acute (14) Normocytic anemia: Code(s): D64.9 - Anemia, unspecified Status: Acute (15) Pleural effusion on right: Code(s): J90 - Pleural effusion, not elsewhere classified Status: Acute (16) Cavitary lesion of lung: Code(s): J98.4 - Other disorders of lung Status: Acute (17) Edema of extremities: Code(s): R60.0 - Localized edema Status: Acute (18) Anasarca: Code(s): R60.1 - Generalized edema Status: Acute Plan Patient presents with complaint of generalized weakness and swelling along with shortness of breath. he reports swelling in his both legs and has been worsening. he has misssed some doses of diuretic that he is prescribed. he reports some cough but not more than usual. he resides at home. He fell yesterday, slipping from his recliner when he was getting up to go to the bathroom. While his daughter tried to help him get up off the ground he reportedly became unresponsive followed by confusion before returning to baseline. 911 was called at that time but because he was no longer confused, he refused transportation at the time. He denies any pain/injury from the fall. He saw his PCP last week as he had been having diarrhea; C diff test was reportedly negative and then he started having constipation. He denies any chest pain. He has been short of breath with a nonproductive cough. No nausea or vomiting. He endorses occasional abdominal pain. No fever chills. in the ED, his vitals were stable, he has swelling bilateral lower extremities. lab evaluation showed WBC of 4.6 hemoglobin of 9 hemoglobin 10.1 plateelet 110.cr 0.7, na low at 127, d dimer elevated at 1.08, [place] [id number], ua negative for infection. ct pe protocol revealed bilateral PE with low clot burdern. he has been started on heparin gtt. His CXR showed large right sided pleural effusion, loss of lung volume within the left hemithorax secondary to hemidiaphragmatic elevation from distended aerated colon. cta showed segmental non occlusive pulmonary emboli in right lower lobe, low clot burden. RV/LV ratio less than 1. 1.7 cm cavitary lesion in lore right lower lobe, sec to infection vs malignancy. subsegmental atelectasis/consolidation int eh right lower lobe. cardiomegaly small peric ardial effusion. moderate right and small left pleural effusions. ectasia of the aortic arch, moderate gastritis. hepatomegay, possible cirrhotic changes. 2.0 cm indeterminate density left upper pole lesion,slow interval growth with increasing density. mild sigmoid colitis. small volume asictes, diffuse body wall edema. he also had other chronc findings on the CT. echo 2022 revealed ef 65-70%, grade I diastolic dysfunction. mild pulmonary hypertension he is admitted in this setting for further treatment. # acute pe # acute chf exacerbation with anasarca. diuresis as scheduled[place] [id number] # lwoer extremity edema: check us duplex #grade 1 diastolic dysfunction # generalized weakness PT OT to see Right pleural effusion underlying 1.7 cm cavitary lesion in the right lower lobe will treat with ceftriaxone azithromycin check MRSA nares. Will consult Pulmonary. Check urine antigens. May need thoracentesis to ultimately rule out underlying malignancy. Also has segmental atelectasis/consolidation of the right lower lobe will treat as pneumonia as stated above. Check procalcitonin 2.0 cm indeterminate density left upper pole kidney will do renal ultrasound also will need follow-up as an outpatient basis Hepatomegaly right upper quadrant ultrasound. Possible cirrhotic changes on CT. Has anasarca. Albumin level 3.4. Gastritis add PPI DVT prophylaxis on heparin drip Code status do not resuscitate 83 y/o male presented with lower extremities edema after he had syncopal episode, patient is being diuresed with frusemide 40mg IV BID, and edema in lower extremities is improving. 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, patient is seen by chargemaster analyst, once the patient is clinically stable will need further work up his cardiomyopathy patient want to wait until he is out of the hospital also patient is found to have significant pleural effusion and possible lung mass, patient is seen by nitroglycerin nitrator operator batch who discussed with the radiologist does not suspect patient PE, patient does have a large pleural effusion and suspicious for lung mass, on plan was to have thoracentesis however patient became agitated, violent, and not cooperative, he had told his he does not want anymore work up, patient had agreed and considering hospice care for the patient and stopped the workup and placed patient under comfort measure. today patient is little better but does not want any work up now, will continue to monitor. on 08/08 patient still remained at his baseline, did not want any work up and wants to go home. on 08/09 was more alert and oriented and his and daughter were present along with his nurse and palliative care coordinator, patient now wants have treatment including thoracentesis, will resume his treatments and order thoracentesis for tomorrow, will monitor and plan. Subjective Date/time seen: 08/10/24 14:28 Interval history: 83 y/o male presented with lower extremities edema after he had syncopal episode, patient is being diuresed with frusemide 40mg IV BID, and edema in lower extremities is improving. 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, patient is seen by chargemaster analyst, once the patient is clinically stable will need further work up his cardiomyopathy patient want to wait until he is out of the hospital also patient is found to have significant pleural effusion and possible lung mass, patient is seen by nitroglycerin nitrator operator batch who discussed with the radiologist does not suspect patient PE, patient does have a large pleural effusion and suspicious for lung mass, on plan was to have thoracentesis however patient became agitated, violent, and not cooperative, he had told his he does not want anymore work up, patient had agreed and considering hospice care for the patient and stopped the workup and placed patient under comfort measure. today patient is little better but does not want any work up now, will continue to monitor. on 08/08 patient still remained at his baseline, did not want any work up and wants to go home. on 08/09 was more alert and oriented and his and daughter were present along with his nurse and palliative care coordinator, patient now wants have treatment including thoracentesis, will resume his treatments and order thoracentesis for tomorrow, will monitor and plan. Review of Systems Review of Systems: - CONSTITUTIONAL: Denies weight loss, fe jesse and chills. - HEENT: Denies changes in vision and he aring - RESPIRATORY: reports SOB and cough. - CV: Denies palpitations and CP. - GI: Denies abdominal pain, nausea, vom iting and diarrhea. - : Denies dysuria and urinary frequen cy. - MSK: Denies myalgia and joint pain. - SKIN: Denies rash and pruritus. - NEUROLOGICAL: Denies headache and sync ope. - PSYCHIATRIC: Denies recent changes in mood. Denies anxiety and depression. Exam Narrative: Elderly frail Patient is comfortable, NAD HEENT: eyes are clear and none icteric LUNGS: BS with bilateral poor air entry with rales and rhonchi HEART: RR S1S2 ABD: BS+, Soft and nontender Lower extremities: no edema SKIN: nonjaundiced Neuro: grossly intact. Objective Data Vital Signs Vital Signs: Vital Signs - 24 hr 08/09/24 15:41 08/09/24 16:31 08/09/24 20:22 Temperature 36.8 C Pulse Rate 94 94 Respiratory Rate 16 Blood Pressure 105/71 Pulse Oximetry 100 95 Oxygen Delivery Nasal Cannula Oxygen Flow Rate 4 08/09/24 20:49 08/09/24 21:00 08/10/24 06:00 Temperature 36.3 C L 36.4 C Pulse Rate 87 82 Respiratory Rate 20 20 Blood Pressure 100/56 L 101/51 L Pulse Oximetry 89 L 95 100 Oxygen Delivery Oxygen Flow Rate 08/10/24 08:00 08/10/24 08:46 Temperature Pulse Rate 84 Respiratory Rate Blood Pressure Pulse Oximetry 100 Oxygen Delivery Nasal Cannula Oxygen Flow Rate 4 Intake/Output Intake/Output: Intake & Output 08/07/24 08/08/24 08/09/24 08/10/24 23:59 23:59 23:59 23:59 Intake Total 200 1780 2440 694 Output Total 1900 452 568 6430 Balance -1700 1030 1840 -306 Meds/Results Medications: Active Medications Generic Name Dose Route Start Last Admin Trade Name Freq PRN Reason Stop Dose Admin Acetaminophen 500 mg 08/04/24 11:09 08/08/24 02:16 Acetaminophen 500 Mg Tablet PO 500 mg BID PRN Administration pain Allopurinol 100 mg 08/09/24 17:00 08/10/24 08:45 Allopurinol 100 Mg Tablet PO 100 mg BID MELQUIADES Administration Artificial Tears 1 drop 08/09/24 14:21 Artificial Tears Ophth Soln 15 Ml Bottle EACH EYE QID PRN Dry Eye(s) Ascorbic Acid 500 mg 08/09/24 14:25 08/10/24 08:45 Ascorbic Acid 500 Mg Tablet PO 500 mg DAILY MELQUIADES Administration Aspirin 81 mg 08/09/24 14:25 08/10/24 08:44 Aspirin 81 Mg Enteric Tablet PO 81 mg DAILY MELQUIADES Administration Atorvastatin Calcium 40 mg 08/09/24 14:08/10/24 08:46 Atorvastatin 40 Mg Tablet PO 40 mg DAILY MELQUIADES Administration Clindamycin Phosphate 1 applic 08/09/24 14:25 08/10/24 09:10 Clindamycin Phos 1% 30 Gm Gel TOPICAL 1 applic DAILY MELQUIADES Administration Clotrimazole 1 applic 08/09/24 17:00 08/10/24 09:11 Betamethasone/Clotrimazole Cream 15 Gm Tube TOPICAL 1 applic BID MELQUIADES Administration Empagliflozin 10 mg 08/09/24 14:08/10/24 08:46 Empagliflozin 10 Mg Tablet PO 10 mg DAILY MELQUIADES Administration Ferrous Sulfate 325 mg 08/09/24 14:25 08/10/24 08:45 Ferrous Sulfate [address] PO 325 mg DAILY MELQUIADES Administration Furosemide 40 mg 08/09/24 17:00 08/10/24 08:42 Furosemide Inj 40 Mg/4 Ml Vial IV PUSH 40 mg BID MELQUIADES Administration Azithromycin 500 mg in 250 mls @ 250 mls/hr 08/09/24 14:20 08/10/24 08:41 Zithromax IVPB 08/13/24 09:59 250 mls/hr QAM MELQUIADES Administration Piperacillin Sod/Tazobactam Sod 4.5 gm in 100 mls @ 200 mls/hr 08/09/24 15:00 08/10/24 08:40 Zosyn 4.5 Gm/Ns 100 Ml IVPB 200 mls/hr Q6H MELQUIADES Administration Memantine 10 mg 08/09/24 17:00 08/10/24 08:46 Memantine 10 Mg Tablet PO 10 mg BID MELQUIADES Administration Metoprolol Succinate 25 mg 08/09/24 14:25 08/10/24 08:46 Metoprolol Succinate Ext Rel 25 Mg Tabcr PO 25 mg QAM MELQUIADES Administration Miconazole Nitrate 1 applic 08/09/24 14:25 08/10/24 09:10 Miconazole Nitrate 2% Cream 30 Gm Tube TOPICAL 1 applic DAILY MELQUIADES Administration Multivitamins/Minerals 1 tab 08/09/24 14:08/10/24 08:44 Multivitamins /C Lutein (Centrum Silver) Tablet *Bkc PO 1 tab DAILY MELQUIADES Administration Pantoprazole Sodium 40 mg 08/09/24 14:25 08/10/24 08:43 Pantoprazole Sodium Iv 40 Mg Vial IV PUSH 40 mg QAM MELQUIADES Administration Sodium Chloride 1 gm 08/09/24 14:25 08/10/24 08:46 Sodium Chloride 1 Gm Tablet PO 1 gm DAILY MELQUIADES Administration Tamsulosin HCl 0.4 mg 08/09/24 21:00 08/09/24 20:27 Tamsulosin Hcl 0.4 Mg Capsule PO 0.4 mg HS MELQUIADES Administration Vitamin D 1,000 units 08/09/24 14:25 08/10/24 08:46 Cholecalciferol 1,000 Units Tablet PO 1,000 units DAILY MELQUIADES Administration Radiology Results: ITS Impressions Chest/Abdomen/Pelvis CTA 08/03/24 17:30 IMPRESSION: Segmental nonocclusive pulmonary emboli are suspected in the right lower lobe. Low clot burden. RV/LV ratio less than 1. 1.7 cm cavitary lesion in the right lower lobe, most likely secondary to infection or malignancy. Subsegmental atelectasis/consolidation in the right lower lobe. Chronic left hemidiaphragm elevation with shift of the mediastinum and heart to the right. Cardiomegaly. Small pericardial effusion. Moderate right and small left pleural effusions. Ectasia of the aortic arch. Moderate gastritis. Hepatomegaly. Possible cirrhotic change. 2.0 cm indeterminate density left upper pole lesion, slow interval growth, with increasing density. Consider nonemergent but timely CT or MRI without and with contrast for further characterization. Mild sigmoid colitis. Small volume ascites. Diffuse body wall edema. Head CT 08/03/24 20:22 IMPRESSION: No acute intracranial process, within the constraints noted above. Venous Doppler Study 08/04/24 12:08 IMPRESSION: 1. No deep venous thrombosis within the bilateral lower extremities, as detailed above. Upper Quadrant Ultrasound 08/04/24 19:36 IMPRESSION: Cholelithiasis, without ultrasound evidence of cholecystitis. Fatty infiltration of an enlarged liver. Renal Ultrasound 08/04/24 19:40 IMPRESSION: No hydronephrosis or renal calculi. Findings suggesting medical renal disease. The 2 cm left upper pole mass of soft tissue attenuation is not visualized on ul trasound. This mass was visualized on contrast-enhanced CT performed less than 24 hours earlier. Nonemergent but timely CT or MRI with renal mass protocol is again recommended for further evaluation once patient recovers from his current illness. Labs Labs: Laboratory Results - last 24 hr 08/04/24 15:53 SARS-CoV-2 RNA (RT-PCR) Not detected
[2024-08-10 20:00] VITALS: O2SAT 94
[2024-08-10] MEDS: TAMSULOSIN HCL 0.4 MG CAPSULE PO (20:17)
[2024-08-10 21:49] VITALS: BP 120/80; PULSE 90; RESP 22; TEMP 36.7; O2SAT 94
[2024-08-11] VITALS (8 sets, daily range): BP systolic 100–125; BP diastolic 51–69; PULSE 82–89; RESP 14–20; TEMP 36.2–36.6; O2SAT 84–100
[2024-08-11] MEDS: PIPERACILLIN/TAZ 4.5G/NS 100ML 4.5 GM/100 ML BAG IVPB ×4 (02:25→22:57)
[2024-08-11 06:21] LABS: Hematocrit 29.7 % (42.0-52.0); Hemoglobin 8.9 g/dL (14.0-18.0); Immature Platelet Fraction Pct 2.4 % (0.9-11.2); Mean Corpuscular Hemoglobin 27.8 pg (26-34); Mean Corpuscular Volume 92.8 fl (80-100); Mean Platelet Volume 9.1 fl (7.4-10.4); Platelet Count Result 94 k/mm3 (150-375); Red Cell Distribution Width 20.1 % (11.5-14.5); White Blood Count 2.8 K/mm3 (4.5-10.0)
[2024-08-11 06:32] LABS: INR 1.2; Prothrombin Time 15.2 Seconds (11.1-14.7)
[2024-08-11 07:17] LABS: Blood Urea Nitrogen 21 mg/dL (9-20); Calcium 7.8 mg/dL (8.4-10.2); Carbon Dioxide > 40 mmol/L (22-30); Chloride 84 mmol/L (98-107); Estimated CRCL calculation 43 ml/min; Estimated Glomerular Filt Rate > 60; Glucose 81 mg/dL (65-110); Magnesium 2.1 mg/dL (1.6-2.3); Potassium 3.4 mmol/L (3.4-5.0); Sodium 132 mmol/L (137-145)
[2024-08-11] MEDS: AZITHROMYCIN 500 MG/NS 250 ML 500 MG/250 ML BAG 250 MG IVPB (09:13)
[2024-08-11] MEDS: CLINDAMYCIN PHOS 1% 30 GM GEL 1 APPLIC TOPICAL (09:14)
[2024-08-11] MEDS: BETAMETHASONE/CLOTRIMAZOLE CREAM 15 GM TUBE 1 APPLIC TOPICAL (09:14)
[2024-08-11] MEDS: MICONAZOLE NITRATE 2% CREAM 30 GM TUBE 1 APPLIC TOPICAL (09:15)
[2024-08-11] MEDS: PANTOPRAZOLE SODIUM IV 40 MG VIAL IV PUSH (09:15)
[2024-08-11] MEDS: FUROSEMIDE INJ 40 MG/4 ML VIAL IV PUSH (09:15)
[2024-08-11] MEDS: ALPRAZolam (*CRX) 0.25 MG TABLET PO (09:35)
[2024-08-11] MEDS: SODIUM CHLORIDE 0.9% IV 250 ML 999 ML (10:59)
[2024-08-11] MEDS: SODIUM CHLORIDE 0.9% IV 250 ML 999 ML IV CONT (11:07)
[2024-08-11] MEDS: LORazepam INJ (*CRX) 2 MG/ML VIAL 0.5 MG IV PUSH (15:03)
--- NOTE | 2024-08-11 15:30 | CY_PTH ---
PATIENT: Nick Echeverria LOC: [id number] U#:[id number] AGE/SX: 83/M ROOM: 321 RE08/03/[address]: Leonora Haines MD : 1940 BED: 02 DIS: 08/13/2024 SPEC #: [id number] RECD: 08/12/24 07:09 STATUS: DI MAURER #: [id number] SEWTA: 08/11/24 15:[address]: Robert Kruse DEPT: [facility] Cytology RECD BY: Arelis De Jesus ENTERED: 08/12/24 07:10 SP TYPE: Cytology OT DR: MD Rylie Payan DO Dean F. Schueler, MD Tissues: A - Pleural Fluid Procedures: Hematoxylin and Eosin Stain Cell Block Cytopathology Cytospin
--- NOTE | 2024-08-11 16:20 | P.PNIM_ITS ---
Progress Note: A&P Assessment and Plan (1) Essential (primary) hypertension: Code(s): I10 - Essential (primary) hypertension Status: Acute (2) Acute heart failure: Qualifiers: Heart failure type: unspecified Qualified Code(s): I50.9 - Heart failure, unspecified Code(s): I50.9 - Heart failure, unspecified Status: Acute (3) Cardiomegaly: Code(s): I51.7 - Cardiomegaly Status: Acute (4) Diastolic CHF: Qualifiers: Heart failure chronicity: acute on chronic Qualified Code(s): I50.33 - Acute on chronic diastolic (congestive) heart failure Code(s): I50.30 - Unspecified diastolic (congestive) heart failure Status: Acute (5) LBBB (left bundle branch block): Code(s): I44.7 - Left bundle-branch block, unspecified Status: Acute (6) Venous stasis: Code(s): I87.8 - Other specified disorders of veins Status: Acute (7) Aortic ectasia: Code(s): I77.819 - Aortic ectasia, unspecified site Status: Acute (8) Mixed hyperlipidemia: Code(s): E78.2 - Mixed hyperlipidemia Status: Acute (9) Thrombocytopenia: Code(s): D69.6 - Thrombocytopenia, unspecified Status: Acute (10) Pulmonary emboli: Qualifiers: Pulmonary embolism type: single subsegmental (without acute cor pulmonale) Qualified Code(s): I26.93 - Single subsegmental thrombotic pulmonary embolism without acute cor pulmonale Code(s): I26.99 - Other pulmonary embolism without acute cor pulmonale Status: Acute (11) Hepatomegaly: Code(s): R16.0 - Hepatomegaly, not elsewhere classified Status: Acute (12) Colitis: Code(s): K52.9 - Noninfective gastroenteritis and colitis, unspecified Status: Acute (13) Renal lesion: Code(s): N28.9 - Disorder of kidney and ureter, unspecified Status: Acute (14) Normocytic anemia: Code(s): D64.9 - Anemia, unspecified Status: Acute (15) Pleural effusion on right: Code(s): J90 - Pleural effusion, not elsewhere classified Status: Acute (16) Cavitary lesion of lung: Code(s): J98.4 - Other disorders of lung Status: Acute (17) Edema of extremities: Code(s): R60.0 - Localized edema Status: Acute (18) Anasarca: Code(s): R60.1 - Generalized edema Status: Acute Plan Patient presents with complaint of generalized weakness and swelling along with shortness of breath. he reports swelling in his both legs and has been worsening. he has misssed some doses of diuretic that he is prescribed. he reports some cough but not more than usual. he resides at home. He fell yesterday, slipping from his recliner when he was getting up to go to the bathroom. While his daughter tried to help him get up off the ground he reportedly became unresponsive followed by confusion before returning to baseline. 911 was called at that time but because he was no longer confused, he refused transportation at the time. He denies any pain/injury from the fall. He saw his PCP last week as he had been having diarrhea; C diff test was reportedly negative and then he started having constipation. He denies any chest pain. He has been short of breath with a nonproductive cough. No nausea or vomiting. He endorses occasional abdominal pain. No fever chills. in the ED, his vitals were stable, he has swelling bilateral lower extremities. lab evaluation showed WBC of 4.6 hemoglobin of 9 hemoglobin 10.1 plateelet 110.cr 0.7, na low at 127, d dimer elevated at 1.08, trop[place]. b[place] [id number], ua negative for infection. ct pe protocol revealed bilateral PE with low clot burdern. he has been started on heparin gtt. His CXR showed large right sided pleural effusion, loss of lung volume within the left hemithorax secondary to hemidiaphragmatic elevation from distended aerated colon. cta showed segmental non occlusive pulmonary emboli in right lower lobe, low clot burden. RV/LV ratio less than 1. 1.7 cm cavitary lesion in lore right lower lobe, sec to infection vs malignancy. subsegmental atelectasis/consolidation int eh right lower lobe. cardiomegaly small peric ardial effusion. moderate right and small left pleural effusions. ectasia of the aortic arch, moderate gastritis. hepatomegay, possible cirrhotic changes. 2.0 cm indeterminate density left upper pole lesion,slow interval growth with increasing density. mild sigmoid colitis. small volume asictes, diffuse body wall edema. he also had other chronc findings on the CT. echo 2022 revealed ef 65-70%, grade I diastolic dysfunction. mild pulmonary hypertension he is admitted in this setting for further treatment. # acute pe # acute chf exacerbation with anasarca. diuresis as [place] [id number] # lwoer extremity edema: check us duplex #grade 1 diastolic dysfunction # generalized weakness PT OT to see Right pleural effusion underlying 1.7 cm cavitary lesion in the right lower lobe will treat with ceftriaxone azithromycin check MRSA nares. Will consult Pulmonary. Check urine antigens. May need thoracentesis to ultimately rule out underlying malignancy. Also has segmental atelectasis/consolidation of the right lower lobe will treat as pneumonia as stated above. Check procalcitonin 2.0 cm indeterminate density left upper pole kidney will do renal ultrasound also will need follow-up as an outpatient basis Hepatomegaly right upper quadrant ultrasound. Possible cirrhotic changes on CT. Has anasarca. Albumin level 3.4. Gastritis add PPI DVT prophylaxis on heparin drip Code status do not resuscitate 83 y/o male presented with lower extremities edema after he had syncopal episode, patient is being diuresed with frusemide 40mg IV BID, and edema in lower extremities is improving. 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, patient is seen by cooker sulfate, once the patient is clinically stable will need further work up his cardiomyopathy patient want to wait until he is out of the hospital also patient is found to have significant pleural effusion and possible lung mass, patient is seen by senior j2ee developer who discussed with the radiologist does not suspect patient PE, patient does have a large pleural effusion and suspicious for lung mass, on plan was to have thoracentesis however patient became agitated, violent, and not cooperative, he had told his he does not want anymore work up, patient had agreed and considering hospice care for the patient and stopped the workup and placed patient under comfort measure. today patient is little better but does not want any work up now, will continue to monitor. on 08/08 patient still remained at his baseline, did not want any work up and wants to go home. on 08/09 was more alert and oriented and his and daughter were present along with his nurse and daycare director, patient now wants have treatment including thoracentesis, will resume his treatments and patient is scheduled to have thoracentesis today will consult Dr. Jones for further recommendation to follow. Subjective Date/time seen: 08/11/24 16:20 Interval history: 83 y/o male presented with lower extremities edema after he had syncopal episode, patient is being diuresed with frusemide 40mg IV BID, and edema in lower extremities is improving. 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, patient is seen by ca rdiologist, once the patient is clinically stable will need further work up his cardiomyopathy patient want to wait until he is out of the hospital also patient is found to have significant pleural effusion and possible lung mass, patient is seen by senior j2ee developer who discussed with the radiologist does not suspect patient PE, patient does have a large pleural effusion and suspicious for lung mass, on plan was to have thoracentesis however patient became agitated, violent, and not cooperative, he had told his he does not want anymore work up, patient had agreed and considering hospice care for the patient and stopped the workup and placed patient under comfort measure. today patient is little better but does not want any work up now, will continue to monitor. on 08/08 patient still remained at his baseline, did not want any work up and wants to go home. on 08/09 was more alert and oriented and his and daughter were present along with his nurse and daycare director, patient now wants have treatment including thoracentesis, will resume his treatments and patient is scheduled to have thoracentesis today will consult Dr. Jones for further recommendation to follow. Review of Systems Review of Systems: - CONSTITUTIONAL: Denies weight loss, fe jesse and chills. - HEENT: Denies changes in vision and he aring - RESPIRATORY: reports SOB and cough. - CV: Denies palpitations and CP. - GI: Denies abdominal pain, nausea, vom iting and diarrhea. - : Denies dysuria and urinary frequen cy. - MSK: Denies myalgia and joint pain. - SKIN: Denies rash and pruritus. - NEUROLOGICAL: Denies headache and sync ope. - PSYCHIATRIC: Denies recent changes in mood. Denies anxiety and depression. Exam Narrative: Elderly frail Patient is comfortable, NAD HEENT: eyes are clear and none icteric LUNGS: BS with bilateral poor air entry with rales and rhonchi HEART: RR S1S2 ABD: BS+, Soft and nontender Lower extremities: no edema SKIN: nonjaundiced Neuro: grossly intact. Objective Data Vital Signs Vital Signs: Vital Signs - 24 hr 08/10/24 20:00 08/10/24 21:49 08/11/24 05:18 Temperature 36.7 C 36.5 C Pulse Rate 90 86 Respiratory Rate 22 H 20 Blood Pressure 120/80 107/65 Pulse Oximetry 94 94 93 Oxygen Delivery Nasal Cannula Oxygen Flow Rate 1 08/11/24 08:00 08/11/24 09:59 08/11/24 10:24 Temperature Pulse Rate Respiratory Rate Blood Pressure Pulse Oximetry 98 Oxygen Delivery Nasal Cannula Nasal Cannula Nasal Cannula Oxygen Flow Rate 1 1 1 08/11/24 11:00 08/11/24 14:00 08/11/24 14:30 Temperature 36.4 C Pulse Rate 89 89 86 Respiratory Rate 18 18 14 Blood Pressure 113/62 121/51 L Pulse Oximetry 97 100 84 L Oxygen Delivery Nasal Cannula Oxygen Flow Rate 1 08/11/24 14:49 08/11/24 15:45 Temperature 36.2 C L Pulse Rate 82 88 Respiratory Rate 14 20 Blood Pressure 125/69 Pulse Oximetry 93 100 Oxygen Delivery Oxygen Flow Rate 3 Intake/Output Intake/Output: Intake & Output 08/08/24 08/09/24 08/10/24 08/11/24 23:59 23:59 23:59 23:59 Intake Total 1780 2440 2034 350 Output Total 501 808 3859 1450 Balance 1030 1840 -516 -1100 Meds/Results Medications: Active Medications Generic Name Dose Route Start Last Admin Trade Name Freq PRN Reason Stop Dose Admin Acetaminophen 500 mg 08/04/24 11:09 08/08/24 02:16 Acetaminophen 500 Mg Tablet PO 500 mg BID PRN Administration pain Allopurinol 100 mg 08/09/24 17:00 08/11/24 10:01 Allopurinol 100 Mg Tablet PO Not Given BID [facility] Artificial Tears 1 drop 08/09/24 14:21 Artificial Tears Ophth Soln 15 Ml Bottle EACH EYE QID PRN Dry Eye(s) Ascorbic Acid 500 mg 08/09/24 14:25 08/11/24 10:01 Ascorbic Acid 500 Mg Tablet PO Not Given DAILY [facility] Aspirin 81 mg 08/09/24 14:25 08/11/24 10:01 Aspirin 81 Mg Enteric Tablet PO Not Given DAILY [facility] Atorvastatin Calcium 40 mg 08/09/24 14:25 08/11/24 10:02 Atorvastatin 40 Mg Tablet PO Not Given DAILY [facility] Clindamycin Phosphate 1 applic 08/09/24 14:08/11/24 09:14 Clindamycin Phos 1% 30 Gm Gel TOPICAL 1 applic DAILY [facility] Administration Clotrimazole 1 applic 08/09/24 17:00 08/11/24 09:14 Betamethasone/Clotrimazole Cream 15 Gm Tube TOPICAL 1 applic BID M[facility]QUIADES Administration Empagliflozin 10 mg 08/09/24 14:08/11/24 10:02 Empagliflozin 10 Mg Tablet PO Not Given DAILY [facility] Ferrous Sulfate 325 mg 08/09/24 14:08/11/24 10:02 Ferrous Sulfate [address] PO Not Given DAILY [facility] Azithromycin 500 mg in 250 mls @ 250 mls/hr 08/09/24 14:20 08/11/24 09:13 Zithromax IVPB 08/13/24 09:59 250 mls/hr QAM [facility] Administration Piperacillin Sod/Tazobactam Sod 4.5 gm in 100 mls @ 200 mls/hr 08/11/24 18:00 Zosyn 4.5 Gm/Ns 100 Ml IVPB Q6H [facility] Memantine 10 mg 08/09/24 17:00 08/11/24 10:02 Memantine 10 Mg Tablet PO Not Given BID [facility] Metoprolol Succinate 25 mg 08/09/24 14:08/11/24 10:02 Metoprolol Succinate Ext Rel 25 Mg Tabcr PO Not Given QAM [facility] Miconazole Nitrate 1 applic 08/09/24 14:08/11/24 09:15 Miconazole Nitrate 2% Cream 30 Gm Tube TOPICAL 1 applic DAILY [facility] Administration Multivitamins/Minerals 1 tab 08/09/24 14:25 08/11/24 10:02 Multivitamins /C Lutein (Centrum Silver) Tablet *Bkc PO Not Given DAILY [facility] Pantoprazole Sodium 40 mg 08/09/24 14:25 08/11/24 09:15 Pantoprazole Sodium Iv 40 Mg Vial IV PUSH 40 mg QAM [facility] Administration Sodium Chloride 1 gm 08/09/24 14:25 08/11/24 10:02 Sodium Chloride 1 Gm Tablet PO Not Given DAILY [facility] Tamsulosin HCl 0.4 mg 08/09/24 21:00 08/10/24 20:17 Tamsulosin Hcl 0.4 Mg Capsule PO 0.4 mg HS [facility] Administration Vitamin D 1,000 units 08/09/24 14:25 08/11/24 10:02 Cholecalciferol 1,000 Units Tablet PO Not Given DAILY [facility] Radiology Results: ITS Impressions Chest/Abdomen/Pelvis CTA 08/03/24 17:30 IMPRESSION: Segmental nonocclusive pulmonary emboli are suspected in the right lower lobe. Low clot burden. RV/LV ratio less than 1. 1.7 cm cavitary lesion in the right lower lobe, most likely secondary to infection or malignancy. Subsegmental atelectasis/consolidation in the right lower lobe. Chronic left hemidiaphragm elevation with shift of the mediastinum and heart to the right. Cardiomegaly. Small pericardial effusion. Moderate right and small left pleural effusions. Ectasia of the aortic arch. Moderate gastritis. Hepatomegaly. Possible cirrhotic change. 2.0 cm indeterminate density left upper pole lesion, slow interval growth, with increasing density. Consider nonemergent but timely CT or MRI without and with contrast for further characterization. Mild sigmoid colitis. Small volume ascites. Diffuse body wall edema. Head CT 08/03/24 20:22 IMPRESSION: No acute intracranial process, within the constraints noted above. Venous Doppler Study 08/04/24 12:08 IMPRESSION: 1. No deep venous thrombosis within the bilateral lower extremities, as detailed above. Upper Quadrant Ultrasound 08/04/24 19:36 IMPRESSION: Cholelithiasis, without ultrasound evidence of cholecystitis. Fatty infiltration of an enlarged liver. Renal Ultrasound 08/04/24 19:40 IMPRESSION: No hydronephrosis or renal calculi. Findings suggesting medical renal disease. The 2 cm left upper pole mass of soft tissue attenuation is not visualized on ultrasound. This mass was visualized on contrast-enhanced CT performed less than 24 hours earlier. Nonemergent but timely CT or MRI with renal mass protocol is again recommended for further evaluation once patient recovers from his current illness. Chest X-Ray 08/11/24 15:51 IMPRESSION: 1. No pneumothorax post right thoracentesis with improved aeration at the right lung base and no residual pleural effusion. 2. Chronic elevation the left hemidiaphragm. 2. Mild opacities in bilateral lower lung zones which could represent atelectasis or pneumonia. 4. Borderline heart size. Thoracentesis Ultrasound 08/11/24 16:09 IMPRESSION: 1. Successful ultrasound-guided thoracentesis yielding 750 mL of clear yellow fluid. Labs Labs: Laboratory Results - last 24 hr 08/11/24 05:50 WBC 2.8 L RBC 3.20 L Hgb 8.9 L Hct 29.7 L MCV 92.8 MCH 27.8 D MCHC 30.0 L RDW 20.1 H Plt Count 94 L MPV 9.1 % Immature Plt Fraction 2.4 PT 15.2 H INR 1.2 Sodium 132 L Potassium 3.4 Chloride 84 L Carbon Dioxide > 40 H Anion Gap BUN 21 H Creatinine 0.96 Estim Creat Clear Calc 43 Estimated GFR > 60 Glucose 81 Calcium 7.8 L Magnesium 2.1
[2024-08-11] MEDS: TAMSULOSIN HCL 0.4 MG CAPSULE PO (20:58)
[2024-08-12] VITALS (7 sets, daily range): BP systolic 98–106; BP diastolic 56–65; PULSE 87–99; RESP 14–20; TEMP 36.4–36.6; O2SAT 86–100
[2024-08-12] MEDS: PIPERACILLIN/TAZ 4.5G/NS 100ML 4.5 GM/100 ML BAG IVPB ×4 (05:22→23:08)
[2024-08-12 06:57] LABS: Hematocrit 33.4 % (42.0-52.0); Hemoglobin 9.2 g/dL (14.0-18.0); Immature Platelet Fraction Pct 2.3 % (0.9-11.2); Mean Corpuscular HGB Conc 27.5 g/dl (32-36); Mean Corpuscular Hemoglobin 25.6 pg (26-34); Mean Corpuscular Volume 92.8 fl (80-100); Mean Platelet Volume 8.7 fl (7.4-10.4); Platelet Count Result 104 k/mm3 (150-375); Red Cell Distribution Width 19.9 % (11.5-14.5); White Blood Count 2.9 K/mm3 (4.5-10.0)
[2024-08-12 07:21] LABS: Blood Urea Nitrogen 21 mg/dL (9-20); Carbon Dioxide > 40 mmol/L (22-30); Chloride 84 mmol/L (98-107); Estimated CRCL calculation 42 ml/min; Estimated Glomerular Filt Rate > 60; Glucose 69 mg/dL (65-110); Magnesium 2.2 mg/dL (1.6-2.3); Potassium 3.3 mmol/L (3.4-5.0); Sodium 135 mmol/L (137-145)
[2024-08-12] MEDS: SODIUM CHLORIDE 0.9% IV 250 ML 999 ML IV CONT (08:18)
[2024-08-12] MEDS: AZITHROMYCIN 500 MG/NS 250 ML 500 MG/250 ML BAG 250 MG IVPB (08:22)
--- NOTE | 2024-08-12 08:23 | PCPTNOTE ---
Attempted to see patient for PT, however RN reports patient has low BP this morning and will be receiving fluid bolus. PT will continue to follow.
[2024-08-12] MEDS: MICONAZOLE NITRATE 2% CREAM 30 GM TUBE 1 APPLIC TOPICAL (08:26)
[2024-08-12] MEDS: CLINDAMYCIN PHOS 1% 30 GM GEL 1 APPLIC TOPICAL (08:26)
[2024-08-12] MEDS: BETAMETHASONE/CLOTRIMAZOLE CREAM 15 GM TUBE 1 APPLIC TOPICAL ×2 (08:27→16:05)
[2024-08-12] MEDS: PANTOPRAZOLE SODIUM IV 40 MG VIAL IV PUSH (09:06)
[2024-08-12] MEDS: MEMANTINE 10 MG TABLET PO (16:04)
[2024-08-12] MEDS: allopurinoL 100 MG TABLET PO (16:04)
--- NOTE | 2024-08-12 17:04 | P.PNIM_ITS ---
Progress Note: A&P Assessment and Plan (1) Essential (primary) hypertension: Code(s): I10 - Essential (primary) hypertension Status: Acute (2) Acute heart failure: Qualifiers: Heart failure type: unspecified Qualified Code(s): I50.9 - Heart failure, unspecified Code(s): I50.9 - Heart failure, unspecified Status: Acute (3) Cardiomegaly: Code(s): I51.7 - Cardiomegaly Status: Acute (4) Diastolic CHF: Qualifiers: Heart failure chronicity: acute on chronic Qualified Code(s): I50.33 - Acute on chronic diastolic (congestive) heart failure Code(s): I50.30 - Unspecified diastolic (congestive) heart failure Status: Acute (5) LBBB (left bundle branch block): Code(s): I44.7 - Left bundle-branch block, unspecified Status: Acute (6) Venous stasis: Code(s): I87.8 - Other specified disorders of veins Status: Acute (7) Aortic ectasia: Code(s): I77.819 - Aortic ectasia, unspecified site Status: Acute (8) Mixed hyperlipidemia: Code(s): E78.2 - Mixed hyperlipidemia Status: Acute (9) Thrombocytopenia: Code(s): D69.6 - Thrombocytopenia, unspecified Status: Acute (10) Pulmonary emboli: Qualifiers: Pulmonary embolism type: single subsegmental (without acute cor pulmonale) Qualified Code(s): I26.93 - Single subsegmental thrombotic pulmonary embolism without acute cor pulmonale Code(s): I26.99 - Other pulmonary embolism without acute cor pulmonale Status: Acute (11) Hepatomegaly: Code(s): R16.0 - Hepatomegaly, not elsewhere classified Status: Acute (12) Colitis: Code(s): K52.9 - Noninfective gastroenteritis and colitis, unspecified Status: Acute (13) Renal lesion: Code(s): N28.9 - Disorder of kidney and ureter, unspecified Status: Acute (14) Normocytic anemia: Code(s): D64.9 - Anemia, unspecified Status: Acute (15) Pleural effusion on right: Code(s): J90 - Pleural effusion, not elsewhere classified Status: Acute (16) Cavitary lesion of lung: Code(s): J98.4 - Other disorders of lung Status: Acute (17) Edema of extremities: Code(s): R60.0 - Localized edema Status: Acute (18) Anasarca: Code(s): R60.1 - Generalized edema Status: Acute Plan Patient presents with complaint of generalized weakness and swelling along with shortness of breath. he reports swelling in his both legs and has been worsening. he has misssed some doses of diuretic that he is prescribed. he reports some cough but not more than usual. he resides at home. He fell yesterday, slipping from his recliner when he was getting up to go to the bathroom. While his daughter tried to help him get up off the ground he reportedly became unresponsive followed by confusion before returning to baseline. 911 was called at that time but because he was no longer confused, he refused transportation at the time. He denies any pain/injury from the fall. He saw his PCP last week as he had been having diarrhea; C diff test was reportedly negative and then he started having constipation. He denies any chest pain. He has been short of breath with a nonproductive cough. No nausea or vomiting. He endorses occasional abdominal pain. No fever chills. in the ED, his vitals were stable, he has swelling bilateral lower extremities. lab evaluation showed WBC of 4.6 hemoglobin of 9 hemoglobin 10.1 plateelet 110.cr 0.7, na low at 127, d dimer elevated at 1.08, [place]. [place] [id number], ua negative for infection. ct pe protocol revealed bilateral PE with low clot burdern. he has been started on heparin gtt. His CXR showed large right sided pleural effusion, loss of lung volume within the left hemithorax secondary to hemidiaphragmatic elevation from distended aerated colon. cta showed segmental non occlusive pulmonary emboli in right lower lobe, low clot burden. RV/LV ratio less than 1. 1.7 cm cavitary lesion in lore right lower lobe, sec to infection vs malignancy. subsegmental atelectasis/consolidation int eh right lower lobe. cardiomegaly small peric ardial effusion. moderate right and small left pleural effusions. ectasia of the aortic arch, moderate gastritis. hepatomegay, possible cirrhotic changes. 2.0 cm indeterminate density left upper pole lesion,slow interval growth with increasing density. mild sigmoid colitis. small volume asictes, diffuse body wall edema. he also had other chronc findings on the CT. echo 2022 revealed ef 65-70%, grade I diastolic dysfunction. mild pulmonary hypertension he is admitted in this setting for further treatment. # acute pe # acute chf exacerbation with anasarca. diuresis as scheduled[place] [id number] # lwoer extremity edema: check us duplex #grade 1 diastolic dysfunction # generalized weakness PT OT to see Right pleural effusion underlying 1.7 cm cavitary lesion in the right lower lobe will treat with ceftriaxone azithromycin check MRSA nares. Will consult Pulmonary. Check urine antigens. May need thoracentesis to ultimately rule out underlying malignancy. Also has segmental atelectasis/consolidation of the right lower lobe will treat as pneumonia as stated above. Check procalcitonin 2.0 cm indeterminate density left upper pole kidney will do renal ultrasound also will need follow-up as an outpatient basis Hepatomegaly right upper quadrant ultrasound. Possible cirrhotic changes on CT. Has anasarca. Albumin level 3.4. Gastritis add PPI DVT prophylaxis on heparin drip Code status do not resuscitate 83 y/o male presented with lower extremities edema after he had syncopal episode, patient is being diuresed with frusemide 40mg IV BID, and edema in lower extremities is improving. 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, patient is seen by shipper/receiver, once the patient is clinically stable will need further work up his cardiomyopathy patient want to wait until he is out of the hospital also patient is found to have significant pleural effusion and possible lung mass, patient is seen by salt cutter who discussed with the radiologist does not suspect patient PE, patient does have a large pleural effusion and suspicious for lung mass, on plan was to have thoracentesis however patient became agitated, violent, and not cooperative, he had told his he does not want anymore work up, patient had agreed and considering hospice care for the patient and stopped the workup and placed patient under comfort measure. today patient is little better but does not want any work up now, will continue to monitor. on 08/08 patient still remained at his baseline, did not want any work up and wants to go home. on 08/09 was more alert and oriented and his and daughter were present along with his nurse and childcare center director, patient now wants have treatment including thoracentesis, resumed his treatments and patient had thoracentesis on 08/11 and 750cc of clear yellow fluid was collected suspect transudate, patient still agitation and not cooperative on and off, patient family will discuss with childcare center director for planning. Subjective Date/time seen: 08/12/24 17:04 Interval history: 83 y/o male presented with lower extremities edema after he had syncopal episode, patient is being diuresed with frusemide 40mg IV BID, and edema in lower extremities is improving. 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, patient is seen by shipper/receiver, once the patient is clinically stable will need further work up his cardiomyopathy patient want to wait until he is out of the hospital also patient is found to have significant pleural effusion and possible lung mass, patient is seen by salt cutter who discussed with the radiologist does not suspect patient PE, patient does have a large pleural effusion and suspicious for lung mass, on plan was to have thoracentesis however patient became agitated, violent, and not cooperative, he had told his he does not want anymore work up, patient had agreed and considering hospice care for the patient and stopped the workup and placed patient under comfort measure. today patient is little better but does not want any work up now, will continue to monitor. on 08/08 patient still remained at his baseline, did not want any work up and wants to go home. on 08/09 was more alert and oriented and his and daughter were present along with his nurse and childcare center director, patient now wants have treatment including thoracentesis, resumed his treatments and patient had thoracentesis on 08/11 and 750cc of clear yellow fluid was collected suspect transudate, patient still agitation and not cooperative on and off, patient family will discuss with childcare center director for planning. Review of Systems Review of Systems: - CONSTITUTIONAL: Denies weight loss, fe jesse and chills. - HEENT: Denies changes in vision and he aring - RESPIRATORY: reports SOB and cough. - CV: Denies palpitations and CP. - GI: Denies abdominal pain, nausea, vom iting and diarrhea. - : Denies dysuria and urinary frequen cy. - MSK: Denies myalgia and joint pain. - SKIN: Denies rash and pruritus. - NEUROLOGICAL: Denies headache and sync ope. - PSYCHIATRIC: Denies recent changes in mood. Denies anxiety and depression. Exam Narrative: Elderly frail Patient is comfortable, NAD HEENT: eyes are clear and none icteric LUNGS: BS with bilateral poor air entry with rales and rhonchi HEART: RR S1S2 ABD: BS+, Soft and nontender Lower extremities: no edema SKIN: nonjaundiced Neuro: grossly intact. Objective Data Vital Signs Vital Signs: Vital Signs - 24 hr 08/11/24 20:00 08/11/24 20:56 08/12/24 04:59 Temperature 36.6 C 36.6 C Pulse Rate 84 88 Respiratory Rate 20 20 Blood Pressure 100/54 L 106/57 L Pulse Oximetry 96 100 Oxygen Delivery Nasal Cannula Oxygen Flow Rate 3.5 08/12/24 14:00 Temperature 36.5 C Pulse Rate 87 Respiratory Rate 20 Blood Pressure 98/56 L Pulse Oximetry 97 Oxygen Delivery Oxygen Flow Rate Intake/Output Intake/Output: Intake & Output 08/09/24 08/10/24 08/11/24 08/12/24 23:59 23:59 23:59 23:59 Intake Total 2440 2034 1040 320 Output Total 600 2550 2550 400 Balance 1840 -516 -1510 -80 Meds/Results Medications: Active Medications Generic Name Dose Route Start Last Admin Trade Name Freq PRN Reason Stop Dose Admin Acetaminophen 500 mg 08/04/24 11:09 08/08/24 02:16 Acetaminophen 500 Mg Tablet PO 500 mg BID PRN Administration pain Allopurinol 100 mg 08/09/24 17:00 08/12/24 16:04 Allopurinol 100 Mg Tablet PO 100 mg BID MELQUIADES Administration Artificial Tears 1 drop 08/09/24 14:21 Artificial Tears Ophth Soln 15 Ml Bottle EACH EYE QID PRN Dry Eye(s) Ascorbic Acid 500 mg 08/09/24 14:08/12/24 09:08 Ascorbic Acid 500 Mg Tablet PO Not Given DAILY [facility]QU[facility]ADES Aspirin 81 mg 08/09/24 14:08/12/24 09:08 Aspirin 81 Mg Enteric Tablet PO Not Given DAILY MELQUIADES Atorvastatin Calcium 40 mg 08/09/24 14:25 08/12/24 09:08 Atorvastatin 40 Mg Tablet PO Not Given DAILY [facility] Clindamycin Phosphate 1 applic 08/09/24 14:25 08/12/24 08:26 Clindamycin Phos 1% 30 Gm Gel TOPICAL 1 applic DAILY MELQUIADES Administration Clotrimazole 1 applic 08/09/24 17:00 08/12/24 16:05 Betamethasone/Clotrimazole Cream 15 Gm Tube TOPICAL 1 applic BID MELQUIADES Administration Empagliflozin 10 mg 08/09/24 14:08/12/24 09:08 Empagliflozin 10 Mg Tablet PO Not Given DAILY [facility]QU[facility]AD[facility] Ferrous Sulfate 325 mg 08/09/24 14:25 08/12/24 09:08 Ferrous Sulfate [address] PO Not Given DAILY [facility] Azithromycin 500 mg in 250 mls @ 250 mls/hr 08/09/24 14:20 08/12/24 08:22 Zithromax IVPB 08/13/24 09:59 250 mls/hr QAM MELQUIADES Administration Piperacillin Sod/Tazobactam Sod 4.5 gm in 100 mls @ 200 mls/hr 08/11/24 18:00 08/12/24 11:59 Zosyn 4.5 Gm/Ns 100 Ml IVPB 200 mls/hr Q6H MELQUIADES Administration Memantine 10 mg 08/09/24 17:00 08/12/24 16:04 Memantine 10 Mg Tablet PO 10 mg BID MELQUIADES Administration Metoprolol Succinate 25 mg 08/09/24 14:25 08/12/24 09:08 Metoprolol Succinate Ext Rel 25 Mg Tabcr PO Not Given QAM [facility] Miconazole Nitrate 1 applic 08/09/24 14:08/12/24 08:26 Miconazole Nitrate 2% Cream 30 Gm Tube TOPICAL 1 applic DAILY M[facility]QUIADES Administration Multivitamins/Minerals 1 tab 08/09/24 14:08/12/24 09:09 Multivitamins /C Lutein (Centrum Silver) Tablet *Bkc PO Not Given DAILY [facility] Pantoprazole Sodium 40 mg 08/09/24 14:25 08/12/24 09:06 Pantoprazole Sodium Iv 40 Mg Vial IV PUSH 40 mg QAM MELQUIADES Administration Sodium Chloride 1 gm 08/09/24 14:25 08/12/24 09:09 Sodium Chloride 1 Gm Tablet PO Not Given DAILY [facility] Tamsulosin HCl 0.4 mg 08/09/24 21:00 08/11/24 20:58 Tamsulosin Hcl 0.4 Mg Capsule PO 0.4 mg HS [facility] Administration Vitamin D 25 mcg 08/13/24 09:00 Cholecalciferol (Vitamin D3) 25 Mcg (1,000 Units) Tablet PO DAILY [facility] Radiology Results: ITS Impressions Chest/Abdomen/Pelvis CTA 08/03/24 17:30 IMPRESSION: Segmental nonocclusive pulmonary emboli are suspected in the right lower lobe. Low clot burden. RV/LV ratio less than 1. 1.7 cm cavitary lesion in the right lower lobe, most likely secondary to infection or malignancy. Subsegmental atelectasis/consolidation in the right lower lobe. Chronic left hemidiaphragm elevation with shift of the mediastinum and heart to the right. Cardiomegaly. Small pericardial effusion. Moderate right and small left pleural effusions. Ectasia of the aortic arch. Moderate gastritis. Hepatomegaly. Possible cirrhotic change. 2.0 cm indeterminate density left upper pole lesion, slow interval growth, with increasing density. Consider nonemergent but timely CT or MRI without and with contrast for further characterization. Mild sigmoid colitis. Small volume ascites. Diffuse body wall edema. Head CT 08/03/24 20:22 IMPRESSION: No acute intracranial process, within the constraints noted above. Venous Doppler Study 08/04/24 12:08 IMPRESSION: 1. No deep venous thrombosis within the bilateral lower extremities, as detailed above. Upper Quadrant Ultrasound 08/04/24 19:36 IMPRESSION: Cholelithiasis, without ultrasound evidence of cholecystitis. Fatty infiltration of an enlarged liver. Renal Ultrasound 08/04/24 19:40 IMPRESSION: No hydronephrosis or renal calculi. Findings suggesting medical renal disease. The 2 cm left upper pole mass of soft tissue attenuation is not visualized on ultrasound. This mass was visualized on contrast-enhanced CT performed less than 24 hours earlier. Nonemergent but timely CT or MRI with renal mass protocol is again recommended for further evaluation once patient recovers from his current illness. Chest X-Ray 08/11/24 15:51 IMPRESSION: 1. No pneumothorax post right thoracentesis with improved aeration at the right lung base and no residual pleural effusion. 2. Chronic elevation the left hemidiaphragm. 2. Mild opacities in bilateral lower lung zones which could represent atelectasis or pneumonia. 4. Borderline heart size. Thoracentesis Ultrasound 08/11/24 16:09 IMPRESSION: 1. Successful ultrasound-guided thoracentesis yielding 750 mL of clear yellow fluid. Labs Labs: Laboratory Results - last 24 hr 08/12/24 06:33 WBC 2.9 L RBC 3.60 L Hgb 9.2 L Hct 33.4 L MCV 92.8 MCH 25.6 L D MCHC 27.5 L RDW 19.9 H Plt Count 104 L MPV 8.7 % Immature Plt Fraction 2.3 Sodium 135 L Potassium 3.3 L Chloride 84 L Carbon Dioxide > 40 H Anion Gap BUN 21 H Creatinine 0.95 Estim Creat Clear Calc 42 Estimated GFR > 60 Glucose 69 Calcium 8.0 L Magnesium 2.2
[2024-08-12] MEDS: TAMSULOSIN HCL 0.4 MG CAPSULE PO (21:42)
[2024-08-13] MEDS: PIPERACILLIN/TAZ 4.5G/NS 100ML 4.5 GM/100 ML BAG IVPB ×2 (04:59→13:30)
[2024-08-13 06:00] VITALS: BP 100/52; PULSE 91; RESP 13; TEMP 36.2; O2SAT 100
[2024-08-13 08:00] LABS: Hematocrit 31.6 % (42.0-52.0); Hemoglobin 8.9 g/dL (14.0-18.0); Mean Corpuscular HGB Conc 28.2 g/dl (32-36); Mean Corpuscular Hemoglobin 25.9 pg (26-34); Mean Corpuscular Volume 92.1 fl (80-100); Mean Platelet Volume 8.8 fl (7.4-10.4); Platelet Count Result 102 k/mm3 (150-375); Red Blood Count 3.43 M/mm3 (4.6-6.20); Red Cell Distribution Width 20.3 % (11.5-14.5)
[2024-08-13 08:15] LABS: Blood Urea Nitrogen 29 mg/dL (9-20); Calcium 8.7 mg/dL (8.4-10.2); Chloride 87 mmol/L (98-107); Estimated CRCL calculation 53 ml/min; Estimated Glomerular Filt Rate > 60; Glucose 106 mg/dL (65-110); Magnesium 2.4 mg/dL (1.6-2.3); Potassium 3.4 mmol/L (3.4-5.0); Sodium 138 mmol/L (137-145)
[2024-08-13 08:33] LABS: Carbon Dioxide > 40 mmol/L (22-30)
[2024-08-13] MEDS: AZITHROMYCIN 500 MG/NS 250 ML 500 MG/250 ML BAG 250 MG IVPB (08:38)
[2024-08-13 08:39] VITALS: PULSE 72
[2024-08-13] MEDS: MEMANTINE 10 MG TABLET PO (08:39)
[2024-08-13] MEDS: SODIUM CHLORIDE 1 GM TABLET PO (08:39)
[2024-08-13] MEDS: ATORVASTATIN 40 MG TABLET PO (08:39)
[2024-08-13] MEDS: ASPIRIN 81 MG ENTERIC TABLET PO (08:39)
[2024-08-13] MEDS: METOPROLOL SUCCINATE EXT REL 25 MG TABCR PO (08:39)
[2024-08-13] MEDS: FERROUS SULFATE 325 MG TABLET DR PO (08:40)
[2024-08-13] MEDS: EMPAGLIFLOZIN 10 MG TABLET PO (08:40)
[2024-08-13] MEDS: PANTOPRAZOLE SODIUM IV 40 MG VIAL IV PUSH (08:40)
[2024-08-13] MEDS: MULTIVITAMINS /C LUTEIN (CENTRUM SILVER) TABLET *BKC 1 TAB PO (08:40)
[2024-08-13 08:44] VITALS: O2SAT 56
[2024-08-13] MEDS: ASCORBIC ACID 500 MG TABLET PO (08:44)
[2024-08-13] MEDS: allopurinoL 100 MG TABLET PO (08:44)
[2024-08-13] MEDS: CHOLECALCIFEROL (VITAMIN D3) 25 MCG (1,000 UNITS) TABLET PO (08:44)
[2024-08-13 08:45] VITALS: O2SAT 92
[2024-08-13] MEDS: CLINDAMYCIN PHOS 1% 30 GM GEL 1 APPLIC TOPICAL (08:58)
[2024-08-13] MEDS: MICONAZOLE NITRATE 2% CREAM 30 GM TUBE 1 APPLIC TOPICAL (08:58)
[2024-08-13] MEDS: BETAMETHASONE/CLOTRIMAZOLE CREAM 15 GM TUBE 1 APPLIC TOPICAL (08:58)
[2024-08-13 09:00] VITALS: O2SAT 94
--- NOTE | 2024-08-13 10:18 | P.DS_ITS ---
DS: Admitting Diagnosis Discharge Date 08/13/24 Admitting Diagnosis shortness of breath, swelling DS: Discharge Diagnosis Discharge Diagnosis (1) Essential (primary) hypertension: Code(s): I10 - Essential (primary) hypertension Status: Acute (2) Acute heart failure: Qualifiers: Heart failure type: unspecified Qualified Code(s): I50.9 - Heart failure, unspecified Code(s): I50.9 - Heart failure, unspecified Status: Acute (3) Cardiomegaly: Code(s): I51.7 - Cardiomegaly Status: Acute (4) Diastolic CHF: Qualifiers: Heart failure chronicity: acute on chronic Qualified Code(s): I50.33 - Acute on chronic diastolic (congestive) heart failure Code(s): I50.30 - Unspecified diastolic (congestive) heart failure Status: Acute (5) LBBB (left bundle branch block): Code(s): I44.7 - Left bundle-branch block, unspecified Status: Acute (6) Venous stasis: Code(s): I87.8 - Other specified disorders of veins Status: Acute (7) Aortic ectasia: Code(s): I77.819 - Aortic ectasia, unspecified site Status: Acute (8) Mixed hyperlipidemia: Code(s): E78.2 - Mixed hyperlipidemia Status: Acute (9) Thrombocytopenia: Code(s): D69.6 - Thrombocytopenia, unspecified Status: Acute (10) Pulmonary emboli: Qualifiers: Pulmonary embolism type: single subsegmental (without acute cor pulmonale) Qualified Code(s): I26.93 - Single subsegmental thrombotic pulmonary embolism without acute cor pulmonale Code(s): I26.99 - Other pulmonary embolism without acute cor pulmonale Status: Acute (11) Hepatomegaly: Code(s): R16.0 - Hepatomegaly, not elsewhere classified Status: Acute (12) Colitis: Code(s): K52.9 - Noninfective gastroenteritis and colitis, unspecified Status: Acute (13) Renal lesion: Code(s): N28.9 - Disorder of kidney and ureter, unspecified Status: Acute (14) Normocytic anemia: Code(s): D64.9 - Anemia, unspecified Status: Acute (15) Pleural effusion on right: Code(s): J90 - Pleural effusion, not elsewhere classified Status: Acute (16) Cavitary lesion of lung: Code(s): J98.4 - Other disorders of lung Status: Acute (17) Edema of extremities: Code(s): R60.0 - Localized edema Status: Acute (18) Anasarca: Code(s): R60.1 - Generalized edema Status: Acute Plan Patient presents with complaint of generalized weakness and swelling along with shortness of breath. he reports swelling in his both legs and has been worsening. he has misssed some doses of diuretic that he is prescribed. he reports some cough but not more than usual. he resides at home. He fell yesterday, slipping from his recliner when he was getting up to go to the bathroom. While his daughter tried to help him get up off the ground he reportedly became unresponsive followed by confusion before returning to baseline. 911 was called at that time but because he was no longer confused, he refused transportation at the time. He denies any pain/injury from the fall. He saw his PCP last week as he had been having diarrhea; C diff test was reportedly negative and then he started having constipation. He denies any chest pain. He has been short of breath with a nonproductive cough. No nausea or vomiting. He endorses occasional abdominal pain. No fever chills. in the ED, his vitals were stable, he has swelling bilateral lower extremities. lab evaluation showed WBC of 4.6 hemoglobin of 9 hemoglobin 10.1 plateelet 110.cr 0.7, na low at 127, d dimer elevated at 1.08, [place]. [place] [address], ua negative for infection. ct pe protocol revealed bilateral PE with low clot burdern. he has been started on heparin gtt. His CXR showed large right sided pleural effusion, loss of lung volume within the left hemithorax secondary to hemidiaphragmatic elevation from distended aerated colon. cta showed segmental non occlusive pulmonary emboli in right lower lobe, low clot burden. RV/LV ratio less than 1. 1.7 cm cavitary lesion in lore right lower lobe, sec to infection vs malignancy. subsegmental atelectasis/consolidation int eh right lower lobe. cardiomegaly small pericardial effusion. moderate right and small left pleural effusions. ectasia of the aortic arch, moderate gastritis. hepatomegay, possible cirrhotic changes. 2.0 cm indeterminate density left upper pole lesion,slow interval growth with increasing density. mild sigmoid colitis. small volume asictes, diffuse body wall edema. he also had other chronc findings on the CT. echo 2022 revealed ef 65-70%, grade I diastolic dysfunction. mild pulmonary hypertension he is admitted in this setting for further treatment. # acute pe # acute chf exacerbation with anasarca. diuresis as scheduled. [place] [address] # lwoer extremity edema: check us duplex #grade 1 diastolic dysfunction # generalized weakness PT OT to see Right pleural effusion underlying 1.7 cm cavitary lesion in the right lower lobe will treat with ceftriaxone azithromycin check MRSA nares. Will consult Pulmonary. Check urine antigens. May need thoracentesis to ultimately rule out underlying malignancy. Also has segmental atelectasis/consolidation of the right lower lobe will treat as pneumonia as stated above. Check procalcitonin 2.0 cm indeterminate density left upper pole kidney will do renal ultrasound also will need follow-up as an outpatient basis Hepatomegaly right upper quadrant ultrasound. Possible cirrhotic changes on CT. Has anasarca. Albumin level 3.4. Gastritis add PPI DVT prophylaxis on heparin drip Code status do not resuscitate 83 y/o male presented with lower extremities edema after he had syncopal episode, patient is being diuresed with frusemide 40mg IV BID, and edema in lower extremities is improving. 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, patient is seen by consulting software engineer, once the patient is clinically stable will need further work up his cardiomyopathy patient want to wait until he is out of the hospital also patient is found to have significant pleural effusion and possible lung mass, patient is seen by auto transmission specialist who discussed with the radiologist does not suspect patient PE, patient does have a large pleural effusion and suspicious for lung mass, on plan was to have thoracentesis however patient became agitated, violent, and not cooperative, he had told his he does not want an ymore work up, patient had agreed and considering hospice care for the patient and stopped the workup and placed patient under comfort measure. today patient is little better but does not want any work up now, will continue to monitor. on 08/08 patient still remained at his baseline, did not want any work up and wants to go home. on 08/09 was more alert and oriented and his and daughter were present along with his nurse and clinical manager home care, patient now wants have treatment including thoracentesis, resumed his treatments and patient had thoracentesis on 08/11 and 750cc of clear yellow fluid was collected suspect transudate, patient still agitation and not cooperative on and off, patient family will discuss with clinical manager home care for planning. DS: Summary Hospital Course Hospital Course: 83 y/o male presented with lower extremities edema after he had syncopal episode, patient is being diuresed with frusemide 40mg IV BID, and edema in lower extremities is improving. 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, patient is seen by consulting software engineer, once the patient is clinically stable will need further work up his cardiomyopathy patient want to wait until he is out of the hospital also patient is found to have significant pleural effusion and possible lung mass, patient is seen by auto transmission specialist who discussed with the radiologist does not suspect patient PE, patient does have a large pleural effusion and suspicious for lung mass, on plan was to have thoracentesis however patient became agitated, violent, and not cooperative, he had told his he does not want anymore work up, patient had agreed and considering hospice care for the patient and stopped the workup and placed patient under comfort measure. today patient is little better but does not want any work up now, will continue to monitor. on 08/08 patient still remained at his baseline, did not want any work up and wants to go home. on 08/09 was more alert and oriented and his and daughter were present along with his nurse and clinical manager home care, patient now wants have treatment including thoracentesis, resumed his treatments and patient had thoracentesis on 08/11 and 750cc of clear yellow fluid was collected suspect transudate, patient still agitation and not cooperative on and off, patient family will discuss with clinical manager home care for planning. patient and family has decided for rehab, today will discharge the patient today to SNF. Time Spent with Patient Time attestation: Total time spent providing and/or coordinating discharge services: Exam Narrative: Elderly frail Patient is comfortable, NAD HEENT: eyes are clear and none icteric LUNGS: BS with bilateral poor air entry with rales and rhonchi HEART: RR S1S2 ABD: BS+, Soft and nontender Lower extremities: no edema SKIN: nonjaundiced Neuro: grossly intact. DS: Data Data Completed and Pending Pending studies at discharge: Pending at discharge 08/07/24 08:00 Cytology [PTH] Routine Labs on day of discharge: Labs from last 24 hours 08/13/24 07:36 WBC 3.0 L RBC 3.43 L Hgb 8.9 L Hct 31.6 L MCV 92.1 MCH 25.9 L MCHC 28.2 L RDW 20.3 H Plt Count 102 L MPV 8.8 Sodium 138 Potassium 3.4 Chloride 87 L Carbon Dioxide > 40 H Anion Gap BUN 29 H Creatinine 0.75 Estim Creat Clear Calc 53 Estimated GFR > 60 Glucose 106 Calcium 8.7 Magnesium 2.4 H Preliminary micro results at discharge 08/05/24 05:48 Acid Fast Bacilli Culture - Preliminary Sputum Discharge Plan Discharge Attending physician on discharge: Rylie Moya Consulting providers: Robert Kruse; Renaldo Barnard; Beau Ruiz; Bar Ceballos; Cyrus Oliveros; Radha Harrell; Elan Braga; Navneet Hernandez Discharging Clinician: Leonora Haines Patient Disposition: SNF Activity: as tolerated Diet: as tolerated Discharge Instructions: patient is being discharge to SNF, patient to follow up with his primary care provider as soon as possible. Patient Instructions: Antibiotic Form, Heparin/Dextrose Premix (Injection), Heart Failure (GEN) Patient Language: Bruneian Stand Alone Forms: General Discharge Information Follow-up/Referrals: Justin Allen MD [Primary Care Provider] - Discharge Medications: New metoprolol succinate [Toprol XL] 25 mg Tablet Extended Release 24 Hr 25 mg PO QAM Qty: 30 0RF Jardiance 10 mg Tablet 10 mg PO DAILY Qty: 30 0RF amoxicillin-pot clavulanate [Augmentin] 500-125 mg tablet 1 tablet PO Q8H Qty: 15 0RF Eliquis 2.5 mg tablet 2.5 mg PO BID Qty: 60 0RF Continued clotrimazole-betamethasone 1-0.05 % cream 1 applic topical BID Rx Instructions: apply to foot clindamycin phosphate [Clindagel] 1 % gel, once daily 1 applic topical DAILY Refresh Plus 0.5 % dropperette 1 drp EACH EYE 4-6XD tamsulosin 0.4 mg capsule 0.4 mg PO HS ferrous sulfate 325 mg (65 mg iron) tablet 325 mg PO DAILY Qty: 90 2RF pantoprazole [Protonix] 40 mg tablet,delayed release (DR/EC) 40 mg PO QAM furosemide [Lasix] 20 mg tablet See Rx Instructions PO QAM Qty: 180 2RF Rx Instructions: 1-2 orally every morning; ascorbic acid (vitamin C) 500 mg tablet 500 mg PO DAILY sodium chloride 1,000 mg tablet,soluble 1,000 mg PO DAILY Qty: 30 1RF aspirin 81 mg tablet,delayed release (DR/EC) 81 mg PO DAILY Qty: 60 2RF terbinafine HCl 1 % cream 1 applic TOPICAL DAILY acetaminophen 500 mg capsule 500 mg PO BID cholecalciferol (vitamin D3) 25 mcg (1,000 unit) capsule 25 mcg PO DAILY Qty: 90 3RF CertaVite Senior 0.4 mg-300 mcg- 250 mcg tablet 1 tablet PO DAILY Qty: 90 3RF allopurinol 100 mg tablet 100 mg PO BID Qty: 180 2RF memantine 10 mg tablet 10 mg PO BID Qty: 180 1RF atorvastatin 40 mg tablet 40 mg PO DAILY Qty: 90 1RF Date of admission: 08/03/24 20:59 Primary Care Provider: Justin Allen Admitting Provider: Rylie Moya Attending physician on admission: Leonora Haines Condition: Stable
[2024-08-13 14:00] VITALS: BP 90/55; PULSE 83; RESP 18; TEMP 36.4; O2SAT 100
--- NOTE | 2024-08-14 07:15 | WPDCDIQUERY2 ---
CDI Query Clarification Request 1) Please clarify if Pneumonia has been ruled in or ruled out. 2) If ruled in, please clarify if pneumonia was present on admission ? *Yes- condition was present at the time of inpatient admission ? *No- condition was not present at the time of inpatient admission and it developed during the inpatient stay ? *W- provider is unable to clinically determine whether condition is present on admission The medical chart reflects the following: he is admitted in this setting for further treatment. # acute pe # acute chf exacerbation with anasarca. diuresis as scheduled[place] [address] # lwoer extremity edema: check us duplex #grade 1 diastolic dysfunction # generalized weakness PT OT to see Right pleural effusion underlying 1.7 cm cavitary lesion in the right lower lobe will treat with ceftriaxone azithromycin check MRSA nares. Will consult Pulmonary. Check urine antigens. May need thoracentesis to ultimately rule out underlying malignancy. Also has segmental atelectasis/consolidation of the right lower lobe will treat as pneumonia 08/03 CXR:IMPRESSION: Large right-sided pleural effusion. Loss of lung volume within the left hemithorax secondary to hemidiaphragmatic elevation, from distended aerated colon. 08/03 CTA: IMPRESSION: Segmental nonocclusive pulmonary emboli are suspected in the right lower lobe. Low clot burden. RV/LV ratio less than 1. 1.7 cm cavitary lesion in the right lower lobe, most likely secondary to infection or malignancy. Subsegmental atelectasis/consolidation in the right lower lobe. Chronic left hemidiaphragm elevation with shift of the mediastinum and heart to the right. Cardiomegaly. Small pericardial effusion. Moderate right and small left pleural effusions. Ectasia of the aortic arch. Moderate gastritis. Hepatomegaly. Possible cirrhotic change. 2.0 cm indeterminate density left upper pole lesion, slow interval growth, with increasing density. Consider nonemergent but timely CT or MRI without and with contrast for further characterization. Mild sigmoid colitis. Small volume ascites. Diffuse body wall edema. 08/11 CXR: IMPRESSION: 1. No pneumothorax post right thoracentesis with improved aeration at the right lung base and no residual pleural effusion. 2. Chronic elevation the left hemidiaphragm. 2. Mild opacities in bilateral lower lung zones which could represent atelectasis or pneumonia. 4. Borderline heart size. azithromycin daily x5 doses zosyn Q6 HR vancomycin q24 HR ceftriaxone q 24HR <Ebony Land RN - Last Filed: 08/14/24 07:24> Provider Comments Yes- condition was present at the time of inpatient admission <Leonora Haines MD - Last Filed: 08/24/24 07:30>
== END 2024-08-13 16:05 | DRG 175 ==
LOC: ANHED 19:50 → ANHIMU 21:31 → ANH3MEDSUR 08-09 19:01 → ANHIMU 08-14 08:50
PROVIDERS: Emergency Medicine; Internal Medicine; Internal Medicine Pulmonary Disease; Admitting Provider Internal Medicine; Emergency Provider Student in an Organized Health Care Education/Training Program; PCP Family Medicine; Visit Provider Family Medicine
DX: I26.93 Single subsegmental thrombotic pulmonary embolism without acute cor pulmonale (principal); I50.33 Acute on chronic diastolic (congestive) heart failure; J18.9 Pneumonia, unspecified organism; J90 Pleural effusion, not elsewhere classified; E87.1 Hypo-osmolality and hyponatremia; I42.9 Cardiomyopathy, unspecified; I11.0 Hypertensive heart disease with heart failure; I44.7 Left bundle-branch block, unspecified; I87.8 Other specified disorders of veins; I77.819 Aortic ectasia, unspecified site; D69.6 Thrombocytopenia, unspecified; D50.9 Iron deficiency anemia, unspecified; E78.2 Mixed hyperlipidemia; I95.1 Orthostatic hypotension; J98.4 Other disorders of lung; N40.0 Benign prostatic hyperplasia without lower urinary tract symptoms; W07.XXXA Fall from chair, initial encounter; Z66 Do not resuscitate; Z79.82 Long term (current) use of aspirin; R16.0 Hepatomegaly, not elsewhere classified; K52.9 Noninfective gastroenteritis and colitis, unspecified; N28.9 Disorder of kidney and ureter, unspecified
CPT/HCPCS: 32555; 36415; 70450; 71045; 71046; 71275; 74177; 76705; 76775; 80048; 80053; 81001; 82550; 82948; 83615; 83735; 83880; 84145; 84155; 84443; 84484; 85025; 85027; 85055; 85380; 85610; 85730; 86480; 86738; 87015; 87040; 87070; 87116; 87205; 87206; 87449; 87633; 87637; 87641; 87899; 88108; 88305; 93005; 93970; 94640; 96374; 96375; 97110; 97161; 97162; 97165; 97530; 97535; 99285; A9270; C8929; J0456; J1644; J1938; J2060; J2470; J2543; J3475; J7030; J7050; Q9957; Q9967

== ENCOUNTER 2024-08-14 16:51 | Inpatient (IN) | payer MEDICARE, OTHER, SELFPAY ==
[2024-08-14] VITALS (21 sets, daily range): BP systolic 97–115; BP diastolic 61–83; PULSE 85–106; RESP 12–32; TEMP 36.9; O2SAT 92–100; BMI 20.9
--- NOTE | ~2024-08-14 | US_ITS ---
EXAMINATION:US venous doppler LE BI INDICATION:Leg edema TECHNIQUE: Multiple grayscale, color flow and Doppler images of the right and left lower extremity de ep venous systems were obtained and reviewed. COMPARISON:08/04/2024 FINDINGS: The common femoral, superficial femoral and popliteal veins demonstrate normal respiratory variation, augmentation and compressibility. Color flow is also seen within the posterior tibial, pe roneal, greater saphenous and profunda veins. IMPRESSION: 1: No lower extremity deep venous thrombosis. Reviewed, dictated and finalized at location A.
--- NOTE | ~2024-08-14 | XR_ITS ---
XR chest 1V Ordering provider: Radha Jamil PA-C History: 83 years Male with . ams, recent pna, pleural effusions . Comparison: August 06, 2024 FINDINGS: MEDIASTINUM: The cardiac silhouette is slightly enlarged. Congestive zohaib. LUNGS: No effusions or pneumothorax. Bibasilar opacification is seen medially. Interstitial thickening is seen bilaterally. OTHER: No free air under the diaphragm. IMPRESSION: Bibasilar atelectasis versus pneumonia. Underlying pulmonary edema is not excluded Reviewed, dictated and finalized at location A. IMPRESSION: Bibasilar atelectasis versus pneumonia. Underlying pulmonary edema is not exclu ded
--- NOTE | ~2024-08-14 | CT_ITS ---
EXAMINATION: CT diagnostic chest wo con DATE: 08/15/2024 11:12 INDICATION: Pulmonary edema. Pleural effusion. TECHNIQUE: Computed tomography (CT) of the chest was performed without intravenous contrast. The dose -length product was 351.73 mGy-cm. Automated exposure control and iterative reconstruction technique were employed. COMPARISON: CT dated 08/03/2024 FINDINGS: bilateral pleural effusions with underlying compressive atelectasis. There is atheroscleros is and ectasia of the aorta. Cardiomegaly with atherosclerosis of the coronary arteries. There is rig ht-sided thoracic volume loss. There is bibasilar atelectasis. Enlarged pulmonary arteries consistent with pulmonary arterial hypertension. Small pericardial effusion. There is gallstones. Small pericar dial effusion. IMPRESSION: 1. Moderate pleural effusions with underlying compressive atelectasis. 2: Small pericardial effusion. 3: Cardiomegaly. 4: Pulmonary arterial hypertension. Reviewed, dictated and finalized at location A.
--- NOTE | ~2024-08-14 | CT_ITS ---
CT brain wo con Ordering provider: Radha Jamil PA-C History: 83 years Male with . ams . Comparison: None. Technique: CT of the head without contrast. Radiation reduction technique utilized. The dose-length p roduct was 354.92 mGy-cm. FINDINGS: BRAIN PARENCHYMA AND CSF SPACES: Mild leukoaraiosis and diffuse cortical atrophy. Mild atheromatous d isease. No midline shift, mass effect or hemorrhage. The brain parenchyma and CSF spaces are otherwi se normal. Partial empty sella turcica. VISUALIZED PARANASAL SINUSES: Well aerated. MASTOIDS: Well aerated. BONES: The bones appear intact. SOFT TISSUES: Visualized nasopharynx is normal. Superficial soft tissues are normal. IMPRESSION: No acute intracranial findings. Reviewed, dictated and finalized at location A.
--- NOTE | 2024-08-14 17:09 | PC.NURSE ---
Patient attempting to provide a urine sample at this time, pt asked for some privacy while he did this
--- NOTE | 2024-08-14 17:25 | ECG_ITS ---
Test Date: 2024-08-14 18:36:35 Measurements Intervals [place] Rate: 97 P: 4 [place]: 140 QRS: 8 QRSD: 184 T: 177 QT: 405 QTc: 516 Interpretive Statements SINUS RHYTHM WITH OCCASIONAL VENTRICULAR PREMATURE COMPLEXES LEFT BUNDLE BRANCH BLOCK ABNORMAL ECG Compared to ECG 08/04/2024 09:50:24 Ventricular premature complex(es) now present Electronically Signed On 08-15-2024 07:38:50 CDT by Robert Mohan M.D.
--- OUTSIDE RECORDS SUMMARY | 2024-08-14 17:36 | XMS_ITS | Clinical Summary ---
Author Organization [facility] Address [address] [place] [address] Care Team Providers Care Seam Rubbing Machine Operator Name Role Phone Justin Allen MD Primary Care Provider + [phone] Allergies No known active allergies Medications adalimumab [...] unspecified 01/30/2023 Orthostasis 01/30/2023 Primary hypertension 01/30/2023 Encounters Date Type Department Care Team Description 08/14/2024 Orders Only [facility] Cardiology [address] [place] [address] Renaldo Barnard MD from Last 3 Months Medical History Medical History Date Comments Syncope [...] Comments Blood Pressure 136/80 01/31/2024 2:55 PM ROOM ATTENDANTS Pulse 86 01/31/2024 2:55 PM ROOM ATTENDANTS Temperature - - Respiratory Rate - - Oxygen Saturation 97% 01/31/2024 2:55 PM ROOM ATTENDANTS Inhaled Oxygen Concentration - - Weight 80.7 kg (178 lb) 01/31/2024 2:55 PM ROOM ATTENDANTS Height 180.3 cm (5' 11) 01/31/2024 2:55 PM ROOM ATTENDANTS Body Mass Index 24.83 01/31/2024 2:55 PM ROOM ATTENDANTS Plan of Treatment Health Maintenance Due Date [...] history exists Pneumococcal vaccine 65+ Completed 03/25/2019, 1111/2017 Procedures Procedure Name Priority Date/Time Associated Diagnosis Comments CARDIOLOGY DOCUMENT SCAN Routine 08/05/2024 4:28 PM CDT from Last 3 Months Results * Cardiology Document Scan (08/05/2024 4:28 PM CDT) Anatomical Region Laterality Modality Other us Renaldo Barnard MD [facility] Final Result from Last 3 Months Insurance MEDICARE MEDICARE [facility] Address: [address] [address] [place] [address] [employer] Care Teams Seam Rubbing Machine Operator Relationship Specialty Start Date End Date Justin Allen MD PCP - General Family Medicine 10/30/19
--- OUTSIDE RECORDS SUMMARY | 2024-08-14 17:36 | XMS_ITS | Clinical Summary ---
Author Organization [facility] Address [address] [place] [address] Care Team Providers Care Sales And Marketing Specialist Name Role Phone Justin Allen MD Primary Care Provider [phone] Source Comments [facility],non-owned Affiliates and Associated Physician Practices is amultiple site organization consisting of ambulatory clinics and hospital sitesin [place], [place], [place] and [place]. This disclosure is being madepursuant to the Care Everywhere program and may not contain all information available regarding this patient. 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
--- OUTSIDE RECORDS SUMMARY | 2024-08-14 17:36 | XMS_ITS ---
Author Name Auto Generated, Auto Generated Organization [facility] Address [address] [place] [address] Phone [phone] Care Team Providers Care Carpenter Mold Name Role Phone Alpa Roque Unavailable [phone] Dorinda Nunes Unavailable Ronit Trammell Unavailable Functional Status No Results Mental Status No Results Allergies and Intolerances Name Onset Date Reaction Severity No Known Allergies (Allergy) SatAugust 13 17:55:00 EDT 2024 Encounters Program Name Primary Diagnosis Admission Date/Time Dis charge Date/Time Lead Sales Consultant Care Facility [facility] SatAugust 13 12:10:00 EDT 2024 Medications Medication Directions Start Date End Date furosemide 20 mg tablet 1 tablet TABLET Oral 1 Time Daily Indication: CHF SatAugust 14 17:00:00 EDT 2024 traZODone 50 mg tablet 1 tablet TABLET O ral PRN Every 8 Hours for 14 Days Indication: Anxiety/Agitation SatAugust 13 09:00:00 EDT 2024Aug 27 08:59:00 EDT 2024 TubersoL 5 tub. unit/0.1 mL intradermal injection solution 0.1 Milliliter VIAL (ML) Intradermal 1 Time Daily for 1 Day Indication: . 1 Step PPD- Read between 48 and 72 hours SatAugust 14 14:00:00 EDT 2024August 15 13:59:00 EDT 2024 TubersoL 5 tub. unit/0.1 mL intradermal injection solution 1 Application VIAL (ML) Other 1 Time Weekly for 1 Week Indication: . Read results between 48-72 hours after 1st and 2nd (1 week apart). Any reading of 10mm or greater results in a positive test, an x-ray will need to be ordered as a follow up. SatAugust 14 16:00:00 EDT 2024Aug 21 15:59:00 EDT 2024 Eliquis 2.5 mg tablet 1 tablet TABLET Or al 2 Times Daily Indication: A-fib SatAugust 13 16:00:00 ED2024 amoxicillin 500 mg-potassium clavulanate 125 mg tablet 1 tablet TABLET Oral Every 8 Hours for 5 Days Indication: PNA SatAugust 13 18:00:00 EDT 2024 Tue Aug 18 17:59:00 ED2024 Jardiance 10 mg tablet 1 tablet TABLET O ral 1 Time Daily Indication: CHF SatAugust 13 18:00:00 ED2024 metoprolol succinate ER 25 mg tablet,extended release 24 hr 1 tablet TABLET, EXTENDED RELEASE 24 HR Oral 1 Time Daily Indication: HTN SatAugust 13 18:00:00 ED2024 pantoprazole 40 mg tablet,delayed release 1 tablet TABLET, DELAYED RELEASE (ENTERIC COATED) Oral 1 Time Daily Indication: GERD SatAugust 13 17:00:00 ED2024 clindamycin 1 % topical gel 1 application GEL (GRAM) Topical PRN 1 Time Daily Indication: Apply 1 application topically PRN SatAugust 13 18:00:00 ED2024 Refresh Tears 0.5 % eye drops 1 drop DROPS Both Eyes 4 Times Daily Indication: Dry Eyes SatAugust 13 17:00:00 ED2024 clotrimazole-betamethasone 1 %-0.05 % topical cream 1 application CREAM (GRAM) Topical PRN 2 Times Daily Indication: Apply cream to foot BID SatAugust 13 18:00:00 ED2024 Vitamin D3 25 mcg (1,000 unit) tablet 1 tablet TABLET Oral 1 Time Daily Indication: Supplement SatAugust 13 17:00:00 ED2024 CertaVite Senior 0.4 mg-300 mcg-250 mcg tablet 1 tablet TABLET Oral 1 Time Daily Indication: Supplement SatAugust 13 16:00:00 ED2024 aspirin 81 mg tablet,delayed release 1 tablet TABLET, DELAYED RELEASE (ENTERIC COATED) Oral 1 Time Daily Indication: DVT proph SatAugust 13 17:00:00 ED2024 tamsulosin 0.4 mg capsule 1 capsule CAPS ULE Oral 1 Time Daily Indication: Urinary retention SatAugust 13 16:00:00 ED2024 allopurinoL 100 mg tablet 1 tablet TABLE T Oral 2 Times Daily Indication: Gout SatAugust 13 16:00:00 EDT 2024 memantine 10 mg tablet 1 tablet TABLET O ral 2 Times Daily Indication: Dementia SatAugust 13 17:00:00 EDT 2024 atorvastatin 40 mg tablet 1 tablet TABLE T Oral 1 Time Daily Indication: HLD SatAugust 13 16:00:00 EDT 2024 acetaminophen 500 mg tablet 1 capsule TABLET Oral 2 Times Daily Indication: Pain SatAugust 13 17:00:00 EDT 2024 terbinafine HCL 1 % topical cream 1 application CREAM (GRAM) Topical PRN 1 Time Daily Indication: Apply 1 application to area of fungal rash SatAugust 13 17:00:00 EDT 2024 FeroSuL 325 mg (65 mg iron) tablet 1 tablet TABLET Oral 1 Time Daily Indication: Anemia SatAugust 13 17:00:00 ED2024 Vitamin C 500 mg tablet 1 tablet TABLET Oral 1 Time Daily Indication: Supplement SatAugust 13 17:00:00 ED2024 sodium chloride 1,000 mg soluble tablet 1 tablet TABLET, SOLUBLE Oral 1 Time Daily Indication: Hyponatremia SatAugust 13 17:00:00 EDT 2024 Problems No Known Problems Vital Signs Vital Sign Measurement Date Systolic Blood Pressure 100.00 mm[Hg] SatAugust 14 15:07:00 ED2024 Diastolic Blood Pressure 85.00 mm[Hg] SatAugust 14 15:07:00 ED2024 Body Height 60.00 [in_i] SatAugust 14 15:07 :00 ED2024 Respiratory rate 18.00 /min SatAugust 14 15:0 7:00 ED2024 Body temperature 98.20 [degF] SatAugust 14 15:0 7:00 ED2024 Heart Rate 105.00 /min SatAugust 14 15:07 :00 EDT 2024 Systolic Blood Pressure 98.00 mm[Hg] SatAugust 14 10:53:51 EDT 2024 Diastolic Blood Pressure 58.00 mm[Hg] SatAugust 14 10:53:51 ED2024 Systolic Blood Pressure 98.00 mm[Hg] SatAugust 14 10:53:51 ED2024 Diastolic Blood Pressure 58.00 mm[Hg] SatAugust 14 10:53:51 ED2024 Body temperature 97.80 [degF] SatAugust 14 10:5 3:51 EDT 2024 Pulse Oximetry 99.00 % SatAugust 14 10:53 :51 EDT 2024 Heart Rate 87.00 /min SatAugust 14 10:53 :51 EDT 2024 Respiratory rate 20.00 /min SatAugust 14 10:5 3:51 EDT 2024 Heart Rate 87.00 /min SatAugust 14 10:53 :51 EDT 2024 Reason for Referral
--- OUTSIDE RECORDS SUMMARY | 2024-08-14 17:36 | XMS_ITS | Referral Summary ---
Author Organization [facility] Address [address] [place] [address] Care Team Providers Care Commodity Manager Name Role Phone Justin Allen MD Primary Care Provider [phone] Encounters Date Type Department Care Team Description 08/14/2024 Orders Only [facility] Medical Group Cardiology [address] [place] [address] Renaldo Barnard MD from Last 3 Months Allergies No known active allergies Medications adalimumab [...] 81 mg enteric coated tablet Take with food/milk.Swall ow whole. 3 01/31/20 25 Active cholecalciferol [...] Comments Blood Pressure 136/80 01/31/2024 2:55 PM POTTERY DECORATOR Pulse 86 01/31/2024 2:55 PM POTTERY DECORATOR Temperature - - Respiratory Rate - - Oxygen Saturation 97% 01/31/2024 2:55 PM POTTERY DECORATOR Inhaled Oxygen Concentration - - Weight 80.7 kg (178 lb) 01/31/2024 2:55 PM POTTERY DECORATOR Height 180.3 cm (5' 11) 01/31/2024 2:55 PM POTTERY DECORATOR Body Mass Index 24.83 01/31/2024 2:55 PM POTTERY DECORATOR Plan of Treatment Not on file Procedures Procedure Name Priority Date/Time Associated Diagnosis Comments CARDIOLOGY DOCUMENT SCAN Routine 08/05/2024 4:28 PM CDT from Last 3 Months Results * Cardiology Document Scan (08/05/2024 4:28 PM CDT) Anatomical Region Laterality Modality Other Renaldo Barnard MD CV CARDIAC SERVICES PROCE PHILOMENA Final Result from Last 3 Months Insurance MEDICARE FOR LIFE Care Teams Commodity Manager Relationship Specialty Start Date End Date Justin Allen MD PCP - General Family Medicine 10/30/19
--- OUTSIDE RECORDS SUMMARY | 2024-08-14 17:36 | XMS_ITS | Continuity of Care Document ---
Author Organization [facility] Address [address] [facility] [address] [place] [address] Phone Care Team Providers Care Hospital Account Manager Name Role Phone Efren Sandra Unavailable Unavailable [...] Providers Copied on Encounter Office/outpat ient Visit, [facility], [address] [place] [address] [address], [place], [place], [id number], tel:[phone] [facility] No Information Nov-2 6200 8 Boaz Schwartz. [address] [facility] [address], [place], [address], [place]. tel:[phone] Office/outpat ient Visit, [facility], [address] [place] [address] [address], [place], [place], [id number], [place] tel:[phone] [facility] No Information Nov-1 9200 8 Melvin Fleming. [address] [facility] [address] , [address], [place], [place], [facility], [place]. tel:[phone] [facility]pat ient [facility], [facility], [address], [place], [place], [id number], [place] tel:[phone] [facility] No Information Sep- 8-200 8 Doisy Edward. [address] , [address], [place], [place], [facility], . tel:[phone] [facility] Eye [facility], [address] [place] [address] [address], [place], [place], [id number], [place] tel:[phone] [facility] No Information Jun-2 3-200 8 Doisy Edward. [address] , [address], [place], [place], [facility], . tel:[phone] Referring Provider: Bairon Langford, [address] [place] [address], [facility]. tel:[phone] [facility] Eye [facility], [address] [place] [address] [address], [place], [place], [id number], [place] tel:[phone] [facility] No Information 1 6-200 8 Doisy Edward. [address] , [address], [place], [place], [facility], . tel:[phone] [facility] Eye [facility], [address], [place], [place], [id number], [place] tel:[phone] [facility] No Information Apr-1 5-200 8 Doisy Edward. [address] , [address], [place], [place], [facility], . tel:[phone] Referring Provider: Bairon Langford, [address] [place] [address], [facility]. tel:[phone] Office/outpat ient Visit, Est [facility] Eye [facility], [address], [place], [place], [id number], tel:[phone] SEC [facility] [address] No Information Mar-3 1-200 8 Melvin Fleming. [address] [place] [address] , [address], [place], [facility], . tel:[phone] Referring Provider: Lonnie Langford, [address] [place], [place] [address]ate [address], [place], [place], [facility]. tel:[phone] [facility], [address], [place], [place], [id number], tel:[phone] [facility] No Information Sep-2 8200 7 Melvin Fleming. [address] [place] [address] , [address], [place], [place], [facility], . tel:[phone] Referring Provider: Bairon Langford, [address] [facility], [place], [place], [facility]. tel:[phone] Family History Family Member Type Diagnosis Age At Onset No Information Payers Payer name Insurance type Covered alliance party ID Authoriza tion(s) [place] BL [id number] [place] F[place] BL [id number] For Life Mdcr Supp CI [id number] Social History Type Description Quantity Date Captured [...]
--- OUTSIDE RECORDS SUMMARY | 2024-08-14 17:37 | XMS_ITS | Encounter Summary ---
Author Organization [facility] Healthcare Address [address] [place] [address] Care Team Providers Care Skin Care Specialist Name Role Phone Justin Allen MD Primary Care Provider [phone] Encounter Details Date Type Department Care Team (Late st Contact Info) Description 08/14/2024 Orders Only [facility] Medical Group Cardiology [address] [place] [address] Renaldo Barnard MD [facility] [id number] Social History Tobacco Use Types Packs/Day Years Used Date Smoking Tobacco: Never Passive Smoke Exposure: Never Smokeless Tobacco: Never Sex and Gender Information Value Date Recorded Sex Assigned at Not on file Legal Sex Male 12:08 PM CDT Gender Identity Not on file Sexual Orientation Not on file documented as of this encounter Plan of Treatment Not on file documented as of this encounter Procedures Procedure Name Priority Date/Time Associated Diagnosis Comments CARDIOLOGY DOCUMENT SCAN Routine 08/05/2024 4:28 PM CDT documented in this encounter Results * Cardiology Document Scan (08/05/2024 4:28 PM CDT) Anatomical Region Laterality Modality Other us Renaldo Barnard MD CV CARDIAC SERVICES FILI QUACH Final Result documented in this encounter Visit Diagnoses Not on filedocumented in this encounter Care Teams Skin Care Specialist Relationship Specialty Start Date End Date Justin Allen MD PCP - General Family Medicine 10/30/19 documented as of this encounter
--- OUTSIDE RECORDS SUMMARY | 2024-08-14 17:37 | XMS_ITS | Continuity of Care Document ---
Author Name [facility] Organization [facility] Care Team Providers Care Straightener Name Role Phone [facility] Unavailable Unavailable Medications Combined list of outpatient [...] with your doctor before becoming . 09/05/2023 [id number] 3 [address] [place] [address] [place] ([facility]) Allopurinol (Alloprim) Tablet 100 mg Oral Take with plenty of water.Ta ke or use exactly as directed .May cause drowsine ss/dizzi ness. 06/18/2024 [id number] 4 [address] [place] [address] [place] ([facility]) allopurinol 100 mg tablet = 1 tab(s), [...] CEPHALEXIN (CEPHALEXIN MONOHYDRATE ), 500MG, TABLET, ORAL, [facility], 100 ea. BOTTLE Active [id number] 4 2023 21 Pharmac y Data Transac [...] 1%, Gel/Jelly, Topical For external use. 08/15/2023 [id number] 3 [address] [place] [address] [place] ([facility]) doxazosin 2 mg tablet See dose instruct [...] to sun.Do not take if . 06/18/2024 [id number] [address] [place] [address] [place] ([facility]) doxycycline hyclate 100 mg capsule = 1 [...] ORAL, ZYDUS PHARMACEU, 100 ea. BOTTLE Active [id number] 4 2023 30 Pharmac y Data Transac [...] Cream 1% Topical For external use. 06/27/2023 [id number] 3 [address] [facility] [place] ([facility]) triamlucianoolo ne 0.025% cream [454g] See Instruct ions, [...] TOPICAL, [employer] 80 g TUBE Active [id number] 4 2023 80 Pharmac y Data Transac tion Service Facilit y TRIAMCINOLO NE ACETONIDE (TRIAMCINOL ONE ACETONIDE), 0.1%, OINT.(GM), TOPICAL, [employer] 80 g TUBE Cancele d [id number] : 2023 0 Pharmac y Data Transac tion Service Facilit y Allergies, Adverse Reactions, Alerts Combined list of allergies from Department of Defense and Veterans Affairs facilities. It does not include entries that were removed or entered in error. Substance Category Reaction Severity Reaction type Status Date Reported Comments Source No Known Allergies Drug allergy (disorder) active 09/22/2010 [facility] Immunizations Combined list of available immunizations from the Department of Defense and Veterans Affairs facilities. Immunization Series Date Given Administered By Site Reaction Lot Number CVX Code Drug Padded Products Finisher Status Comments Source influenza, seasonal, injectable-pf 2015 zzBakari ht Arm [id number] Seqirus complet ed influenza , seasonal, injectabl e-pf 12/12/15 Given Ambulat ory Pharmac y influenza, seasonal, injectable-pf 2015 [id number] Seqirus complet ed influenza , seasonal, injectabl e-pf 12/12/15 Given Ambulat ory Pharmac y Influenza, seasonal, injectable, preservative free 1 12/11/ 2016 Unknown, Provider [id number] Seqirus (SEQ) complet ed Influenza , seasonal, injectabl e, preservat alex free DoD influenza, seasonal, injectable-pf 2014 zzRig ht Arm [id number] CSL Behring complet ed influenza , seasonal, injectabl e-pf 12/11/14 Given Ambulat ory Pharmac y Influenza, seasonal, injectable, preservative free 2014 Unknown, Provider [id number] CSL [employer] (CSL) complet ed Influenza , seasonal, injectabl e, preservat alex free DoD influenza, seasonal, injectable-pf 2013 zzRig ht Arm [id number] 140 Novartis Pharmaceutica ls complet ed influenza , seasonal, injectabl e-pf 12/12/13 Given Ambulat ory Pharmac y influenza, seasonal, injectable-pf 2013 [id number] Novartis Pharmaceut[employer] ls complet ed influenza , seasonal, injectabl e-pf 12/12/13 Given Ambulat ory Pharmac y Influenza, seasonal, injectable, preservative free 1 2013 Unknown, Provider [id number] Novartis Pharmaceutica l [place]. (NOV) complet ed Influenza , seasonal, injectabl e, preservat alex free DoD influenza, seasonal, injectable-pf 2012 zzRig ht Arm [id number] 140 sanofi pasteur complet ed influenza , seasonal, injectabl e-pf 12/13/12 Given Ambulat ory Pharmac y influenza, seasonal, injectable-pf 2012 [id number] sanofi pasteur complet ed influenza , seasonal, injectabl e-pf 12/13/12 Given Ambulat ory Pharmac y Influenza, seasonal, injectable, preservative free 2012 Unknown, Provider [id number] Sanofi Pasteur (PMC) complet ed Influenza [...] facilities. Social History Type Response Date Comment Sour e This section is an empty social history section. DoD Assessment and Plan Combined list of future care activities from Department of Defense and Veterans Affairs facilities (e.g., assessment and plan notes, appointments, orders, and referrals). Additional future care activities may be listed in the Plan of Care section. Result Assessment and Plan Date Source Assessment and Plan No data available for this section 08/14/2024 Ambulatory Pharmacy Functional Status Combined list of recent functional and cognitive assessments recorded at [facility] ([place] Functional [place] Measurement (FIM) Scale: 1 = Total Assistance (Subject = 0% +), 2 = Maximal Assistance (Subject = 25% +), 3 = Moderate Assistance (Subject = 50% +), 4 = Minimal Assistance (Subject = 75% +), 5 = Supervision, 6 = Modified [place] (Device), 7 = Complete [place] (Timely, Safely). Assessment Date/Time Source Assessment Type Assessment Skill Assessment Score Assessment Details No data available for this section
--- NOTE | 2024-08-14 17:48 | ED.AMS ---
HPI - Altered Mental Status General Chief Complaint: Altered Mental Status <Radha Jamil PA-C - Last Filed: 08/15/24 00:36> Stated Complaint: AMS <CHANTAL Jj Last Filed: 08/15/24 00:36> Time Seen by Provider: 08/14/24 16:53 <Radha Jamil PA-C - Last Filed: 08/15/24 00:36> Source: patient, family and old records reviewed <CHANTAL Jj Last Filed: 08/15/24 00:36> Mode of arrival: EMS <CHANTAL Jj Last Filed: 08/15/24 00:36> Limitations: altered mental status and clinical condition <CHANTAL Jj Last Filed: 08/15/24 00:36> History of Present Illness HPI narrative: Patient is an 83 y/o male who presents to the ED via EMS with report of altered mental status. Family at bedside assisted in providing information. Reports patient was recently admitted here for prolonged period, diagnosed with pulmonary emboli, CHF, PNA. Started on heparin and chronic O2 therapy at that time, now on eliquis 2.5mg bid. Transitioned yesterday to [address] for rehab. Family reports patient has been altered since returning to the correction, has been combative, difficult to redirect, flailing around, yelling at family members. They were concerned for possible UTI. They do note that he had episodes of confusion throughout his hospitalization. Patient has no acute complaints to myself. <Radha Jamil PA-C - Last Filed: 08/15/24 00:36> Related Data Home Medications: Home Medications ?Medication ?Instructions ?Recorded ?Confirmed ?Last Taken ?Type pantoprazole 40 mg tablet,delayed 40 mg PO QAM 09/21/19 08/15/24 08/03/24 08:00 History release (Protonix) 40 mg carboxymethylcellulose sodium 0.5 1 drp EACH EYE 4-6XD 09/27/20 08/15/24 08/03/24 15:00 History % eye drops in a dropperette 1 drp (Refresh Plus) clindamycin phosphate 1 % topical 1 applic topical DAILY 09/27/20 08/15/24 08/03/24 08:00 History gel, once daily (Clindagel) 1 applic clotrimazole-betamethasone 1 1 applic topical BID 09/27/20 08/15/24 08/03/24 08:00 History %-0.05 % topical cream 1 applic tamsulosin 0.4 mg capsule 0.4 mg PO HS 10/14/23 08/15/24 08/02/24 20:00 History 0.4 mg acetaminophen 500 mg capsule 500 mg PO BID 06/04/24 08/15/24 08/03/24 08:00 History 500 mg terbinafine HCl 1 % topical cream 1 applic topical DAILY 06/04/24 08/15/24 08/03/24 08:00 History 1 applic ascorbic acid (vitamin C) 500 mg 500 mg PO DAILY 07/28/24 08/15/24 08/03/24 08:00 History tablet 500 mg <Radha Jamil PA-C - Last Filed: 08/15/24 00:36> Allergies/Adverse Reactions: Allergies Allergy/AdvReac Type Severity Reaction Status Date / Time No Known Allergies Allergy Verified 08/14/24 19:19 <Radha Jamil PA-C - Last Filed: 08/15/24 00:36> Review of Systems Review of Systems: ROS unobtainable: Yes unobtainable due to mental status <Radha Jamil PA-C - Last Filed: 08/15/24 00:36> [facility] Past Medical History Medical History: Medical History Protein in urine Suppurative hidradenitis On Humira AVM (arteriovenous malformation) of colon Cecum BPH (benign prostatic hyperplasia) Renal lesion Evaluated by Urology 2018 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 Mild pulmonary hypertension Echo 2012 Diastolic dysfunction EF 65-72 grade 1 diastolic dysfunction noted on echo February 2013 also noted moderate aortic valve sclerosis mild tricuspid valve regurgitation and mild pulmonic regurgitation Severe obstructive sleep apnea Polysomnogram February 2013 recommending CPAP of 18 Venous stasis dermatitis of right lower extremity Venous stasis LBBB (left bundle branch block) Essential (primary) hypertension Gout, unspecified Iron deficiency anemia Low vitamin D level Memory loss Mixed hyperlipidemia <Radha Jamil PA-C - Last Filed: 08/15/24 00:36> Surgical History Surgical History: Surgical History History of colonoscopy with polypectomy Colonoscopy 11/2017: Umbilicated perianal lesion and 2 small angioplastic lesions without bleeding in the cecum History of esophagogastroduodenoscopy (EGD) 11/2017: Tortuous esophagus prior EGD in 2008 demonstrated gastritis and duodenitis <Radha Jamil PA-C - Last Filed: 08/15/24 00:36> Family History Family History: Family History Father Hypertension Gout Mother Hypertension Family history of malignant neoplasm of breast in first degree relative Breast cancer Cerebrovascular accident Sibling Brain cancer Liver cancer Sibling No problems noted. Other Family history of hearing loss <Radha Jamil PA-C - Last Filed: 08/15/24 00:36> Social History Social History: Social History Social History: Code status: DNR/DNI Surrogate decision maker: Smoking status: Unknown if ever smoked Second hand tobacco smoke exposure: No Alcohol intake: unknown Substance use: unknown Substance use type: does not use Other substance usage details: Unable to obtain information: pt confused and combative Do You Feel Safe in your Home?: Yes Lack of Transportation: No Lack of Food: Never True Current Housing: I Have Housing Concerned About Future Housing: No Difficulty Paying Gas/Electric Bills: No Difficulty Paying for Meds: No Currently Unemployed: No Education: Bachelor's Degree Difficulty w/ Childcare or Family Care: No Living arrangements: with family Occupation/Education: retired 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 HEAD: Normocephalic, atraumatic. RESPIRATORY: Airway patent, respirations nonlabored. Decreased lung sounds throughout, mild rhonchi in bases [place]. Very occ wheezing CARDIOVASCULAR: Borderline tachycardic with regular rhythm without murmurs, rubs, or gallops. ABDOMINAL: Soft, nontender, nondistended. Normoactive BS. MUSCULOSKELETAL: Moves all extremities. No gross deformities. No peripheral edema. SKIN: Warm, dry, normal color. NEURO: Alert, but confused. Able to follow commands but difficulty following conversation. Speech clear. No ataxic movements. PSYCHIATRIC: Appropriate mood and affect. Normal interaction. <Radha Jamil PA-C - Last Filed: 08/15/24 00:36> Course MINE FOREMAN/PA Physician Supervision This visit was performed by both a physician and an APC. I performed all aspects of the MDM as documented. I agree with midlevel documentation; I performed the medical decision making component of this evaluation. I had independent [id number] time with the patient and performed my own independent evaluation and assessment. Patient had 1 point did require intramuscular Haldol given that he had ripped out his IV and start taking off his BiPAP. He has a significant elevated pCO2 with concern for CO2 narcosis and mental status changes combined with his delirium and other comorbid conditions. Patient is hemodynamically stable at this time. Being placed on diuretic therapy including Diamox as well as BiPAP for his respiratory status. Patient was accepted to the IMU for continued care. Hospitalist was spoken to and made aware of the plan of care. <Jay Callejas MD - Last Filed: 08/15/24 02:10> Vital Signs Vital signs: Vital Signs Pulse Oximetry 95 08/14/24 16:57 Oxygen Delivery Nasal Cannula 08/14/24 16:57 Oxygen Flow Rate 5 08/14/24 16:57 Temperature 36.9 C 08/14/24 23:40 Pulse Rate 78 08/15/24 02:00 Respiratory Rate 16 08/14/24 23:40 Blood Pressure 115/71 08/14/24 23:40 Pulse Oximetry 100 08/14/24 23:40 Oxygen Delivery Non-Rebreather Mask 08/14/24 23:15 Oxygen Flow Rate 15 08/14/24 23:15 <Radha Jamil PA-C - Last Filed: 08/15/24 00:36> Vital Signs Pulse Oximetry 95 08/14/24 16:57 Oxygen Delivery Nasal Cannula 08/14/24 16:57 Oxygen Flow Rate 5 08/14/24 16:57 Temperature 36.9 C 08/14/24 23:40 Pulse Rate 78 08/15/24 02:00 Respiratory Rate 16 08/14/24 23:40 Blood Pressure 115/71 08/14/24 23:40 Pulse Oximetry 100 08/14/24 23:40 Oxygen Delivery Non-Rebreather Mask 08/14/24 23:15 Oxygen Flow Rate 15 08/14/24 23:15 <Jay Callejas MD - Last Filed: 08/15/24 02:10> MDM - Altered Mental Status MDM Narrative Medical decision making narrative: Patient presented to ED with altered mental status, combativeness, recent prolonged hospitalization with transition to correction yesterday for rehab. Recent diagnosis of PEs, on Eliquis and chronic supplemental home oxygen at 4L. Vital signs are stable upon arrival. Patient was initially saturating well on his home O2, patient's family reports 4L. However he did require increase up to 6L in the ED. Patient grossly neurologically intact. No appreciable focal deficits. CT brain negative. Chest x-ray with atelectasis versus pneumonia, possible pulmonary edema. BNP is greater than 30,000. Patient does not appear largely fluid overloaded on exam, but with pulm edema on imaging, given dose of Lasix 40 mg. Cbc without leukocytosis. Chronic mild anemia. CMP with chloride of 88, bicarb greater than 40. This does appear consistent with previous/most recent records. Kidney function is stable. Electrolytes are stable. Lipase is mildly elevated to 391. Patient without epigastric pain, nausea, vomiting. UA with trace leuk esterase, 11-20 WBC. Sent for culture. Blood cultures were obtained. Viral swabs are negative. Patient started on Rocephin, azithromycin for pneumonia/UTI. Vancomycin added due to recent hospitalization. Patient was later noted to be somewhat drowsy on re-evaluation. Easily arousable, but sleepy. ABG was obtained and showing pCO2 of 86. No records to compare to. PH 7.351. Will be placed on BiPAP for hypercapnic resp failure. Will be admitted for further evaluation and management, continued abx/diuresis. Discussed case with Dr. Glass, hospitalist, accepted patient for admission. Patient and family in agreement with plan and admission. <Radha Jamil PA-C - Last Filed: 08/15/24 00:36> Medical Records Attestation: I reviewed the patient's medical records. <Radha Jamil PA-C - Last Filed: 08/15/24 00:36> Lab Data Attestation: I reviewed the patient's lab results. <Radha Jamil PA-C - Last Filed: 08/15/24 00:36> Result diagrams: 08/14/24 18:01 08/14/24 18:01 <Radha Jamil PA-C - Last Filed: 08/15/24 00:36> Labs: Lab Results 08/14/24 08/14/24 08/14/24 Range/Units 18:01 18:01 18:07 WBC 5.4 (4.5-10.0) K/mm3 RBC 3.47 L (4.6-6.20) M/mm3 Hgb 8.7 L (14.0-18.0) g/dL Hct 32.3 L (42.0-52.0) % MCV 93.1 (80-100) fl MCH 25.1 L (26-34) pg MCHC 26.9 L (32-36) g/dl RDW 20.5 H (11.5-14.5) % Plt Count 106 L (150-375) k/mm3 MPV 8.6 (7.4-10.4) fl Immature Gran % (Auto) 0.4 (0-0.5) % Neut % (Auto) 77.9 H (45.5-73.1) % Lymph % (Auto) 7.4 L (18.3-44.2) % [place] % (Auto) 13.7 H (2.6-8.5) % Eos % (Auto) 0.2 (0-4.4) % Baso % (Auto) 0.4 (0.2-1.2) % Lymph # (Auto) 0.40 L (0.9-3.2) K/mm3 [place] # (Auto) 0.7 H (0.1-0.6) K/mm3 Eos # (Auto) 0.0 (0-0.3) K/mm3 Baso # (Auto) 0.0 (0.0-0.1) K/mm3 Abs Immat Gran (auto) 0.02 (0.00-0.031) K/mm3 Absolute Neuts (auto) 4.2 (1.3-6.7) K/mm3 Absolute Nucleated RBC 0.000 (0.0-0.012) K/mm3 Band Neutrophils % Not Reportable Nucleated RBC % 0.0 (0.0-0.2) % Platelet Estimate Slightly decreased (Adequate) Hypochromasia 2+ Anisocytosis 2+ Target Cells 1+ Schistocytes None seen PT 16.4 H (11.1-14.7) Seconds INR 1.3 APTT 30.5 (22.3-36.8) Seconds Methemoglobin (0-1.5) %THb Sodium 140 (137-145) mmol/L Potassium 3.4 (3.4-5.0) mmol/L Chloride 88 L (98-107) mmol/L Carbon Dioxide > 40 H (22-30) mmol/L Anion Gap (4-12) mmol/L BUN 35 H (9-20) mg/dL Creatinine 1.01 (0.7-1.3) mg/dL Estim Creat Clear Calc Not Reportable Estimated GFR > 60 (59 - ) Glucose 100 (65-110) mg/dL Calcium 9.0 (8.4-10.2) mg/dL Total Bilirubin 0.7 (0.2-1.3) mg/dL AST 51 (17-59) U/L ALT 28 (6-50) U/L Alkaline Phosphatase 67 (38-126) U/L NT-Pro-B Natriuret Pep > 04513 H Cancelled (19.9-100) pg/mL Total Protein 7.0 (6.3-8.2) g/dL Albumin 3.2 L (3.5-5.1) g/dL Lipase 391 H (23-300) U/L Urine Color Dark yellow (Yellow) Urine Appearance Clear (Clear) Urine pH 6.0 (5.0-9.0) Ur Specific [place] 1.033 (1.001-1.035) Urine Protein 2+ H (Negative) mg/dL Urine Glucose (UA) 2+ H (Negative) mg/dL Urine Ketones Trace H (Negative) mg/dL Ur Blood (Man) Negative (Negative) Urine Nitrate Negative (Negative) Urine Bilirubin Negative (Negative) Urine Urobilinogen 1.0 (<2.0) mg/dL Leukocyte Esterase Rfl Trace H (Negative) KATT/UL Urine RBC 6-10 H (0-2) /hpf Urine WBC 11-20 H (0-3) /hpf Ur Squamous Epith Cells None seen (Few) /hpf Urine Bacteria None seen /hpf Urine Casts 6-10 Hyaline Casts Present (None) /lpf Urine Yeast (Budding) Present H (None) /hpf Nasal MRSA (PCR) (NOT DETECTE) Influenza A (RT-PCR) Negative (Negative) Influenza B (RT-PCR) Negative (Negative) RSV (RT-PCR) Negative (Negative) SARS-CoV-2 RNA (RT-PCR) Negative (Negative) 08/14/24 08/14/24 Range/Units 20:29 21:07 WBC (4.5-10.0) K/mm3 RBC (4.6-6.20) M/mm3 Hgb (14.0-18.0) g/dL Hct (42.0-52.0) % MCV (80-100) fl MCH (26-34) pg MCHC (32-36) g/dl RDW (11.5-14.5) % Plt Count (150-375) k/mm3 MPV (7.4-10.4) fl Immature Gran % (Auto) (0-0.5) % Neut % (Auto) (45.5-73.1) % Lymph % (Auto) (18.3-44.2) % [place] % (Auto) (2.6-8.5) % Eos % (Auto) (0-4.4) % Baso % (Auto) (0.2-1.2) % Lymph # (Auto) (0.9-3.2) K/mm3 [place] # (Auto) (0.1-0.6) K/mm3 Eos # (Auto) (0-0.3) K/mm3 Baso # (Auto) (0.0-0.1) K/mm3 Abs Immat Gran (auto) (0.00-0.031) K/mm3 Absolute Neuts (auto) (1.3-6.7) K/mm3 Absolute Nucleated RBC (0.0-0.012) K/mm3 Band Neutrophils % Nucleated RBC % (0.0-0.2) % Platelet Estimate (Adequate) Hypochromasia Anisocytosis Target Cells Schistocytes PT (11.1-14.7) Seconds INR APTT (22.3-36.8) Seconds Methemoglobin 0.2 (0-1.5) %THb Sodium (137-145) mmol/L Potassium (3.4-5.0) mmol/L Chloride (98-107) mmol/L Carbon Dioxide (22-30) mmol/L Anion Gap (4-12) mmol/L BUN (9-20) mg/dL Creatinine (0.7-1.3) mg/dL Estim Creat Clear Calc Estimated GFR (59 - ) Glucose (65-110) mg/dL Calcium (8.4-10.2) mg/dL Total Bilirubin (0.2-1.3) mg/dL AST (17-59) U/L ALT (6-50) U/L Alkaline Phosphatase (38-126) U/L NT-Pro-B Natriuret Pep (19.9-100) pg/mL Total Protein (6.3-8.2) g/dL Albumin (3.5-5.1) g/dL Lipase (23-300) U/L Urine Color (Yellow) Urine Appearance (Clear) Urine pH (5.0-9.0) Ur Specific [place] (1.001-1.035) Urine Protein (Negative) mg/dL Urine Glucose (UA) (Negative) mg/dL Urine Ketones (Negative) mg/dL Ur Blood (Man) (Negative) Urine Nitrate (Negative) Urine Bilirubin (Negative) Urine Urobilinogen (<2.0) mg/dL Leukocyte Esterase Rfl (Negative) KATT/UL Urine RBC (0-2) /hpf Urine WBC (0-3) /hpf Ur Squamous Epith Cells (Few) /hpf Urine Bacteria /hpf Urine Casts Hyaline Casts (None) /lpf Urine Yeast (Budding) (None) /hpf Nasal MRSA (PCR) Not detected (NOT DETECTE) Influenza A (RT-PCR) (Negative) Influenza B (RT-PCR) (Negative) RSV (RT-PCR) (Negative) SARS-CoV-2 RNA (RT-PCR) (Negative) <Radha Jamil PA-C - Last Filed: 08/15/24 00:36> Lab Results 08/14/24 08/14/24 08/14/24 Range/Units 18:01 18:01 18:07 WBC 5.4 (4.5-10.0) K/mm3 RBC 3.47 L (4.6-6.20) M/mm3 Hgb 8.7 L (14.0-18.0) g/dL Hct 32.3 L (42.0-52.0) % MCV 93.1 (80-100) fl MCH 25.1 L (26-34) pg MCHC 26.9 L (32-36) g/dl RDW 20.5 H (11.5-14.5) % Plt Count 106 L (150-375) k/mm3 MPV 8.6 (7.4-10.4) fl Immature Gran % (Auto) 0.4 (0-0.5) % Neut % (Auto) 77.9 H (45.5-73.1) % Lymph % (Auto) 7.4 L (18.3-44.2) % [place] % (Auto) 13.7 H (2.6-8.5) % Eos % (Auto) 0.2 (0-4.4) % Baso % (Auto) 0.4 (0.2-1.2) % Lymph # (Auto) 0.40 L (0.9-3.2) K/mm3 [place] # (Auto) 0.7 H (0.1-0.6) K/mm3 Eos # (Auto) 0.0 (0-0.3) K/mm3 Baso # (Auto) 0.0 (0.0-0.1) K/mm3 Abs Immat Gran (auto) 0.02 (0.00-0.031) K/mm3 Absolute Neuts (auto) 4.2 (1.3-6.7) K/mm3 Absolute Nucleated RBC 0.000 (0.0-0.012) K/mm3 Band Neutrophils % Not Reportable Nucleated RBC % 0.0 (0.0-0.2) % Platelet Estimate Slightly decreased (Adequate) Hypochromasia 2+ Anisocytosis 2+ Target Cells 1+ Schistocytes None seen PT 16.4 H (11.1-14.7) Seconds INR 1.3 APTT 30.5 (22.3-36.8) Seconds Methemoglobin (0-1.5) %THb Sodium 140 (137-145) mmol/L Potassium 3.4 (3.4-5.0) mmol/L Chloride 88 L (98-107) mmol/L Carbon Dioxide > 40 H (22-30) mmol/L Anion Gap (4-12) mmol/L BUN 35 H (9-20) mg/dL Creatinine 1.01 (0.7-1.3) mg/dL Estim Creat Clear Calc Not Reportable Estimated GFR > 60 (59 - ) Glucose 100 (65-110) mg/dL Calcium 9.0 (8.4-10.2) mg/dL Total Bilirubin 0.7 (0.2-1.3) mg/dL AST 51 (17-59) U/L ALT 28 (6-50) U/L Alkaline Phosphatase 67 (38-126) U/L NT-Pro-B Natriuret Pep > 94884 H Cancelled (19.9-100) pg/mL Total Protein 7.0 (6.3-8.2) g/dL Albumin 3.2 L (3.5-5.1) g/dL Lipase 391 H (23-300) U/L Urine Color Dark yellow (Yellow) Urine Appearance Clear (Clear) Urine pH 6.0 (5.0-9.0) Ur Specific [place] 1.033 (1.001-1.035) Urine Protein 2+ H (Negative) mg/dL Urine Glucose (UA) 2+ H (Negative) mg/dL Urine Ketones Trace H (Negative) mg/dL Ur Blood (Man) Negative (Negative) Urine Nitrate Negative (Negative) Urine Bilirubin Negative (Negative) Urine Urobilinogen 1.0 (<2.0) mg/dL Leukocyte Esterase Rfl Trace H (Negative) KATT/UL Urine RBC 6-10 H (0-2) /hpf Urine WBC 11-20 H (0-3) /hpf Ur Squamous Epith Cells None seen (Few) /hpf Urine Bacteria None seen /hpf Urine Casts 6-10 Hyaline Casts Present (None) /lpf Urine Yeast (Budding) Present H (None) /hpf Nasal MRSA (PCR) (NOT DETECTE) Influenza A (RT-PCR) Negative (Negative) Influenza B (RT-PCR) Negative (Negative) RSV (RT-PCR) Negative (Negative) SARS-CoV-2 RNA (RT-PCR) Negative (Negative) 08/14/24 08/14/24 Range/Units 20:29 21:07 WBC (4.5-10.0) K/mm3 RBC (4.6-6.20) M/mm3 Hgb (14.0-18.0) g/dL Hct (42.0-52.0) % MCV (80-100) fl MCH (26-34) pg MCHC (32-36) g/dl RDW (11.5-14.5) % Plt Count (150-375) k/mm3 MPV (7.4-10.4) fl Immature Gran % (Auto) (0-0.5) % Neut % (Auto) (45.5-73.1) % Lymph % (Auto) (18.3-44.2) % [place] % (Auto) (2.6-8.5) % Eos % (Auto) (0-4.4) % Baso % (Auto) (0.2-1.2) % Lymph # (Auto) (0.9-3.2) K/mm3 [place] # (Auto) (0.1-0.6) K/mm3 Eos # (Auto) (0-0.3) K/mm3 Baso # (Auto) (0.0-0.1) K/mm3 Abs Immat Gran (auto) (0.00-0.031) K/mm3 Absolute Neuts (auto) (1.3-6.7) K/mm3 Absolute Nucleated RBC (0.0-0.012) K/mm3 Band Neutrophils % Nucleated RBC % (0.0-0.2) % Platelet Estimate (Adequate) Hypochromasia Anisocytosis Target Cells Schistocytes PT (11.1-14.7) Seconds INR APTT (22.3-36.8) Seconds Methemoglobin 0.2 (0-1.5) %THb Sodium (137-145) mmol/L Potassium (3.4-5.0) mmol/L Chloride (98-107) mmol/L Carbon Dioxide (22-30) mmol/L Anion Gap (4-12) mmol/L BUN (9-20) mg/dL Creatinine (0.7-1.3) mg/dL Estim Creat Clear Calc Estimated GFR (59 - ) Glucose (65-110) mg/dL Calcium (8.4-10.2) mg/dL Total Bilirubin (0.2-1.3) mg/dL AST (17-59) U/L ALT (6-50) U/L Alkaline Phosphatase (38-126) U/L NT-Pro-B Natriuret Pep (19.9-100) pg/mL Total Protein (6.3-8.2) g/dL Albumin (3.5-5.1) g/dL Lipase (23-300) U/L Urine Color (Yellow) Urine Appearance (Clear) Urine pH (5.0-9.0) Ur Specific [place] (1.001-1.035) Urine Protein (Negative) mg/dL Urine Glucose (UA) (Negative) mg/dL Urine Ketones (Negative) mg/dL Ur Blood (Man) (Negative) Urine Nitrate (Negative) Urine Bilirubin (Negative) Urine Urobilinogen (<2.0) mg/dL Leukocyte Esterase Rfl (Negative) KATT/UL Urine RBC (0-2) /hpf Urine WBC (0-3) /hpf Ur Squamous Epith Cells (Few) /hpf Urine Bacteria /hpf Urine Casts Hyaline Casts (None) /lpf Urine Yeast (Budding) (None) /hpf Nasal MRSA (PCR) Not detected (NOT DETECTE) Influenza A (RT-PCR) (Negative) Influenza B (RT-PCR) (Negative) RSV (RT-PCR) (Negative) SARS-CoV-2 RNA (RT-PCR) (Negative) <Jay Callejas MD - Last Filed: 08/15/24 02:10> ABG Data ABG results: 08/14/24 20:29 Puncture Site Right radial ABG pH 7.351 ABG pCO2 86.0 H* ABG pO2 96.9 ABG PO2/FiO2 Ratio 2.42 ABG HCO3 46.5 H ABG O2 Saturation 96.6 ABG O2 Content 13.0 L ABG Base Excess 17.9 A-a Gradient 89.4 Oxyhemoglobin 95.8 Carboxyhemoglobin 1.1 Reduced Hemoglobin 2.9 Total Hemoglobin 9.5 L O2 Delivery Device Nasal cannula O2 Liters/Min 5.0 FiO2 40 <Radha Jamil PA-C - Last Filed: 08/15/24 00:36> 08/14/24 20:29 Puncture Site Right radial ABG pH 7.351 ABG pCO2 86.0 H* ABG pO2 96.9 ABG PO2/FiO2 Ratio 2.42 ABG HCO3 46.5 H ABG O2 Saturation 96.6 ABG O2 Content 13.0 L ABG Base Excess 17.9 A-a Gradient 89.4 Oxyhemoglobin 95.8 Carboxyhemoglobin 1.1 Reduced Hemoglobin 2.9 Total Hemoglobin 9.5 L O2 Delivery Device Nasal cannula O2 Liters/Min 5.0 FiO2 40 <Jay Callejas MD - Last Filed: 08/15/24 02:10> Attestation: I personally reviewed and interpreted this ABG as follows: <Radha Jamil PA-C - Last Filed: 08/15/24 00:36> Imaging Data Attestation: I personally reviewed and interpreted this imaging study as follows: <Radha Jamil PA-C - Last Filed: 08/15/24 00:36> Radiologist's impression: ITS Impressions Head CT 08/14/24 17:45 IMPRESSION: No acute intracranial findings. Chest X-Ray 08/14/24 17:53 IMPRESSION: Bibasilar atelectasis versus pneumonia. Underlying pulmonary edema is not excluded <Radha Jamil PA-C - Last Filed: 08/15/24 00:36> ECG Data EKG #1: Attestation: I personally reviewed and interpreted this ECG as follows: <Radha Jamil PA-C - Last Filed: 08/15/24 00:36> ECG completion date: 08/14/24 <CHANTAL Jj Last Filed: 08/15/24 00:36> ECG completion time: 18:36 <CHANTAL Jj Last Filed: 08/15/24 00:36> Prior ECG tracings: available for review (consistent with previous) <Radha Jamil PA-C - Last Filed: 08/15/24 00:36> EKG Interpretation: normal rate (97), sinus rhythm, PVCs, non-specific ST changes and other (intraventricular conduction delay) <Radha Jamil PA-C - Last Filed: 08/15/24 00:36> Critical Care Time Critical Care Time Critical Care Time: Yes <Jay Callejas MD - Last Filed: 08/15/24 02:10> Total Critical Care Time: 75 <Jay Callejas MD - Last Filed: 08/15/24 02:10> Discharge Plan Discharge Clinical Impression: Acute on chronic respiratory failure with hypoxia and hypercapnia Pneumonia Qualifiers: Pneumonia type: due to unspecified organism Laterality: unspecified laterality Lung location: unspecified part of lung Qualified Code(s): J18.9 - Pneumonia, unspecified organism Acute exacerbation of CHF (congestive heart failure) Qualifiers: Heart failure type: unspecified Qualified Code(s): I50.9 - Heart failure, unspecified UTI (urinary tract infection) Qualifiers: Urinary tract infection type: acute cystitis Hematuria presence: with hematuria Qualified Code(s): N30.01 - Acute cystitis with hematuria Altered mental status Qualifiers: Altered mental status type: unspecified Qualified Code(s): R41.82 - Altered mental status, unspecified <Radha Jamil PA-C - Last Filed: 08/15/24 00:36> Patient Disposition: Still a Patient <Radha Jamil PA-C - Last Filed: 08/15/24 00:36> Condition: Serious <Radha Jamil PA-C - Last Filed: 08/15/24 00:36>
[2024-08-14 18:08] LABS: Basophils Percent Auto 0.4 % (0.2-1.2); Eosinophils Percent Auto 0.2 % (0-4.4); Hematocrit 32.3 % (42.0-52.0); Hemoglobin 8.7 g/dL (14.0-18.0); Immature Granulocyte Absolute 0.02 K/mm3 (0.00-0.031); Immature Granulocyte Percent A 0.4 % (0-0.5); Lymphocytes Percent Auto 7.4 % (18.3-44.2); Mean Corpuscular HGB Conc 26.9 g/dl (32-36); Mean Corpuscular Hemoglobin 25.1 pg (26-34); Mean Corpuscular Volume 93.1 fl (80-100); Mean Platelet Volume 8.6 fl (7.4-10.4); Monocytes Absolute Auto 0.7 K/mm3 (0.1-0.6); Monocytes Percent Auto 13.7 % (2.6-8.5); Neutrophils Absolute Auto 4.2 K/mm3 (1.3-6.7); Neutrophils Percent Auto 77.9 % (45.5-73.1); Platelet Count Result 106 k/mm3 (150-375); Red Blood Count 3.47 M/mm3 (4.6-6.20); Red Cell Distribution Width 20.5 % (11.5-14.5); White Blood Count 5.4 K/mm3 (4.5-10.0)
[2024-08-14 18:21] LABS: INR 1.3; Prothrombin Time 16.4 Seconds (11.1-14.7)
[2024-08-14 18:22] LABS: Partial Thromboplastin Time 30.5 Seconds (22.3-36.8)
[2024-08-14 18:27] LABS: NT Pro B Type Natriuretic Pept > 30000 pg/mL (19.9-100)
[2024-08-14 18:35] LABS: Add Urine Microscopic? YES; Appearance Urine Clear (Clear); Bacteria Urine None Seen /hpf; Bilirubin Urine Negative (Negative); Blood Urine Negative (Negative); Budding Yeast Urine Present /hpf; Color Urine Dark Yellow (Yellow); Glucose Urine UA 2+ mg/dL (Negative); Hyaline Casts Urine Present /lpf; Ketones Urine Trace mg/dL (Negative); Leukocyte Esterase Ur Trace LEU/UL (Negative); Nitrate Urine Negative (Negative); Protein Urine 2+ mg/dL (Negative); Specific Grav Ur 1.033 (1.001-1.035); Squamous Epithelial Cell Urine None Seen /hpf (Few)
[2024-08-14 18:44] LABS: Influenza A QL RT-PCR Negative (Negative); Influenza B QL RT-PCR Negative (Negative); RSV RNA, RT-PCR Negative (Negative); SARS-CoV-2 RNA PCR Negative (Negative)
[2024-08-14 19:01] LABS: Alanine Aminotransferase 28 U/L (6-50); Albumin Level 3.2 g/dL (3.5-5.1); Alkaline Phosphatase 67 U/L (38-126); Aspartate Amino Transferase 51 U/L (17-59); Bilirubin,Total 0.7 mg/dL (0.2-1.3); Blood Urea Nitrogen 35 mg/dL (9-20); Carbon Dioxide > 40 mmol/L (22-30); Chloride 88 mmol/L (98-107); Estimated Glomerular Filt Rate > 60; Glucose 100 mg/dL (65-110); Lipase 391 U/L (23-300); Potassium 3.4 mmol/L (3.4-5.0); Sodium 140 mmol/L (137-145)
[2024-08-14 19:27] LABS: Anisocytosis 2+; Hypochromasia 2+; Platelet Estimate Slightly Decreased (Adequate); Schistocytes None Seen; Target Cells 1+
[2024-08-14] MEDS: FUROSEMIDE INJ 40 MG/4 ML VIAL IV PUSH (20:14)
[2024-08-14 20:41] LABS: Alveolar/Arterial O2 Gradient 89.4 mmHg; Base Excess ABG 17.9 mEq/l (+/-2.0); Carboxyhemoglobin 1.1 % THb (0-2.0); Fractional Inspired Oxygen 40 %; HCO3 ABG 46.5 mEq/l (22.0-26.0); Methemoglobin ABG 0.2 %THb (0-1.5); Oxygen Saturation ABG 96.6 % (95.0-100.0); Oxyhemoglobin 95.8 % THb (90.0-100.0); PO2 ABG 96.9 mmHg (80.0-100.0); PO2 FiO2 Ratio Arterial Blood 2.42 %; Reduced Hemoglobin 2.9 %THb (0-5.0); Total Hemoglobin 9.5 g/dL (12.0-18.0); pH ABG 7.351 (7.350-7.450)
[2024-08-14 20:43] LABS: Device NASAL CANNULA; Modified Allen's Test Pass; Site Drawn RIGHT RADIAL
[2024-08-14] MEDS: AZITHROMYCIN 500 MG/NS 250 ML 500 MG/250 ML BAG 250 MG IVPB (21:22)
[2024-08-14 22:21] LABS: MRSA (PCR) NOT DETECTED (NOT DETECTE)
[2024-08-14] MEDS: VANCOMYCIN 1,750 MG/NS 500 ML 1,750 MG/500 ML BAG 250 MG IVPB (22:35)
[2024-08-14] MEDS: HALOPERIDOL LACTATE 5 MG/ML VIAL IM (22:59)
--- NOTE | 2024-08-14 23:07 | PC.NURSE ---
patient placed on bipap and became increasely more combative and increasingly more agitated. patient began thrashing and started engaging in unsafe behavior. pt started kicking, thrashing, hitting, biting, spitting, and pulling IV lines/ tubes/ bipap machine off. patient access was removed and infiltrated at this time. pt then continued to exhibit unorganized behavior and was not able to be redirected at this time. vorb by edp dr. hearn to 5mg of halidolol IM to be given. Halidol IM was given in the left thigh at this time and bipap removed. pt continued thrashing and experiencing increased agitation and unable to be redirected. this rn placed a call to hospitalist at this time. this rn contacted IMU charger operatorleo Mora at this time. ed respiratory at bedside at this time. pt had increased confusion. new 20 gauge IV placed into right forearm of patient to continue iv abx. pt on nonrebreather at this time. pt then placed in bilateral soft wrist and ankle restraints due to increased confusion, thrashing, and violent behavior. house supervisior carlos, and imu charger operatorleo mora verbalized that patient was okay to still come to imu bed where hospitalist would reevaluated patient. patient taken to imu via stretcher by multiple technicians, ed respiratory on stretcher, with chart, belongings, cardiac moniotor, iv abx infusing, and nonrebreather with 4 point soft restraints.
[2024-08-14] MEDS: LORazepam INJ (*CRX) 2 MG/ML VIAL IV PUSH (23:29)
--- NOTE | 2024-08-14 23:33 | PCRCNOTE ---
RT was called to transport patient from ER to IMU for admission. RT arrived to patient room to find him still on bipap comfortably. Patient then started complaining about arm pain by his IV. Once the nurse touched his arm, the patient began yelling and pulling at his bipap mask. Patient pulled off his mask and began being combative. Non-rebreather then was placed on the patient, patient continued to fight with that mask as well. Nurse and techs administered restraints and patient was transported to IMU on a non-rebreather. IMU RT aware.
[2024-08-15] VITALS (32 sets, daily range): BP systolic 107–145; BP diastolic 54–75; PULSE 78–98; RESP 16–30; TEMP 36.7–38.2; O2SAT 98–100
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
[2024-08-15] MEDS: WATER, STERILE FOR INJECTION 10 ML VIAL XX (00:33)
[2024-08-15] MEDS: acetaZOLAMIDE SODIUM FOR INJ 500 MG VIAL IV PUSH ×2 (00:33→16:21)
[2024-08-15 00:42] LABS: Alveolar/Arterial O2 Gradient 366.3 mmHg; Base Excess ABG 18.4 mEq/l (+/-2.0); Carboxyhemoglobin 0.6 % THb (0-2.0); Fractional Inspired Oxygen 100 %; HCO3 ABG 49.9 mEq/l (22.0-26.0); Methemoglobin ABG 0.3 %THb (0-1.5); Oxygen Content ABG 15.1 %vol (16.0-22.0); Oxygen Saturation ABG 99.6 % (95.0-100.0); PO2 ABG 337.1 mmHg (80.0-100.0); PO2 FiO2 Ratio Arterial Blood 3.37 %; Reduced Hemoglobin 0.1 %THb (0-5.0); Total Hemoglobin 10.2 g/dL (12.0-18.0)
[2024-08-15 00:48] LABS: Device NON-REBREATHER MASK; Modified Allen's Test Pass; Site Drawn RIGHT RADIAL
--- NOTE | 2024-08-15 01:24 | ADMGEN ---
This patient, Nick Echeverria, was admitted to IMU Room 231-01 at 2309. Patient arrived disoriented, confused and combative. Family was not with patient upon arrival to room. RN was unable to orient patient/family to hospital policies and general routines including ID bracelet, bed and alarms, visiting hours, pain management, procedures, bathroom and other care routines, personal items, smoking policy, room service/diet, and visiting hours; or provide information on how to activate the Rapid Response Team has been discussed; or encourage patient/family to report perceived risks to care and to ask questions if they do not understand what they are told or what they should do.
[2024-08-15] MEDS: IPRATROPIUM 0.5 MG/ALBUTEROL SULFATE 2.5 MG AMPUL.NEB 3 ML INHALATION ×4 (03:19→20:37)
[2024-08-15 04:53] LABS: Basophils Percent Auto 0.5 % (0.2-1.2); Hematocrit 30.9 % (42.0-52.0); Hemoglobin 8.6 g/dL (14.0-18.0); Immature Granulocyte Absolute 0.03 K/mm3 (0.00-0.031); Immature Granulocyte Percent A 0.7 % (0-0.5); Lymphocytes Absolute Auto 0.59 K/mm3 (0.9-3.2); Lymphocytes Percent Auto 14.5 % (18.3-44.2); Mean Corpuscular HGB Conc 27.8 g/dl (32-36); Mean Corpuscular Hemoglobin 26.1 pg (26-34); Mean Corpuscular Volume 93.6 fl (80-100); Monocytes Absolute Auto 0.4 K/mm3 (0.1-0.6); Monocytes Percent Auto 10.8 % (2.6-8.5); Neutrophils Percent Auto 73.5 % (45.5-73.1); Platelet Count Result 116 k/mm3 (150-375); Red Cell Distribution Width 21.2 % (11.5-14.5); White Blood Count 4.1 K/mm3 (4.5-10.0)
--- NOTE | 2024-08-15 05:00 | ECG_ITS ---
Test Date: 2024-08-15 07:54:23 Measurements Intervals [place] Rate: 82 P: -7 SC: 131 QRS: -4 QRSD: 194 T: 152 QT: 424 QTc: 496 Interpretive Statements SINUS RHYTHM LEFT BUNDLE BRANCH BLOCK ABNORMAL ECG Compared to ECG 08/14/2024 18:36:35 Ventricular premature complex(es) no longer present Electronically Signed On 08-16-2024 07:05:05 CDT by Vishal Muñoz D.O.
[2024-08-15 05:22] LABS: Platelet Estimate Slightly Decreased (Adequate)
[2024-08-15 05:24] LABS: Anisocytosis 1+; Hypochromasia 2+
[2024-08-15 05:25] LABS: Alanine Aminotransferase 25 U/L (6-50); Albumin Level 3.1 g/dL (3.5-5.1); Alkaline Phosphatase 67 U/L (38-126); Aspartate Amino Transferase 47 U/L (17-59); Bilirubin,Total 0.5 mg/dL (0.2-1.3); Blood Urea Nitrogen 31 mg/dL (9-20); Chloride 92 mmol/L (98-107); Estimated CRCL calculation 36 ml/min; Estimated Glomerular Filt Rate > 60; Glucose 90 mg/dL (65-110); Magnesium 2.5 mg/dL (1.6-2.3); Potassium 3.2 mmol/L (3.4-5.0); Schistocytes None Seen; Sodium 142 mmol/L (137-145)
[2024-08-15 05:37] LABS: Carbon Dioxide > 40 mmol/L (22-30)
[2024-08-15 05:41] LABS: Alveolar/Arterial O2 Gradient 51.5 mmHg; Base Excess ABG 18.7 mEq/l (+/-2.0); Carboxyhemoglobin 1.1 % THb (0-2.0); Fractional Inspired Oxygen 30 %; HCO3 ABG 45.9 mEq/l (22.0-26.0); Methemoglobin ABG 0.1 %THb (0-1.5); Oxygen Content ABG 12.6 %vol (16.0-22.0); Oxygen Saturation ABG 95.1 % (95.0-100.0); Oxyhemoglobin 94.4 % THb (90.0-100.0); PO2 ABG 77.8 mmHg (80.0-100.0); PO2 FiO2 Ratio Arterial Blood 2.59 %; Reduced Hemoglobin 4.4 %THb (0-5.0); Total Hemoglobin 9.4 g/dL (12.0-18.0); pH ABG 7.422 (7.350-7.450)
[2024-08-15 05:45] LABS: Device NON-INVASIVE VENT; Modified Allen's Test Pass; Site Drawn RIGHT RADIAL
[2024-08-15 05:46] LABS: Non-Invasive Expiratory Pressure 5 CMH2O; Non-Invasive Inspiratory Pressure 15 CMH2O; Non-Invasive Vent Rate 16 /MIN
[2024-08-15] MEDS: KCL 20 MEQ/SW 100 ML 100 ML 50 MEQ IVPB (06:37)
[2024-08-15] MEDS: LORazepam INJ (*CRX) 2 MG/ML VIAL 0.5 MG IV PUSH ×3 (07:19→21:07)
[2024-08-15 08:20] LABS: Glucose Point of Care 72 mg/dl (65-105)
[2024-08-15 11:49] LABS: Glucose Point of Care 75 mg/dl (65-105)
[2024-08-15] MEDS: DEXTROSE 5%/0.9% SOD CHL 1,000 ML 75 ML IV CONT (12:15)
--- NOTE | 2024-08-15 15:58 | PM.IMPN ---
Progress Note: A&P Assessment and Plan (1) Acute on chronic respiratory failure with hypoxia and hypercapnia: Code(s): J96.21 - Acute and chronic respiratory failure with hypoxia; J96.22 - Acute and chronic respiratory failure with hypercapnia Status: Acute (2) Acute alteration in mental status: Code(s): R41.82 - Altered mental status, unspecified Status: Acute Plan COPD exacerbation Acute hypoxemic hypercapnic respiratory final Continue BiPAP, IV steroid and Duonebs monitor CHF exacerbation, diastolic ECHO from 08/04 EF 30-35% Continue Acetazolamide, due to contraction alkalosis CT Chest showed bilateral pleural effusion and pericardial effusion Monitor daily and adjust Respiratory acidosis with metabolic alkalosis Continue Acetazolamide SILVIA on BiPAP Anemia Hb 8.8, iron panel pending hx of Vit D deficiency Vit D level ordered HTN titrate home meds with clinical course BPH continue Tamsulosin DVT prophylaxis on SCDS, pending FOBT pending Subjective Date/time seen: 08/15/24 15:58 Interval history: On BiPAP Review of Systems Review of Systems: All systems reviewed & are unremarkable except as noted in HPI and below (HPI) Exam Const: General: comfortable and no acute distress Other: Disoriented Eyes: Pupils: Equal, round and reactive pupils present Resp: Other: Scant bibasilar crackles, rhonchi left lower lobe, coarse breath sounds Cardio: Rate: regular rate Rhythm: regular rhythm Neuro: Cranial nerves: Yes Equal, round and reactive pupils present Extrem: General: no edema Other: Lipodermatosclerosis. Thickened and wrinkled skin, no edema. Objective Data Vital Signs Vital Signs: Vital Signs - 24 hr 08/14/24 16:57 08/14/24 16:58 08/14/24 17:01 Temperature Pulse Rate 99 100 Respiratory Rate 19 32 H Blood Pressure 101/68 106/75 Pulse Oximetry 95 96 95 Oxygen Delivery Nasal Cannula Oxygen Flow Rate 5 Fraction of Inspired Oxygen 08/14/24 17:47 08/14/24 18:46 08/14/24 19:01 Temperature Pulse Rate 97 99 102 H Respiratory Rate 19 18 22 H Blood Pressure 99/61 L 102/69 106/69 Pulse Oximetry Oxygen Delivery Oxygen Flow Rate Fraction of Inspired Oxygen 08/14/24 19:16 08/14/24 19:18 08/14/24 19:18 Temperature Pulse Rate 101 H 99 Respiratory Rate 19 12 Blood Pressure 110/72 110/71 Pulse Oximetry 98 92 Oxygen Delivery Nasal Cannula Oxygen Flow Rate 6 Fraction of Inspired Oxygen 08/14/24 19:31 08/14/24 19:46 08/14/24 20:13 Temperature Pulse Rate 99 100 97 Respiratory Rate 19 22 H 20 Blood Pressure 105/73 103/66 103/66 Pulse Oximetry 96 98 Oxygen Delivery Oxygen Flow Rate Fraction of Inspired Oxygen 08/14/24 20:13 08/14/24 20:16 08/14/24 20:31 Temperature Pulse Rate 98 96 Respiratory Rate 19 21 H Blood Pressure 111/70 98/83 L Pulse Oximetry 97 99 95 Oxygen Delivery Nasal Cannula Oxygen Flow Rate 5 Fraction of Inspired Oxygen 08/14/24 20:45 08/14/24 21:01 08/14/24 21:15 Temperature Pulse Rate 93 85 Respiratory Rate 22 H 17 16 Blood Pressure 97/66 L Pulse Oximetry 98 100 100 Oxygen Delivery BiPAP Oxygen Flow Rate Fraction of Inspired Oxygen 08/14/24 22:11 08/14/24 22:45 08/14/24 23:05 Temperature Pulse Rate Respiratory Rate 21 H Blood Pressure Pulse Oximetry 95 95 98 Oxygen Delivery BiPAP BiPAP Non-Rebreather Mask Oxygen Flow Rate 15 Fraction of Inspired Oxygen 08/14/24 23:15 08/14/24 23:40 08/15/24 00:00 Temperature 98.4 F Pulse Rate 106 H 98 Respiratory Rate 16 Blood Pressure 115/71 Pulse Oximetry 98 100 Oxygen Delivery Non-Rebreather Mask Oxygen Flow Rate 15 Fraction of Inspired Oxygen 08/15/24 00:30 08/15/24 02:00 08/15/24 03:24 Temperature Pulse Rate 82 78 78 Respiratory Rate 18 27 H Blood Pressure Pulse Oximetry 100 100 Oxygen Delivery BiPAP BiPAP Oxygen Flow Rate Fraction of Inspired Oxygen 08/15/24 03:25 08/15/24 03:35 08/15/24 04:00 Temperature 98.4 F Pulse Rate 78 79 86 Respiratory Rate 27 H 27 H 21 H Blood Pressure 113/62 Pulse Oximetry 100 Oxygen Delivery Oxygen Flow Rate Fraction of Inspired Oxygen 08/15/24 04:00 08/15/24 04:15 08/15/24 05:46 Temperature Pulse Rate 83 83 Respiratory Rate 30 H Blood Pressure Pulse Oximetry 100 100 Oxygen Delivery BiPAP BiPAP Oxygen Flow Rate Fraction of Inspired Oxygen 30 08/15/24 06:00 08/15/24 07:51 08/15/24 07:51 Temperature Pulse Rate 82 85 85 Respiratory Rate 24 H 24 H Blood Pressure Pulse Oximetry 100 Oxygen Delivery BiPAP Oxygen Flow Rate Fraction of Inspired Oxygen 08/15/24 08:00 08/15/24 08:00 08/15/24 08:33 Temperature 98.0 F Pulse Rate 83 86 85 Respiratory Rate 27 H 30 H Blood Pressure 129/64 Pulse Oximetry 98 Oxygen Delivery Oxygen Flow Rate Fraction of Inspired Oxygen 08/15/24 10:00 08/15/24 11:18 08/15/24 11:58 Temperature 100.7 F H Pulse Rate 88 84 82 Respiratory Rate 22 H 16 Blood Pressure 107/54 L Pulse Oximetry 100 100 Oxygen Delivery BiPAP Oxygen Flow Rate Fraction of Inspired Oxygen 08/15/24 12:00 08/15/24 13:46 08/15/24 13:46 Temperature Pulse Rate 89 81 81 Respiratory Rate 16 16 Blood Pressure Pulse Oximetry 100 Oxygen Delivery BiPAP Oxygen Flow Rate Fraction of Inspired Oxygen 08/15/24 13:56 08/15/24 14:00 Temperature Pulse Rate 86 91 Respiratory Rate 20 Blood Pressure Pulse Oximetry Oxygen Delivery Oxygen Flow Rate Fraction of Inspired Oxygen Intake/Output Intake/Output: Intake & Output 08/12/24 08/13/24 08/14/24 08/15/24 23:59 23:59 23:59 23:59 Intake Total 300 500 Output Total 900 Balance 300 -400 Meds/Results Medications: Active Medications Generic Name Dose Route Start Last Admin Trade Name Freq PRN Reason Stop Dose Admin Acetaminophen 650 mg 08/14/24 21:40 Acetaminophen 325 Mg Tablet PO Q4H PRN Mild Pain (1-3) or Fever Albuterol/Ipratropium 3 ml 08/15/24 02:00 08/15/24 13:46 Ipratropium 0.5 Mg/Albuterol Sulfate 2.5 Mg Ampul.Neb 3 Ml INHALATION 3 ml Q6HRT MELQUIADES Administration Dextrose 12.5 gm 08/15/24 00:02 Dextrose 50% 25 Gm/50 Ml Syringe IV PUSH PRN PRN Hypoglycemia Protocol Glucose 15 gm 08/15/24 00:02 Glucose Oral Gel 15 Gm Of Glucse In 37.5 Gm Tube PO PRN PRN Hypoglycemia Protocol Ceftriaxone Sodium 1 gm in 50 mls @ 100 mls/hr 08/15/24 21:00 Rocephin 1 Gm/Ns 50 Ml IVPB Q24H MELQUIADES Azithromycin 500 mg in 250 mls @ 250 mls/hr 08/15/24 21:00 Zithromax IVPB Q24H MELQUIADES Dextrose 1,000 mls @ 100 mls/hr 08/15/24 00:02 Dextrose 5% 1,000 Ml IVPB PRN PRN Hypoglycemia Protocol Vancomycin HCl 1,000 mg in 250 mls @ 250 mls/hr 08/16/24 09:00 Vancomycin 1,000 Mg/Ns 250 Ml IVPB Q36H MELQUIADES Dextrose/Sodium Chloride 1,000 mls @ 75 mls/hr 08/15/24 11:50 08/15/24 12:15 Dextrose 5% Sodium Chloride 0.9% IV CONT 08/17/24 11:49 75 mls/hr .[id number] MELQUIADES Administration Insulin Aspart 2 - 5 units 08/15/24 08:00 08/15/24 12:15 Insulin Aspart (*Bkc) 100 Units/Ml SUB-Q Not Given [facility] Protocol Insulin Aspart 1 - 2 units 08/15/24 21:00 Insulin Aspart (*Bkc) 100 Units/Ml SUB-Q HS MELQUIADES Protocol Lorazepam 0.5 mg 08/14/24 23:25 08/15/24 14:31 Lorazepam Inj (*Crx) 2 Mg/Ml Vial IV PUSH 0.5 mg Q6H PRN Administration Anxiety Radiology Results: ITS Impressions Head CT 08/14/24 17:45 IMPRESSION: No acute intracranial findings. Chest X-Ray 08/14/24 17:53 IMPRESSION: Bibasilar atelectasis versus pneumonia. Underlying pulmonary edema is not excluded Chest CT 08/15/24 11:45 IMPRESSION: 1. Moderate pleural effusions with underlying compressive atelectasis. 2: Small pericardial effusion. 3: Cardiomegaly. 4: Pulmonary arterial hypertension. Labs Labs: Laboratory Results - last 24 hr 08/14/24 08/14/24 08/14/24 18:01 18:01 18:07 WBC 5.4 RBC 3.47 L Hgb 8.7 L Hct 32.3 L MCV 93.1 MCH 25.1 L MCHC 26.9 L RDW 20.5 H Plt Count 106 L MPV 8.6 Immature Gran % (Auto) 0.4 Neut % (Auto) 77.9 H Lymph % (Auto) 7.4 L [place] % (Auto) 13.7 H Eos % (Auto) 0.2 Baso % (Auto) 0.4 Lymph # (Auto) 0.40 L [place] # (Auto) 0.7 H Eos # (Auto) 0.0 Baso # (Auto) 0.0 Abs Immat Gran (auto) 0.02 Absolute Neuts (auto) 4.2 Absolute Nucleated RBC 0.000 Band Neutrophils % Not Reportable Nucleated RBC % 0.0 Platelet Estimate Slightly decreased Hypochromasia 2+ Anisocytosis 2+ Target Cells 1+ Schistocytes None seen PT 16.4 H INR 1.3 APTT 30.5 Puncture Site ABG pH ABG pCO2 ABG pO2 ABG PO2/FiO2 Ratio ABG HCO3 ABG O2 Saturation ABG O2 Content ABG Base Excess A-a Gradient Oxyhemoglobin Carboxyhemoglobin Methemoglobin Reduced Hemoglobin Total Hemoglobin O2 Delivery Device O2 Liters/Min Vent Rate FiO2 Expiratory Pressure Inspiratory Pressure Sodium 140 Potassium 3.4 Chloride 88 L Carbon Dioxide > 40 H Anion Gap BUN 35 H Creatinine 1.01 Estim Creat Clear Calc Not Reportable Estimated GFR > 60 Glucose 100 POC Capillary Glucose Calcium 9.0 Magnesium Total Bilirubin 0.7 AST 51 ALT 28 Alkaline Phosphatase 67 NT-Pro-B Natriuret Pep > 32317 H Cancelled Total Protein 7.0 Albumin 3.2 L Lipase 391 H Urine Color Dark yellow Urine Appearance Clear Urine pH 6.0 Ur Specific Cooper 1.033 Urine Protein 2+ H Urine Glucose (UA) 2+ H Urine Ketones Trace H Ur Blood (Man) Negative Urine Nitrate Negative Urine Bilirubin Negative Urine Urobilinogen 1.0 Leukocyte Esterase Rfl Trace H Urine RBC 6-10 H Urine WBC 11-20 H Ur Squamous Epith Cells None seen Urine Bacteria None seen Urine Casts 6-10 Hyaline Casts Present Urine Yeast (Budding) Present H Nasal MRSA (PCR) Influenza A (RT-PCR) Negative Influenza B (RT-PCR) Negative RSV (RT-PCR) Negative SARS-CoV-2 RNA (RT-PCR) Negative 08/14/24 08/14/24 08/15/24 20:29 21:07 00:25 WBC RBC Hgb Hct MCV MCH MCHC RDW Plt Count MPV Immature Gran % (Auto) Neut % (Auto) Lymph % (Auto) [place] % (Auto) Eos % (Auto) Baso % (Auto) Lymph # (Auto) [place] # (Auto) Eos # (Auto) Baso # (Auto) Abs Immat Gran (auto) Absolute Neuts (auto) Absolute Nucleated RBC Band Neutrophils % Nucleated RBC % Platelet Estimate Hypochromasia Anisocytosis Target Cells Schistocytes PT INR APTT Puncture Site Right radial Right radial ABG pH 7.351 7.240 L* ABG pCO2 86.0 H* 119.0 H* ABG pO2 96.9 337.1 H ABG PO2/FiO2 Ratio 2.42 3.37 ABG HCO3 46.5 H 49.9 H ABG O2 Saturation 96.6 99.6 ABG O2 Content 13.0 L 15.1 L ABG Base Excess 17.9 18.4 A-a Gradient 89.4 366.3 Oxyhemoglobin 95.8 99.0 Carboxyhemoglobin 1.1 0.6 Methemoglobin 0.2 0.3 Reduced Hemoglobin 2.9 0.1 Total Hemoglobin 9.5 L 10.2 L O2 Delivery Device Nasal cannula Non-rebreather mask O2 Liters/Min 5.0 15.0 Vent Rate FiO2 40 100 Expiratory Pressure Inspiratory Pressure Sodium Potassium Chloride Carbon Dioxide Anion Gap BUN Creatinine Estim Creat Clear Calc Estimated GFR Glucose POC Capillary Glucose Calcium Magnesium Total Bilirubin AST ALT Alkaline Phosphatase NT-Pro-B Natriuret Pep Total Protein Albumin Lipase Urine Color Urine Appearance Urine pH Ur Specific Cooper Urine Protein Urine Glucose (UA) Urine Ketones Ur Blood (Man) Urine Nitrate Urine Bilirubin Urine Urobilinogen Leukocyte Esterase Rfl Urine RBC Urine WBC Ur Squamous Epith Cells Urine Bacteria Urine Casts Hyaline Casts Urine Yeast (Budding) Nasal MRSA (PCR) Not detected Influenza A (RT-PCR) Influenza B (RT-PCR) RSV (RT-PCR) SARS-CoV-2 RNA (RT-PCR) 08/15/24 08/15/24 08/15/24 04:31 05:30 08:05 WBC 4.1 L RBC 3.30 L Hgb 8.6 L Hct 30.9 L MCV 93.6 MCH 26.1 MCHC 27.8 L RDW 21.2 H Plt Count 116 L MPV 9.0 Immature Gran % (Auto) 0.7 H Neut % (Auto) 73.5 H Lymph % (Auto) 14.5 L [place] % (Auto) 10.8 H Eos % (Auto) 0.0 Baso % (Auto) 0.5 Lymph # (Auto) 0.59 L [place] # (Auto) 0.4 Eos # (Auto) 0.0 Baso # (Auto) 0.0 Abs Immat Gran (auto) 0.03 Absolute Neuts (auto) 3.0 Absolute Nucleated RBC 0.000 Band Neutrophils % Not Reportable Nucleated RBC % 0.0 Platelet Estimate Slightly decreased Hypochromasia 2+ Anisocytosis 1+ Target Cells Schistocytes None seen PT INR APTT Puncture Site Right radial ABG pH 7.422 ABG pCO2 72.0 H* ABG pO2 77.8 L ABG PO2/FiO2 Ratio 2.59 ABG HCO3 45.9 H ABG O2 Saturation 95.1 ABG O2 Content 12.6 L ABG Base Excess 18.7 A-a Gradient 51.5 Oxyhemoglobin 94.4 Carboxyhemoglobin 1.1 Methemoglobin 0.1 Reduced Hemoglobin 4.4 Total Hemoglobin 9.4 L O2 Delivery Device Non-invasive vent O2 Liters/Min Not Reportable Vent Rate 16 FiO2 30 Expiratory Pressure 5 Inspiratory Pressure 15 Sodium 142 Potassium 3.2 L Chloride 92 L Carbon Dioxide > 40 H Anion Gap BUN 31 H Creatinine 1.12 Estim Creat Clear Calc 36 Estimated GFR > 60 Glucose 90 POC Capillary Glucose 72 Calcium 9.0 Magnesium 2.5 H Total Bilirubin 0.5 AST 47 ALT 25 Alkaline Phosphatase 67 NT-Pro-B Natriuret Pep Total Protein 6.0 L Albumin 3.1 L Lipase Urine Color Urine Appearance Urine pH Ur Specific [place] Urine Protein Urine Glucose (UA) Urine Ketones Ur Blood (Man) Urine Nitrate Urine Bilirubin Urine Urobilinogen Leukocyte Esterase Rfl Urine RBC Urine WBC Ur Squamous Epith Cells Urine Bacteria Urine Casts Hyaline Casts Urine Yeast (Budding) Nasal MRSA (PCR) Influenza A (RT-PCR) Influenza B (RT-PCR) RSV (RT-PCR) SARS-CoV-2 RNA (RT-PCR) 08/15/24 11:41 WBC RBC Hgb Hct MCV MCH MCHC RDW Plt Count MPV Immature Gran % (Auto) Neut % (Auto) Lymph % (Auto) [place] % (Auto) Eos % (Auto) Baso % (Auto) Lymph # (Auto) [place] # (Auto) Eos # (Auto) Baso # (Auto) Abs Immat Gran (auto) Absolute Neuts (auto) Absolute Nucleated RBC Band Neutrophils % Nucleated RBC % Platelet Estimate Hypochromasia Anisocytosis Target Cells Schistocytes PT INR APTT Puncture Site ABG pH ABG pCO2 ABG pO2 ABG PO2/FiO2 Ratio ABG HCO3 ABG O2 Saturation ABG O2 Content ABG Base Excess A-a Gradient Oxyhemoglobin Carboxyhemoglobin Methemoglobin Reduced Hemoglobin Total Hemoglobin O2 Delivery Device O2 Liters/Min Vent Rate FiO2 Expiratory Pressure Inspiratory Pressure Sodium Potassium Chloride Carbon Dioxide Anion Gap BUN Creatinine Estim Creat Clear Calc Estimated GFR Glucose POC Capillary Glucose 75 Calcium Magnesium Total Bilirubin AST ALT Alkaline Phosphatase NT-Pro-B Natriuret Pep Total Protein Albumin Lipase Urine Color Urine Appearance Urine pH Ur Specific [place] Urine Protein Urine Glucose (UA) Urine Ketones Ur Blood (Man) Urine Nitrate Urine Bilirubin Urine Urobilinogen Leukocyte Esterase Rfl Urine RBC Urine WBC Ur Squamous Epith Cells Urine Bacteria Urine Casts Hyaline Casts Urine Yeast (Budding) Nasal MRSA (PCR) Influenza A (RT-PCR) Influenza B (RT-PCR) RSV (RT-PCR) SARS-CoV-2 RNA (RT-PCR)
[2024-08-15] MEDS: methylPREDNISolone SOD SUCC 40 MG VIAL IV PUSH ×2 (16:21→23:01)
[2024-08-15 16:52] LABS: Glucose Point of Care 88 mg/dl (65-105)
--- NOTE | 2024-08-15 17:21 | P.CONPL_ITS ---
Assessment and Plan Assessment and plan (1) Acute on chronic respiratory failure with hypoxia and hypercapnia: Code(s): J96.21 - Acute and chronic respiratory failure with hypoxia; J96.22 - Acute and chronic respiratory failure with hypercapnia Status: Acute Assessment and Plan: (2) Bilateral pleural effusion: Code(s): J90 - Pleural effusion, not elsewhere classified Status: Acute Assessment and Plan: Plan I talked with his and daughter. He is not in great shape, was discharged August 13, returned August 14 with altered mentation, agitation, high pCO2. His chest CT is better compared to August 03. He has less infiltrate in the LLL, improved on antibiotics. He has had increased swelling, pleural effusion, orthopnea, pretty much consistent with congestive heart failure and not pneumonia or obstructive lung disease. He is a never smoker, does not have underlying COPD or asthma. He does have kyphosis and has restrictive lung disease, elevated left diaphragm. These longstanding problems are worsening his pCO2. He is not going to be comfortable wearing BiPAP. If we can attempt to diurese him, use BiPAP with discretion to decrease his pCO2 and try to wean him off of it, this is a gold but if he is fragile and at a crossroads where we can improve his CHF much, we may have another a discussion about comfort care. History of Present Illness History of Present Illness Consult date: 08/16/24 Requesting physician: Alonzo Alicea MD Chief complaint: Hypercapnic hypoxemic respiratory failure Narrative: pt was seen August 15 at 17:30 Room 231 I visited the patient with his and daughter Samantha at the bedside; we reviewed his CT images and labs at the computer, long discussion. NEW: Kali Echeverria is 83 years old, never smoker, NO COPD and NO ASTHMA; he has a paralyzed left diaphragm since 2012, untreated severe obstructive sleep apnea; severe kyphosis and thoracic spondylosis. He was admitted August 03 with new systolic CHF and possible small pulmonary emboli in branches to the RLL; echo showed EF 30-35%, he had a cavitary lesion in the left lower lobe; pleural effusions, compressive atelectasis in lung bases, leg swelling; he was diuresed, treated for pneumonia, diuresed. He was on O2 for most of the last admission, and was discharged on O2 August 13. He was weak during his stay, had a couple of bad days when he was not fully lucid, last angry and paranoid, thought that Dr Kruse was out to harm him, tried to hit him. 08/11 he had a left thoracentesis with 750 ml clear fluid removed, no labs sent but was fluid consistent with transudate due to systolic CHF. He was weak, discharged to rehab on August 13 and was on O2. His daughter and told me that he was so fragile that moving lyn from the stretcher to the bed at rehab seemed to almost break him. He was really tenuous, an this is the whole reason that he was going to rehab, and they knew that if he stayed in the hospital, he nevaeh get weaker. Over the next 24 hours, he became agitated, was picking at his clothefe was worried about how weak he was. This is the reason he was his brain was readmitted last night, was discharge to [place] for rehab on 08/14/2024 yesterday and returns to [facility] within a few hours due to erratic behavior. Pulmonary saw the patient last admission, August 04 for cavitary lung lesions and PE, Dr Kruse, was treated for lung abscess; looked more like pneumonia than malignancy; CT without contrast 08/15/24; IMPRESSION: 1. Moderate pleural effusions with underlying compressive atelectasis. 2: Small pericardial effusion. 3: Cardiomegaly. 4: Pulmonary arterial hypertension. CTA chest 08/03/24 : Segmental nonocclusive pulmonary emboli are suspected in the right lower lobe. Low clot burden. RV/LV ratio less than 1. 1.7 cm cavitary lesion in the right lower lobe, most likely secondary to infection or malignancy. Subsegmental atelectasis/consolidation in the right lower lobe. Chronic left hemidiaphragm elevation with shift of the mediastinum and heart to the right. Cardiomegaly. Small pericardial effusion. Moderate right and small left pleural effusions. Ectasia of the aortic arch. Moderate gastritis. Hepatomegaly. Possible cirrhotic change. 2.0 cm indeterminate density left upper pole lesion, slow interval growth, with increasing density. Consider nonemergent but timely CT or MRI without and with contrast for further characterization. Mild sigmoid colitis. Small volume ascites. Diffuse body wall edema. 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 Mild pulmonary hypertension Echo 2012 Diastolic dysfunction EF 65-72 grade 1 diastolic dysfunction noted on echo February 2013 also noted moderate aortic valve sclerosis mild tricuspid valve regurgitation and mild pulmonic regurgitation Severe obstructive sleep apnea Polysomnogram February 2013 recommending CPAP of 18 Venous stasis dermatitis of right lower extremity Venous stasis LBBB (left bundle branch block) Essential (primary) hypertension Gout, unspecified Iron deficiency anemia Low vitamin D level Memory loss Mixed hyperlipidemia Surgical History Surgical History History of colonoscopy with polypectomy Colonoscopy 11/2017: Umbilicated perianal lesion and 2 small angioplastic lesions without bleeding in the cecum History of esophagogastroduodenoscopy (EGD) 11/2017: Tortuous esophagus prior EGD in 2008 demonstrated gastritis and duodenitis Family History Family History Father Hypertension Gout Mother Hypertension Family history of malignant neoplasm of breast in first degree relative Breast cancer Cerebrovascular accident Sibling Brain cancer Liver cancer Sibling No problems noted. Other Family history of hearing loss Social History Social History Social History: Code status: DNR/DNI Surrogate decision maker: Smoking status: Unknown if ever smoked Second hand tobacco smoke exposure: No Alcohol intake: unknown Substance use: unknown Substance use type: does not use Other substance usage details: Unable to obtain information: pt confused and combative Do You Feel Safe in your Home?: Yes Lack of Transportation: No Lack of Food: Never True Current Housing: I Have Housing Concerned About Future Housing: No Difficulty Paying Gas/Electric Bills: No Difficulty Paying for Meds: No Currently Unemployed: No Education: Bachelor's Degree Difficulty w/ Childcare or Family Care: No Living arrangements: with family Occupation/Education: retired 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 Gender identity (if verbalized by the patient): Male Meds Home Medications and Allergies Home Medications ?Medication ?Instructions ?Recorded ?Confirmed ?Type pantoprazole 40 mg tablet,delayed 40 mg PO QAM 09/21/19 08/15/24 History release (Protonix) carboxymethylcellulose sodium 0.5 1 drp EACH EYE 4-6XD 09/27/20 08/15/24 History % eye drops in a dropperette (Refresh Plus) clindamycin phosphate 1 % topical 1 applic topical DAILY 09/27/20 08/15/24 History gel, once daily (Clindagel) clotrimazole-betamethasone 1 1 applic topical BID 09/27/20 08/15/24 History %-0.05 % topical cream cholecalciferol (vitamin D3) 25 25 mcg PO DAILY #90 caps 04/18/21 08/15/24 Rx mcg (1,000 unit) capsule vqenieln-qbf-uucbe acid 0.4 1 tablet PO DAILY #90 tabs 01/22/22 08/15/24 Rx mg-lycopene 300 mcg-lutein 250 mcg tablet (CertaVite Senior) aspirin 81 mg tablet,delayed 81 mg PO DAILY #60 tabs 01/20/23 08/15/24 Rx release tamsulosin 0.4 mg capsule 0.4 mg PO HS 10/14/23 08/15/24 History furosemide 20 mg tablet (Lasix) See Rx Instructions PO QAM #180 04/13/24 08/15/24 Rx tabs allopurinol 100 mg tablet 100 mg PO BID #180 tabs 04/23/24 08/15/24 Rx memantine 10 mg tablet 10 mg PO BID #180 tabs 05/13/24 08/15/24 Rx atorvastatin 40 mg tablet 40 mg PO DAILY #90 tabs 05/21/24 08/15/24 Rx acetaminophen 500 mg capsule 500 mg PO BID 06/04/24 08/15/24 History terbinafine HCl 1 % topical cream 1 applic topical DAILY 06/04/24 08/15/24 History ferrous sulfate 325 mg (65 mg 325 mg PO DAILY #90 tabs 06/25/24 08/15/24 Rx iron) tablet ascorbic acid (vitamin C) 500 mg 500 mg PO DAILY 07/28/24 08/15/24 History tablet sodium chloride 1,000 mg soluble 1,000 mg PO DAILY #30 tabs 07/29/24 08/15/24 Rx tablet amoxicillin 500 mg-potassium 1 tablet PO Q8H #15 tabs 08/13/24 08/15/24 Rx clavulanate 125 mg tablet (Augmentin) apixaban 2.5 mg tablet (Eliquis) 2.5 mg PO BID #60 tabs 08/13/24 08/15/24 Rx empagliflozin 10 mg tablet 10 mg PO DAILY #30 tabs 08/13/24 08/15/24 Rx (Jardiance) metoprolol succinate 25 mg 25 mg PO QAM #30 tabs 08/13/24 08/15/24 Rx tablet,extended release 24 hr (Toprol XL) Allergies Allergy/AdvReac Type Severity Reaction Status Date / Time No Known Allergies Allergy Verified 08/14/24 19:19 Vital Signs Vital Signs - 24 hr 08/14/24 17:47 08/14/24 18:46 08/14/24 19:01 Temperature Pulse Rate 97 99 102 H Respiratory Rate 19 18 22 H Blood Pressure 99/61 L 102/69 106/69 Pulse Oximetry Oxygen Delivery Oxygen Flow Rate Fraction of Inspired Oxygen 08/14/24 19:16 08/14/24 19:18 08/14/24 19:18 Temperature Pulse Rate 101 H 99 Respiratory Rate 19 12 Blood Pressure 110/72 110/71 Pulse Oximetry 98 92 Oxygen Delivery Nasal Cannula Oxygen Flow Rate 6 Fraction of Inspired Oxygen 08/14/24 19:31 08/14/24 19:46 08/14/24 20:13 Temperature Pulse Rate 99 100 97 Respiratory Rate 19 22 H 20 Blood Pressure 105/73 103/66 103/66 Pulse Oximetry 96 98 Oxygen Delivery Oxygen Flow Rate Fraction of Inspired Oxygen 08/14/24 20:13 08/14/24 20:16 08/14/24 20:31 Temperature Pulse Rate 98 96 Respiratory Rate 19 21 H Blood Pressure 111/70 98/83 L Pulse Oximetry 97 99 95 Oxygen Delivery Nasal Cannula Oxygen Flow Rate 5 Fraction of Inspired Oxygen 08/14/24 20:45 08/14/24 21:01 08/14/24 21:15 Temperature Pulse Rate 93 85 Respiratory Rate 22 H 17 16 Blood Pressure 97/66 L Pulse Oximetry 98 100 100 Oxygen Delivery BiPAP Oxygen Flow Rate Fraction of Inspired Oxygen 08/14/24 22:11 08/14/24 22:45 08/14/24 23:05 Temperature Pulse Rate Respiratory Rate 21 H Blood Pressure Pulse Oximetry 95 95 98 Oxygen Delivery BiPAP BiPAP Non-Rebreather Mask Oxygen Flow Rate 15 Fraction of Inspired Oxygen 08/14/24 23:15 08/14/24 23:40 08/15/24 00:00 Temperature 36.9 C Pulse Rate 106 H 98 Respiratory Rate 16 Blood Pressure 115/71 Pulse Oximetry 98 100 Oxygen Delivery Non-Rebreather Mask Oxygen Flow Rate 15 Fraction of Inspired Oxygen 08/15/24 00:30 08/15/24 02:00 08/15/24 03:24 Temperature Pulse Rate 82 78 78 Respiratory Rate 18 27 H Blood Pressure Pulse Oximetry 100 100 Oxygen Delivery BiPAP BiPAP Oxygen Flow Rate Fraction of Inspired Oxygen 08/15/24 03:25 08/15/24 03:35 08/15/24 04:00 Temperature 36.9 C Pulse Rate 78 79 86 Respiratory Rate 27 H 27 H 21 H Blood Pressure 113/62 Pulse Oximetry 100 Oxygen Delivery Oxygen Flow Rate Fraction of Inspired Oxygen 08/15/24 04:00 08/15/24 04:15 08/15/24 05:46 Temperature Pulse Rate 83 83 Respiratory Rate 30 H Blood Pressure Pulse Oximetry 100 100 Oxygen Delivery BiPAP BiPAP Oxygen Flow Rate Fraction of Inspired Oxygen 30 08/15/24 06:00 08/15/24 07:51 08/15/24 07:51 Temperature Pulse Rate 82 85 85 Respiratory Rate 24 H 24 H Blood Pressure Pulse Oximetry 100 Oxygen Delivery BiPAP Oxygen Flow Rate Fraction of Inspired Oxygen 08/15/24 08:00 08/15/24 08:00 08/15/24 08:33 Temperature 36.7 C Pulse Rate 83 86 85 Respiratory Rate 27 H 30 H Blood Pressure 129/64 Pulse Oximetry 98 Oxygen Delivery Oxygen Flow Rate Fraction of Inspired Oxygen 08/15/24 10:00 08/15/24 11:18 08/15/24 11:58 Temperature 38.2 C H Pulse Rate 88 84 82 Respiratory Rate 22 H 16 Blood Pressure 107/54 L Pulse Oximetry 100 100 Oxygen Delivery BiPAP Oxygen Flow Rate Fraction of Inspired Oxygen 08/15/24 12:00 08/15/24 13:46 08/15/24 13:46 Temperature Pulse Rate 89 81 81 Respiratory Rate 16 16 Blood Pressure Pulse Oximetry 100 Oxygen Delivery BiPAP Oxygen Flow Rate Fraction of Inspired Oxygen 08/15/24 13:56 08/15/24 14:00 08/15/24 16:00 Temperature Pulse Rate 86 91 Respiratory Rate 20 Blood Pressure Pulse Oximetry 100 Oxygen Delivery BiPAP Oxygen Flow Rate 15 Fraction of Inspired Oxygen 30 08/15/24 16:23 08/15/24 16:54 Temperature 36.7 C Pulse Rate 88 92 Respiratory Rate 19 26 H Blood Pressure 145/75 H Pulse Oximetry 100 100 Oxygen Delivery BiPAP Oxygen Flow Rate Fraction of Inspired Oxygen Exam 2 Narrative: GEN: barely arousable; on BiPAP 15/5 and 40%, not in distress. HEENT: pupils are equal, EOMI, symmetrical face; oral membranes moist SPINE: he has marked kyphosis, neck flexes forward in neutral upright position; in bed, neck does not have full range of motion now in bed, NECK: Trachea is midline CHEST: Equal air entry, symmetric excursion, harsh crackles anteriorly, decreased breath sounds in bases CV: Distant regular S1S2 - heart tones obscured with crackles ABD : (+) bowel sounds Extremities : no clubbing, cyanosis; he has bronzing of lower legs, wrinkled leathery skin from recent diuresis. he does not have LE edema. Right arm is edematous. PSYCH: Not able to express himself easily wearing BiPAP Results Laboratory Findings 08/16/24 04:10 08/16/24 04:10 ABG, PT/INR, D-dimer: ABG ABG pH 7.422 (7.350-7.450) 08/15/24 05:30 ABG pCO2 72.0 mmHg (35.0-45.0) H* 08/15/24 05:30 ABG pO2 77.8 mmHg (80.0-100.0) L 08/15/24 05:30 ABG O2 Saturation 95.1 % (95.0-100.0) 08/15/24 05:30 PT/INR, D-dimer PT 16.4 Seconds (11.1-14.7) H 08/14/24 18:01 INR 1.3 08/14/24 18:01 Abnormal lab findings: Abnormal Labs 08/14/24 08/14/24 08/14/24 18:01 18:07 20:29 WBC RBC 3.47 L Hgb 8.7 L Hct 32.3 L MCH 25.1 L MCHC 26.9 L RDW 20.5 H Plt Count 106 L Immature Gran % (Auto) Neut % (Auto) 77.9 H Lymph % (Auto) 7.4 L [place] % (Auto) 13.7 H Lymph # (Auto) 0.40 L [place] # (Auto) 0.7 H PT 16.4 H ABG pH ABG pCO2 86.0 H* ABG pO2 ABG HCO3 46.5 H ABG O2 Content 13.0 L Total Hemoglobin 9.5 L Potassium Chloride 88 L Carbon Dioxide > 40 H BUN 35 H Magnesium NT-Pro-B Natriuret Pep > 14883 H Total Protein Albumin 3.2 L Lipase 391 H Urine Protein 2+ H Urine Glucose (UA) 2+ H Urine Ketones Trace H Leukocyte Esterase Rfl Trace H Urine RBC 6-10 H Urine WBC 11-20 H Urine Yeast (Budding) Present H 08/15/24 08/15/24 08/15/24 00:25 04:31 05:30 WBC 4.1 L RBC 3.30 L Hgb 8.6 L Hct 30.9 L MCH MCHC 27.8 L RDW 21.2 H Plt Count 116 L Immature Gran % (Auto) 0.7 H Neut % (Auto) 73.5 H Lymph % (Auto) 14.5 L [place] % (Auto) 10.8 H Lymph # (Auto) 0.59 L [place] # (Auto) PT ABG pH 7.240 L* ABG pCO2 119.0 H* 72.0 H* ABG pO2 337.1 H 77.8 L ABG HCO3 49.9 H 45.9 H ABG O2 Content 15.1 L 12.6 L Total Hemoglobin 10.2 L 9.4 L Potassium 3.2 L Chloride 92 L Carbon Dioxide > 40 H BUN 31 H Magnesium 2.5 H NT-Pro-B Natriuret Pep Total Protein 6.0 L Albumin 3.1 L Lipase Urine Protein Urine Glucose (UA) Urine Ketones Leukocyte Esterase Rfl Urine RBC Urine WBC Urine Yeast (Budding)
[2024-08-15] MEDS: AZITHROMYCIN 500 MG/NS 250 ML 500 MG/250 ML BAG 250 MG IVPB (21:12)
[2024-08-15] MEDS: OLANZapine 5 MG, WATER, STERILE FOR INJECTION 2.1 ML IM (21:38)
[2024-08-15 21:51] LABS: Glucose Point of Care 118 mg/dl (65-105)
[2024-08-16] VITALS (28 sets, daily range): BP systolic 102–116; BP diastolic 53–72; PULSE 81–125; RESP 16–39; TEMP 36.5–37.5; O2SAT 93–100
[2024-08-16] MEDS: DEXTROSE 5%/0.9% SOD CHL 1,000 ML 75 ML IV CONT ×2 (01:00→15:58)
[2024-08-16] MEDS: IPRATROPIUM 0.5 MG/ALBUTEROL SULFATE 2.5 MG AMPUL.NEB 3 ML INHALATION ×4 (02:09→20:48)
[2024-08-16] MEDS: LORazepam INJ (*CRX) 2 MG/ML VIAL 0.5 MG IV PUSH ×2 (02:38→20:52)
[2024-08-16 04:36] LABS: Hematocrit 28.5 % (42.0-52.0); Hemoglobin 8.2 g/dL (14.0-18.0); Immature Granulocyte Absolute 0.04 K/mm3 (0.00-0.031); Immature Granulocyte Percent A 1.1 % (0-0.5); Lymphocytes Absolute Auto 0.18 K/mm3 (0.9-3.2); Lymphocytes Percent Auto 5.1 % (18.3-44.2); Mean Corpuscular HGB Conc 28.8 g/dl (32-36); Mean Corpuscular Hemoglobin 25.9 pg (26-34); Mean Corpuscular Volume 90.2 fl (80-100); Mean Platelet Volume 9.2 fl (7.4-10.4); Monocytes Absolute Auto 0.1 K/mm3 (0.1-0.6); Monocytes Percent Auto 1.4 % (2.6-8.5); Neutrophils Absolute Auto 3.2 K/mm3 (1.3-6.7); Neutrophils Percent Auto 92.4 % (45.5-73.1); Platelet Count Result 135 k/mm3 (150-375); Red Blood Count 3.16 M/mm3 (4.6-6.20); Red Cell Distribution Width 21.7 % (11.5-14.5); White Blood Count 3.5 K/mm3 (4.5-10.0)
[2024-08-16 04:46] LABS: Iron 20 ug/dL (49-181)
[2024-08-16 04:49] LABS: Alanine Aminotransferase 23 U/L (6-50); Albumin Level 2.9 g/dL (3.5-5.1); Alkaline Phosphatase 62 U/L (38-126); Anion Gap 5 mmol/L (4-12); Aspartate Amino Transferase 44 U/L (17-59); Bilirubin,Total 0.4 mg/dL (0.2-1.3); Blood Urea Nitrogen 24 mg/dL (9-20); Calcium 8.5 mg/dL (8.4-10.2); Carbon Dioxide 35 mmol/L (22-30); Chloride 102 mmol/L (98-107); Estimated CRCL calculation 46 ml/min; Estimated Glomerular Filt Rate > 60; Glucose 143 mg/dL (65-110); Magnesium 2.3 mg/dL (1.6-2.3); Sodium 142 mmol/L (137-145)
[2024-08-16 04:56] LABS: Percent Iron Saturation 7 % (20-50)
[2024-08-16 05:04] LABS: Vitamin D 25 Hydroxy 22.5 ng/mL
[2024-08-16 05:22] LABS: Hypochromasia 1+; Platelet Estimate Slightly Decreased (Adequate)
[2024-08-16 05:23] LABS: Anisocytosis 1+; Ovalocytes 1+
[2024-08-16 05:24] LABS: Poikilocytosis 1+; Schistocytes None Seen; Target Cells 1+
[2024-08-16 07:20] LABS: Glucose Point of Care 132 mg/dl (65-105)
[2024-08-16 08:00] LABS: Alveolar/Arterial O2 Gradient 68.1 mmHg; Base Excess ABG 4.4 mEq/l (+/-2.0); Fractional Inspired Oxygen 30 %; HCO3 ABG 29.4 mEq/l (22.0-26.0); Oxygen Content ABG 12.4 %vol (16.0-22.0); Oxygen Saturation ABG 97.1 % (95.0-100.0); Oxyhemoglobin 95.8 % THb (90.0-100.0); PCO2 ABG 45.8 mmHg (35.0-45.0); PO2 FiO2 Ratio Arterial Blood 3.07 %; Total Hemoglobin 9.1 g/dL (12.0-18.0); pH ABG 7.425 (7.350-7.450)
[2024-08-16 08:03] LABS: Device NON-INVASIVE VENT; Modified Allen's Test Pass; Site Drawn RIGHT RADIAL
[2024-08-16 08:04] LABS: Non-Invasive Expiratory Pressure 5 CMH2O; Non-Invasive Inspiratory Pressure 15 CMH2O; Non-Invasive Vent Rate 16 /MIN
[2024-08-16] MEDS: methylPREDNISolone SOD SUCC 40 MG VIAL IV PUSH ×3 (09:29→23:01)
[2024-08-16] MEDS: VANCOMYCIN 1,000 MG/NS 250 ML 1,000 MG/250 ML BAG 250 MG IVPB (09:30)
[2024-08-16] MEDS: POTASSIUM CHLORIDE INJ 40 MEQ in SODIUM CHLORIDE 0.9% IV 500 ML 130 MEQ IVPB (09:30)
[2024-08-16] MEDS: acetaZOLAMIDE SODIUM FOR INJ 500 MG VIAL IV PUSH (09:30)
--- NOTE | 2024-08-16 10:10 | P.PNIM_ITS ---
Progress Note: A&P Assessment and Plan (1) Acute on chronic respiratory failure with hypoxia and hypercapnia: Code(s): J96.21 - Acute and chronic respiratory failure with hypoxia; J96.22 - Acute and chronic respiratory failure with hypercapnia Status: Acute (2) Acute alteration in mental status: Code(s): R41.82 - Altered mental status, unspecified Status: Acute Plan COPD exacerbation Acute hypoxemic hypercapnic respiratory final improving respiratory acidosis resolved abg this morning 7.425/45.8/92/29.4 still barely responsive to pain monitor CHF exacerbation, diastolic ECHO from 08/04 EF 30-35% Continue Acetazolamide, due to contraction alkalosis CT Chest showed bilateral pleural effusion and pericardial effusion Monitor daily and adjust Respiratory acidosis with metabolic alkalosis resolving Continue Acetazolamide SILVIA on BiPAP at night Anemia Hb 8.8, ferritin 23 and isat 7 Start IV replacement 500/1000 hx of Vit D deficiency Vit D level 22.5 give one dose 50k po onc e HTN titrate home meds with clinical course BPH continue Tamsulosin DVT prophylaxis on SCDS, pending FOBT pending Family meeting to discuss goals of care Subjective Date/time seen: 08/16/24 10:10 Interval history: Patient grimacing to pain this morning Review of Systems Review of Systems: All systems reviewed & are unremarkable except as noted in HPI and below (HPI) Exam Const: General: comfortable and no acute distress Other: Disoriented Eyes: Pupils: Equal, round and reactive pupils present Resp: Other: Scant bibasilar crackles, rhonchi left lower lobe, coarse breath sounds Cardio: Rate: regular rate Rhythm: regular rhythm Neuro: Cranial nerves: Yes Equal, round and reactive pupils present Extrem: General: no edema Other: Lipodermatosclerosis. Thickened and wrinkled skin, no edema. Objective Data Vital Signs Vital Signs: Vital Signs - 24 hr 08/15/24 11:18 08/15/24 11:58 08/15/24 12:00 Temperature 100.7 F H Pulse Rate 84 82 89 Respiratory Rate 22 H 16 Blood Pressure 107/54 L Pulse Oximetry 100 100 Oxygen Delivery BiPAP Oxygen Flow Rate Fraction of Inspired Oxygen 08/15/24 13:46 08/15/24 13:46 08/15/24 13:56 Temperature Pulse Rate 81 81 86 Respiratory Rate 16 16 20 Blood Pressure Pulse Oximetry 100 Oxygen Delivery BiPAP Oxygen Flow Rate Fraction of Inspired Oxygen 08/15/24 14:00 08/15/24 16:00 08/15/24 16:00 Temperature Pulse Rate 91 91 Respiratory Rate Blood Pressure Pulse Oximetry 100 Oxygen Delivery BiPAP Oxygen Flow Rate 15 Fraction of Inspired Oxygen 30 08/15/24 16:23 08/15/24 16:54 08/15/24 18:00 Temperature 98.1 F Pulse Rate 88 92 84 Respiratory Rate 19 26 H Blood Pressure 145/75 H Pulse Oximetry 100 100 Oxygen Delivery BiPAP Oxygen Flow Rate Fraction of Inspired Oxygen 08/15/24 19:46 08/15/24 20:00 08/15/24 20:39 Temperature 98.0 F Pulse Rate 81 80 81 Respiratory Rate 16 16 Blood Pressure 113/62 Pulse Oximetry 100 Oxygen Delivery Oxygen Flow Rate Fraction of Inspired Oxygen 08/15/24 20:41 08/15/24 20:59 08/15/24 21:00 Temperature Pulse Rate 82 81 Respiratory Rate 16 16 Blood Pressure Pulse Oximetry 100 100 Oxygen Delivery BiPAP BiPAP Oxygen Flow Rate Fraction of Inspired Oxygen 08/15/24 22:00 08/15/24 23:35 08/16/24 00:00 Temperature Pulse Rate 88 87 Respiratory Rate Blood Pressure Pulse Oximetry 100 Oxygen Delivery BiPAP Oxygen Flow Rate Fraction of Inspired Oxygen 30 08/16/24 00:00 08/16/24 02:00 08/16/24 02:09 Temperature 98.0 F Pulse Rate 86 90 81 Respiratory Rate 16 16 Blood Pressure 114/59 L Pulse Oximetry 100 Oxygen Delivery Oxygen Flow Rate Fraction of Inspired Oxygen 08/16/24 02:25 08/16/24 02:30 08/16/24 04:00 Temperature 97.7 F Pulse Rate 81 98 89 Respiratory Rate 16 39 H 20 Blood Pressure 111/53 L Pulse Oximetry 100 99 Oxygen Delivery BiPAP Oxygen Flow Rate Fraction of Inspired Oxygen 08/16/24 04:00 08/16/24 04:00 08/16/24 06:00 Temperature Pulse Rate 89 85 Respiratory Rate Blood Pressure Pulse Oximetry 100 Oxygen Delivery BiPAP Oxygen Flow Rate Fraction of Inspired Oxygen 30 08/16/24 07:50 08/16/24 08:11 08/16/24 08:37 Temperature 99.5 F Pulse Rate 85 84 85 Respiratory Rate 19 18 16 Blood Pressure 110/57 L Pulse Oximetry 99 99 Oxygen Delivery BiPAP Oxygen Flow Rate Fraction of Inspired Oxygen 08/16/24 08:45 08/16/24 09:35 Temperature Pulse Rate 88 100 Respiratory Rate 16 20 Blood Pressure Pulse Oximetry 98 Oxygen Delivery High Flow Therapy with Na Oxygen Flow Rate 28 Fraction of Inspired Oxygen 30 Intake/Output Intake/Output: Intake & Output 08/13/24 08/14/24 08/15/24 08/16/24 23:59 23:59 23:59 23:59 Intake Total 300 1468.8 205 Output Total 1300 900 Balance 300 168.8 -695 Meds/Results Medications: Active Medications Generic Name Dose Route Start Last Admin Trade Name Freq PRN Reason Stop Dose Admin Acetaminophen 650 mg 08/14/24 21:40 Acetaminophen 325 Mg Tablet PO Q4H PRN Mild Pain (1-3) or Fever Albuterol/Ipratropium 3 ml 08/15/24 02:00 08/16/24 08:37 Ipratropium 0.5 Mg/Albuterol Sulfate 2.5 Mg Ampul.Neb 3 Ml INHALATION 3 ml Q6HRT MELQUIADES Administration Dextrose 12.5 gm 08/15/24 00:02 Dextrose 50% 25 Gm/50 Ml Syringe IV PUSH PRN PRN Hypoglycemia Protocol Glucose 15 gm 08/15/24 00:02 Glucose Oral Gel 15 Gm Of Glucse In 37.5 Gm Tube PO PRN PRN Hypoglycemia Protocol Ceftriaxone Sodium 1 gm in 50 mls @ 100 mls/hr 08/15/24 21:00 08/15/24 21:46 Rocephin 1 Gm/Ns 50 Ml IVPB Infused Q24H MELQUIADES Infusion Azithromycin 500 mg in 250 mls @ 250 mls/hr 08/15/24 21:00 08/15/24 22:15 Zithromax IVPB Infused Q24H MELQUIADES Infusion Dextrose 1,000 mls @ 100 mls/hr 08/15/24 00:02 Dextrose 5% 1,000 Ml IVPB PRN PRN Hypoglycemia Protocol Vancomycin HCl 1,000 mg in 250 mls @ 250 mls/hr 08/16/24 09:00 08/16/24 09:30 Vancomycin 1,000 Mg/Ns 250 Ml IVPB 250 mls/hr Q36H MELQUIADES Administration Dextrose/Sodium Chloride 1,000 mls @ 75 mls/hr 08/15/24 11:50 08/16/24 01:00 Dextrose 5% Sodium Chloride 0.9% IV CONT 08/17/24 11:49 75 mls/hr .[id number] MELQUIADES Administration Potassium Chloride 40 meq/ 520 mls @ 130 mls/hr 08/16/24 08:00 08/16/24 09:30 Sodium Chloride IVPB 08/16/24 11:59 130 mls/hr ONCE ONE Administration Iron Sucrose 400 mg/ Iron 275 mls @ 78.571 mls/hr 08/16/24 12:00 Sucrose 100 mg/ Sodium IVPB 08/16/24 15:29 Chloride ONCE ONE Insulin Aspart 2 - 5 units 08/15/24 08:00 08/16/24 08:14 Insulin Aspart (*Bkc) 100 Units/Ml SUB-Q Not Given TIDWM MELQUIADES Protocol Insulin Aspart 1 - 2 units 08/15/24 21:00 08/15/24 21:45 Insulin Aspart (*Bkc) 100 Units/Ml SUB-Q Not Given HS MELQUIADES Protocol Lorazepam 0.5 mg 08/14/24 23:25 08/16/24 02:38 Lorazepam Inj (*Crx) 2 Mg/Ml Vial IV PUSH 0.5 mg Q6H PRN Administration Anxiety Methylprednisolone Sodium Succinate 40 mg 08/15/24 16:05 08/16/24 09:29 Methylprednisolone Sod Succ 40 Mg Vial IV PUSH 40 mg Q8HR MELQUIADES Administration Radiology Results: ITS Impressions Head CT 08/14/24 17:45 IMPRESSION: No acute intracranial findings. Chest X-Ray 08/14/24 17:53 IMPRESSION: Bibasilar atelectasis versus pneumonia. Underlying pulmonary edema is not excluded Chest CT 08/15/24 11:45 IMPRESSION: 1. Moderate pleural effusions with underlying compressive atelectasis. 2: Small pericardial effusion. 3: Cardiomegaly. 4: Pulmonary arterial hypertension. Labs Labs: Laboratory Results - last 24 hr 08/15/24 08/15/24 08/15/24 11:41 15:31 21:21 WBC RBC Hgb Hct MCV MCH MCHC RDW Plt Count MPV Immature Gran % (Auto) Neut % (Auto) Lymph % (Auto) [place] % (Auto) Eos % (Auto) Baso % (Auto) Lymph # (Auto) [place] # (Auto) Eos # (Auto) Baso # (Auto) Abs Immat Gran (auto) Absolute Neuts (auto) Absolute Nucleated RBC Band Neutrophils % Nucleated RBC % Platelet Estimate Hypochromasia Poikilocytosis Anisocytosis Target Cells Ovalocytes Schistocytes Puncture Site ABG pH ABG pCO2 ABG pO2 ABG PO2/FiO2 Ratio ABG HCO3 ABG O2 Saturation ABG O2 Content ABG Base Excess A-a Gradient Oxyhemoglobin Total Hemoglobin O2 Delivery Device O2 Liters/Min Vent Rate FiO2 Expiratory Pressure Inspiratory Pressure Sodium Potassium Chloride Carbon Dioxide Anion Gap BUN Creatinine Estim Creat Clear Calc Estimated GFR Glucose POC Capillary Glucose 75 88 118 H Calcium Magnesium Iron TIBC % Saturation Ferritin Total Bilirubin AST ALT Alkaline Phosphatase Total Protein Albumin Vitamin D 25-Hydroxy 08/16/24 08/16/24 08/16/24 04:10 07:17 07:53 WBC 3.5 L RBC 3.16 L Hgb 8.2 L Hct 28.5 L MCV 90.2 MCH 25.9 L MCHC 28.8 L RDW 21.7 H Plt Count 135 L MPV 9.2 Immature Gran % (Auto) 1.1 H Neut % (Auto) 92.4 H Lymph % (Auto) 5.1 L [place] % (Auto) 1.4 L Eos % (Auto) 0.0 Baso % (Auto) 0.0 L Lymph # (Auto) 0.18 L [place] # (Auto) 0.1 Eos # (Auto) 0.0 Baso # (Auto) 0.0 Abs Immat Gran (auto) 0.04 H Absolute Neuts (auto) 3.2 Absolute Nucleated RBC 0.000 Band Neutrophils % Not Reportable Nucleated RBC % 0.0 Platelet Estimate Slightly decreased Hypochromasia 1+ Poikilocytosis 1+ Anisocytosis 1+ Target Cells 1+ Ovalocytes 1+ Schistocytes None seen Puncture Site Right radial ABG pH 7.425 ABG pCO2 45.8 H ABG pO2 92.0 ABG PO2/FiO2 Ratio 3.07 ABG HCO3 29.4 H ABG O2 Saturation 97.1 ABG O2 Content 12.4 L ABG Base Excess 4.4 A-a Gradient 68.1 Oxyhemoglobin 95.8 Total Hemoglobin 9.1 L O2 Delivery Device Non-invasive vent O2 Liters/Min Not Reportable Vent Rate 16 FiO2 30 Expiratory Pressure 5 Inspiratory Pressure 15 Sodium 142 Potassium 3.0 L Chloride 102 Carbon Dioxide 35 H Anion Gap 5 BUN 24 H Creatinine 0.87 Estim Creat Clear Calc 46 Estimated GFR > 60 Glucose 143 H POC Capillary Glucose 132 H Calcium 8.5 Magnesium 2.3 Iron 20 L TIBC 277 % Saturation 7 L Ferritin 23.00 Total Bilirubin 0.4 AST 44 ALT 23 Alkaline Phosphatase 62 Total Protein 6.0 L Albumin 2.9 L Vitamin D 25-Hydroxy 22.5
[2024-08-16 11:53] LABS: Glucose Point of Care 120 mg/dl (65-105)
[2024-08-16] MEDS: IRON SUCROSE COMPLEX 400 MG, IRON SUCROSE COMPLEX 100 MG in SODIUM CHLORIDE 0.9% IV 250 ML 78.57 MG IVPB (12:43)
[2024-08-16] MEDS: WATER FOR IRRIGATION, STERILE 1,000 ML BOTTLE 1000 ML (15:59)
[2024-08-16 16:21] LABS: Glucose Point of Care 153 mg/dl (65-105)
[2024-08-16 20:42] LABS: Glucose Point of Care 189 mg/dl (65-105)
[2024-08-16] MEDS: AZITHROMYCIN 500 MG/NS 250 ML 500 MG/250 ML BAG 250 MG IVPB (20:51)
[2024-08-17] VITALS (23 sets, daily range): BP systolic 87–112; BP diastolic 53–88; PULSE 86–115; RESP 17–27; TEMP 36.6–37.6; O2SAT 94–100; BMI 20.7
[2024-08-17] MEDS: IPRATROPIUM 0.5 MG/ALBUTEROL SULFATE 2.5 MG AMPUL.NEB 3 ML INHALATION ×3 (02:20→14:47)
[2024-08-17] MEDS: DEXTROSE 5%/0.9% SOD CHL 1,000 ML 75 ML IV CONT (04:10)
[2024-08-17] MEDS: LORazepam INJ (*CRX) 2 MG/ML VIAL 0.5 MG IV PUSH (04:10)
[2024-08-17 04:46] LABS: Hematocrit 26.9 % (42.0-52.0); Hemoglobin 8.3 g/dL (14.0-18.0); Immature Granulocyte Absolute 0.02 K/mm3 (0.00-0.031); Immature Granulocyte Percent A 0.5 % (0-0.5); Lymphocytes Absolute Auto 0.21 K/mm3 (0.9-3.2); Lymphocytes Percent Auto 5.1 % (18.3-44.2); Mean Corpuscular HGB Conc 30.9 g/dl (32-36); Mean Corpuscular Hemoglobin 29.2 pg (26-34); Mean Corpuscular Volume 94.7 fl (80-100); Monocytes Absolute Auto 0.2 K/mm3 (0.1-0.6); Monocytes Percent Auto 4.1 % (2.6-8.5); Neutrophils Absolute Auto 3.8 K/mm3 (1.3-6.7); Neutrophils Percent Auto 90.3 % (45.5-73.1); Platelet Count Result 153 k/mm3 (150-375); Red Blood Count 2.84 M/mm3 (4.6-6.20); Red Cell Distribution Width 22.5 % (11.5-14.5); White Blood Count 4.2 K/mm3 (4.5-10.0)
[2024-08-17 04:58] LABS: Alanine Aminotransferase 24 U/L (6-50); Alkaline Phosphatase 58 U/L (38-126); Anion Gap 4 mmol/L (4-12); Aspartate Amino Transferase 38 U/L (17-59); Bilirubin,Total 0.3 mg/dL (0.2-1.3); Blood Urea Nitrogen 33 mg/dL (9-20); Calcium 8.8 mg/dL (8.4-10.2); Carbon Dioxide 30 mmol/L (22-30); Chloride 110 mmol/L (98-107); Estimated CRCL calculation 40 ml/min; Estimated Glomerular Filt Rate > 60; Glucose 170 mg/dL (65-110); Magnesium 2.5 mg/dL (1.6-2.3); Potassium 3.3 mmol/L (3.4-5.0); Sodium 144 mmol/L (137-145)
[2024-08-17] MEDS: methylPREDNISolone SOD SUCC 40 MG VIAL IV PUSH ×2 (05:12→13:57)
[2024-08-17 05:25] LABS: Anisocytosis 1+; Platelet Estimate Adequate (Adequate); Schistocytes None Seen
[2024-08-17 07:45] LABS: Glucose Point of Care 163 mg/dl (65-105)
[2024-08-17 08:47] LABS: NT Pro B Type Natriuretic Pept > 30000 pg/mL (19.9-100)
[2024-08-17] MEDS: IRON SUCROSE COMPLEX 400 MG, IRON SUCROSE COMPLEX 100 MG in SODIUM CHLORIDE 0.9% IV 250 ML 78.57 MG IVPB (11:15)
[2024-08-17 11:40] LABS: Glucose Point of Care 160 mg/dl (65-105)
--- NOTE | 2024-08-17 14:17 | PM.PNPUL ---
Progress Note: A&P Assessment and Plan (1) Acute on chronic respiratory failure with hypoxia and hypercapnia: Code(s): J96.21 - Acute and chronic respiratory failure with hypoxia; J96.22 - Acute and chronic respiratory failure with hypercapnia Status: Acute Assessment and Plan: Patient with a history of kyphosis, elevated left hemidiaphragm and no history of chronic lung disease. He has a cardiomyopathy with an EF of 30-35%, bilateral pleural effusions status post thoracentesis on the right with negative cytology but no other lab sent. Currently he has reaccumulated and has moderate bilateral pleural effusions with evidence of fluid overload. Last admission he had a CT angiogram with motion artifact, large right pleural effusion with compressive atelectasis and possible pneumonia and possible right lower lobe PE with 1 radiologist stating likely PE and a 2nd radiologist with doubtful and would have interpreted the scan as cannot exclude PE. Last admission was discharged on 3 L nasal cannula. Etiology of hypoxemic and hypercarbic respiratory failure includes: Kyphosis, elevated left hemidiaphragm, fluid overload, moderate bilateral pleural effusions. 08/17/24: patient is minimally alert. He does raise 2 fingers to verbal commands and wiggles his toes. He mumbles and says that he is short of breath. Last night he wore BiPAP rate of 16, pressures 15/5 and 21% FiO2. Currently he is wearing 30% Venti mask with saturations 98%. I decreased him to 24%. His white blood cell count is 4.2, creatinine is 1.01. He is afebrile. Yesterday was -295 mL and cumulative he is +788 mL since admission. His weight today is 58.1. Plan: Goal saturation 90-94%. Adjust oxygen accordingly. He is a mouth breather and is currently on a Venturi mask at 24% FiO2. I suspect cardiomyopathy and fluid overload with moderate bilateral pleural effusion, compressive atelectasis are resulting in oxygen requirements. His BNP remains greater than 30,000. recommended as aggressive diuresis as tolerated by his cardiac and renal systems per the hospitalist team. 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 I will discontinue Solu-Medrol at this time. If his mental status tolerates, will use BiPAP p.r.n. at night and once he has been adequately diuresed will reassess his hypercarbic respiratory failure. Discussed with Dr. Alicea, will follow with you. (2) Bilateral pleural effusion: Code(s): J90 - Pleural effusion, not elsewhere classified Status: Acute Assessment and Plan: Patient had a thoracentesis of 750 mL of clear yellow fluid. No chemistries were sent. Cytology negative on 08/11/2024. 08/17/24: Patient has reaccumulated and has moderate bilateral pleural effusions at this time with underlying compressive atelectasis. This is likely contributing to patient's hypoxemic and hypercarbic respiratory failure. Plan: As above agree with as aggressive diuresis as tolerated by his cardiac and renal systems. Agree with no anticoagulation at this time as patient may require a thoracentesis for is really accumulated right-sided pleural effusion. (3) Cavitary lesion of lung: Code(s): J98.4 - Other disorders of lung Status: Acute Assessment and Plan: Patient had a left lower lobe thick-walled cavity with adjacent infiltrates likely representing an abscess. He was initially treated with 5 days of azithromycin and Zosyn and switch to Augmentin. During this hospitalization he has been treated with vancomycin, 4 days, azithromycin 5 days and ceftriaxone for 4 days. Plan: Will switch to unasyn to complete 3 weeks total antibiotics from 08/05/2024 with an end date of 08/26/2024. (4) Pulmonary emboli: Qualifiers: Pulmonary embolism type: single subsegmental (without acute cor pulmonale) Qualified Code(s): I26.93 - Single subsegmental thrombotic pulmonary embolism without acute cor pulmonale Code(s): I26.99 - Other pulmonary embolism without acute cor pulmonale Status: Acute Assessment and Plan: Last admission he had a CT angiogram on 08/03/2024 with motion artifact, large right pleural effusion with compressive atelectasis and possible pneumonia and possible right lower lobe PE with 1 radiologist stating likely PE and a 2nd radiologist with doubtful and would have interpreted the scan as cannot exclude PE. lower extremity Dopplers were negative. 08/17/24: Plan: Agree with no anticoagulation at this time as patient may require a thoracentesis for his reaccumulated right-sided pleural effusion. Will reassess after diuresis. Will repeat lower extremity Dopplers. Subjective Date/time seen: 08/17/24 14:17 Interval history: 08/15/24 at 17:30 Room 231 I visited the patient with his and daughter Samantha at the bedside; we reviewed his CT images and labs at the computer, long discussion. NEW: Kali Echeverria is 83 years old, never smoker, NO COPD and NO ASTHMA; he has a paralyzed left diaphragm since 2012, untreated severe obstructive sleep apnea; severe kyphosis and thoracic spondylosis. He was admitted August 03 with new systolic CHF and possible small pulmonary emboli in branches to the RLL; echo showed EF 30-35%, he had a cavitary lesion in the left lower lobe; pleural effusions, compressive atelectasis in lung bases, leg swelling; he was diuresed, treated for pneumonia, diuresed. He was made comfort measures on 08/07/24 with no further workup last admission. He was weak during his stay, had a couple of bad days when he was not fully lucid, last angry and paranoid, thought that Dr Kruse was out to harm him, tried to hit him. His treatment plan was changed and on 08/11 he had a left thoracentesis with 750 ml clear fluid removed, no labs sent but was fluid consistent with transudate due to systolic CHF. He was weak, discharged to rehab on August 13 and was on O2. His daughter and told me that he was so fragile that moving lyn from the stretcher to the bed at rehab seemed to almost break him. He was really tenuous, an this is the whole reason that he was going to rehab, and they knew that if he stayed in the hospital, he nevaeh get weaker. Over the next 24 hours, he became agitated, was picking at his cloths, was worried about how weak he was. Patient was readmitted last night, was discharge to [facility] for rehab on 08/14/2024 yesterday and returns to [facility] within a few hours due to erratic behavior. Pulmonary saw the patient last admission, August 04 for cavitary lung lesions and PE, Dr Kruse, was treated for lung abscess; looked more like pneumonia than malignancy. 08/17/24: patient is minimally alert. He does raise 2 fingers to verbal commands and wiggles his toes. He mumbles and says that he is short of breath. Last night he wore BiPAP rate of 16, pressures 15/5 and 21% FiO2. Currently he is wearing 30% Venti mask with saturations 98%. I decreased him to 24%. His white blood cell count is 4.2, creatinine is 1.01. He is afebrile. Yesterday was -295 mL and cumulative he is +788 mL since admission. His weight today is 58.1. DATA: CT without contrast 08/15/24: EXAMINATION: CT diagnostic chest wo con INDICATION: Pulmonary edema. Pleural effusion. COMPARISON: CT dated 08/03/2024 FINDINGS: bilateral pleural effusions with underlying compressive atelectasis. There is atherosclerosis and ectasia of the aorta. Cardiomegaly with atherosclerosis of the coronary arteries. There is right-sided thoracic volume loss. There is bibasilar atelectasis. Enlarged pulmonary arteries consistent with pulmonary arterial hypertension. Small pericardial effusion. There is gallstones. Small pericardial effusion. IMPRESSION: 1. Moderate pleural effusions with underlying compressive atelectasis. 2: Small pericardial effusion. 3: Cardiomegaly. 4: Pulmonary arterial hypertension. 08/04/24: Echo Summary 1. Very technically difficult study with limited views. 2. Left ventricular chamber dimension is mildly enlarged. 3. Left ventricular systolic function is moderately reduced, estimated at 30-35. 4. Left atrial chamber dimension is severely enlarged. 5. There is trivial pericardial effusion. Right Ventricle Right ventricular chamber dimension is not well visualized. Left Atria Left atrial chamber dimension is severely enlarged. Right Atria Right atrial chamber dimension is not well visualized. no RVSP calculated. 08/03/2024; EXAMINATION: CTA chest PE abdomen pel INDICATION: gen weakness, dimer >1; abd pain COMPARISON: CTPA 01/17/2023; CT abdomen pelvis 12/18/2017. FINDINGS: CHEST: Lung parenchyma and airways: Subsegmental atelectasis/consolidation in the dependent right lung. Minimal dependent left basilar atelectasis. Significant left hemidiaphragm elevation. Significant motion artifact in the lungs. 1.7 cm cavitary lesion in the left lower lobe. Pleura: Small volume left and moderate volume right pleural fluid collections. Thoracic inlet, axillae and chest wall: No thyroid or soft tissue mass. Body wall edema. Thoracic aorta: Ectasia of the aortic arch measuring up to 3.3 cm. Mild atherosclerotic arch calcifications Mediastinum: Shift of the mediastinum to the right. Calcified nodes. Dilated central pulmonary arteries as can be seen with pulmonary hypertension. Heart and pericardium: Cardiomegaly. The heart is shifted in the chest to the right. Small volume pericardial fluid. RV/LV ratio less than 1. Coronary artery calcifications: Mild. Thoracic bones: No acute osseous finding. Severe thoracic kyphosis. Pulmonary arteries: Study quality: Good bolus timing and contrast opacification. Significant motion artifact, with compression of normal anatomic structures which limits evaluation of the segmental and subsegmental pulmonary arteries. However, there are several filling defects within the segmental right lower lobe pulmonary arteries that likely represent pulmonary embolism. ABDOMEN/PELVIS: Liver: Enlarged. Somewhat nodular appearing border. Biliary/Gallbladder: Cholelithiasis. No inflammatory change. Mild pericholecystic fluid, likely related to ascites. No bile duct dilation. Pancreas: No mass or duct dilation. Spleen: Normal. Adrenals:No mass. Kidneys: No obstructing stone or hydronephrosis. 2.0 cm hyperdense exophytic left upper pole cystic lesion. GI tract: Moderate gastric wall edema. Mild wall thickening and edema, with loss of haustration in the distal sigmoid. No small or large bowel dilation. Normal appendix. Mesentery/Peritoneum: No mass or free air. Small volume ascites. Retroperitoneum: No mass. Atherosclerotic calcifications of intra-abdominal arterial vessels. Pelvis: Pelvic organs are within normal limits. Soft Tissues: Diffuse body wall edema. Abdominopelvic bones: No acute osseous finding. IMPRESSION: Segmental nonocclusive pulmonary emboli are suspected in the right lower lobe. Low clot burden. RV/LV ratio less than 1. 1.7 cm cavitary lesion in the right lower lobe, most likely secondary to infection or malignancy. Subsegmental atelectasis/consolidation in the right lower lobe. Chronic left hemidiaphragm elevation with shift of the mediastinum and heart to the right. Cardiomegaly. Small pericardial effusion. Moderate right and small left pleural effusions. Ectasia of the aortic arch. Moderate gastritis. Hepatomegaly. Possible cirrhotic change. 2.0 cm indeterminate density left upper pole lesion, slow interval growth, with increasing density. Consider nonemergent but timely CT or MRI without and with contrast for further characterization. Mild sigmoid colitis. Small volume ascites. Diffuse body wall edema. 01/17/2023: EXAMINATION: CTA chest PE protocol DATE: 01/17/2023 02:54 INDICATION: Syncope. COMPARISON: Chest CT 01/16/2023 FINDINGS: There is marked elevation of left hemidiaphragm. There is atelectasis bilaterally, worst in lingula. Calcified left lung nodules and calcified left hilar and mediastinal lymph nodes are consistent with old granulomatous disease. There is a trace right pleural effusion. The heart size is normal. There are coronary artery calcifications. No pericardial effusion. There is no pulmonary embolus. There is kyphosis and mild spondylosis of thoracic spine. There is severe cervical spondylosis. There is a fracture of right 11th rib. IMPRESSION: 1. No pulmonary embolus. 2. Marked elevation of left hemidiaphragm. 3. Fracture of right 11th rib. 01/18/2023: echo Summary 1. Left ventricular chamber dimension is normal. 2. Left ventricular systolic function is normal, estimated at 65-70%. 3. There is mildly increased left ventricular wall thickness. 4. The left ventricular diastolic function is grade I diastolic dysfunction. 5. Left atrial chamber dimension is mildly enlarged. 6. There is mild aortic valve calcification. 7. There is moderate aortic valve sclerosis. 8. There is mild tricuspid valve regurgitation. 9. Mild pulmonary hypertension, estimated pulmonary arterial systolic pressure is 37 mmHg. 10. There is mild pulmonic regurgitation. Left Ventricle Left ventricular chamber dimension is normal. Left ventricular systolic function is normal, estimated at 65-70%. There is mildly increased left ventricular wall thickness. The left ventricular diastolic function is grade I diastolic dysfunction. Right Ventricle Right ventricular chamber dimension is normal. Right ventricular systolic function is normal. Left Atria Left atrial chamber dimension is mildly enlarged. Right Atria Right atrial chamber dimension is normal. Atrial Septum Intact interatrial septum visualized by color flow imaging. 12/18/2017: EXAMINATION:CT CHEST W/O DATE: 12/18/2017 15:21 INDICATION: Chronic cough. COMPARISON: Chest CT 02/02/2013 FINDINGS: There is marked elevation of left hemidiaphragm. There is mild atelectasis in the inferior lungs. There is a mild burden of chronic reticular opacities in the inferior right lung. Calcified left lung nodules and calcified left hilar lymph nodes are consistent with old granulomatous disease. No pleural effusion. The heart size is normal. There are coronary artery calcifications. There are calcifications of the aortic valve. No pericardial effusion. There is kyphosis, dextroscoliosis, and mild spondylosis of thoracic spine. IMPRESSION: 1. Chronic marked elevation of left hemidiaphragm. 2. Mild chronic lung disease at right lung base. 03/25/2013: PFT report: NORMAL SPIROMETRY. NO ACUTE BRONCHODILATOR RESPONSE. LUNG VOLUMES REVEAL NORMAL TLC BUT INCREASED RV, RV/TLC CONSISTENT WITH AIR TRAPPING. RAW IS MILDLY INCREASED. DLCO IS NORMAL. IMPRESSION: ESSENTIALLY NORMAL STUDY. POSSIBLY MILD AIR TRAPPING. NO ACUTE BRONCHODILATOR RESPONSE. ABG (RA) 7.43/ 45/ 75/ 29/ 94% NORMAL FOR AGE. 01/13/2013: EXAMINATION: CHEST-TWO VIEW INDICATION: Left hemidiaphragm elevation TECHNIQUE: PA and lateral views of the chest were obtained. COMPARISON: 12/30/12 FINDINGS: There is persistent elevation of the left hemidiaphragm. Its position is not changed since the comparison examination. There is suggestion of minimal compressive left lower lobe atelectasis. The lungs are otherwise free of opacities. Moderate degenerative changes are present in the spine. The heart size is normal. No pleural effusion or pneumothorax is seen. IMPRESSION: 1. Elevation of the left hemidiaphragm, unchanged. Recommend correlation with any prior outside hospital imaging. Consider further evaluation with sniff test to evaluate for paralysis and possible chest CT to evaluate for radiographically occult lesion as the cause. Review of Systems Review of Systems: ROS unobtainable: Yes unobtainable due to medical condition and unobtainable due to mental status Exam Const: General: comfortable Orientation/consciousness: oriented to person, oriented to place and oriented to time HENMT: Head: normal to inspection Ears: hearing grossly normal bilaterally Eyes: General: appearance normal, both eyes and all related structures Neck: Neck: normal visual inspection Chest: Chest palpation & inspection: normal inspection of the chest Resp: Effort & Inspection: normal respiratory effort and able to speak in complete sentences Auscultation: crackles, no rales, no rhonchi, no wheezes and diminished lung sounds Cardio: Jugular venous distension: no JVD GI: Inspection: normal to inspection GI Palp: No abdominal tenderness Skin: General skin exam: normal color Extrem: General: normal to inspection Psych: Appearance: grossly normal Objective Data Vital Signs Vital Signs: Vital Signs - 24 hr 08/16/24 16:00 08/16/24 16:00 08/16/24 16:34 Temperature 37.1 C Pulse Rate 110 H 112 H Respiratory Rate 22 H Blood Pressure 110/70 Pulse Oximetry 98 98 Oxygen Delivery Non-Rebreather Mask Oxygen Flow Rate 15 Fraction of Inspired Oxygen 08/16/24 18:00 08/16/24 18:52 08/16/24 20:00 Temperature 37.3 C Pulse Rate 119 H 119 H 125 H Respiratory Rate 24 H 24 H Blood Pressure 115/69 Pulse Oximetry 100 100 Oxygen Delivery Non-Rebreather Mask Oxygen Flow Rate 15 Fraction of Inspired Oxygen 30 08/16/24 20:00 08/16/24 20:00 08/16/24 20:48 Temperature Pulse Rate 125 H 125 H 125 H Respiratory Rate 21 H Blood Pressure Pulse Oximetry 100 Oxygen Delivery BiPAP Oxygen Flow Rate Fraction of Inspired Oxygen 08/16/24 20:48 08/16/24 20:48 08/16/24 21:00 Temperature Pulse Rate 125 H 125 H 99 Respiratory Rate 20 20 24 H Blood Pressure Pulse Oximetry 100 100 Oxygen Delivery Non-Rebreather Mask BiPAP Oxygen Flow Rate 15 Fraction of Inspired Oxygen 100 30 08/16/24 21:00 08/16/24 21:34 08/16/24 23:21 Temperature Pulse Rate 100 101 H 98 Respiratory Rate 20 24 H Blood Pressure Pulse Oximetry 100 Oxygen Delivery BiPAP Oxygen Flow Rate Fraction of Inspired Oxygen 30 08/16/24 23:21 08/16/24 23:21 08/17/24 02:00 Temperature 36.7 C Pulse Rate 98 98 94 Respiratory Rate 22 H Blood Pressure 102/70 Pulse Oximetry 100 Oxygen Delivery Oxygen Flow Rate Fraction of Inspired Oxygen 08/17/24 02:20 08/17/24 02:20 08/17/24 02:20 Temperature Pulse Rate 92 92 92 Respiratory Rate 21 H 20 21 H Blood Pressure Pulse Oximetry 100 100 Oxygen Delivery BiPAP BiPAP Oxygen Flow Rate Fraction of Inspired Oxygen 30 08/17/24 02:35 08/17/24 04:00 08/17/24 04:00 Temperature Pulse Rate 95 90 90 Respiratory Rate 20 20 Blood Pressure Pulse Oximetry 100 Oxygen Delivery BiPAP Oxygen Flow Rate Fraction of Inspired Oxygen 30 08/17/24 04:00 08/17/24 05:17 08/17/24 05:35 Temperature 36.6 C Pulse Rate 90 95 90 Respiratory Rate 24 H 27 H 27 H Blood Pressure 111/64 Pulse Oximetry 100 100 96 Oxygen Delivery BiPAP BiPAP Oxygen Flow Rate Fraction of Inspired Oxygen 08/17/24 06:00 08/17/24 07:53 08/17/24 08:00 Temperature 36.9 C Pulse Rate 94 87 86 Respiratory Rate 22 H Blood Pressure 105/60 Pulse Oximetry 95 Oxygen Delivery Oxygen Flow Rate Fraction of Inspired Oxygen 08/17/24 08:00 08/17/24 08:53 08/17/24 08:53 Temperature Pulse Rate 90 96 96 Respiratory Rate 20 17 17 Blood Pressure Pulse Oximetry 100 95 95 Oxygen Delivery BiPAP BiPAP BiPAP Oxygen Flow Rate Fraction of Inspired Oxygen 30 21 08/17/24 08:53 08/17/24 09:10 08/17/24 09:11 Temperature Pulse Rate 96 111 H Respiratory Rate 17 26 H Blood Pressure Pulse Oximetry 99 Oxygen Delivery Venturi Mask Oxygen Flow Rate 6 Fraction of Inspired Oxygen 30 08/17/24 10:00 08/17/24 10:38 08/17/24 12:00 Temperature Pulse Rate 106 H Respiratory Rate Blood Pressure Pulse Oximetry 97 100 Oxygen Delivery Venturi Mask Venturi Mask Oxygen Flow Rate 3 3 Fraction of Inspired Oxygen 24 24 02/25 12:00 08/17/24 12:16 Temperature 36.6 C Pulse Rate 111 H 106 H Respiratory Rate 24 H Blood Pressure 109/88 Pulse Oximetry 97 Oxygen Delivery Oxygen Flow Rate Fraction of Inspired Oxygen Intake/Output Intake/Output: Intake & Output 08/14/24 08/15/24 08/16/24 08/17/24 23:59 23:59 23:59 23:59 Intake Total 300 1468.8 1505 915 Output Total 1300 1800 300 Balance 300 168.8 -295 615 Meds/Results Medications: Active Medications Generic Name Dose Route Start Last Admin Trade Name Freq PRN Reason Stop Dose Admin Acetaminophen 650 mg 08/14/24 21:40 Acetaminophen 325 Mg Tablet PO Q4H PRN Mild Pain (1-3) or Fever Albuterol/Ipratropium 3 ml 08/15/24 02:00 08/17/24 08:48 Ipratropium 0.5 Mg/Albuterol Sulfate 2.5 Mg Ampul.Neb 3 Ml INHALATION 3 ml Q6HRT MELQUIADES Administration Dextrose 12.5 gm 08/15/24 00:02 Dextrose 50% 25 Gm/50 Ml Syringe IV PUSH PRN PRN Hypoglycemia Protocol Glucose 15 gm 08/15/24 00:02 Glucose Oral Gel 15 Gm Of Glucse In 37.5 Gm Tube PO PRN PRN Hypoglycemia Protocol Ceftriaxone Sodium 1 gm in 50 mls @ 100 mls/hr 08/15/24 21:00 08/16/24 21:20 Rocephin 1 Gm/Ns 50 Ml IVPB 08/17/24 23:59 Infused Q24H MELQUIADES Infusion Azithromycin 500 mg in 250 mls @ 250 mls/hr 08/15/24 21:00 08/16/24 21:54 Zithromax IVPB 08/17/24 23:59 Infused Q24H MELQUIADES Infusion Dextrose 1,000 mls @ 100 mls/hr 08/15/24 00:02 Dextrose 5% 1,000 Ml IVPB PRN PRN Hypoglycemia Protocol Iron Sucrose 400 mg/ Iron 275 mls @ 78.571 mls/hr 08/17/24 11:00 08/17/24 11:15 Sucrose 100 mg/ Sodium IVPB 08/17/24 14:29 78.57 mls/hr Chloride ONCE ONE Administration Insulin Aspart 2 - 5 units 08/15/24 08:00 08/17/24 12:04 Insulin Aspart (*Bkc) 100 Units/Ml SUB-Q Not Given [facility] Protocol Insulin Aspart 1 - 2 units 08/15/24 21:00 08/16/24 20:51 Insulin Aspart (*Bkc) 100 Units/Ml SUB-Q Not Given HS [facility] Protocol Lorazepam 0.5 mg 08/14/24 23:25 08/17/24 04:10 Lorazepam Inj (*Crx) 2 Mg/Ml Vial IV PUSH 0.5 mg Q6H PRN Administration Anxiety Methylprednisolone Sodium Succinate 40 mg 08/15/24 16:05 08/17/24 13:57 Methylprednisolone Sod Succ 40 Mg Vial IV PUSH 40 mg Q8HR MELQUIADES Administration Radiology Results: ITS Impressions Head CT 08/14/24 17:45 IMPRESSION: No acute intracranial findings. Chest X-Ray 08/14/24 17:53 IMPRESSION: Bibasilar atelectasis versus pneumonia. Underlying pulmonary edema is not excluded Chest CT 08/15/24 11:45 IMPRESSION: 1. Moderate pleural effusions with underlying compressive atelectasis. 2: Small pericardial effusion. 3: Cardiomegaly. 4: Pulmonary arterial hypertension. Labs Labs: Laboratory Results - last 24 hr 08/16/24 08/16/24 08/17/24 15:58 20:38 04:17 WBC 4.2 L RBC 2.84 L Hgb 8.3 L Hct 26.9 L MCV 94.7 MCH 29.2 D MCHC 30.9 L RDW 22.5 H Plt Count 153 MPV 10.0 Immature Gran % (Auto) 0.5 Neut % (Auto) 90.3 H Lymph % (Auto) 5.1 L Jasper % (Auto) 4.1 Eos % (Auto) 0.0 Baso % (Auto) 0.0 L Lymph # (Auto) 0.21 L Jasper # (Auto) 0.2 Eos # (Auto) 0.0 Baso # (Auto) 0.0 Abs Immat Gran (auto) 0.02 Absolute Neuts (auto) 3.8 Absolute Nucleated RBC 0.000 Band Neutrophils % Not Reportable Nucleated RBC % 0.0 Platelet Estimate Adequate Anisocytosis 1+ Schistocytes None seen Sodium 144 Potassium 3.3 L Chloride 110 H Carbon Dioxide 30 Anion Gap 4 BUN 33 H Creatinine 1.01 Estim Creat Clear Calc 40 Estimated GFR > 60 Glucose 170 H POC Capillary Glucose 153 H 189 H Calcium 8.8 Magnesium 2.5 H Total Bilirubin 0.3 AST 38 ALT 24 Alkaline Phosphatase 58 NT-Pro-B Natriuret Pep > 93073 H Total Protein 6.0 L Albumin 3.0 L 08/17/24 08/17/24 07:43 11:25 WBC RBC Hgb Hct MCV MCH MCHC RDW Plt Count MPV Immature Gran % (Auto) Neut % (Auto) Lymph % (Auto) Jasper % (Auto) Eos % (Auto) Baso % (Auto) Lymph # (Auto) Jasper # (Auto) Eos # (Auto) Baso # (Auto) Abs Immat Gran (auto) Absolute Neuts (auto) Absolute Nucleated RBC Band Neutrophils % Nucleated RBC % Platelet Estimate Anisocytosis Schistocytes Sodium Potassium Chloride Carbon Dioxide Anion Gap BUN Creatinine Estim Creat Clear Calc Estimated GFR Glucose POC Capillary Glucose 163 H 160 H Calcium Magnesium Total Bilirubin AST ALT Alkaline Phosphatase NT-Pro-B Natriuret Pep Total Protein Albumin
--- NOTE | 2024-08-17 15:48 | PM.IMPN ---
Progress Note: A&P Assessment and Plan (1) Acute on chronic respiratory failure with hypoxia and hypercapnia: Code(s): J96.21 - Acute and chronic respiratory failure with hypoxia; J96.22 - Acute and chronic respiratory failure with hypercapnia Status: Acute (2) Acute alteration in mental status: Code(s): R41.82 - Altered mental status, unspecified Status: Acute Plan COPD exacerbation discussed with Pulmonology and he noted that patient does not have COPD exacerbation monitor CHF exacerbation, diastolic ECHO from 08/04 EF 30-35% CT Chest showed bilateral pleural effusion and pericardial effusion Continue lasix 20 mg IV bid monitor Respiratory acidosis with metabolic alkalosis resolving Continue Acetazolamide SILVIA on BiPAP at night Anemia Hb 8.8, ferritin 23 and isat 7 Start IV replacement 1000/1000 hx of Vit D deficiency Vit D level 22.5 give one dose 50k po once HTN titrate home meds with clinical course BPH continue Tamsulosin DVT prophylaxis on SCDS, pending FOBT pending Discussed with daughter and mother on the phone about goals of care and they noted they will discuss and today and reach out to us with their decision. awaiting their decision Subjective Date/time seen: 08/17/24 15:48 Interval history: Comfortable at bedside but facial grimaces on to pain stimuli Review of Systems Review of Systems: All systems reviewed & are unremarkable except as noted in HPI and below (HPI) Exam Const: General: comfortable and no acute distress Other: Disoriented Eyes: Pupils: Equal, round and reactive pupils present Resp: Other: Scant bibasilar crackles, rhonchi left lower lobe, coarse breath sounds Cardio: Rate: regular rate Rhythm: regular rhythm Neuro: Cranial nerves: Yes Equal, round and reactive pupils present Extrem: General: no edema Other: Lipodermatosclerosis. Thickened and wrinkled skin, no edema. Objective Data Vital Signs Vital Signs: Vital Signs - 24 hr 08/16/24 16:00 08/16/24 16:00 08/16/24 16:34 Temperature 98.8 F Pulse Rate 110 H 112 H Respiratory Rate 22 H Blood Pressure 110/70 Pulse Oximetry 98 98 Oxygen Delivery Non-Rebreather Mask Oxygen Flow Rate 15 Fraction of Inspired Oxygen 08/16/24 18:00 08/16/24 18:52 08/16/24 20:00 Temperature 99.1 F Pulse Rate 119 H 119 H 125 H Respiratory Rate 24 H 24 H Blood Pressure 115/69 Pulse Oximetry 100 100 Oxygen Delivery Non-Rebreather Mask Oxygen Flow Rate 15 Fraction of Inspired Oxygen 30 08/16/24 20:00 08/16/24 20:00 08/16/24 20:48 Temperature Pulse Rate 125 H 125 H 125 H Respiratory Rate 21 H Blood Pressure Pulse Oximetry 100 Oxygen Delivery BiPAP Oxygen Flow Rate Fraction of Inspired Oxygen 08/16/24 20:48 08/16/24 20:48 08/16/24 21:00 Temperature Pulse Rate 125 H 125 H 99 Respiratory Rate 20 20 24 H Blood Pressure Pulse Oximetry 100 100 Oxygen Delivery Non-Rebreather Mask BiPAP Oxygen Flow Rate 15 Fraction of Inspired Oxygen 100 30 08/16/24 21:00 08/16/24 21:34 08/16/24 23:21 Temperature Pulse Rate 100 101 H 98 Respiratory Rate 20 24 H Blood Pressure Pulse Oximetry 100 Oxygen Delivery BiPAP Oxygen Flow Rate Fraction of Inspired Oxygen 30 08/16/24 23:21 08/16/24 23:21 08/17/24 02:00 Temperature 98.1 F Pulse Rate 98 98 94 Respiratory Rate 22 H Blood Pressure 102/70 Pulse Oximetry 100 Oxygen Delivery Oxygen Flow Rate Fraction of Inspired Oxygen 08/17/24 02:20 08/17/24 02:20 08/17/24 02:20 Temperature Pulse Rate 92 92 92 Respiratory Rate 21 H 20 21 H Blood Pressure Pulse Oximetry 100 100 Oxygen Delivery BiPAP BiPAP Oxygen Flow Rate Fraction of Inspired Oxygen 30 08/17/24 02:35 08/17/24 04:00 08/17/24 04:00 Temperature Pulse Rate 95 90 90 Respiratory Rate 20 20 Blood Pressure Pulse Oximetry 100 Oxygen Delivery BiPAP Oxygen Flow Rate Fraction of Inspired Oxygen 30 08/17/24 04:00 08/17/24 05:17 08/17/24 05:35 Temperature 97.9 F Pulse Rate 90 95 90 Respiratory Rate 24 H 27 H 27 H Blood Pressure 111/64 Pulse Oximetry 100 100 96 Oxygen Delivery BiPAP BiPAP Oxygen Flow Rate Fraction of Inspired Oxygen 08/17/24 06:00 08/17/24 07:53 08/17/24 08:00 Temperature 98.5 F Pulse Rate 94 87 86 Respiratory Rate 22 H Blood Pressure 105/60 Pulse Oximetry 95 Oxygen Delivery Oxygen Flow Rate Fraction of Inspired Oxygen 08/17/24 08:00 08/17/24 08:53 08/17/24 08:53 Temperature Pulse Rate 90 96 96 Respiratory Rate 20 17 17 Blood Pressure Pulse Oximetry 100 95 95 Oxygen Delivery BiPAP BiPAP BiPAP Oxygen Flow Rate Fraction of Inspired Oxygen 30 21 08/17/24 08:53 08/17/24 09:10 08/17/24 09:11 Temperature Pulse Rate 96 111 H Respiratory Rate 17 26 H Blood Pressure Pulse Oximetry 99 Oxygen Delivery Venturi Mask Oxygen Flow Rate 6 Fraction of Inspired Oxygen 30 08/17/24 10:00 08/17/24 10:38 08/17/24 12:00 Temperature Pulse Rate 106 H Respiratory Rate Blood Pressure Pulse Oximetry 97 100 Oxygen Delivery Venturi Mask Venturi Mask Oxygen Flow Rate 3 3 Fraction of Inspired Oxygen 24 24 08/17/24 12:00 08/17/24 12:16 08/17/24 14:00 Temperature 97.9 F Pulse Rate 111 H 106 H 110 H Respiratory Rate 24 H Blood Pressure 109/88 Pulse Oximetry 97 Oxygen Delivery Oxygen Flow Rate Fraction of Inspired Oxygen 08/17/24 14:49 08/17/24 15:02 Temperature Pulse Rate 110 H 104 H Respiratory Rate 20 20 Blood Pressure Pulse Oximetry Oxygen Delivery Oxygen Flow Rate Fraction of Inspired Oxygen Intake/Output Intake/Output: Intake & Output 08/14/24 08/15/24 08/16/24 08/17/24 23:59 23:59 23:59 23:59 Intake Total 300 1468.8 1505 915 Output Total 1300 1800 300 Balance 300 168.8 -295 615 Meds/Results Medications: Active Medications Generic Name Dose Route Start Last Admin Trade Name Freq PRN Reason Stop Dose Admin Acetaminophen 650 mg 08/14/24 21:40 Acetaminophen 325 Mg Tablet PO Q4H PRN Mild Pain (1-3) or Fever Albuterol/Ipratropium 3 ml 08/15/24 02:00 08/17/24 14:47 Ipratropium 0.5 Mg/Albuterol Sulfate 2.5 Mg Ampul.Neb 3 Ml INHALATION 3 ml Q6HRT MELQUIADES Administration Dextrose 12.5 gm 08/15/24 00:02 Dextrose 50% 25 Gm/50 Ml Syringe IV PUSH PRN PRN Hypoglycemia Protocol Glucose 15 gm 08/15/24 00:02 Glucose Oral Gel 15 Gm Of Glucse In 37.5 Gm Tube PO PRN PRN Hypoglycemia Protocol Azithromycin 500 mg in 250 mls @ 250 mls/hr 08/15/24 21:00 08/16/24 21:54 Zithromax IVPB 08/17/24 23:59 Infused Q24H MELQUIADES Infusion Dextrose 1,000 mls @ 100 mls/hr 08/15/24 00:02 Dextrose 5% 1,000 Ml IVPB PRN PRN Hypoglycemia Protocol Ampicillin Sodium/Sulbactam Sodium 3 gm in 100 mls @ 200 mls/hr 08/17/24 18:00 Unasyn 3 Gm/Ns 100 Ml IVPB 08/26/24 18:29 Q6HR MELQUIADES Insulin Aspart 2 - 5 units 08/15/24 08:00 08/17/24 12:04 Insulin Aspart (*Bkc) 100 Units/Ml SUB-Q Not Given TIDWM MELQUIADES Protocol Insulin Aspart 1 - 2 units 08/15/24 21:00 08/16/24 20:51 Insulin Aspart (*Bkc) 100 Units/Ml SUB-Q Not Given HS [facility] Protocol Lorazepam 0.5 mg 08/14/24 23:25 08/17/24 04:10 Lorazepam Inj (*Crx) 2 Mg/Ml Vial IV PUSH 0.5 mg Q6H PRN Administration Anxiety Radiology Results: ITS Impressions Head CT 08/14/24 17:45 IMPRESSION: No acute intracranial findings. Chest X-Ray 08/14/24 17:53 IMPRESSION: Bibasilar atelectasis versus pneumonia. Underlying pulmonary edema is not excluded Chest CT 08/15/24 11:45 IMPRESSION: 1. Moderate pleural effusions with underlying compressive atelectasis. 2: Small pericardial effusion. 3: Cardiomegaly. 4: Pulmonary arterial hypertension. Labs Labs: Laboratory Results - last 24 hr 08/16/24 08/16/24 08/17/24 15:58 20:38 04:17 WBC 4.2 L RBC 2.84 L Hgb 8.3 L Hct 26.9 L MCV 94.7 MCH 29.2 D MCHC 30.9 L RDW 22.5 H Plt Count 153 MPV 10.0 Immature Gran % (Auto) 0.5 Neut % (Auto) 90.3 H Lymph % (Auto) 5.1 L [place] % (Auto) 4.1 Eos % (Auto) 0.0 Baso % (Auto) 0.0 L Lymph # (Auto) 0.21 L [place] # (Auto) 0.2 Eos # (Auto) 0.0 Baso # (Auto) 0.0 Abs Immat Gran (auto) 0.02 Absolute Neuts (auto) 3.8 Absolute Nucleated RBC 0.000 Band Neutrophils % Not Reportable Nucleated RBC % 0.0 Platelet Estimate Adequate Anisocytosis 1+ Schistocytes None seen Sodium 144 Potassium 3.3 L Chloride 110 H Carbon Dioxide 30 Anion Gap 4 BUN 33 H Creatinine 1.01 Estim Creat Clear Calc 40 Estimated GFR > 60 Glucose 170 H POC Capillary Glucose 153 H 189 H Calcium 8.8 Magnesium 2.5 H Total Bilirubin 0.3 AST 38 ALT 24 Alkaline Phosphatase 58 NT-Pro-B Natriuret Pep > 81598 H Total Protein 6.0 L Albumin 3.0 L 08/17/24 08/17/24 07:43 11:25 WBC RBC Hgb Hct MCV MCH MCHC RDW Plt Count MPV Immature Gran % (Auto) Neut % (Auto) Lymph % (Auto) [place] % (Auto) Eos % (Auto) Baso % (Auto) Lymph # (Auto) [place] # (Auto) Eos # (Auto) Baso # (Auto) Abs Immat Gran (auto) Absolute Neuts (auto) Absolute Nucleated RBC Band Neutrophils % Nucleated RBC % Platelet Estimate Anisocytosis Schistocytes Sodium Potassium Chloride Carbon Dioxide Anion Gap BUN Creatinine Estim Creat Clear Calc Estimated GFR Glucose POC Capillary Glucose 163 H 160 H Calcium Magnesium Total Bilirubin AST ALT Alkaline Phosphatase NT-Pro-B Natriuret Pep Total Protein Albumin
[2024-08-17 16:24] LABS: Glucose Point of Care 142 mg/dl (65-105)
[2024-08-17] MEDS: FUROSEMIDE INJ 40 MG/4 ML VIAL 20 MG IV PUSH (17:05)
[2024-08-17] MEDS: AMPICILLIN SULB 3 GM/NS 100 ML 3 GM/100 ML VIAL IVPB (17:05)
[2024-08-17] MEDS: MORPHINE SULFATE INJ (*CRX) 10 MG/ML AMP 5 MG IV PUSH (18:32)
[2024-08-17] MEDS: LORazepam INJ (*CRX) 2 MG/ML VIAL IV PUSH (18:33)
[2024-08-18] MEDS: LORazepam INJ (*CRX) 2 MG/ML VIAL IV PUSH (04:31)
[2024-08-18] MEDS: MORPHINE SULFATE (*CRX) 2 MG/ML INJ IV PUSH (04:31)
--- NOTE | 2024-08-18 05:11 | PC.NURSE ---
have reviewed Estefany's assessment of pt. and charting. Agree with Deanne's assessment charting of pt.
--- NOTE | 2024-08-18 08:50 | P.DN_ITS ---
Discharge Summary Date and Time Date of : 08/18/24 Time of : 07:34 Provider Pronounced By: 2 RNs Name of First RN That Pronounced: La Guerra RN Name of Second RN That Pronounced: Radha Feng RN Probable Cause of Probable Cause of : Acute on chronic respiratory failure with hypoxia and hypercapnia: Summary Hospital Course: 83 y/o male presented with lower extremities edema after he had syncopal episode, patient is being diuresed with frusemide 40mg IV BID, and edema in lower extremities is improving. 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, patient is seen by title one teacher, once the patient is clinically stable will need further work up his cardiomyopathy patient want to wait until he is out of the hospital also patient is found to have significant pleural effusion and possible lung mass, patient is seen by extension specialist who discussed with the radiologist does not suspect patient PE, patient does have a large pleural effusion and suspicious for lung mass, on plan was to have thoracentesis however patient became agitated, violent, and not cooperative, he had told his he does not want anymore work up, patient had agreed and considering hospice care for the patient and stopped the workup and placed patient under comfort measure. today patient is little better but does not want any work up now, will continue to monitor. on 08/08 patient still remained at his baseline, did not want any work up and wants to go home. on 08/09 was more alert and oriented and his and daughter were present along with his nurse and reproductive healthcare assistant, patient now wants have treatment including thoracentesis, resumed his treatments and patient had thoracentesis on 08/11 and 750cc of clear yellow fluid was collected suspect transudate, patient still agitation and not cooperative on and off, patient family will discuss with reproductive healthcare assistant for planning. patient with large pleural effusion s/p thoracentesis, there was no significant improvement, patient remained agitated and not cooperative with the treatments. patient was found by tech at 7:30am with shallow breathing while taking his vitals, RN was called to reassess the patient and patient was not breathing and was pronounced at 7:34am Additional Data Confirmation of as documented by pronouncing clinician: Pupillary Reflex, Palpable Pulses, Response to Stimuli, Heart Tones and Breath Sounds Name of Provider Notified: Dr. Haines Time Provider Notified: 07:40 Provider Requests Autopsy: No Family Requests Autopsy: No [employer] Apprentice Notified: Yes Date [facility] Notified of : 08/18/24 Time [facility] Notified of : 07:42
--- NOTE | 2024-08-18 10:21 | PC.NURSE ---
Assessed patient at 0715 and noted shallow respirations. Tech went in to do VS at 0730 and grabbed this RN to reassess once no respirations were noted.
== END 2024-08-18 07:34 | disposition expired | DRG 291 ==
LOC: ANHED 21:29 → ANHIMU 22:17
PROVIDERS: Internal Medicine; Internal Medicine Pulmonary Disease; Admitting Provider General Practice; Emergency Provider Physician Assistant; PCP Family Medicine; Visit Provider Family Medicine
DX: I11.0 Hypertensive heart disease with heart failure (principal); I50.43 Acute on chronic combined systolic (congestive) and diastolic (congestive) heart failure; J96.21 Acute and chronic respiratory failure with hypoxia; J96.22 Acute and chronic respiratory failure with hypercapnia; J91.8 Pleural effusion in other conditions classified elsewhere; J44.1 Chronic obstructive pulmonary disease with (acute) exacerbation; N39.0 Urinary tract infection, site not specified; I42.9 Cardiomyopathy, unspecified; R41.82 Altered mental status, unspecified; Z66 Do not resuscitate; G47.33 Obstructive sleep apnea (adult) (pediatric); D64.9 Anemia, unspecified; N40.0 Benign prostatic hyperplasia without lower urinary tract symptoms; M47.814 Spondylosis without myelopathy or radiculopathy, thoracic region; E78.2 Mixed hyperlipidemia; J98.4 Other disorders of lung; Z51.5 Encounter for palliative care; Z79.01 Long term (current) use of anticoagulants; Z86.711 Personal history of pulmonary embolism; Z78.1 Physical restraint status
CPT/HCPCS: 36415; 36600; 70450; 71045; 71250; 80053; 81001; 82306; 82375; 82728; 82805; 82948; 83050; 83540; 83550; 83690; 83735; 83880; 85018; 85025; 85610; 85730; 87040; 87086; 87637; 87641; 93005; 93970; 94002; 94003; 94640; 96365; 96366; 96367; 96372; 96375; 99291; G0378; J0295; J0456; J0696; J1120; J1630; J1756; J1938; J2060; J2270; J2359; J2919; J3370; J3480; J7040; J7042; J7050